=== PATIENT | male | born 1965 | race Two or more races ===

== ENCOUNTER 2020-09-09 08:08 | Emergency (ER) | payer OTHER, SELFPAY ==
[2020-09-09 08:19] VITALS: BP 132/79; PULSE 107; RESP 24; TEMP 36.8; O2SAT 97; BMI 31.4
--- NOTE | 2020-09-09 08:34 | XR_ITS ---
EXAMINATION: XR RIBS, LEFT CLINICAL INFORMATION: Rib pain. Fall. COMPARISON: Previous chest x-ray most recent June 2019 TECHNIQUE: 3 views of the left ribs and one view of the chest were obtained. FINDINGS: The cardiac and mediastinal contours are stable. The lungs are clear. There is no pleural effusion or pneumothorax. No acute rib fracture is seen. There are old right proximal rib fractures. There is an old right distal clavicle fracture. There are degenerative changes of the spine and left shoulder joint. XR/XR ribs LT min 3V w CXR1V IMPRESSION: No evidence for acute disease in the chest. No acute fracture seen.
--- NOTE | 2020-09-09 08:35 | ED_ITS ---
HPI - Fall General Chief Complaint: Fall Stated Complaint: abd pain Time Seen by Provider: 09/09/20 08:20 Source: patient Mode of arrival: ambulatory Limitations: no limitations History of Present Illness HPI Narrative: patient comes to the emergency room complaining of left-sided rib pain. Patient states that last night he fell in the tub while taking a shower. Patient complaining of rib pain, no abdominal pain, no back pain. Patient denies hitting his head, no loss of consciousness. Patient denies being on blood thinners. complaint: fall Related Data Allergies Allergy/AdvReac Type Severity Reaction Status Date / Time No Known Allergies Allergy Unverified 07/30/20 15:42 [No Known Allergies*] Motrin Allergy Unknown Uncoded 12/23/19 00:00 Review of Systems Review of Systems: Constitutional : No Weight loss, No Fever, No Chills, No Night Sweats, No Fatigue, No Malaise ENT/Mouth : No Hearing loss, No Ear Pain, No Nasal Congestion, No Sinus Pain, No Hoarseness, No sore throat, No Rhinorrhea, No Swallowing Difficulty Eyes: No Eye Pain, No Swelling, No Redness, No Foreign Body, No Discharge, No Vision Changes Cardiovascular : No Chest Pain, No SOB, No Dyspnea on Exertion, No Orthopnea, No Edema, No Palpitations Respiratory : No Cough, No Sputum, No Wheezing, No Smoke Exposure, No Dyspnea, left-sided rib pain worsens with deep inspirations, movement Gastrointestinal : No Nausea, No Vomiting, No Diarrhea, No Constipation, No abdominal Pain, No Hematochezia, No Melena Genitourinary : no irregular bleeding, No Dysuria, No Urinary Frequency, No Hematuria, No Urinary Incontinence, No Urgency, No Flank Pain, No Urinary Flow Changes, No Hesitancy Musculoskeletal : No joint pain, No Myalgias, No Joint Swelling Skin : No Skin Lesions, No rash Neuro : No Weakness, No Numbness, No Paresthesias, No Loss of Consciousness, No Dizziness, No Headache Psych : No Anxiety/Panic, No Depression, No SI/HI/AH/VH, No Social Issues, Heme/Lymph: No Bruising, No Bleeding,No Lymphadenopathy Endocrine : No Polyuria, No Polydipsia, No Temperature Intolerance Yes all other systems are reviewed and are negative PMFSH Past Medical History Medical History Diabetes HTN (hypertension) Stroke Social History Social History Alcohol intake: current Alcohol intake frequency: 0-2 drinks per day Alcohol type: beer and wine Smoking Status: Current every day smoker Use of substances other than those prescribed or required for medical reasons: No Advance Directives: No Advance Directives Information Provided: No Physical Exam Vital Signs: Vital Signs: Vital Signs Temp Pulse Resp BP Pulse Ox 09/09/20 08:39 24 H 09/09/20 08:19 98.3 F 107 H 24 H 132/79 97 Body Mass Index 31.4 Appearance: Alert. Oriented X3. No acute distress. Eyes: Pupils equal, round and reactive to light. ENT: Pharynx normal. Neck: Normal inspection. Neck supple. No lymph nodes noted. No crepitus CVS: Normal heart rate and rhythm. Pulses normal. Normal S1 and S2. significant pain to palpation over the lower ribs Respiratory: No respiratory distress. Breath sounds normal. No Wheezing. No rales Abdomen: Soft and nontender. No rigidity. No distention. good BS x4, bedside ultrasound within normal limits, no free fluid visualized Skin: Skin warm and dry. Normal skin color. Normal skin turgor. no ecchymosis in the abdomen or flanks Extremities: No lower extremity edema. No lower extremity edema. No Lacerati ons. No Rash Neuro: Oriented X 3. No motor deficit. No sensory deficit. Moving all extermities. No slurred speech. Course Reevaluation(s) Reevaluation #1: I discussed with the patient that his x-ray was within normal limits, no fractured ribs. The lady who does the registration, went to the patient's room, asked him the routine questions, patient was very belligerent to her and told her that she was not too many questions, patient got dressed and left MDM - Fall Imaging Data ribs x-ray: Radiologist's impression: The cardiac and mediastinal contours are stable. The lungs are clear. There is no pleural effusion or pneumothorax. No acute rib fracture is seen. There are old right proximal rib fractures. There is an old right distal clavicle fracture. There are degenerative changes of the spine and left shoulder joint. Discharge Plan Discharge Clinical Impression: Costochondritis, acute Patient Disposition: Elopement
[2020-09-09 08:39] VITALS: RESP 24
[2020-09-09] MEDS: Morphine Sulfate 2 MG/ML CARTRIDGE IM (08:39)
--- NOTE | 2020-09-09 09:19 | PC.NURSE ---
PATIENT BECAME ANGRY WHEN REGISTRATION WAS ASKING QUESTIONS, BEGAN YELLING AT STAFF. PT DECLINED TO WAIT, DR. SORTO AWARE. PT ELOPED FROM ED WITH STEADY GAIT, NO DISTRESS NOTED.
== END 2020-09-09 09:25 | disposition left against medical advice (07) ==
PROVIDERS: Emergency Provider Emergency Medicine
DX: S30.811A Abrasion of abdominal wall, initial encounter (principal); M94.0 Chondrocostal junction syndrome [Tietze]; R07.81 Pleurodynia; I10 Essential (primary) hypertension; W18.2XXA Fall in (into) shower or empty bathtub, initial encounter; Y93.E1 Activity, personal bathing and showering; Y92.002 Bathroom of unspecified non-institutional (private) residence as the place of occurrence of the external cause; F17.200 Nicotine dependence, unspecified, uncomplicated; Z71.6 Tobacco abuse counseling
CPT/HCPCS: 71101; 96372; 99284; J2270

== ENCOUNTER 2020-09-09 17:53 | Emergency (ER) | payer OTHER, SELFPAY ==
[2020-09-09 18:36] VITALS: BP 148/78; PULSE 97; RESP 16; TEMP 36.3; O2SAT 98; BMI 24.3
--- NOTE | 2020-09-09 19:13 | ED_ITS ---
HPI - Extremity Problem General Chief complaint: Extremity Injury, Upper Stated complaint: fall rib pain Time Seen by Provider: 09/09/20 19:08 Source: patient Mode of arrival: ambulatory Limitations: no limitations History of Present Illness HPI Narrative: 55yoM c PMHx of Stroke, HTN and DM presenting to the ED c c/o left lateral lower rib cage pain after he sustain a fall while in the shower on hair conditioner he believes. Denies head injury or loss of consciousness. Denies any other injuries complaints or concerns. Denies being on any blood thinners. Related Data Previous Rx's Medication Instructions Recorded cyclobenzaprine 10 mg PO TID PRN #10 tab 09/09/20 naproxen 500 mg PO BID PRN #10 tab 09/09/20 oxycodone-acetaminophen [Percocet] 1 tab PO Q6H PRN #10 tab 09/09/20 Allergies Allergy/AdvReac Type Severity Reaction Status Date / Time No Known Allergies Allergy Unverified 07/30/20 15:42 [No Known Allergies*] Motrin Allergy Unknown Uncoded 12/23/19 00:00 Review of Systems Review of Systems: ENT/Mouth : No Hearing loss, No Ear Pain, No Nasal Congestion, Eyes: No Eye Pain, No Swelling, No Vision Changes Cardiovascular : + Chest wall pain. No Chest Pain, No SOB, No Dyspnea on Exertion, No Orthopnea, No Edema, No Palpitations Respiratory : No Cough, No Sputum, No Wheezing, No Dyspnea Musculoskeletal : No joint pain, No Myalgias, No Joint Swelling Skin : No Skin Lesions, No rash Neuro : No Weakness, No Numbness, No Paresthesias, No Loss of Consciousness, No Dizziness, No Headache Yes all other systems are reviewed and are negative [facility] Past Medical History Medical History (Updated 09/09/20 @ 19:21 by THOMAS Quiroz) Diabetes HTN (hypertension) Stroke Social History Social History Alcohol intake: never Smoking Status: Current every day smoker Smoked in Last 30 Days: No Use of substances other than those prescribed or required for medical reasons: No Advance Directives: No Advance Directives Information Provided: No Physical Exam Vital Signs: Vital Signs: Vital Signs Temp Pulse Resp BP Pulse Ox 09/09/20 18:36 97.4 F 97 16 148/78 H 98 Body Mass Index 24.3 vital signs have been reviewed as normal and appeared to be correct. Blood pressure normal. Heart rate normal. Respiration rate normal. Temperature normal. Oxygen saturation normal. Appearance: Alert. Oriented X3. No acute distress. Head: Normal external exam. Normocephalic. Atraumatic. No Stahl signs noted. No raccoon eyes noted Eyes: PERRLA. EOMI. Conjunctiva and sclera normal. Eyelids normal. ENT: EAC normal. TM's Normal. Pharynx normal. Uvula midline. Moist mucous membranes. No trismus noted. No drooling noted. No muffled voice noted. Neck: Normal inspection. Neck supple. FROM. No adenopathy. Thyroid Normal. No meningeal signs. No neck mass noted. CVS: Normal heart rate and rhythm. Heart sound normal. No murmurs noted. Pulses normal throughout. Respiratory: No respiratory distress. Painless inspiration. Breath sounds normal. No wheezes/rales/rhonchi noted. Chest tender to palpation of left lateral lower rib cage. No obvious deformities. No crepitus noted. No rashes/lesion/induration/contusions/lacerations or signs of infection noted. No accessory muscle usage noted or decreased air movement noted. Abdomen: Soft and nontender. Bowel sounds normal in all 4 quadrants. No distention noted. No organomegaly noted. No visible injury noted. Back: No CVA tenderness. Full range of motion noted. Skin: Skin warm and dry. Normal skin color. Normal skin turgor. No rashes/lesions/lacerations noted. Extremities: No lower extremity edema. Extremities exhibit normal range of motion. Extremities nontender. Neuro: Oriented X 3. No motor deficit. No sensory deficit. Reflexes normal. Course Course Course Narrative: 55-year-old male presenting to the ED after mechanical fall in the shower to standing injury to his left lateral ribcage lower aspect. Denies head injury or loss of consciousness. Denies being on any blood thinners. Reports he was here earlier today although they never gave him his results. Denies any new injuries. X-ray results negative for any acute processes therefore will DC home with symptomatic treatment along with instructions to return if any new or worsening symptoms to follow-up with primary care provider. Patient understands agrees the plan. MDM - Extremity (Nontraumatic) Imaging Data rib chest left sided: Attestation: I personally reviewed and interpreted this imaging study as follows: Radiologist's impression: FINDINGS: The cardiac and mediastinal contours are stable. The lungs are clear. There is no pleural effusion or pneumothorax. No acute rib fracture is seen. There are old right proximal rib fractures. There is an old right distal clavicle fracture. There are degenerative changes of the spine and left shoulder joint. XR/XR ribs LT min 3V w CXR1V IMPRESSION: No evidence for acute disease in the chest. No acute fracture seen. Discharge Plan Discharge Clinical Impression: Rib tenderness Rib sprain Qualifiers: Encounter type: initial encounter Qualified Code(s): S23.41XA - Sprain of ribs, initial encounter Fall Qualifiers: Encounter type: initial encounter Qualified Code(s): W19.XXXA - Unspecified f all, initial encounter Patient Disposition: Home, Self-Care Instructions: Chest Wall Pain (ED), Rib Contusion (ED) Additional Instructions: Follow-up with your primary care provider. Return if any new or worsening symptoms Prescriptions: New oxycodone-acetaminophen [Percocet] 5-325 mg tablet 1 tab PO Q6H PRN (Reason: pain) Qty: 10 RF: 0 cyclobenzaprine 10 mg tablet 10 mg PO TID PRN (Reason: muscle spasm) Qty: 10 RF: 0 naproxen 500 mg tablet 500 mg PO BID PRN (Reason: pain) Qty: 10 RF: 0 Stand Alone Forms: Work/School Release Print Language: Divehi
[2020-09-09] MEDS: oxyCODONE HCl Immed Release 5 MG TABLET PO (20:05)
[2020-09-09] MEDS: Cyclobenzaprine HCl 10 MG TABLET PO (20:05)
[2020-09-09] MEDS: Lidocaine 4 % Patch ADH..PATCH 1 PATCH TRANSDERMA (20:06)
== END 2020-09-09 20:10 | disposition home or self-care (01) ==
PROVIDERS: Emergency Provider Internal Medicine
DX: S23.41XA Sprain of ribs, initial encounter (principal); S30.811A Abrasion of abdominal wall, initial encounter; R07.81 Pleurodynia; W18.2XXA Fall in (into) shower or empty bathtub, initial encounter; Y93.E1 Activity, personal bathing and showering; Y92.002 Bathroom of unspecified non-institutional (private) residence as the place of occurrence of the external cause; Y99.9 Unspecified external cause status; Z79.899 Other long term (current) drug therapy; F17.200 Nicotine dependence, unspecified, uncomplicated; Z71.6 Tobacco abuse counseling
CPT/HCPCS: 99283; 99284

== ENCOUNTER 2020-10-31 11:00 | Emergency (ER) | payer OTHER, SELFPAY ==
--- NOTE | 2020-10-31 11:11 | ED_ITS ---
HPI - Extremity Problem General Chief complaint: General Medical Stated complaint: fall Time Seen by Provider: 10/31/20 11:03 Source: patient Mode of arrival: ambulatory Limitations: no limitations Related Data Previous Rx's Medication Instructions Recorded cyclobenzaprine 10 mg PO TID PRN #10 tab 09/09/20 naproxen 500 mg PO BID PRN #10 tab 09/09/20 oxycodone-acetaminophen [Percocet] 1 tab PO Q6H PRN #10 tab 09/09/20 clopidogrel 75 mg tablet 75 mg PO DAILY 90 Days #90 tab 10/02/20 Allergies Allergy/AdvReac Type Severity Reaction Status Date / Time No Known Allergies Allergy Unverified 07/30/20 15:42 [No Known Allergies*] Motrin Allergy Unknown Uncoded 12/23/19 00:00 [facility] Past Medical History Medical History Diabetes HTN (hypertension) Stroke Social History Social History Alcohol intake: never Smoking Status: Current every day smoker Advance Directives: No Advance Directives Information Provided: Yes Discharge Plan Discharge Prescriptions: No Action clopidogrel [Plavix] 75 mg tablet 75 mg PO DAILY 90 Days Qty: 90 RF: 1 oxycodone-acetaminophen [Percocet] 5-325 mg tablet 1 tab PO Q6H PRN (Reason: pain) Qty: 10 RF: 0 cyclobenzaprine 10 mg tablet 10 mg PO TID PRN (Reason: muscle spasm) Qty: 10 RF: 0 naproxen 500 mg tablet 500 mg PO BID PRN (Reason: pain) Qty: 10 RF: 0
[2020-10-31 11:13] VITALS: BP 122/76; PULSE 76; RESP 16; TEMP 36.6; O2SAT 98; BMI 36.0
--- NOTE | 2020-10-31 11:21 | ECG_ITS ---
Test Reason : FLANK PAIN Blood Pressure : / mmHG Vent. Rate : 084 BPM Atrial Rate : 084 BPM P-R Int : 180 ms QRS Dur : 086 ms QT Int : 376 ms P-R-T Axes : 043 -13 040 degrees QTc Int : 444 ms Normal sinus rhythm Inferior infarct (cited on or before 08-MAY-2019) Cannot rule out Anterior infarct , age undetermined Abnormal ECG When compared with ECG of 19-JUN-2019 22:29, No significant change was found Referred By: Kandy Baca Electronically Signed By:Geraldo Harmon
--- NOTE | 2020-10-31 11:26 | ED_ITS ---
HPI - General Adult General Chief complaint: General Medical Stated complaint: fall Time Seen by Provider: 10/31/20 11:03 Source: patient and resolution specialist Mode of arrival: ambulatory Limitations: language barrier History of Present Illness HPI narrative: 55-year-old male with a past medical history of diabetes, hyper tension, HIV on Biktarvy, mi with stents on plavix here with bilateral chest wall pain. The patient told me 1 month ago had a mechanical fall striking his left ribs. He was seen here in the emergency department and had an x-ray which was reportedly unremarkable. The patient tells me he has been taking Tylenol home with continued pain. The pain now is on left and right side. It is worsened with deep breathing, movement and palpation. The patient denies any cough for shortness of breath or fevers or chills or body aches. No abdominal pain, vomiting or diarrhea. Onset (ago): week(s) Location: chest Radiation: non-radiation Severity: mild Quality: aching Pain Consistency: intermittent Relieving factors: immobilization and rest Exacerbating factors: movement Associated symptoms: denies other symptoms Treatments prior to arrival: none Related Data Previous Rx's Medication Instructions Recorded cyclobenzaprine 10 mg PO TID PRN #10 tab 09/09/20 naproxen 500 mg PO BID PRN #10 tab 09/09/20 oxycodone-acetaminophen [Percocet] 1 tab PO Q6H PRN #10 tab 09/09/20 clopidogrel 75 mg tablet 75 mg PO DAILY 90 Days #90 tab 10/02/20 cyclobenzaprine 10 mg PO Q8H PRN #20 tab 10/31/20 hydrocodone-acetaminophen 1 tab PO Q8H PRN #10 tab 10/31/20 lidocaine [Lidoderm] 1 patch TOPICAL DAILY #15 ea 10/31/20 Allergies Allergy/AdvReac Type Severity Reaction Status Date / Time No Known Allergies Allergy Unverified 07/30/20 15:42 [No Known Allergies*] Motrin Allergy Unknown Uncoded 12/23/19 00:00 Review of Systems Review of Systems: Yes all other systems are reviewed and are negative Constitutional: Constitutional: Reports no additional constitutional complai nts, Denies body ache(s), Denies chills, Denies fever(s), Denies headache(s) and Denies weakness Eyes: Eyes: Reports no additional eye complaints and Denies change in vision ENT: Reports system reviewed and no additional complaints, except as documented, Denies dizziness, Denies headache(s), Denies nasal congestion, Denies nasal discharge and Denies neck pain Cardiovascular: Cardiovascular: Reports no additional cardiovascular complaints, Reports chest pain, Denies leg edema and Denies dyspnea Respiratory: Respiratory: Reports no additional respiratory complaints, Denies cough and Denies dyspnea Gastrointestinal: Gastrointestinal: Reports no additional gastrointestinal complaints, Denies abdominal pain, Denies diarrhea, Denies nausea and Denies vomiting Genitourinary: Genitourinary: Denies urinary incontinence Musculoskeletal: Musculoskeletal: Reports no additional musculoskeletal comp laints, Denies back pain, Denies arthralgias, Denies joint swelling, Denies neck pain, Denies numbness and Denies tingling Integumentary/Breasts: Skin/Breast: Reports system reviewed and no additional complaints, except as docu and Denies rash Neurologic: Reports system reviewed and no additional complaints, except as documented, Denies Abnormal speech present, Denies dizziness, Denies headache(s), Denies numbness, Denies tingling and Denies weakness PMFSH Past Medical History Attestation statement: The following information was validated with the patient. Source: old records reviewed and nursing notes reviewed Medical History (Updated 10/31/20 @ 15:38 by Kandy Baca NP) Diabetes HTN (hypertension) Stroke Surgical History (Updated 10/31/20 @ 11:37 by Kandy Baca NP) H/O heart artery stent Social History Social History Alcohol intake: never Smoking Status: Current every day smoker Advance Directives: No Advance Directives Information Provided: Yes Physical Exam Vital Signs: Vital Signs: Last Vital Signs Temp 98.3 F 10/31/20 13:43 Pulse 77 10/31/20 13:43 Resp 16 10/31/20 13:43 BP 131/62 10/31/20 13:43 Pulse Ox 97 10/31/20 13:43 Body Mass Index 36.0 Const: General: cooperative, healthy appearing, comfortable and no acute distress Orientation/consciousness: patient oriented x3 Limitations: no limitations HENMT: Head: Yes normal to inspection Ears: hearing grossly normal bilaterally General nose exam: Normal external nose present Face and sinus: Yes normal facial exam Mouth: Normal oral and palatal mucosa present Throat: Yes posterior oropharynx normal Eyes: General: appearance normal, both eyes and all related structures Pupils: Equal, round and reactive pupils present Neck: Neck: Yes normal visual inspection Chest: Other: Bilateral chest wall tenderness laterally. No ecchymosis or crepitus. Chest palpation & inspection: normal inspection of the chest Resp: Effort & Inspection: normal respiratory effort Auscultation: clear to auscultation bilaterally Cardio: Rate: regular rate Rhythm: regular rhythm Peripheral pulses: Peripheral pulses 2+ throughout GI: Inspection: Yes normal to inspection Palpation (GI): Soft to palpation and nontender Auscultation: normal bowel sounds Back/Spine/Pelvis: Thoracic/Lumbar Spine: thoracic and lumbar spine normal to inspection Skin: General skin exam: no rashes or lesions noted Neuro: General: patient oriented x3, no focal motor deficits and normal sensation to monofilament Cranial nerves: Yes Equal, round and reactive pupils present Cognition (Neuro): normal cognition Speech: No Abnormal speech present Gait exam (Neuro): Normal gait present Motor exam (neuro): 5/5 motor strength present throughout Extrem: General: Yes normal to inspection Course Course Course Narrative: 55-year-old male here with bilateral chest wall pain which he tells me he sustained from a fall 1 month ago. He tells me the pain is wors ening now radiating to the right side. He has no other associated symptoms. Pain is worsened with deep breathing, movement and palpation. No abdominal pain. Will check labs, EKG, UA. 1230-elevated troponin 73.2. EKG shows no new changes. Plan for repeat 3 hour troponin. Added on D-dimer to r/o PE. Patient may need additional imaging. [id number] negative. Repeat troponin unchanged. Less likely ACS with unchanging troponin, atypical chest pain greater than 4 weeks and unchanged EKG. Discussed with Dr. Burrows who agrees less likely ACS/NSTEMI. CT of chest shows healing fractures of the left posterior 12th and left anterior lateral 8th rib. Small blebs and both lung apices and large bullae in the left mid lung adjacent to the left pulmonary artery. These findings were discussed with the patient at length. He was given a copy of the CT report. Will refer to pulmonology for follow-up. [facility] and when to return to the emergency department. Comfortable discharge home. Medical Decision Making Medical Records Medical records reviewed: Yes I reviewed the patient's medical records. Lab Data Lab results reviewed: Yes I reviewed the patient's lab results. Result diagrams: 10/31/20 11:36 10/31/20 11:36 Labs: Lab Results 10/31/20 10/31/20 10/31/20 Range/Units 11:36 11:36 11:36 WBC 8.0 (4.8-10.8) X10*3/uL RBC 4.56 L (4.60-5.80) X10*6/uL Hgb 15.5 (14.0-18.0) g/dl Hct 45.0 (42-52) % MCV 98.7 H (80-98) fL MCH 34.0 H (27.0-33.0) pg MCHC 34.4 (31.0-36.0) g/dl RDW 13.2 (11.0-16.0) % Plt Count 322 (160-400) X10*3/uL MPV 9.4 (9.4-12.4) fL Immature Gran % (Auto) 0.2 (0.0-0.4) % Neut % (Auto) 55.7 (45-73) % Lymph % (Auto) 31.0 (20-40) % [place] % (Auto) 11.5 H (2-11) % Eos % (Auto) 1.1 (0-4) % Baso % (Auto) 0.5 (0-2) % Lymph # (Auto) 2.5 (1.2-4.9) X10*3/uL [place] # (Auto) 0.9 (0.1-1.2) X10*3/uL Eos # (Auto) 0.1 (0.0-0.4) X10*3/uL Baso # (Auto) 0.0 (0.0-0.2) X10*3/uL Abs Immat Gran (auto) 0.02 (0.00-0.03) X10*3/uL Absolute Neuts (auto) 4.5 (2.0-8.3) X10*3/uL Absolute Nucleated RBC 0.000 (0.0-0.012) X10*3/uL Nucleated RBC % (auto) 0.0 (0.0-0.2) /100WBC D-Dimer 210 NG/ML Hold Blue Top SEE NOTE Sodium 138 (135-145) mmol/L Potassium 4.8 (3.3-5.1) mmol/l Chloride 104 (96-108) mmol/L Carbon Dioxide 29 (22-29) mmol/L Anion Gap 10 L (12-20) BUN 19 H (9-16) mg/dL Creatinine 0.98 (0.5-1.4) mg/dL Estim Creat Clear Calc 87.6 Estimated GFR > 60 Random Glucose 127 H (60-115) mg/dL Calcium 9.1 (8.4-10.2) mg/dL Total Bilirubin 0.6 (0.0-1.0) mg/dL Direct Bilirubin 0.3 (0.0-0.5) mg/dL AST 26 (5-37) U/L ALT 29 (0-40) U/L Alkaline Phosphatase 96 (39-117) U/L Troponin I High Sens (<3.5-35.0) ng/L Total Protein 6.7 (6.5-8.0) g/dL Albumin 4.2 (3.5-5.0) g/dL Urine Color Urine Appearance Urine pH (5.0-8.0) Ur Specific [place] (1.005-1.025) Urine Protein (NEG-TRACE) MG/DL Urine Glucose (UA) (NEG) MG/DL Urine Ketones (NEG) MG/DL Urine Blood (NEG) Urine Nitrite (NEG) Ur Leukocyte Esterase (NEG) 10/31/20 10/31/20 10/31/20 Range/Units 11:36 11:36 14:39 WBC (4.8-10.8) X10*3/uL RBC (4.60-5.80) X10*6/uL Hgb (14.0-18.0) g/dl Hct (42-52) % MCV (80-98) fL MCH (27.0-33.0) pg MCHC (31.0-36.0) g/dl RDW (11.0-16.0) % Plt Count (160-400) X10*3/uL MPV (9.4-12.4) fL Immature Gran % (Auto) (0.0-0.4) % Neut % (Auto) (45-73) % Lymph % (Auto) (20-40) % [place] % (Auto) (2-11) % Eos % (Auto) (0-4) % Baso % (Auto) (0-2) % Lymph # (Auto) (1.2-4.9) X10*3/uL [place] # (Auto) (0.1-1.2) X10*3/uL Eos # (Auto) (0.0-0.4) X10*3/uL Baso # (Auto) (0.0-0.2) X10*3/uL Abs Immat Gran (auto) (0.00-0.03) X10*3/uL Absolute Neuts (auto) (2.0-8.3) X10*3/uL Absolute Nucleated RBC (0.0-0.012) X10*3/uL Nucleated RBC % (auto) (0.0-0.2) /100WBC D-Dimer NG/ML Hold Blue Top Sodium (135-145) mmol/L Potassium (3.3-5.1) mmol/l Chloride (96-108) mmol/L Carbon Dioxide (22-29) mmol/L Anion Gap (12-20) BUN (9-16) mg/dL Creatinine (0.5-1.4) mg/dL Estim Creat Clear Calc Estimated GFR Random Glucose (60-115) mg/dL Calcium (8.4-10.2) mg/dL Total Bilirubin (0.0-1.0) mg/dL Direct Bilirubin (0.0-0.5) mg/dL AST (5-37) U/L ALT (0-40) U/L Alkaline Phosphatase (39-117) U/L Troponin I High Sens 73.2 H 76.6 H (<3.5-35.0) ng/L Total Protein (6.5-8.0) g/dL Albumin (3.5-5.0) g/dL Urine Color YELLOW Urine Appearance CLEAR Urine pH 7.0 (5.0-8.0) Ur Specific [place] 1.020 (1.005-1.025) Urine Protein NEG (NEG-TRACE) MG/DL Urine Glucose (UA) NEG (NEG) MG/DL Urine Ketones NEG (NEG) MG/DL Urine Blood NEG (NEG) Urine Nitrite NEG (NEG) Ur Leukocyte Esterase NEG (NEG) Imaging Data CT scan - chest: Attestation: I personally reviewed and interpreted this imaging study as follows: Radiologist's impression: EXAMINATION: CT CHEST WITHOUT CONTRAST CLINICAL INFORMATION: Trauma, Pain over the ribs. COMPARISON: Chest x-ray 09/01/2020 TECHNIQUE: Multidetector volumetric CT imaging of the chest was done. Axial MIP volume rendering provided. Sagittal and coronal reformatted images were obtained. This CT examination was performed using dose optimization techniques as appropriate, variously including the following: *Automated exposure control *Adjustment of mA and/or kV according to patient size (this includes techniques or standardized protocols for targeted exams where dose is matched to indication/reason for exam; i.e. 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 LUNGS: The lungs are well-expanded and clear of acute pneumonic process. There are small blebs in the lung apices. There is a large bleb indenting and adjacent to left pulmonary artery, measuring approximate 4.2 cm in length. There is a 4 mm calcified nodule right lower lobe likely granuloma. No additional nodules seen. MEDIASTINUM: Thyroid lobes are symmetrical and normal. The heart size and great vessels are normal caliber. There is no pericardial effusion. Central trachea and the bronchi widely patent. There are coronary artery calcium bases present. No abnormal mediastinal lymph nodes or mass seen. PLEURA: There is no pleural effusion. No pleural mass or thickening. AXILLA: No lymphadenopathy. UPPER ABDOMEN: Visualized liver, spleen, pancreas and bilateral adrenal glands are unremarkable. OSSEOUS STRUCTURES: There is a healing left anterolateral eighth and posterior 12th ribs. CT/CT chest wo con IMPRESSION: Small blebs in the both lung apices and a large bullae in the left midlung adjacent to left pulmonary artery. No lung contusion, pleural effusion or pneumothorax. Healing fractures left posterior 12th and left anterolateral eighth ribs. No visible acute fracture seen. ECG Data Attestation: I personally reviewed and interpreted this ECG as follows: Interpretation: Normal sinus rhythm, rate of 84, normal LA, normal QRS, normal QT Discharge Plan Discharge Clinical Impression: Lung blebs Closed rib fracture Qualifiers: Encounter type: initial encounter Rib fracture type: multiple ribs Laterality: left Qualified Code(s): S22.42XA - Multiple fractures of ribs, left side, initial encounter for closed fracture Patient Disposition: Home, Self-Care Instructions: Rib Fracture (ED) Additional Instructions: Your CT shows lung blebs. You need to call pulmonology and follow-up with them for this Your rib fracture can take weeks to heal. No heavy lifting or bending Ice to the area Prescriptions: New cyclobenzaprine 10 mg tablet 10 mg PO Q8H PRN (Reason: muscle) Qty: 20 RF: 0 lidocaine [Lidoderm] 5 % adhesive patch,medicated 1 patch topical DAILY Qty: 15 RF: 0 hydrocodone-acetaminophen 5-300 mg tablet 1 tab PO Q8H PRN (Reason: pain) Qty: 10 RF: 0 No Action clopidogrel [Plavix] 75 mg tablet 75 mg PO DAILY 90 Days Qty: 90 RF: 1 oxycodone-acetaminophen [Percocet] 5-325 mg tablet 1 tab PO Q6H PRN (Reason: pain) Qty: 10 RF: 0 cyclobenzaprine 10 mg tablet 10 mg PO TID PRN (Reason: muscle spasm) Qty: 10 RF: 0 naproxen 500 mg tablet 500 mg PO BID PRN (Reason: pain) Qty: 10 RF: 0 Referrals: Slava German MD [Physician] - 2 days Interventions: ED Discharge Assessment Last Done: 10/31/20 16:07 Discharge Date/Time: 10/31/20 16:08 Print Language: Arabic
[2020-10-31] MEDS: Ketorolac Tromethamine 60 MG/2 ML VIAL IM (11:33)
[2020-10-31 11:41] LABS: Basophils Percent Auto 0.5 % (0-2); Eosinophils Absolute Auto 0.1 X10*3/uL (0.0-0.4); Eosinophils Percent Auto 1.1 % (0-4); Hemoglobin 15.5 g/dl (14.0-18.0); Imm Gran Abs Auto 0.02 X10*3/uL (0.00-0.03); Imm Gran Pct Auto 0.2 % (0.0-0.4); Lymphocytes Absolute Auto 2.5 X10*3/uL (1.2-4.9); MANUAL DIFF FLAG NO; Mean Corpuscular HGB Conc 34.4 g/dl (31.0-36.0); Mean Corpuscular Volume 98.7 fL (80-98); Mean Platelet Volume 9.4 fL (9.4-12.4); Monocytes Absolute Auto 0.9 X10*3/uL (0.1-1.2); Monocytes Percent Auto 11.5 % (2-11); Neutrophils Absolute Auto 4.5 X10*3/uL (2.0-8.3); Neutrophils Percent Auto 55.7 % (45-73); Platelet Count 322 X10*3/uL (160-400); Red Blood Count 4.56 X10*6/uL (4.60-5.80); Red Cell Distribution Width 13.2 % (11.0-16.0)
[2020-10-31 11:49] LABS: Glucose Urine UA NEG (NEG); Leukocyte Esterase Urine NEG (NEG); Nitrite Urine NEG (NEG); Urine Blood NEG (NEG); Urine Ketones NEG (NEG); Urine Protein NEG (NEG-TRACE)
[2020-10-31 11:51] LABS: Appearance Urine CLEAR; Color Urine YELLOW
[2020-10-31 12:06] LABS: Alanine Aminotransferase 29 U/L (0-40); Albumin Level 4.2 g/dL (3.5-5.0); Alkaline Phosphatase 96 U/L (39-117); Anion Gap 10 (12-20); Aspartate Amino Transferase 26 U/L (5-37); Bilirubin Direct 0.3 mg/dL (0.0-0.5); Bilirubin Total 0.6 mg/dL (0.0-1.0); Blood Urea Nitrogen 19 mg/dL (9-16); Calcium 9.1 mg/dL (8.4-10.2); Carbon Dioxide 29 mmol/L (22-29); Chloride 104 mmol/L (96-108); Creatinine Clr Calc Pharmacy 87.6; Estimated Glomerular Filt Rate > 60; Glucose Random 127 mg/dL (60-115); Potassium 4.8 mmol/l (3.3-5.1); Sodium 138 mmol/L (135-145); Total Protein 6.7 g/dL (6.5-8.0)
[2020-10-31 12:27] LABS: Troponin-I High Sensitivity 73.2 ng/L (<3.5-35.0)
[2020-10-31 12:51] LABS: D Dimer 210 NG/ML
--- NOTE | 2020-10-31 13:11 | CT_ITS ---
EXAMINATION: CT CHEST WITHOUT CONTRAST CLINICAL INFORMATION: Trauma, Pain over the ribs. COMPARISON: Chest x-ray 09/01/2020 TECHNIQUE: Multidetector volumetric CT imaging of the chest was done. Axial MIP volume rendering provided. Sagittal and coronal reformatted images were obtained. This CT examination was performed using dose optimization techniques as appropriate, variously including the following: *Automated exposure control *Adjustment of mA and/or kV according to patient size (this includes techniques or standardized protocols for targeted exams where dose is matched to indication/reason for exam; i.e. 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 LUNGS: The lungs are well-expanded and clear of acute pneumonic process. There are small blebs in the lung apices. There is a large bleb indenting and adjacent to left pulmonary artery, measuring approximate 4.2 cm in length. There is a 4 mm calcified nodule right lower lobe likely granuloma. No additional nodules seen. MEDIASTINUM: Thyroid lobes are symmetrical and normal. The heart size and great vessels are normal caliber. There is no pericardial effusion. Central trachea and the bronchi widely patent. There are coronary artery calcium bases present. No abnormal mediastinal lymph nodes or mass seen. PLEURA: There is no pleural effusion. No pleural mass or thickening. AXILLA: No lymphadenopathy. UPPER ABDOMEN: Visualized liver, spleen, pancreas and bilateral adrenal glands are unremarkable. OSSEOUS STRUCTURES: There is a healing left anterolateral eighth and posterior 12th ribs. CT/CT chest wo con IMPRESSION: Small blebs in the both lung apices and a large bullae in the left midlung adjacent to left pulmonary artery. No lung contusion, pleural effusion or pneumothorax. Healing fractures left posterior 12th and left anterolateral eighth ribs. No visible acute fracture seen.
[2020-10-31 13:43] VITALS: BP 131/62; PULSE 77; RESP 16; TEMP 36.8; O2SAT 97
[2020-10-31] MEDS: Cyclobenzaprine HCl 10 MG TABLET PO (13:59)
[2020-10-31] MEDS: oxyCODONE HCl Immed Release 5 MG TABLET PO (14:00)
[2020-10-31] MEDS: Acetaminophen 325 MG TABLET 650 MG PO (14:00)
[2020-10-31 15:26] LABS: Troponin-I High Sensitivity 76.6 ng/L (<3.5-35.0)
== END 2020-10-31 16:08 | disposition home or self-care (01) ==
PROVIDERS: Nurse Practitioner Family; Emergency Provider Emergency Medicine
DX: S22.42XA Multiple fractures of ribs, left side, initial encounter for closed fracture (principal); R07.81 Pleurodynia; I10 Essential (primary) hypertension; W01.0XXA Fall on same level from slipping, tripping and stumbling without subsequent striking against object, initial encounter; Y93.9 Activity, unspecified; Y92.9 Unspecified place or not applicable; Y99.9 Unspecified external cause status; F17.200 Nicotine dependence, unspecified, uncomplicated; Z71.6 Tobacco abuse counseling; Z79.899 Other long term (current) drug therapy
CPT/HCPCS: 36415; 71250; 80048; 80076; 81003; 84484; 85025; 85379; 93005; 96372; 99284; J1885

== ENCOUNTER 2020-11-05 10:58 | Emergency (ER) | payer OTHER, SELFPAY ==
[2020-11-05 11:05] VITALS: BP 110/69; BP 120/75; PULSE 110; PULSE 114; RESP 18; TEMP 36.6; O2SAT 95; BMI 28.5
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
--- NOTE | 2020-11-05 11:25 | PC.NURSE ---
PT STANDING UPRIGHT IN ROOM, JUMPING UP AND DOWN, STRETCHING, PUNCHING AIR, APPEARS STEADY ON FEET.
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
--- NOTE | 2020-11-05 12:07 | PC.NURSE ---
PT REQUESTING TO LEAVE, PROVIDER SPOKE W/ PT ADVISING OF POTENTIAL RISKS, PT THEN AMBULATED OUT OF ED WITH EVEN STEADY GAIT.
== END 2020-11-05 12:08 | disposition left against medical advice (07) ==
PROVIDERS: Emergency Provider Emergency Medicine Emergency Medical Services
DX: Z04.1 Encounter for examination and observation following transport accident (principal); S01.81XA Laceration without foreign body of other part of head, initial encounter; S00.81XA Abrasion of other part of head, initial encounter; W22.8XXA Striking against or struck by other objects, initial encounter; E11.9 Type 2 diabetes mellitus without complications; I10 Essential (primary) hypertension; F17.200 Nicotine dependence, unspecified, uncomplicated; Y93.9 Activity, unspecified; Y92.019 Unspecified place in single-family (private) house as the place of occurrence of the external cause; Y99.9 Unspecified external cause status
CPT/HCPCS: 99284

== ENCOUNTER 2020-11-05 13:49 | Emergency (ER) | payer OTHER, SELFPAY ==
--- NOTE | 2020-11-05 14:01 | CT_ITS ---
EXAMINATION: CT CERVICAL SPINE WITHOUT CONTRAST CLINICAL INFORMATION: EtOH/fall. COMPARISON: Cervical spine CT January 04, 2018 TECHNIQUE: CT of the cervical spine was performed without contrast. Multiplanar reformats were rendered and reviewed. This CT examination was performed using dose optimization techniques as appropriate, variously including the following: *Automated exposure control *Adjustment of mA and/or kV according to patient size (this includes techniques or standardized protocols for targeted exams where dose is matched to indication/reason for exam; i.e. extremities or head) *Use of iterative reconstruction technique DLP: 1513 mGy-cm FINDINGS: The cervical vertebral bodies maintain normal height and alignment. The craniovertebral junction appears intact. No fracture is seen. There is no traumatic listhesis. The facet joints are normally aligned. There is mild disc height loss at C5-6. Mild endplate spurring is noted. There is no significant osseous encroachment on the spinal canal. No high-grade neural foraminal stenosis is seen. The upper lungs demonstrate paraseptal emphysema. The imaged intracranial contents are unremarkable. Air-filled laryngoceles are noted. The cervical soft tissues are otherwise appear normal. CT/CT cervical spine wo con IMPRESSION: No cervical spine fracture or traumatic malalignment.
--- NOTE | 2020-11-05 14:01 | CT_ITS ---
EXAMINATION: CT HEAD WITHOUT CONTRAST CLINICAL INFORMATION: ETOH, fall, trauma COMPARISON: CT had noncontrast 01/04/2018 TECHNIQUE: Contiguous axial imaging was performed from the skull base to vertex without intravenous administration of contrast. Additional 2-D coronal and sagittal reformatted images are generated on the CT workstation and uploaded to PACS. This CT examination was performed using dose optimization techniques as appropriate, variously including the following: *Automated exposure control *Adjustment of mA and/or kV according to patient size (this includes techniques or standardized protocols for targeted exams where dose is matched to indication/reason for exam; i.e. extremities or head) *Use of iterative reconstruction technique DLP: 808 mGy-cm FINDINGS: There is a small acute frontal scalp hematoma just right of midline measuring 1.0 x 1.1 x 2.1 cm. There is no intracranial hemorrhage, hematoma, or extra-axial fluid collection. The ventricles are normal in size. There is no hydrocephalus, edema, or mass effect. The ames-white matter differentiation appears symmetric. There is no visible acute territorial infarct or mass lesion. The calvarium appears intact. There is no pneumocephalus or orbital emphysema. The visualized sinuses and middle ears and mastoid air cells show no significant mucosal thickening. There are no air-fluid levels. CT/CT head/brain wo con IMPRESSION: 1. Frontal scalp hematoma just right of midline 1.0 x 1.1 x 2.1 cm. 2. No intracranial hemorrhage or hematoma. 3. No acute intracranial abnormality.
[2020-11-05 14:04] VITALS: BP 128/81; PULSE 128; RESP 18; TEMP 36.6; O2SAT 97; BMI 28.3
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
[2020-11-05 14:44] LABS: MANUAL DIFF FLAG NO
[2020-11-05 14:46] LABS: Basophils Absolute Auto 0.1 X10*3/uL (0.0-0.2); Basophils Percent Auto 0.4 % (0-2); Eosinophils Percent Auto 0.3 % (0-4); Hematocrit 46.3 % (42-52); Hemoglobin 15.9 g/dl (14.0-18.0); Imm Gran Abs Auto 0.03 X10*3/uL (0.00-0.03); Imm Gran Pct Auto 0.3 % (0.0-0.4); Lymphocytes Percent Auto 25.3 % (20-40); Mean Corpuscular HGB Conc 34.3 g/dl (31.0-36.0); Mean Corpuscular Hemoglobin 33.7 pg (27.0-33.0); Mean Corpuscular Volume 98.1 fL (80-98); Mean Platelet Volume 9.2 fL (9.4-12.4); Monocytes Absolute Auto 1.2 X10*3/uL (0.1-1.2); Monocytes Percent Auto 9.8 % (2-11); Neutrophils Absolute Auto 7.6 X10*3/uL (2.0-8.3); Neutrophils Percent Auto 63.9 % (45-73); Platelet Count 325 X10*3/uL (160-400); Red Blood Count 4.72 X10*6/uL (4.60-5.80); Red Cell Distribution Width 13.2 % (11.0-16.0)
[2020-11-05 15:04] LABS: Glucose Urine UA NEG (NEG); Leukocyte Esterase Urine NEG (NEG); Nitrite Urine NEG (NEG); PH 5.5 (5.0-8.0); Specific Gravity - Urine 1.015 (1.005-1.025); Urine Blood NEG (NEG); Urine Ketones NEG (NEG); Urine Protein NEG (NEG-TRACE)
[2020-11-05 15:07] LABS: Appearance Urine CLEAR; Color Urine YELLOW
[2020-11-05 15:12] LABS: Ethanol 295 mg/dL
[2020-11-05 15:14] LABS: Mucus Urine TRACE /LPF; RBC Urine 0 /HPF (0); WBC Urine 0-2 /HPF (0-4)
[2020-11-05 15:14] LABS: Alanine Aminotransferase 37 U/L (0-40); Albumin Level 4.4 g/dL (3.5-5.0); Alkaline Phosphatase 103 U/L (39-117); Anion Gap 16 (12-20); Aspartate Amino Transferase 81 U/L (5-37); Bilirubin Total 0.5 mg/dL (0.0-1.0); Blood Urea Nitrogen 15 mg/dL (9-16); Carbon Dioxide 23 mmol/L (22-29); Chloride 104 mmol/L (96-108); Estimated Glomerular Filt Rate 59; Glucose Random 133 mg/dL (60-115); Potassium 4.2 mmol/l (3.3-5.1); Sodium 139 mmol/L (135-145)
[2020-11-05 15:26] LABS: Amphetamine Screen Urine Not Detected (Not Detect); Barbiturates, Urine Not Detected (Not Detect); Benzodiazepines Screen Urine Not Detected (Not Detect); Cannabinoid Screen Urine Not Detected (Not Detect); Cocaine Screen Urine Not Detected (Not Detect); Opiate Screen Urine Not Detected (Not Detect); Phencyclidine Screen Urine Not Detected (Not Detect)
--- NOTE | 2020-11-05 15:54 | PC.NURSE ---
pt continues to fight the air, doing the splits, doing push ups, sweating heavily. pt then stated im going home and began ambulating down hallway, security called, pt redirected to room att.
[2020-11-05 16:00] VITALS: BP 112/59; PULSE 118; RESP 16; TEMP 36.6; O2SAT 95
--- NOTE | 2020-11-05 17:31 | PC.NURSE ---
Patient got transferred from main ED, ambulated without gait deficit, provider sutured for-head, received 4 suture/patient compliant, [facility] faxed/called/spoke with Bob/confirmed receipt of referral/N made aware of patient's BAL number and patient is ok to be seen around midnight. Patient is currently in bed appears sleeping, no distress reported/observed at this time, will continue to monitor.
[2020-11-05 22:19] VITALS: BP 128/73; PULSE 93; RESP 18; TEMP 37.3; O2SAT 96
[2020-11-05] MEDS: Amoxicillin/Potassium Clav 875 MG TABLET PO (23:15)
[2020-11-05] MEDS: Ibuprofen 600 MG TABLET PO (23:15)
--- NOTE | 2020-11-05 23:50 | PC.NURSE ---
Patient complain of mouth ache from pulling out his teeth earlier in the day. Provider ordered Ibuprfen 600 mg and Augmentin/administered as ordered/patient compliant. [facility] called/notified that clinician is on the way to see the patient. will continue to monitor.
== END 2020-11-06 02:37 | disposition home or self-care (01) ==
PROVIDERS: Nurse Practitioner Primary Care; Emergency Provider Internal Medicine
DX: F10.920 Alcohol use, unspecified with intoxication, uncomplicated (principal); Y90.8 Blood alcohol level of 240 mg/100 ml or more; S01.81XA Laceration without foreign body of other part of head, initial encounter; S00.01XA Abrasion of scalp, initial encounter; W19.XXXA Unspecified fall, initial encounter; B20 Human immunodeficiency virus [HIV] disease; E11.9 Type 2 diabetes mellitus without complications; I10 Essential (primary) hypertension; F17.200 Nicotine dependence, unspecified, uncomplicated; Y93.9 Activity, unspecified; Y92.9 Unspecified place or not applicable; Y99.9 Unspecified external cause status; Z79.899 Other long term (current) drug therapy; Z79.01 Long term (current) use of anticoagulants
CPT/HCPCS: 12011; 36415; 70450; 72125; 80053; 80307; 80320; 81001; 85025; 99284

== ENCOUNTER 2020-11-12 23:54 | Emergency (ER) | payer OTHER, SELFPAY ==
[2020-11-13 00:12] VITALS: BP 157/84; PULSE 107; RESP 18; TEMP 36.1; O2SAT 95; BMI 25.8
--- NOTE | 2020-11-13 00:20 | PC.NURSE ---
Patient was with us few days ago with same presentation was seen by N and discharged home. His daughter came to bean picker for ride. Patient currently in his bed sitting, care team called for help. Patient denied distress at this time and wanted to go home. will continue to monitor.
--- NOTE | 2020-11-13 00:29 | ED.ALCOHOL ---
HPI - Alcohol General Chief Complaint: ETOH/Substance Use Stated Complaint: ETOH INTOXICATION Time Seen by Provider: 11/13/20 00:28 Source: patient Mode of arrival: EMS Limitations: no limitations History of Present Illness HPI narrative: Patient's history of alcohol abuse get angry and upset when he drinks alcohol was here few days ago for same today he had few drinks and made week SI statements to family member who called ambulance to bring him to the ER at this time patient is relaxed denies any suicidal ideation in the past also he never had any suicidal attempt MD complaint: alcohol intoxication Chronic alcohol use: Yes Previous visits for alcohol intoxication: Yes Recent trauma: No Associated symptoms: denies other symptoms Treatments prior to arrival: none Related Data Previous Rx's Medication Instructions Recorded cyclobenzaprine 10 mg PO TID PRN #10 tab 09/09/20 naproxen 500 mg PO BID PRN #10 tab 09/09/20 oxycodone-acetaminophen [Percocet] 1 tab PO Q6H PRN #10 tab 09/09/20 clopidogrel 75 mg tablet 75 mg PO DAILY 90 Days #90 tab 10/02/20 cyclobenzaprine 10 mg PO Q8H PRN #20 tab 10/31/20 hydrocodone-acetaminophen 1 tab PO Q8H PRN #10 tab 10/31/20 lidocaine [Lidoderm] 1 patch TOPICAL DAILY #15 ea 10/31/20 amoxicillin-pot clavulanate 1 tab PO Q12H 10 Days #20 tab 11/05/20 [Augmentin] Allergies Allergy/AdvReac Type Severity Reaction Status Date / Time No Known Allergies Allergy Unverified 07/30/20 15:42 [No Known Allergies*] Motrin Allergy Unknown Uncoded 12/23/19 00:00 Review of Systems Review of Systems: Constitutional : No Weight loss, No Fever, No Chills ENT/Mouth : No sore throat, No Rhinorrhea Eyes: No Eye Pain, No Swelling Cardiovascular : No Chest Pain, no palpitations Respiratory : No Cough, No Sputum, no shortness of breath Gastrointestinal : no Nausea, No Vomiting, No Diarrhea, No abdominal Pain, no black stools Genitourinary : No Dysuria, No Urinary Frequency Musculoskeletal : No joint pain, No Myalgias, No Joint Swelling Skin : No Skin Lesions, No rash Neuro : No Weakness, No Numbness, No Dizziness, No Headache Psych : No Anxiety/Panic, No Depression Heme/Lymph: No Bruising, No Lymphadenopathy Endocrine : No Polyuria, No Polydipsia All other systems reviewed and are negative [facility] Past Medical History Medical History Diabetes HTN (hypertension) Stroke Surgical History H/O heart artery stent Social History Social History Alcohol intake: never Smoking Status: Current every day smoker Advance Directives: No Physical Exam Vital Signs: Vital Signs: Last Vital Signs Temp 97 F 11/13/20 00:12 Pulse 107 H 11/13/20 00:12 Resp 18 11/13/20 00:12 BP 157/84 H 11/13/20 00:12 Pulse Ox 95 11/13/20 00:12 Body Mass Index 25.8 Appearance: Alert. Oriented X3. No acute distress. ETOH+ Eyes: Pupils equal, round and reactive to light. ENT: Pharynx normal. Neck: Normal inspection. Neck supple. CVS: Normal heart rate and rhythm. Pulses normal. Respiratory: No respiratory distress. Breath sounds normal. Abdomen: Soft and nontender. Bowel sounds are present, no mass palpable, no CVA tenderness Skin: Skin warm and dry. Normal skin color. Normal skin turgor. Extremities: No lower extremity edema. Neuro: Oriented X 3. No motor deficit. No sensory deficit. No suicidal ideation Course Course Course Narrative: Patient feeling much better now calm and cooperative ambulatory in the ER will discharge patient home with family to go to detox as outpatient Discharge Plan Discharge Prescriptions: No Action clopidogrel [Plavix] 75 mg tablet 75 mg PO DAILY 90 Days Qty: 90 RF: 1 oxycodone-acetaminophen [Percocet] 5-325 mg tablet 1 tab PO Q6H PRN (Reason: pain) Qty: 10 RF: 0 cyclobenzaprine 10 mg tablet 10 mg PO TID PRN (Reason: muscle spasm) Qty: 10 RF: 0 naproxen 500 mg tablet 500 mg PO BID PRN (Reason: pain) Qty: 10 RF: 0 cyclobenzaprine 10 mg tablet 10 mg PO Q8H PRN (Reason: muscle) Qty: 20 RF: 0 lidocaine [Lidoderm] 5 % adhesive patch,medicated 1 patch topical DAILY Qty: 15 RF: 0 hydrocodone-acetaminophen 5-300 mg tablet 1 tab PO Q8H PRN (Reason: pain) Qty: 10 RF: 0 amoxicillin-pot clavulanate [Augmentin] 875-125 mg tablet 1 tab PO Q12H 10 Days Qty: 20 RF: 0
--- NOTE | 2020-11-13 00:48 | PC.NURSE ---
Patient's daughter Brittany called at [phone]/explained the patient status/Brittany wanted us to fax medical record to [facility] in [place]/notified that it can be done through process for which patient doesn't have to be in the hospital. Brittany agreed to come and give ride to patient. Provider notified.
--- NOTE | 2020-11-13 02:03 | MHC.CARE ---
CARE Team receives consult for evaluation. CARE Team speaks adrian Alarcon RN, and Dr. Hall. Pt is currently under the influence and will need to be clinically sober for crisis/leve of care evaluation.
== END 2020-11-13 01:12 | disposition home or self-care (01) ==
PROVIDERS: Emergency Provider Internal Medicine
DX: F10.120 Alcohol abuse with intoxication, uncomplicated (principal); Y90.9 Presence of alcohol in blood, level not specified; E11.9 Type 2 diabetes mellitus without complications; I10 Essential (primary) hypertension; F17.200 Nicotine dependence, unspecified, uncomplicated; Z79.899 Other long term (current) drug therapy
CPT/HCPCS: 99283; 99284

== ENCOUNTER 2020-11-14 19:54 | Emergency (ER) | payer OTHER, SELFPAY ==
[2020-11-14 20:31] VITALS: BP 157/83; PULSE 116; RESP 18; TEMP 36.7; O2SAT 98; BMI 21.2
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
[2020-11-14 21:21] VITALS: BP 138/92; PULSE 111; RESP 18; TEMP 36.8; O2SAT 98
[2020-11-14 21:51] LABS: Basophils Percent Auto 0.4 % (0-2); Eosinophils Percent Auto 0.3 % (0-4); Hematocrit 46.5 % (42-52); Hemoglobin 16.1 g/dl (14.0-18.0); Imm Gran Abs Auto 0.03 X10*3/uL (0.00-0.03); Imm Gran Pct Auto 0.3 % (0.0-0.4); Lymphocytes Absolute Auto 3.6 X10*3/uL (1.2-4.9); Lymphocytes Percent Auto 33.5 % (20-40); MANUAL DIFF FLAG NO; Mean Corpuscular HGB Conc 34.6 g/dl (31.0-36.0); Mean Corpuscular Hemoglobin 34.1 pg (27.0-33.0); Mean Corpuscular Volume 98.5 fL (80-98); Mean Platelet Volume 9.3 fL (9.4-12.4); Monocytes Percent Auto 9.4 % (2-11); Neutrophils Percent Auto 56.1 % (45-73); Platelet Count 342 X10*3/uL (160-400); Red Blood Count 4.72 X10*6/uL (4.60-5.80); Red Cell Distribution Width 13.2 % (11.0-16.0); White Blood Count 10.6 X10*3/uL (4.8-10.8)
[2020-11-14] MEDS: 0.9 % Sodium Chloride 1,000 ML 999 ML IVCONT ×2 (21:51→22:27)
[2020-11-14] MEDS: oxyCODONE HCl Immed Release 5 MG TABLET 10 MG PO (21:51)
[2020-11-14 22:03] LABS: Prothrombin Time 12.1 SEC (10.8-13.0)
--- NOTE | 2020-11-14 22:04 | PC.NURSE ---
iv inserted, labs drawn, urine obtained, covid swab obtained, vss,pt stated he has 11/10 flank/back pain, provider notified and patient was medicated per order, will continue to monitor.
[2020-11-14 22:06] LABS: Amphetamine Screen Urine Not Detected (Not Detect); Barbiturates, Urine Not Detected (Not Detect); Benzodiazepines Screen Urine Not Detected (Not Detect); Cannabinoid Screen Urine Not Detected (Not Detect); Cocaine Screen Urine Not Detected (Not Detect); Opiate Screen Urine Not Detected (Not Detect); Phencyclidine Screen Urine Not Detected (Not Detect)
[2020-11-14 22:06] LABS: COVID-19 Test Negative (Negative)
[2020-11-14 22:12] LABS: Ethanol 288 mg/dL
[2020-11-14 22:16] LABS: Alanine Aminotransferase 41 U/L (0-40); Albumin Level 4.5 g/dL (3.5-5.0); Alkaline Phosphatase 121 U/L (39-117); Aspartate Amino Transferase 53 U/L (5-37); Bilirubin Direct 0.2 mg/dL (0.0-0.5); Bilirubin Total 0.3 mg/dL (0.0-1.0); Lipase 144 U/L (8-78); Magnesium 2.3 mg/dL (1.6-2.6); Total Protein 7.1 g/dL (6.5-8.0)
[2020-11-14 22:18] LABS: Anion Gap 14 (12-20); Blood Urea Nitrogen 9 mg/dL (9-16); Calcium 9.1 mg/dL (8.4-10.2); Carbon Dioxide 32 mmol/L (22-29); Chloride 102 mmol/L (96-108); Creatinine Clr Calc Pharmacy 89.2; Estimated Glomerular Filt Rate > 60; Glucose Random 215 mg/dL (60-115); Potassium 4.3 mmol/l (3.3-5.1); Sodium 144 mmol/L (135-145)
[2020-11-14] MEDS: LORazepam 2 MG/ML VIAL 1 MG IVPUSH (22:25)
[2020-11-14] MEDS: iohexoL 350 MG/ML 100 ML INFUS..BTL 85 ML IV (23:17)
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
[2020-11-15 02:00] VITALS: RESP 20
== END 2020-11-15 02:22 | disposition home or self-care (01) ==
PROVIDERS: Emergency Provider Emergency Medicine
DX: F10.10 Alcohol abuse, uncomplicated (principal); Y90.8 Blood alcohol level of 240 mg/100 ml or more; S30.0XXA Contusion of lower back and pelvis, initial encounter; S20.211A Contusion of right front wall of thorax, initial encounter; S70.212A Abrasion, left hip, initial encounter; S30.811A Abrasion of abdominal wall, initial encounter; V49.9XXA Car occupant (driver) (passenger) injured in unspecified traffic accident, initial encounter; E11.9 Type 2 diabetes mellitus without complications; Z20.828 Contact with and (suspected) exposure to other viral communicable diseases; Y93.9 Activity, unspecified; Y92.414 Local residential or business street as the place of occurrence of the external cause; Y99.9 Unspecified external cause status; Z86.73 Personal history of transient ischemic attack (TIA), and cerebral infarction without residual deficits; Z79.899 Other long term (current) drug therapy
CPT/HCPCS: 36415; 70450; 71260; 72125; 74177; 80048; 80076; 80307; 80320; 82550; 83690; 83735; 85025; 85610; 85730; 87635; 96361; 96374; 99284; J2060; Q9967

== ENCOUNTER 2021-01-03 17:50 | Emergency (ER) | payer OTHER, SELFPAY ==
--- NOTE | ~2021-01-03 | XR_ITS ---
EXAMINATION: XR HAND, RIGHT CLINICAL INFORMATION: Hand pain. Deformity. COMPARISON: No priors. TECHNIQUE: PA, lateral, and oblique views of the right hand. FINDINGS: No fracture. Mild negative ulnar variance. Carpal bones and wrist are approximated. Joint spaces are approximated with normal alignment. Bone density is preserved. No lytic or blastic osseous lesions. Soft tissue irregularity involving the dorsal soft tissues overlying the metacarpals on the lateral view. No radiopaque foreign body. XR/XR hand RT min 3V IMPRESSION: Right hand: Soft tissue irregularity along the dorsum of the hand. No acute fracture or malalignment. No radiopaque foreign body.
[2021-01-03 20:11] VITALS: BP 115/72; PULSE 94; RESP 20; TEMP 36.5; O2SAT 97; BMI 28.2
--- NOTE | 2021-01-03 21:31 | ED.EXTPRO ---
HPI - Extremity Problem General Chief complaint: Extremity Injury, Upper Stated complaint: hand pain Time Seen by Provider: 01/03/21 20:56 Source: patient Mode of arrival: ambulatory Limitations: no limitations History of Present Illness HPI Narrative: Patient comes to emergency room complaining of a right hand injury that occurred approximately 1 week ago. Patient states he slammed his right finger under the [place] of a car. Patient reports that he can flex and extend his 5th digit. Patient states that his 5th finger abduct spite self, and is unable to adducted it. Patient reports pain in the finger, states that he has tried Tylenol and ibuprofen and nothing helping his pain, states the pain is worse at night MD Complaint: extremity pain Related Data Previous Rx's Medication Instructions Recorded cyclobenzaprine 10 mg PO TID PRN #10 tab 09/09/20 naproxen 500 mg PO BID PRN #10 tab 09/09/20 oxycodone-acetaminophen [Percocet] 1 tab PO Q6H PRN #10 tab 09/09/20 clopidogrel 75 mg tablet 75 mg PO DAILY 90 Days #90 tab 10/02/20 cyclobenzaprine 10 mg PO Q8H PRN #20 tab 10/31/20 hydrocodone-acetaminophen 1 tab PO Q8H PRN #10 tab 10/31/20 lidocaine [Lidoderm] 1 patch TOPICAL DAILY #15 ea 10/31/20 amoxicillin-pot clavulanate 1 tab PO Q12H 10 Days #20 tab 11/05/20 [Augmentin] tramadol 50 mg PO BID PRN #10 tab 01/03/21 Allergies Allergy/AdvReac Type Severity Reaction Status Date / Time No Known Allergies Allergy Verified 01/03/21 20:19 [No Known Allergies*] Review of Systems Review of Systems: Constitutional : No Weight loss, No Fever, No Chills, No Night Sweats, No Fatigue, No Malaise ENT/Mouth : No Hearing loss, No Ear Pain, No Nasal Congestion, No Sinus Pain, No Hoarseness, No sore throat, No Rhinorrhea, No Swallowing Difficulty Eyes: No Eye Pain, No Swelling, No Redness, No Foreign Body, No Discharge, No Vision Changes Cardiovascular : No Chest Pain, No SOB, No Dyspnea on Exertion, No Orthopnea, No Edema, No Palpitations Respiratory : No Cough, No Sputum, No Wheezing, No Smoke Exposure, No Dyspnea Gastrointestinal : No Nausea, No Vomiting, No Diarrhea, No Constipation, No abdominal Pain, No Hematochezia, No Melena Genitourinary : no irregular bleeding, No Dysuria, No Urinary Frequency, No Hematuria, No Urinary Incontinence, No Urgency, No Flank Pain, No Urinary Flow Changes, No Hesitancy Musculoskeletal : Complaining of mobility issues in the 5th finger in the right hand and pain for a week Skin : No Skin Lesions, No rash Neuro : No Weakness, No Numbness, No Paresthesias, No Loss of Consciousness, No Dizziness, No Headache Psych : No Anxiety/Panic, No Depression, No SI/HI/AH/VH, No Social Issues, Heme/Lymph: No Bruising, No Bleeding,No Lymphadenopathy Endocrine : No Polyuria, No Polydipsia, No Temperature Intolerance PMF Past Medical History Medical History Depression Diabetes HIV (human immunodeficiency virus infection) HTN (hypertension) Stroke Surgical History H/O heart artery stent Social History Social History Alcohol intake: current Alcohol intake frequency: a few times a week Alcohol type: beer and wine Smoking Status: Current every day smoker Smoked in Last 30 Days: Yes Use of substances other than those prescribed or required for medical reasons: No Advance Directives: No Physical Exam Vital Signs: Vital Signs: Last Vital Signs Temp 97.7 F 01/03/21 20:11 Pulse 94 01/03/21 20:11 Resp 20 01/03/21 20:11 BP 115/72 01/03/21 20:11 Pulse Ox 97 01/03/21 20:11 Body Mass Index 28.2 Appearance: Alert. Oriented X3. No acute distress. Eyes: Pupils equal, round and reactive to light. ENT: Pharynx normal. Neck: Normal inspection. Neck supple. No lymph nodes noted. No crepitus CVS: Normal heart rate and rhythm. Pulses normal. Normal S1 and S2 Respiratory: No respiratory distress. Breath sounds normal. No Wheezing. No rales Abdomen: Soft and nontender. No rigidity. No distention. good BS x4 Skin: Skin warm and dry. Normal skin color. Normal skin turgor. Extremities: No lower extremity edema. Patient is able to flex and extend all fingers including the 5th finger of the right hand. Patient's 5th finger abduct by itself, but patient is unable to adduct the finger. Patient is able to feel his fingers, but states it is less than in his other fingers. First through 4th fingers are intact Neuro: Oriented X 3. No motor deficit. No sensory deficit. Moving all extermities. No slurred speech. Course Course Course Narrative: X-rays are negative for fracture. I discussed with the patient that he likely sustained an injury to the ulnar nerve. It has been over a week since he had this injury. I discussed with the patient that he will likely need physical therapy to strengthen his hand again MDM - Extremity (Nontraumatic) Imaging Data Hand x-ray: Radiologist's impression: No fracture. Mild negative ulnar variance. Carpal bones and wrist are approximated. Joint spaces are approximated with normal alignment. Bone density is preserved. No lytic or blastic osseous lesions. Soft tissue irregularity involving the dorsal soft tissues overlying the metacarpals on the lateral view. No radiopaque foreign body. XR/XR hand RT min 3V IMPRESSION: Right hand: Soft tissue irregularity along the dorsum of the hand. No acute fracture or malalignment. No radiopaque foreign body. Discharge Plan Discharge Clinical Impression: Injury of ulnar nerve Qualifiers: Encounter type: initial encounter Location of peripheral nerve injury: hand Laterality: right Qualified Code(s): S64.01XA - Injury of ulnar nerve at wrist and hand level of right arm, initial encounter Patient Disposition: Home, Self-Care Additional Instructions: Please follow-up with her primary care physician, you will likely need physical therapy/occupational therapy to strengthen your hand again. Prescriptions: New tramadol 50 mg tablet 50 mg PO BID PRN (Reason: pain) Qty: 10 RF: 0 No Action clopidogrel [Plavix] 75 mg tablet 75 mg PO DAILY 90 Days Qty: 90 RF: 1 oxycodone-acetaminophen [Percocet] 5-325 mg tablet 1 tab PO Q6H PRN (Reason: pain) Qty: 10 RF: 0 cyclobenzaprine 10 mg tablet 10 mg PO TID PRN (Reason: muscle spasm) Qty: 10 RF: 0 naproxen 500 mg tablet 500 mg PO BID PRN (Reason: pain) Qty: 10 RF: 0 cyclobenzaprine 10 mg tablet 10 mg PO Q8H PRN (Reason: muscle) Qty: 20 RF: 0 lidocaine [Lidoderm] 5 % adhesive patch,medicated 1 patch topical DAILY Qty: 15 RF: 0 hydrocodone-acetaminophen 5-300 mg tablet 1 tab PO Q8H PRN (Reason: pain) Qty: 10 RF: 0 amoxicillin-pot clavulanate [Augmentin] 875-125 mg tablet 1 tab PO Q12H 10 Days Qty: 20 RF: 0
[2021-01-03 21:54] VITALS: BP 147/77; PULSE 98; RESP 16; TEMP 36.4; O2SAT 97
== END 2021-01-03 22:08 | disposition home or self-care (01) ==
PROVIDERS: Emergency Provider Emergency Medicine
DX: S64.01XA Injury of ulnar nerve at wrist and hand level of right arm, initial encounter (principal); M79.641 Pain in right hand; I10 Essential (primary) hypertension; E11.9 Type 2 diabetes mellitus without complications; Y29.XXXA Contact with blunt object, undetermined intent, initial encounter; Y93.9 Activity, unspecified; Y92.810 Car as the place of occurrence of the external cause; Y99.9 Unspecified external cause status; Z79.899 Other long term (current) drug therapy; F17.200 Nicotine dependence, unspecified, uncomplicated; Z71.6 Tobacco abuse counseling
CPT/HCPCS: 73130; 99283; 99284

== ENCOUNTER 2021-01-12 17:12 | Emergency (ER) | payer OTHER, SELFPAY ==
[2021-01-12 17:37] VITALS: BP 107/80; PULSE 108; RESP 18; TEMP 36.9; O2SAT 98; BMI 25.0
--- NOTE | 2021-01-12 21:29 | PC.NURSE ---
pt lwt from bed without being seen by a provider.
== END 2021-01-12 21:29 | disposition left against medical advice (07) ==
PROVIDERS: Emergency Provider Emergency Medicine
DX: M79.651 Pain in right thigh (principal); E11.9 Type 2 diabetes mellitus without complications; I10 Essential (primary) hypertension; B20 Human immunodeficiency virus [HIV] disease; Z86.73 Personal history of transient ischemic attack (TIA), and cerebral infarction without residual deficits; F17.200 Nicotine dependence, unspecified, uncomplicated
CPT/HCPCS: 99281; 99282

== ENCOUNTER 2021-01-18 10:29 | Inpatient (IN) | payer OTHER, SELFPAY ==
[2021-01-18] VITALS (8 sets, daily range): BP systolic 119–141; BP diastolic 62–80; PULSE 90–107; RESP 16–20; TEMP 36.4–37.6; O2SAT 95–100; BMI 27.4
[2021-01-18 12:10] LABS: Glucose, Whole Blood 110 mg/dL (60-115)
[2021-01-18] MEDS: 0.9 % Sodium Chloride 1,000 ML 999 ML IVCONT (12:42)
[2021-01-18 12:49] LABS: MANUAL DIFF FLAG NO
[2021-01-18] MEDS: cefTRIAXone sodium 1 GM in 0.9 % Sodium Chloride 50 ML IV (12:52)
[2021-01-18] MEDS: Lidocaine HCl 1 % MPF 5 ML VIAL SUBCUT (12:52)
[2021-01-18 12:57] LABS: Basophils Percent Auto 0.2 % (0-2); Eosinophils Percent Auto 0.3 % (0-4); Hematocrit 45.1 % (42-52); Hemoglobin 15.4 g/dl (14.0-18.0); Imm Gran Abs Auto 0.05 X10*3/uL (0.00-0.03); Imm Gran Pct Auto 0.3 % (0.0-0.4); Lymphocytes Absolute Auto 2.6 X10*3/uL (1.2-4.9); Lymphocytes Percent Auto 18.3 % (20-40); Mean Corpuscular HGB Conc 34.1 g/dl (31.0-36.0); Mean Corpuscular Hemoglobin 33.8 pg (27.0-33.0); Mean Corpuscular Volume 98.9 fL (80-98); Mean Platelet Volume 9.7 fL (9.4-12.4); Monocytes Absolute Auto 1.2 X10*3/uL (0.1-1.2); Monocytes Percent Auto 8.4 % (2-11); Neutrophils Absolute Auto 10.4 X10*3/uL (2.0-8.3); Neutrophils Percent Auto 72.5 % (45-73); Platelet Count 324 X10*3/uL (160-400); Red Blood Count 4.56 X10*6/uL (4.60-5.80); Red Cell Distribution Width 12.6 % (11.0-16.0); White Blood Count 14.4 X10*3/uL (4.8-10.8)
[2021-01-18 13:05] LABS: Prothrombin Time 12.4 SEC (10.8-13.0)
[2021-01-18 13:19] LABS: Lactic Acid 1.9 mmol/L (0.5-2.0)
[2021-01-18 13:23] LABS: Alanine Aminotransferase 31 U/L (0-40); Alkaline Phosphatase 147 U/L (39-117); Anion Gap 15 (12-20); Aspartate Amino Transferase 40 U/L (5-37); Bilirubin Direct 0.2 mg/dL (0.0-0.5); Bilirubin Total 0.2 mg/dL (0.0-1.0); Blood Urea Nitrogen 10 mg/dL (9-16); Carbon Dioxide 28 mmol/L (22-29); Chloride 104 mmol/L (96-108); Creatinine Clr Calc Pharmacy 108.9; Estimated Glomerular Filt Rate > 60; Glucose Random 94 mg/dL (60-115); Magnesium 2.2 mg/dL (1.6-2.6); Potassium 4.1 mmol/L (3.3-5.1); Sodium 143 mmol/L (135-145); Total Protein 6.7 g/dL (6.5-8.0)
[2021-01-18] MEDS: ondansetron HCL 4 MG/2 ML VIAL IVPUSH (13:56)
[2021-01-18] MEDS: Morphine Sulfate 4 MG/ML CARTRIDGE IVPUSH (13:58)
--- NOTE | 2021-01-18 14:30 | PC.NURSE ---
Addendum entered by Mitzi Garduno 01/18/21 15:48: APPROX 100ML OF BLOODY DRAINAGE IN SUCTION CONTAINER, DCD APPLIED BY JAVI/abelino INTACT NO STRIKETHROUGH Original Note: Right lateral leg abscess being drained at this time by Ariana GUZMAN, pt reports pain continues to be 10
[2021-01-18] MEDS: HYDROmorphone HCl 1 MG/ML SYRINGE IVPUSH (15:41)
--- NOTE | 2021-01-18 15:49 | PC.NURSE ---
Pt medicated as charted for persistent right lateral wound pain, vss
--- NOTE | 2021-01-18 15:53 | ED_ITS ---
HPI - Skin/Abscess/Foreign Bdy General Chief complaint: General Medical Stated complaint: rt knee lump Time Seen by Provider: 01/18/21 11:07 Source: patient Mode of arrival: ambulatory Limitations: language barrier ([place]-speaking) History of Present Illness HPI narrative: With a past medical history of HIV, diabetes currently on insulin and metformin, hypertension, arrhythmia, myocardial infarction and CVA pres enting to the ED with complaints of an abscess/cellulitis to right upper thigh for the past 2 weeks worse today. Reports that he tried to I&D it himself with a razor blade and he reports moderate purulent and bloody drainage. Denies any other symptoms complaints or concerns at this time. Reports that he is not up-to-date on his tetanus. MD complaint: abscess/boil Onset (ago): week(s) (Two weeks worse today) Tetanus up to date: no Location: RLE (Right thigh) Severity: severe Severity scale (1-10): >10 Quality: aching and constant Pain Consistency: constant Relieving factors: none Exacerbating factors: palpation Context: none Associated symptoms: denies other symptoms Treatments prior to arrival: other (Patient attempted to I and D with razor blade at home) Related Data Home Medications Medication Instructions Recorded Confirmed aspirin 1 tab PO QAM 01/18/21 01/18/21 dolutegravir [Tivicay] 1 tab PO DAILY 01/18/21 01/18/21 emtricitabine-tenofovir alafen 1 tab PO DAILY 01/18/21 01/18/21 [Descovy] glipizide 1 tab PO BID 01/18/21 01/18/21 insulin glargine [Lantus Solostar 20 unit SUBCUT BEDTIME 01/18/21 01/18/21 U-100 Insulin] lisinopril 1 tab PO QAM 01/18/21 01/18/21 metformin 1 tab PO BID 01/18/21 01/18/21 metoprolol succinate 1 tab PO BEDTIME 01/18/21 01/18/21 rosuvastatin 1 tab PO BEDTIME 01/18/21 01/18/21 Previous Rx's Medication Instructions Recorded clopidogrel 75 mg tablet 75 mg PO DAILY 90 Days #90 tab 10/02/20 tramadol 50 mg PO BID PRN #10 tab 01/03/21 Allergies Allergy/AdvReac Type Severity Reaction Status Date / Time No Known Allergies Allergy Verified 01/03/21 20:19 [No Known Allergies*] Review of Systems Review of Systems: Constitutional : No Fever, No Chills , no body aches, no recent illness Head/Face: No facial swelling, No facial redness ENT/Mouth : No oral/throat swelling, No Hoarseness, No Swallowing Difficulty Eyes: No Eye Pain, No Swelling, No Redness Cardiovascular : No Chest Pain, No SOB, No palpitations Respiratory : No Cough, No Sputum, No Wheezing, No Smoke Exposure, No Dyspnea Gastrointestinal : No Nausea, No Vomiting, No Diarrhea, No abdominal Pain Genitourinary : No Dysuria, No Urinary Frequency, No Hematuria Musculoskeletal : No joint pain, No Myalgias, No Joint Swelling Skin : + Skin Lesions/abscess, No Rashes Neuro : No Weakness, No Numbness, No Headache, No dizziness, No tingling Psych : No Anxiety/Panic, No Depression Heme/Lymph: No Bruising, No Lymphadenopathy Endocrine : No Polyuria, No Polydipsia Denies changes in lotions or detergents. Denies new medications or any changes in medications. Denies drainage from rash. Denies any recent sick contacts or recent travel. Yes all other systems are reviewed and are negative PMFSH Past Medical History Attestation statement: The following information was validated with the patient. Medical History Depression Diabetes HIV (human immunodeficiency virus infection) HTN (hypertension) Stroke Surgical History H/O heart artery stent Family History Family History (Updated 01/18/21 @ 17:00 by Layo De Los Santos MD) Other Hypertension Social History Social History Alcohol intake: current Alcohol intake frequency: holidays/special occasions only Alcohol type: beer and wine Smoking Status: Current every day smoker Smoked in Last 30 Days: Yes Use of substances other than those prescribed or required for medical reasons: No Advance Directives: No Advance Directives Information Provided: No Physical Exam Vital Signs: Vital Signs: Last Vital Signs Temp 98.7 F 01/18/21 14:00 Pulse 100 03/08/21 14:00 Resp 18 01/18/21 14:00 BP 133/68 01/18/21 14:00 Pulse Ox 96 01/18/21 14:00 Body Mass Index 27.4 vital signs have been reviewed as normal and appeared to be correct. Blood pressure hypertensive at 141/80. Heart rate tachycardic at 90. Respiration rate normal. Temperature normal. Oxygen saturation normal. Appearance: Alert. Oriented X3. No acute distress. Head: Normal external exam. Normocephalic. Atraumatic. Eyes: PERRLA. EOMI. Conjunctiva and sclera normal. Eyelids normal. ENT:Pharynx normal. Uvula midline. Moist mucous membranes. Neck: Normal inspection. Neck supple. FROM. No adenopathy. Thyroid Normal. No meningeal signs. No neck mass noted. CVS: Normal heart rate and rhythm. Heart sound normal. No murmurs noted. Pulses normal throughout. Respiratory: No respiratory distress. Painless inspiration. Breath sounds normal. No wheezes/rales/rhonchi noted. Chest nontender. No accessory muscle usage noted or decreased air movement noted. Back: Full range of motion noted. Skin: Skin warm and dry. Normal skin color. Normal skin turgor. No rashes/lacerations noted. Extremities: To right mid thigh lateral anterior/lateral aspect patient has moderate erythema with moderate fluctuance noted consistent with cellulitis with abscess. No streaking/induration noted at this time or foreign bodies. To left 3rd toe at the distal aspect at the base of the nail bed there is noted to me mild soft tissue swelling and erythema consistent with cellulitic infection. See below for pictures. No streaking/induration noted at this time. No calf tenderness noted. No lower extremity edema. Otherwise all other Extremities exhibit normal range of motion and nontender. Neuro: Oriented X 3. No motor deficit. No sensory deficit. Reflexes normal. Course Course Course Narrative: 11:30am - With a past medical history of HIV, diabetes currently on insulin and metformin, hypertension, arrhythmia, myocardial infarction and CVA presenting to the ED with moderate cellulitic infection to right mid thigh with fluctuance consistent with abscess. Patient is also noted to have left 3rd toe cellulitis. On exam patient is nontoxic appearing. Not in any acute distress. - Plan: Labs, blood cultures, lactic acid. Start IV fluids give symptomatic treatment and start 1 g of Rocephin and plan to admit for cellulitis with abscess. Reevaluation(s) Reevaluation #1: - WBC 14,000 - AST 40 which is similar compared to prior - alkaline phosphate 147 mildly increased when compared to prior - all other labs are within normal limits. - patient now status post I&D of right thigh abscess. Patient tolerated procedure well. No complications. Approximately 2 in of packing was placed. Tetanus updated at this time. - I discussed with Dr. De Los Santos who accepted admission at this time. Patient understands agrees the plan. Time: 14:30 Procedures Abscess I/D Site: lower extremity Side (if applicable): right Local Anesthetic: lidocaine 1% Amount of anesthesia used (mL): 5 Technique: incised with blade Amount of fluid expressed (mL): 20 Sent for culture/gram staining?: No Irrigation: Yes Packing used?: iodoform (Approximately 2 in) Complications: other (No complications patient tolerated procedure well) MDM - Skin/Abscess/Foreign Bdy Differential Diagnosis Differential diagnosis: Likely abscess of skin or subcutaneous tissue and cellulitis Medical Records Attestation: I reviewed the patient's medical records. Lab Data Attestation: I reviewed the patient's lab results. Result diagrams: 01/18/21 12:27 01/18/21 12:26 Labs: Lab Results 01/18/21 01/18/21 01/18/21 Range/Units 12:05 12:26 12:26 WBC (4.8-10.8) X10*3/uL RBC (4.60-5.80) X10*6/uL Hgb (14.0-18.0) g/dl Hct (42-52) % MCV (80-98) fL MCH (27.0-33.0) pg MCHC (31.0-36.0) g/dl RDW (11.0-16.0) % Plt Count (160-400) X10*3/uL MPV (9.4-12.4) fL Immature Gran % (Auto) (0.0-0.4) % Neut % (Auto) (45-73) % Lymph % (Auto) (20-40) % [place] % (Auto) (2-11) % Eos % (Auto) (0-4) % Baso % (Auto) (0-2) % Lymph # (Auto) (1.2-4.9) X10*3/uL [place] # (Auto) (0.1-1.2) X10*3/uL Eos # (Auto) (0.0-0.4) X10*3/uL Baso # (Auto) (0.0-0.2) X10*3/uL Abs Immat Gran (auto) (0.00-0.03) X10*3/uL Absolute Neuts (auto) (2.0-8.3) X10*3/uL Absolute Nucleated RBC (0.0-0.012) X10*3/uL Nucleated RBC % (auto) (0.0-0.2) /100WBC PT (10.8-13.0) SEC INR (0.9-1.1) Hold Blue Top Sodium 143 (135-145) mmol/L Potassium 4.1 (3.3-5.1) mmol/L Chloride 104 (96-108) mmol/L Carbon Dioxide 28 (22-29) mmol/L Anion Gap 15 (12-20) BUN 10 (9-16) mg/dL Creatinine 0.74 (0.5-1.4) mg/dL Estim Creat Clear Calc 108.9 Estimated GFR > 60 POC Glucose 110 (60-115) mg/dL Random Glucose 94 D (60-115) mg/dL Lactic Acid 1.9 (0.5-2.0) mmol/L Calcium 9.0 (8.4-10.2) mg/dL Magnesium 2.2 (1.6-2.6) mg/dL Total Bilirubin 0.2 (0.0-1.0) mg/dL Direct Bilirubin 0.2 (0.0-0.5) mg/dL AST 40 H (5-37) U/L ALT 31 (0-40) U/L Alkaline Phosphatase 147 H D (39-117) U/L Total Protein 6.7 (6.5-8.0) g/dL Albumin 4.0 (3.5-5.0) g/dL COVID-19 ([facility]) (Negative) COVID-19 Clin Com 01/18/21 01/18/21 01/18/21 Range/Units 12:27 12:27 15:47 WBC 14.4 H (4.8-10.8) X10*3/uL RBC 4.56 L (4.60-5.80) X10*6/uL Hgb 15.4 (14.0-18.0) g/dl Hct 45.1 (42-52) % MCV 98.9 H (80-98) fL MCH 33.8 H (27.0-33.0) pg MCHC 34.1 (31.0-36.0) g/dl RDW 12.6 (11.0-16.0) % Plt Count 324 (160-400) X10*3/uL MPV 9.7 (9.4-12.4) fL Immature Gran % (Auto) 0.3 (0.0-0.4) % Neut % (Auto) 72.5 (45-73) % Lymph % (Auto) 18.3 L (20-40) % [place] % (Auto) 8.4 (2-11) % Eos % (Auto) 0.3 (0-4) % Baso % (Auto) 0.2 (0-2) % Lymph # (Auto) 2.6 (1.2-4.9) X10*3/uL [place] # (Auto) 1.2 (0.1-1.2) X10*3/uL Eos # (Auto) 0.0 (0.0-0.4) X10*3/uL Baso # (Auto) 0.0 (0.0-0.2) X10*3/uL Abs Immat Gran (auto) 0.05 H (0.00-0.03) X10*3/uL Absolute Neuts (auto) 10.4 H (2.0-8.3) X10*3/uL Absolute Nucleated RBC 0.000 (0.0-0.012) X10*3/uL Nucleated RBC % (auto) 0.0 (0.0-0.2) /100WBC PT 12.4 (10.8-13.0) SEC INR 1.0 (0.9-1.1) Hold Blue Top SEE NOTE Sodium (135-145) mmol/L Potassium (3.3-5.1) mmol/L Chloride (96-108) mmol/L Carbon Dioxide (22-29) mmol/L Anion Gap (12-20) BUN (9-16) mg/dL Creatinine (0.5-1.4) mg/dL Estim Creat Clear Calc Estimated GFR POC Glucose (60-115) mg/dL Random Glucose (60-115) mg/dL Lactic Acid (0.5-2.0) mmol/L Calcium (8.4-10.2) mg/dL Magnesium (1.6-2.6) mg/dL Total Bilirubin (0.0-1.0) mg/dL Direct Bilirubin (0.0-0.5) mg/dL AST (5-37) U/L ALT (0-40) U/L Alkaline Phosphatase (39-117) U/L Total Protein (6.5-8.0) g/dL Albumin (3.5-5.0) g/dL COVID-19 ([facility]) Negative (Negative) COVID-19 Clin Com See Note Critical Care Time Critical Care Time Critical Care Time: Yes Total Critical Care Time: 60 Attestation: I personally attest to this time spent taking care of the patient Discharge Plan Discharge Clinical Impression: Cellulitis of right thigh, Abscess of right thigh, Sepsis Patient Disposition: Admitted As Inpatient
--- NOTE | 2021-01-18 16:09 | PM.IMHP ---
History of Present Illness Date of Service: 01/18/21 Chief Complaint: right thigh swelling and redness abscess 55-year-old male presented with right thigh redness and swelling and abscess, patient reported he was not noticing erythema and swelling since 1 month, patient was seen in the emergency room but because of awaiting patient left against medical advice, patient to tried to incise the abscess with blade at home but swelling and erythema was getting worse with associated pain the patient decided to come to emergency room, denies any fever chills or sick contact, I&D diet was done, patient meets sepsis criteria inpatient admission was requested for IV antibiotic and possible further debridement Review of Systems Constitutional: Constitutional: Denies weakness Cardiovascular: Cardiovascular: Denies dyspnea Respiratory: Respiratory: Denies dyspnea Gastrointestinal: Gastrointestinal: Denies vomiting Musculoskeletal: Musculoskeletal: Reports no additional musculoskeletal complaints Neurologic: Reports focal weakness and Denies weakness PMFSH Medical History Depression Diabetes HIV (human immunodeficiency virus infection) HTN (hypertension) Stroke Family History (Updated 01/18/21 @ 17:00 by Layo De Los Santos MD) Other Hypertension Surgical History H/O heart artery stent Social History Household Members: None Do you presently have visiting nurse or other home services: Yes Alcohol intake: current Alcohol intake frequency: holidays/special occasions only Alcohol type: beer and wine Smoking Status: Current every day smoker Tobacco Type: Cigarette Smoked in Last 30 Days: Yes Patient Interested in Nicotine Replacement: No Patient Given Instructions on How to Stop Smoking: Yes Date Education Initiated: 01/18/21 Second Hand Smoke Exposure: No Use of substances other than those prescribed or required for medical reasons: No Any prior treatment program specific to substance use: No Have you been hit, kicked, punched, or otherwise hurt by someone within the past year? If so, by whom?: No Do you feel safe in your current relationship?: No Is there a partner from a previous relationship who is making you feel unsafe now?: No Are you made to feel afraid or neglected: No Advance Directives: No Advance Directives Information Provided: No Do you have thoughts of harming others: None Recently lost weight without trying: No Meds Allergies Allergy/AdvReac Type Severity Reaction Status Date / Time No Known Allergies Allergy Verified 01/03/21 20:19 [No Known Allergies*] Active Medications: Current Medications Generic Name Dose Route Start Last Admin Trade Name Freq PRN Reason Stop Dose Admin Pharmacy Consult 1 each 01/18/21 14:30 Consult Rx Perform Med Rec MISCELLANE ONCE PRN Consult order Pharmacy Consult 1 each 01/18/21 14:39 Consult Rx Perform Med Rec MISCELLANE ONCE PRN Consult order Home Medications Medication Instructions Recorded Confirmed Last Taken Type aspirin 1 tab PO QAM 01/18/21 01/18/21 Unknown History dolutegravir [Tivicay] 1 tab PO DAILY 01/18/21 01/18/21 Unknown History emtricitabine-tenofovir alafen 1 tab PO DAILY 01/18/21 01/18/21 Unknown History [Descovy] glipizide 1 tab PO BID 01/18/21 01/18/21 Unknown History insulin glargine [Lantus Solostar 20 unit SUBCUT BEDTIME 01/18/21 01/18/21 Unknown History U-100 Insulin] lisinopril 1 tab PO QAM 01/18/21 01/18/21 Unknown History metformin 1 tab PO BID 01/18/21 01/18/21 Unknown History metoprolol succinate 1 tab PO BEDTIME 01/18/21 01/18/21 Unknown History rosuvastatin 1 tab PO BEDTIME 01/18/21 01/18/21 Unknown History Physical Exam Vital Signs and Narrative: Vital Signs: Last Vital Signs Temp 98.7 F 01/18/21 14:00 Pulse 100 01/18/21 14:00 Resp 18 01/18/21 14:00 BP 133/68 01/18/21 14:00 Pulse Ox 96 01/18/21 14:00 Body Mass Index 27.4 Results Labs CBC and Chem 7: 01/19/21 06:09 01/19/21 06:09 Labs: Laboratory Results - last 24 hr 01/18/21 01/18/21 01/18/21 12:05 12:26 12:26 MCV MCH MCHC RDW Plt Count MPV Immature Gran % (Auto) Neut % (Auto) Lymph % (Auto) [place] % (Auto) Eos % (Auto) Baso % (Auto) Lymph # (Auto) [place] # (Auto) Eos # (Auto) Baso # (Auto) Abs Immat Gran (auto) Absolute Neuts (auto) Absolute Nucleated RBC Nucleated RBC % (auto) PT INR Hold Blue Top Anion Gap 15 Estim Creat Clear Calc 108.9 Estimated GFR > 60 POC Glucose 110 Random Glucose 94 D Lactic Acid 1.9 Calcium 9.0 Magnesium 2.2 Total Bilirubin 0.2 Direct Bilirubin 0.2 AST 40 H ALT 31 Alkaline Phosphatase 147 H D Total Protein 6.7 Albumin 4.0 01/18/21 01/18/21 12:27 12:27 MCV 98.9 H MCH 33.8 H MCHC 34.1 RDW 12.6 Plt Count 324 MPV 9.7 Immature Gran % (Auto) 0.3 Neut % (Auto) 72.5 Lymph % (Auto) 18.3 L [place] % (Auto) 8.4 Eos % (Auto) 0.3 Baso % (Auto) 0.2 Lymph # (Auto) 2.6 [place] # (Auto) 1.2 Eos # (Auto) 0.0 Baso # (Auto) 0.0 Abs Immat Gran (auto) 0.05 H Absolute Neuts (auto) 10.4 H Absolute Nucleated RBC 0.000 Nucleated RBC % (auto) 0.0 PT 12.4 INR 1.0 Hold Blue Top SEE NOTE Anion Gap Estim Creat Clear Calc Estimated GFR POC Glucose Random Glucose Lactic Acid Calcium Magnesium Total Bilirubin Direct Bilirubin AST ALT Alkaline Phosphatase Total Protein Albumin Assessment and Plan (1) Sepsis: Status: Acute (2) Cellulitis of right thigh: Status: Acute (3) Abscess of right thigh: Status: Acute (4) Diabetes: Status: Acute (5) HTN (hypertension): Status: Acute Sepsis secondary to right thigh cellulitis and abscess meets sepsis criteria status post I&D by ER physician continue IV Zosyn follow-up cultures will get surgery consult for possible further debridement Diabetes mellitus continue Lantus and SSI hold metformin monitor blood glucose hypertension continue Lopressor history of HIV continue his home anti HIV medication history of alcohol abuse currently not in any withdrawal hold phenobarbital monitor for CIWA CAD status post stent continue aspirin Lopressor and statins DVT prophylaxis heparin subQ wishes to be full code
--- NOTE | 2021-01-18 16:17 | PC.NURSE ---
Addendum entered by Mitzi Garduno 01/18/21 16:23: pain is now 7/10 Original Note: Tetanus given to left deltoid. Pt ambulatory to bathroom to void. sl improvement to pain s/p last med intervention
[2021-01-18 16:25] LABS: COVID-19 Test Negative (Negative); IDNOW Serial# 9DD0AD1C
[2021-01-18] MEDS: Aspirin Enteric Coated 81 MG TABLET.DR PO (18:48)
[2021-01-18] MEDS: Heparin Sodium,Porcine 5,000 UNIT/ML VIAL 5000 UNIT SUBCUT (18:49)
[2021-01-18] MEDS: Nicotine 14 MG PATCH.TD24 TRANSDERMA (19:50)
[2021-01-18] MEDS: Piperacillin Sodium/Tazobactam 3.375 GM in 0.9 % Sodium Chloride 50 ML IV (19:52)
[2021-01-18 20:40] LABS: Glucose, Whole Blood 112 mg/dL (60-115)
[2021-01-18] MEDS: Metoprolol Succinate ER 50 MG TAB.ER.24H PO (21:36)
[2021-01-18] MEDS: Atorvastatin Calcium 80 MG TABLET PO (21:36)
[2021-01-18] MEDS: Insulin Glargine,Hum.rec.anlog 100 UNIT/ML 10 ML VIAL 20 UNIT SUBCUT (21:37)
[2021-01-18] MEDS: 0.9 % Sodium Chloride Flush 3 ML SYRINGE IVFLUSH (21:39)
[2021-01-18] MEDS: PHENobarbitaL sodium 130 MG/ML VIAL 255 MG IM (22:53)
[2021-01-18] MEDS: oxyCODONE HCl Immed Release 5 MG TABLET PO (22:54)
[2021-01-19] MEDS: Piperacillin Sodium/Tazobactam 3.375 GM in 0.9 % Sodium Chloride 50 ML IV ×5 (01:28→23:36)
[2021-01-19] MEDS: PHENobarbitaL sodium 130 MG/ML VIAL 191 MG IM ×2 (01:29→05:43)
[2021-01-19] MEDS: Heparin Sodium,Porcine 5,000 UNIT/ML VIAL 5000 UNIT SUBCUT ×2 (05:47→18:06)
[2021-01-19 06:16] LABS: MANUAL DIFF FLAG NO
[2021-01-19] MEDS: oxyCODONE HCl Immed Release 5 MG TABLET PO ×3 (06:37→19:59)
[2021-01-19 06:41] LABS: Basophils Percent Auto 0.3 % (0-2); Eosinophils Absolute Auto 0.1 X10*3/uL (0.0-0.4); Hematocrit 40.5 % (42-52); Hemoglobin 13.5 g/dl (14.0-18.0); Imm Gran Abs Auto 0.04 X10*3/uL (0.00-0.03); Imm Gran Pct Auto 0.3 % (0.0-0.4); Lymphocytes Absolute Auto 3.8 X10*3/uL (1.2-4.9); Lymphocytes Percent Auto 27.7 % (20-40); Mean Corpuscular HGB Conc 33.3 g/dl (31.0-36.0); Mean Corpuscular Hemoglobin 33.5 pg (27.0-33.0); Mean Corpuscular Volume 100.5 fL (80-98); Mean Platelet Volume 9.9 fL (9.4-12.4); Monocytes Absolute Auto 1.4 X10*3/uL (0.1-1.2); Monocytes Percent Auto 10.4 % (2-11); Neutrophils Absolute Auto 8.2 X10*3/uL (2.0-8.3); Neutrophils Percent Auto 60.3 % (45-73); Platelet Count 284 X10*3/uL (160-400); Red Blood Count 4.03 X10*6/uL (4.60-5.80); Red Cell Distribution Width 12.5 % (11.0-16.0); White Blood Count 13.6 X10*3/uL (4.8-10.8)
[2021-01-19 07:03] LABS: Anion Gap 11 (12-20); Blood Urea Nitrogen 19 mg/dL (9-16); Calcium 8.2 mg/dL (8.4-10.2); Carbon Dioxide 28 mmol/L (22-29); Chloride 101 mmol/L (96-108); Creatinine Clr Calc Pharmacy 97.1; Estimated Glomerular Filt Rate > 60; Potassium 4.1 mmol/L (3.3-5.1); Sodium 136 mmol/L (135-145)
[2021-01-19 07:26] VITALS: BP 96/50; PULSE 83; RESP 17; TEMP 36.4; O2SAT 95
[2021-01-19 07:35] LABS: Glucose Random 55 mg/dL (60-115)
[2021-01-19] MEDS: Emtricitabine/Tenofov Alafenam TABLET 1 TAB PO (08:09)
[2021-01-19] MEDS: Dolutegravir Sodium 50 MG TABLET PO (08:09)
[2021-01-19] MEDS: PHENobarbitaL 15 MG TABLET 45 MG PO ×2 (08:09→21:18)
[2021-01-19] MEDS: 0.9 % Sodium Chloride Flush 3 ML SYRINGE IVFLUSH ×3 (08:10→23:36)
[2021-01-19] MEDS: Aspirin Enteric Coated 81 MG TABLET.DR PO (08:10)
[2021-01-19] MEDS: Nicotine 14 MG PATCH.TD24 TRANSDERMA (08:10)
[2021-01-19 08:16] LABS: Glucose, Whole Blood 105 mg/dL (60-115)
--- NOTE | 2021-01-19 11:20 | PM.CNGS ---
History of Present Illness Consult details Consult date: 01/19/21 <Candace Canales PA-C Last Filed: 01/19/21 12:46> Reason for consult: other <CAILIN Hui Last Filed: 01/19/21 12:46> Requesting physician: Layo De Los Santos <Candace Canales PA-C Last Filed: 01/19/21 12:46> Narrative: 55-year-old male with multiple medical problems who presented to the ED with complaints of right thigh redness and swelling. He first noticed the redness around 2 weeks ago. He denies trauma, bites to the area. He was seen in the ED but did not want to wait any longer and then left against medical advice. He tried to incise the abscess with a blade at home. The swelling and erythema worsened after this and the pain increased which prompted him to come to emergency room again. I&D of the site was performed in the ED and he was admitted to the medical service for IV antibiotics. Surgery consult is requested for further management. <Candace Canales PA-C Last Filed: 01/19/21 12:46> Review of Systems Constitutional: Constitutional: Denies chills and Denies fever(s) <CAILIN Hui Last Filed: 01/19/21 12:46> ENT: Denies dizziness <Candace Canales PA-C Last Filed: 01/19/21 12:46> Cardiovascular: Cardiovascular: Denies chest pain, Denies rapid heart rate and Denies dyspnea <CAILIN Hui Last Filed: 01/19/21 12:46> Respiratory: Respiratory: Denies cough and Denies dyspnea <CAILIN Hui Last Filed: 01/19/21 12:46> Gastrointestinal: Gastrointestinal: Denies abdominal pain, Denies nausea and Denies vomiting <CAILIN Hui Last Filed: 01/19/21 12:46> Neurologic: Denies dizziness <CAILIN Hui Last Filed: 01/19/21 12:46> PMF Past Medical History Medical History: Medical History Depression Diabetes HIV (human immunodeficiency virus infection) HTN (hypertension) Stroke <Candace Canales PA-C - Last Filed: 01/19/21 12:46> Family History Family History: Family History (Updated 01/18/21 @ 17:00 by Layo De Los Santos MD) Other Hypertension <Candace Canales PA-C - Last Filed: 01/19/21 12:46> Surgical History Surgical History: Surgical History H/O heart artery stent <Candace Canales PA-C - Last Filed: 01/19/21 12:46> Social History Social History: Social History Household Members: None Do you presently have visiting nurse or other home services: Yes Alcohol intake: current Alcohol intake frequency: holidays/special occasions only Alcohol type: beer and wine Smoking Status: Current every day smoker Tobacco Type: Cigarette Smoked in Last 30 Days: Yes Patient Interested in Nicotine Replacement: No Patient Given Instructions on How to Stop Smoking: Yes Date Education Initiated: 01/18/21 Second Hand Smoke Exposure: No Use of substances other than those prescribed or required for medical reasons: No Any prior treatment program specific to substance use: No Have you been hit, kicked, punched, or otherwise hurt by someone within the past year? If so, by whom?: No Do you feel safe in your current relationship?: No Is there a partner from a previous relationship who is making you feel unsafe now?: No Are you made to feel afraid or neglected: No Advance Directives: No Advance Directives Information Provided: No Do you have thoughts of harming others: None Recently lost weight without trying: No <CAILIN Hui Last Filed: 01/19/21 12:46> Meds Allergies/Adverse reactions: Allergies Allergy/AdvReac Type Severity Reaction Status Date / Time No Known Allergies Allergy Verified 01/03/21 20:19 [No Known Allergies*] <CAILIN Hui Last Filed: 01/19/21 12:46> Active Medications: Current Medications Generic Name Dose Route Start Last Admin Trade Name [place] PRN Reason Stop Dose Admin Aspirin 81 mg 01/18/21 16:37 01/19/21 08:10 Aspirin Enteric Coated 81 Mg Tablet.Dr PO 81 mg DAILY [place] Administration Atorvastatin Calcium 80 mg 01/18/21 21:00 01/18/21 21:36 Atorvastatin Calcium 80 Mg Tablet PO 80 mg BEDTIME [place] Administration Dolutegravir Sodium 50 mg 01/19/21 09:00 01/19/21 08:09 Dolutegravir Sodium 50 Mg Tablet PO 50 mg DAILY [place] Administration Emtricitabine/Tenofovir Alafenamide 1 tab 01/19/21 09:00 01/19/21 08:09 Emtricitabine/Tenofov Alafenam Tablet PO 1 tab DAILY [place] Administration Heparin Sodium (Porcine) 5,000 unit 01/18/21 17:00 01/19/21 05:47 Heparin Sodium,Porcine 5,000 Unit/Ml Vial SUBCUT 5,000 unit Q12H [place] Administration Piperacillin Sod/Tazobactam 50 mls @ 100 mls/hr 01/18/21 17:00 01/19/21 10:55 Sod 3.375 gm/ Sodium Chloride IV Infused Q6H [place] Infusion Insulin Glargine 20 unit 01/18/21 21:00 01/18/21 21:37 Insulin Glargine,Hum.Rec.Anlog 100 Unit/Ml 10 Ml Vial SUBCUT 20 unit BEDTIME [place] Administration Insulin Human Lispro 0 unit 01/18/21 21:00 01/19/21 07:23 Insulin Lispro 100 Unit/Ml 3 Ml Vial SUBCUT Not Given QIDACHS [facility] Protocol Lisinopril 5 mg 01/18/21 17:00 01/19/21 08:09 Lisinopril 5 Mg Tablet PO 5 mg DAILY [facility] Administration Protocol Medication 1 each 01/18/21 22:30 No Benzodiazepines MISCELLANE DAILY [facility] Metoprolol Succinate 50 mg 01/18/21 21:00 01/18/21 21:36 Metoprolol Succinate Er 50 Mg Tab.Er.24h PO 50 mg BEDTIME [facility] Administration Protocol Nicotine 14 mg 01/18/21 16:37 01/19/21 08:10 Nicotine 14 Mg Patch.Td24 TRANSDERMA 14 mg DAILY [facility] Administration Oxycodone HCl 5 mg 01/19/21 02:42 01/19/21 06:37 Oxycodone Hcl Immed Release 5 Mg Tablet PO 5 mg Q6H PRN Administration Pain, Severe (Pain Scale 7-10) Pharmacy Consult 1 each 01/18/21 14:30 Consult Rx Perform Med Rec MISCELLANE ONCE PRN Consult order Pharmacy Consult 1 each 01/18/21 14:39 Consult Rx Perform Med Rec MISCELLANE ONCE PRN Consult order Phenobarbital 45 mg 01/19/21 09:00 01/19/21 08:09 Phenobarbital 15 Mg Tablet PO 01/20/21 21:01 45 mg BID [place] Administration Protocol Phenobarbital 30 mg 01/21/21 09:00 Phenobarbital 30 Mg Tablet PO 01/22/21 21:01 BID [place] Protocol Phenobarbital 30 mg 01/23/21 09:00 Phenobarbital 30 Mg Tablet PO 01/24/21 09:01 DAILY [place] Protocol Sodium Chloride 3 ml 01/19/21 00:00 01/19/21 08:10 0.9 % Sodium Chloride Flush 3 Ml Syringe IVFLUSH 3 ml QSHIFT [place] Administration <Candace Canales PA-C - Last Filed: 01/19/21 12:46> Home medications: Home Medications Medication Instructions Recorded Confirmed Last Taken Type aspirin 1 tab PO QAM 01/18/21 01/18/21 Unknown History dolutegravir [Tivicay] 1 tab PO DAILY 01/18/21 01/18/21 Unknown History emtricitabine-tenofovir alafen 1 tab PO DAILY 01/18/21 01/18/21 Unknown History [Descovy] glipizide 1 tab PO BID 01/18/21 01/18/21 Unknown History insulin glargine [Lantus Solostar 20 unit SUBCUT BEDTIME 01/18/21 01/18/21 Unknown History U-100 Insulin] lisinopril 1 tab PO QAM 01/18/21 01/18/21 Unknown History metformin 1 tab PO BID 01/18/21 01/18/21 Unknown History metoprolol succinate 1 tab PO BEDTIME 01/18/21 01/18/21 Unknown History rosuvastatin 1 tab PO BEDTIME 01/18/21 01/18/21 Unknown History <Candace Canales PA-C - Last Filed: 01/19/21 12:46> Physical Exam Vital Signs: Vital Signs: Last Vital Signs Temp 97.6 F 01/19/21 07:26 Pulse 83 01/19/21 07:26 Resp 17 01/19/21 07:26 BP 96/50 L 01/19/21 07:26 Pulse Ox 95 01/19/21 07:26 Body Mass Index 27.4 <Candace Canales PA-C Rita Last Filed: 01/19/21 12:46> Const: General: comfortable, no acute distress and alert <Candace Canales PA-C [employer] Last Filed: 01/19/21 12:46> Orientation/consciousness: patient oriented x3 <Candace Canales PA-C [employer] Last Filed: 01/19/21 12:46> Eyes: Sclerae: sclerae normal <Candace Canales PA-C [employer] Last Filed: 01/19/21 12:46> Resp: Effort & Inspection: normal respiratory effort <Candace Canales PA-C [employer] Last Filed: 01/19/21 12:46> Cardio: Rate: regular rate <ANTELMO HuiFritz [employer] Last Filed: 01/19/21 12:46> GI: Inspection: No distended <ANTELMO HuiFritz [employer] Last Filed: 01/19/21 12:46> Palpation (GI): nontender <ANTELMO HuiFritz [employer] Last Filed: 01/19/21 12:46> Skin: Other: normal color, warm and dry <Candace Canales PA-C [employer] Last Filed: 01/19/21 12:46> Neuro: General: patient oriented x3 <Candace Canales PA-C [employer] Last Filed: 01/19/21 12:46> Extrem: Other: I&D site of right anterior thigh with surrounding erythema and induration, some purulent drainage expressed, packing advanced, second incision site medially (where patient performed) with some drainage, no areas of necrosis or crepitus <Candace Canales PA-C [employer] Last Filed: 01/19/21 12:46> General: Yes normal exam except as noted <Candace Canales PA-C [employer] Last Filed: 01/19/21 12:46> Results Labs Result diagrams: : 01/19/21 06:09 01/19/21 06:09 <Candace Canales PA-C - Last Filed: 01/19/21 12:46> Labs: Abnormal lab results 01/18/21 01/18/21 01/19/21 Range/Units 12:26 12:27 06:09 WBC 14.4 H 13.6 H (4.8-10.8) X10*3/uL RBC 4.56 L 4.03 L (4.60-5.80) X10*6/uL Hgb 13.5 L (14.0-18.0) g/dl Hct 40.5 L (42-52) % MCV 98.9 H 100.5 H (80-98) fL MCH 33.8 H 33.5 H (27.0-33.0) pg Lymph % (Auto) 18.3 L (20-40) % [place] # (Auto) 1.4 H (0.1-1.2) X10*3/uL Abs Immat Gran (auto) 0.05 H 0.04 H (0.00-0.03) X10*3/uL Absolute Neuts (auto) 10.4 H (2.0-8.3) X10*3/uL Anion Gap (12-20) BUN (9-16) mg/dL Random Glucose (60-115) mg/dL Calcium (8.4-10.2) mg/dL AST 40 H (5-37) U/L Alkaline Phosphatase 147 H D (39-117) U/L 01/19/21 Range/Units 06:09 WBC (4.8-10.8) X10*3/uL RBC (4.60-5.80) X10*6/uL Hgb (14.0-18.0) g/dl Hct (42-52) % MCV (80-98) fL MCH (27.0-33.0) pg Lymph % (Auto) (20-40) % [place] # (Auto) (0.1-1.2) X10*3/uL Abs Immat Gran (auto) (0.00-0.03) X10*3/uL Absolute Neuts (auto) (2.0-8.3) X10*3/uL Anion Gap 11 L (12-20) BUN 19 H D (9-16) mg/dL Random Glucose 55 L* (60-115) mg/dL Calcium 8.2 L D (8.4-10.2) mg/dL AST (5-37) U/L Alkaline Phosphatase (39-117) U/L Short CBC 01/18/21 01/19/21 Range/Units 12:27 06:09 WBC 14.4 H 13.6 H (4.8-10.8) X10*3/uL Hgb 15.4 13.5 L (14.0-18.0) g/dl Hct 45.1 40.5 L (42-52) % Plt Count 324 284 (160-400) X10*3/uL BMP 01/18/21 01/19/21 12:26 06:09 Sodium 143 136 Potassium 4.1 4.1 Chloride 104 101 Carbon Dioxide 28 28 BUN 10 19 H D Creatinine 0.74 0.83 Calcium 9.0 8.2 L D Liver Function 01/18/21 Range/Units 12:26 Total Bilirubin 0.2 (0.0-1.0) mg/dL Direct Bilirubin 0.2 (0.0-0.5) mg/dL AST 40 H (5-37) U/L ALT 31 (0-40) U/L Alkaline Phosphatase 147 H D (39-117) U/L Albumin 4.0 (3.5-5.0) g/dL All other labs normal. <CAILIN Hui Last Filed: 01/19/21 12:46> Assessment and Plan (1) Sepsis: Status: Acute <CAILIN Hui Last Filed: 01/19/21 12:46> (2) Abscess of right thigh: Status: Acute <CAILIN Hui Last Filed: 01/19/21 12:46> S/p I&D in the ED. The wound area appears to be improving as the erythema has receded from the surrounded marked area. Packing was advanced and wound redressed. His WBC is improving. Continue IV abx. No further need for drainage or debridement at this time as abscess site is open and draining. Will continue to follow. Continue daily dressing changes. <CAILIN Hui Filed: 01/19/21 12:46> Wounds examined and agree with the above assessment and plan. Packing was advanced in dressings changed once again by me. Continue antibiotics and local wound care. No further incision and drainage is required at this time. <Avery Rodriguez MD - Last Filed: 01/19/21 12:52>
[2021-01-19 11:27] LABS: Glucose, Whole Blood 85 mg/dL (60-115)
--- NOTE | 2021-01-19 13:24 | HO.PM.IMPN ---
Subjective Subjective Date of Service: 01/19/21 Interval History: Patient seen and examined at bedside Patient reported some improvement in erythema and swelling Constitutional Constitutional: Denies chills, Denies fever(s) and Denies weakness ENT Ears, Nose, Mouth, and Throat: Denies dizziness Cardiovascular Cardiovascular: Denies chest pain, Denies rapid heart rate and Denies dyspnea Respiratory Respiratory: Denies cough and Denies dyspnea Gastrointestinal Gastrointestinal: Denies abdominal pain, Denies nausea and Denies vomiting Musculoskeletal Musculoskeletal: Reports no additional musculoskeletal complaints Neurologic Neurologic: Denies dizziness, Reports focal weakness and Denies weakness Physical Exam Vital Signs: Vital Signs: Last Vital Signs Temp 97.6 F 01/19/21 07:26 Pulse 83 01/19/21 07:26 Resp 17 01/19/21 07:26 BP 96/50 L 01/19/21 07:26 Pulse Ox 95 01/19/21 07:26 Body Mass Index 27.4 Const: General: comfortable, no acute distress and alert Orientation/consciousness: patient oriented x3 Eyes: Sclerae: sclerae normal Resp: Effort & Inspection: normal respiratory effort Cardio: Rate: regular rate GI: Inspection: No distended Palpation (GI): nontender Skin: Other: normal color, warm and dry Neuro: General: patient oriented x3 Extrem: Other: I&D site of right anterior thigh with surrounding erythema and induration, some purulent drainage expressed, packing advanced, second incision site medially (where patient performed) with some drainage, no areas of necrosis or crepitus General: Yes normal exam except as noted Objective Data Current Medications Generic Name Dose Route Start Last Admin Trade Name Freq PRN Reason Stop Dose Admin Aspirin 81 mg 01/18/21 16:37 01/19/21 08:10 Aspirin Enteric Coated 81 Mg Tablet. PO 81 mg DAILY [place] Administration Atorvastatin Calcium 80 mg 01/18/21 21:00 01/18/21 21:36 Atorvastatin Calcium 80 Mg Tablet PO 80 mg BEDTIME [place] Administration Dolutegravir Sodium 50 mg 01/19/21 09:00 01/19/21 08:09 Dolutegravir Sodium 50 Mg Tablet PO 50 mg DAILY [place] Administration Emtricitabine/Tenofovir Alafenamide 1 tab 01/19/21 09:00 01/19/21 08:09 Emtricitabine/Tenofov Alafenam Tablet PO 1 tab DAILY [place] Administration Heparin Sodium (Porcine) 5,000 unit 01/18/21 17:00 01/19/21 05:47 Heparin Sodium,Porcine 5,000 Unit/Ml Vial SUBCUT 5,000 unit Q12H [place] Administration Piperacillin Sod/Tazobactam 50 mls @ 100 mls/hr 01/18/21 17:00 01/19/21 10:55 Sod 3.375 gm/ Sodium Chloride IV Infused Q6H [place] Infusion Insulin Glargine 20 unit 01/18/21 21:00 01/18/21 21:37 Insulin Glargine,Hum.Rec.Anlog 100 Unit/Ml 10 Ml Vial SUBCUT 20 unit BEDTIME [place] Administration Insulin Human Lispro 0 unit 01/18/21 21:00 01/19/21 11:36 Insulin Lispro 100 Unit/Ml 3 Ml Vial SUBCUT Not Given QIDACHS [facility] Protocol Lisinopril 5 mg 01/18/21 17:00 01/19/21 08:09 Lisinopril 5 Mg Tablet PO 5 mg DAILY [facility] Administration Protocol Medication 1 each 01/18/21 22:30 No Benzodiazepines MISCELLANE DAILY [facility] Metoprolol Succinate 50 mg 01/18/21 21:00 01/18/21 21:36 Metoprolol Succinate Er 50 Mg Tab.Er.24h PO 50 mg BEDTIME [facility] Administration Protocol Nicotine 14 mg 01/18/21 16:37 01/19/21 08:10 Nicotine 14 Mg Patch.Td24 TRANSDERMA 14 mg DAILY [facility] Administration Oxycodone HCl 5 mg 01/19/21 02:42 01/19/21 06:37 Oxycodone Hcl Immed Release 5 Mg Tablet PO 5 mg Q6H PRN Administration Pain, Severe (Pain Scale 7-10) Pharmacy Consult 1 each 01/18/21 14:30 Consult Rx Perform Med Rec MISCELLANE ONCE PRN Consult order Pharmacy Consult 1 each 01/18/21 14:39 Consult Rx Perform Med Rec MISCELLANE ONCE PRN Consult order Phenobarbital 45 mg 01/19/21 09:00 01/19/21 08:09 Phenobarbital 15 Mg Tablet PO 01/20/21 21:01 45 mg BID [place] Administration Protocol Phenobarbital 30 mg 01/21/21 09:00 Phenobarbital 30 Mg Tablet PO 01/22/21 21:01 BID [place] Protocol Phenobarbital 30 mg 01/23/21 09:00 Phenobarbital 30 Mg Tablet PO 01/24/21 09:01 DAILY [facility] Protocol Sodium Chloride 3 ml 01/19/21 00:00 01/19/21 08:10 0.9 % Sodium Chloride Flush 3 Ml Syringe IVFLUSH 3 ml QSHIFT [facility] Administration Labs CBC & Chem 7: 01/19/21 06:09 01/19/21 06:09 Assessment and Plan (1) Abscess of right thigh: Status: Acute Assessment and Plan: Sepsis secondary to right thigh cellulitis and abscess some improvement status post I&D by ER physician continue IV Zosyn follow-up cultures surgery consulted recommended continue current management Diabetes mellitus continue Lantus and SSI hold metformin monitor blood glucose hypertension continue Lopressor history of HIV continue his home anti HIV medication history of alcohol abuse currently not in any withdrawal hold phenobarbital monitor for CIWA CAD status post stent continue aspirin Lopressor and statins DVT prophylaxis heparin subQ
--- NOTE | 2021-01-19 14:09 | MHC.CM.PN ---
CM CONTACTED PT'S DAUGHTER ABRAHAN AT 2:04PM ([phone]) TO FIND OUT NAME OF REHAB IN [place], DAUGHTER REPORTS PT WAS AT [facility] IN [place], CM WILL GIVE INFO TO CARE TEAM.
--- NOTE | 2021-01-19 14:59 | MHC.CM.PN ---
IMM 01/19/21, EMR REVIEWED, PT ADMITTED WITH SEPSIS D/T CELLULITIS, CM MET WITH PT VIA [employer] AND PT REPORTS HE LIVES ALONE, PT REPORTS HE HAS BEEN APPROVED FOR [employer] HOWEVER IT HAS NOT BEEN SET UP, PT DENIES USE OF DME, PT AMBULATES INDEPENDENTLY, REPORTS HE LOST A LOT OF WEIGHT SO NO LONGER NEEDS TO CHECK HIS BLOOD SUGARS DAILY, PT CURRENTLY HAS NO HOME SERVICES, NO VNA. PT UNABLE TO VERIFY HIS PCP HOWEVER NOTES IT IS THROUGH [facility], PT DOES REPORT HE HAS BEEN DRINKING DAILY AND WOULD LIKE TO GO TO REHAB FOR ETOH ABUSE, PT REPORTS HE FEELS IF HE RETURNS HOME HE WILL CONTINUE DRINKING, PT WOULD LIKE TO RETURN THE REHAB IN [place], [facility], CM CONTACTED HOSPITALIST VIA [facility] AND THEY ARE AWARE.
[2021-01-19 15:25] VITALS: BP 118/69; PULSE 71; RESP 16; TEMP 36.7; O2SAT 97
[2021-01-19 16:33] LABS: Glucose, Whole Blood 83 mg/dL (60-115)
[2021-01-19 20:00] VITALS: BP 132/67; PULSE 79; RESP 18; TEMP 37.1; O2SAT 96
[2021-01-19 21:10] LABS: Glucose, Whole Blood 225 mg/dL (60-115)
[2021-01-19 21:18] VITALS: BP 132/67; PULSE 79
[2021-01-19] MEDS: Metoprolol Succinate ER 50 MG TAB.ER.24H PO (21:18)
[2021-01-19] MEDS: Insulin Lispro 100 UNIT/ML 3 ML VIAL SUBCUT (21:19)
[2021-01-19] MEDS: Atorvastatin Calcium 80 MG TABLET PO (21:19)
[2021-01-19] MEDS: Insulin Glargine,Hum.rec.anlog 100 UNIT/ML 10 ML VIAL 20 UNIT SUBCUT (21:21)
[2021-01-19 23:38] VITALS: BP 118/64; PULSE 76; RESP 20; TEMP 36.7; O2SAT 98
[2021-01-20] VITALS (7 sets, daily range): BP systolic 113–139; BP diastolic 65–79; PULSE 69–84; RESP 15–20; TEMP 36–37.1; O2SAT 97–99
[2021-01-20] MEDS: Piperacillin Sodium/Tazobactam 3.375 GM in 0.9 % Sodium Chloride 50 ML IV ×3 (05:05→16:21)
[2021-01-20] MEDS: Heparin Sodium,Porcine 5,000 UNIT/ML VIAL 5000 UNIT SUBCUT ×2 (05:05→16:22)
[2021-01-20 07:58] LABS: Glucose, Whole Blood 87 mg/dL (60-115)
[2021-01-20 08:21] LABS: MANUAL DIFF FLAG NO
[2021-01-20 08:26] LABS: Basophils Percent Auto 0.3 % (0-2); Eosinophils Absolute Auto 0.1 X10*3/uL (0.0-0.4); Eosinophils Percent Auto 1.4 % (0-4); Hemoglobin 14.6 g/dl (14.0-18.0); Imm Gran Abs Auto 0.03 X10*3/uL (0.00-0.03); Imm Gran Pct Auto 0.3 % (0.0-0.4); Lymphocytes Absolute Auto 2.6 X10*3/uL (1.2-4.9); Lymphocytes Percent Auto 25.1 % (20-40); Mean Corpuscular Hemoglobin 33.8 pg (27.0-33.0); Mean Corpuscular Volume 99.5 fL (80-98); Mean Platelet Volume 9.8 fL (9.4-12.4); Monocytes Percent Auto 10.1 % (2-11); Neutrophils Absolute Auto 6.5 X10*3/uL (2.0-8.3); Neutrophils Percent Auto 62.8 % (45-73); Platelet Count 303 X10*3/uL (160-400); Red Blood Count 4.32 X10*6/uL (4.60-5.80); White Blood Count 10.3 X10*3/uL (4.8-10.8)
--- NOTE | 2021-01-20 08:32 | PM.PNGS ---
Subjective Subjective Date of Service: 01/20/21 <Candace Canales PA-C - Last Filed: 01/20/21 08:35> 01/20/21 <Meir Gaytan MD - Last Filed: 01/20/21 09:14> Interval history: Feels better, less pain at abscess site. <Candace Canales PA-C - Last Filed: 01/20/21 08:35> Physical Exam Vital Signs: Vital Signs: Last Vital Signs Temp 98.3 F 01/20/21 07:25 Pulse 77 01/20/21 07:25 Resp 16 01/20/21 07:25 BP 114/72 01/20/21 07:25 Pulse Ox 98 01/20/21 07:25 Body Mass Index 27.4 <Candace Canales PA-C - Last Filed: 01/20/21 08:35> Const: General: comfortable and no acute distress <Candace Canales PA-C - Last Filed: 01/20/21 08:35> Orientation/consciousness: patient oriented x3 <Candace Canales PA-C - Last Filed: 01/20/21 08:35> Eyes: Sclerae: sclerae normal <Candace Canales PA-C - Last Filed: 01/20/21 08:35> Resp: Effort & Inspection: normal respiratory effort <Candace Canales PA-C - Last Filed: 01/20/21 08:35> Skin: General skin exam: no rashes or lesions noted <Candace Canales PA-C - Last Filed: 01/20/21 08:35> Neuro: General: patient oriented x3 <Candace Canales PA-C - Last Filed: 01/20/21 08:35> Extrem: Other: Right anterior thigh I&D site- erythema and induration improving, packing advanced, remains open and draining <CAILIN Hui Last Filed: 01/20/21 08:35> General: Yes no clubbing, cyanosis or edema <Candace Canales PA-C - Last Filed: 01/20/21 08:35> Progress Note: A&P Assessment and plan (1) Sepsis: Status: Acute <Candace Canales PA-C - Last Filed: 01/20/21 08:35> (2) Abscess of right thigh: Status: Acute <Candace Canales PA-C - Last Filed: 01/20/21 08:35> Assessment and Plan: I&D site remains open and draining, erythema/induration improved. WBC now normalized. Would continue IV abx for one more day, will remove packing tomorrow. Continue daily dressings changes. <Candace Canales PA-C - Last Filed: 01/20/21 08:35> Status post I and D Induration and redness have improved significantly as per patient I pulled out the packing partially Okay to DC the packing tomorrow Dressings changed Antibiotics as per the hospitalist service Seen and examined - <Meir Gaytan MD - Last Filed: 01/20/21 09:14> Fall Risk Details Current Medications: Current Medications Generic Name Dose Route Start Last Admin Trade Name Freq PRN Reason Stop Dose Admin Aspirin 81 mg 01/18/21 16:37 01/19/21 08:10 Aspirin Enteric Coated 81 Mg Tablet. PO 81 mg DAILY [facility] Administration Atorvastatin Calcium 80 mg 01/18/21 21:00 01/19/21 21:19 Atorvastatin Calcium 80 Mg Tablet PO 80 mg BEDTIME [facility] Administration Dolutegravir Sodium 50 mg 01/19/21 09:00 01/19/21 08:09 Dolutegravir Sodium 50 Mg Tablet PO 50 mg DAILY [facility] Administration Emtricitabine/Tenofovir Alafenamide 1 tab 01/19/21 09:00 01/19/21 08:09 Emtricitabine/Tenofov Alafenam Tablet PO 1 tab DAILY [facility] Administration Heparin Sodium (Porcine) 5,000 unit 01/18/21 17:00 01/20/21 05:05 Heparin Sodium,Porcine 5,000 Unit/Ml Vial SUBCUT 5,000 unit Q12H [facility] Administration Piperacillin Sod/Tazobactam 50 mls @ 100 mls/hr 01/18/21 17:00 01/20/21 05:41 Sod 3.375 gm/ Sodium Chloride IV Infused Q6H [facility] Infusion Insulin Glargine 15 unit 01/20/21 21:00 Insulin Glargine,Hum.Rec.Anlog 100 Unit/Ml 10 Ml Vial SUBCUT BEDTIME [facility] Insulin Human Lispro 0 unit 01/18/21 21:00 01/20/21 07:28 Insulin Lispro 100 Unit/Ml 3 Ml Vial SUBCUT Not Given QIDACHS [facility] Protocol Lisinopril 5 mg 01/18/21 17:00 01/19/21 08:09 Lisinopril 5 Mg Tablet PO 5 mg DAILY [facility] Administration Protocol Medication 1 each 01/18/21 22:30 No Benzodiazepines MISCELLANE DAILY [facility] Metoprolol Succinate 50 mg 01/18/21 21:00 01/19/21 21:18 Metoprolol Succinate Er 50 Mg Tab.Er.24h PO 50 mg BEDTIME [facility] Administration Protocol Nicotine 14 mg 01/18/21 16:37 01/19/21 08:10 Nicotine 14 Mg Patch.Td24 TRANSDERMA 14 mg DAILY [facility] Administration Oxycodone HCl 5 mg 01/19/21 02:42 01/19/21 19:59 Oxycodone Hcl Immed Release 5 Mg Tablet PO 5 mg Q6H PRN Administration Pain, Severe (Pain Scale 7-10) Pharmacy Consult 1 each 01/18/21 14:30 Consult Rx Perform Med Rec MISCELLANE ONCE PRN Consult order Pharmacy Consult 1 each 01/18/21 14:39 Consult Rx Perform Med Rec MISCELLANE ONCE PRN Consult order Phenobarbital 45 mg 01/19/21 09:00 01/19/21 21:18 Phenobarbital 15 Mg Tablet PO 01/20/21 21:01 45 mg BID [facility] Administration Protocol Phenobarbital 30 mg 01/21/21 09:00 Phenobarbital 30 Mg Tablet PO 01/22/21 21:01 BID [facility] Protocol Phenobarbital 30 mg 01/23/21 09:00 Phenobarbital 30 Mg Tablet PO 01/24/21 09:01 DAILY [facility] Protocol Sodium Chloride 3 ml 01/19/21 00:00 01/19/21 23:36 0.9 % Sodium Chloride Flush 3 Ml Syringe IVFLUSH 3 ml QSHIFT [facility] Administration <Candace Canales PA-C - Last Filed: 01/20/21 08:35> Time Spent With Patient Time: Total time spent is greater than 50% in coordination of care (as documented) at patient's floor/unit and/or counseling patient: <Candace Canales PA-C - Last Filed: 01/20/21 08:35> Time with patient: 15 - 24 minutes <Candace Canales PA-C - Last Filed: 01/20/21 08:35>
[2021-01-20 08:56] LABS: Anion Gap 11 (12-20); Blood Urea Nitrogen 18 mg/dL (9-16); Carbon Dioxide 30 mmol/L (22-29); Chloride 100 mmol/L (96-108); Creatinine Clr Calc Pharmacy 76.8; Estimated Glomerular Filt Rate > 60; Glucose Random 117 mg/dL (60-115); Potassium 4.5 mmol/L (3.3-5.1); Sodium 136 mmol/L (135-145)
[2021-01-20 09:03] LABS: Calcium 8.7 mg/dL (8.4-10.2)
[2021-01-20] MEDS: Nicotine 14 MG PATCH.TD24 TRANSDERMA (09:19)
[2021-01-20] MEDS: Aspirin Enteric Coated 81 MG TABLET.DR PO (09:20)
[2021-01-20] MEDS: PHENobarbitaL 15 MG TABLET 45 MG PO ×2 (09:20→20:53)
[2021-01-20] MEDS: Dolutegravir Sodium 50 MG TABLET PO (09:20)
[2021-01-20] MEDS: oxyCODONE HCl Immed Release 5 MG TABLET PO ×2 (09:20→20:52)
[2021-01-20] MEDS: Emtricitabine/Tenofov Alafenam TABLET 1 TAB PO (09:21)
[2021-01-20] MEDS: 0.9 % Sodium Chloride Flush 3 ML SYRINGE IVFLUSH ×3 (09:23→21:11)
--- NOTE | 2021-01-20 10:29 | HO.PM.IMPN ---
Subjective Subjective Date of Service: 01/20/21 Interval History: Patient seen and examined at bedside Patient reported pain in his thigh Review of Systems Constitutional : No Fever, No Chills , no body aches, no recent illness Head/Face: No facial swelling, No facial redness ENT/Mouth : No oral/throat swelling, No Hoarseness, No Swallowing Difficulty Eyes: No Eye Pain, No Swelling, No Redness Cardiovascular : No Chest Pain, No SOB, No palpitations Respiratory : No Cough, No Sputum, No Wheezing, No Smoke Exposure, No Dyspnea Gastrointestinal : No Nausea, No Vomiting, No Diarrhea, No abdominal Pain Genitourinary : No Dysuria, No Urinary Frequency, No Hematuria Musculoskeletal : No joint pain, No Myalgias, No Joint Swelling Skin : + Skin Lesions/abscess, No Rashes Neuro : No Weakness, No Numbness, No Headache, No dizziness, No tingling Psych : No Anxiety/Panic, No Depression Heme/Lymph: No Bruising, No Lymphadenopathy Endocrine : No Polyuria, No Polydipsia Denies changes in lotions or detergents. Denies new medications or any changes in medications. Denies drainage from rash. Denies any recent sick contacts or recent travel. Constitutional Constitutional: Denies chills, Denies fever(s) and Denies weakness ENT Ears, Nose, Mouth, and Throat: Denies dizziness Cardiovascular Cardiovascular: Denies chest pain, Denies rapid heart rate and Denies dyspnea Respiratory Respiratory: Denies cough and Denies dyspnea Gastrointestinal Gastrointestinal: Denies abdominal pain, Denies nausea and Denies vomiting Musculoskeletal Musculoskeletal: Reports no additional musculoskeletal complaints Neurologic Neurologic: Denies dizziness, Reports focal weakness and Denies weakness Physical Exam Vital Signs: Vital Signs: Last Vital Signs Temp 98.3 F 01/20/21 07:25 Pulse 77 01/20/21 07:25 Resp 16 01/20/21 07:25 BP 114/72 01/20/21 07:25 Pulse Ox 98 01/20/21 07:25 Body Mass Index 27.4 Const: General: comfortable, no acute distress and alert Orientation/consciousness: patient oriented x3 Eyes: Sclerae: sclerae normal Resp: Effort & Inspection: normal respiratory effort Cardio: Rate: regular rate GI: Inspection: No distended Palpation (GI): nontender Skin: Other: normal color, warm and dry Neuro: General: patient oriented x3 Extrem: Other: I&D site of right anterior thigh with surrounding erythema and induration, some purulent drainage expressed, packing advanced, second incision site medially (where patient performed) with some drainage, no areas of necrosis or crepitus General: Yes normal exam except as noted Objective Data Current Medications Generic Name Dose Route Start Last Admin Trade Name Henrietta PRN Reason Stop Dose Admin Aspirin 81 mg 01/18/21 16:37 01/20/21 09:20 Aspirin Enteric Coated 81 Mg Tablet.Dr PO 81 mg DAILY [facility] Administration Atorvastatin Calcium 80 mg 01/18/21 21:00 01/19/21 21:19 Atorvastatin Calcium 80 Mg Tablet PO 80 mg BEDTIME [facility] Administration Dolutegravir Sodium 50 mg 01/19/21 09:00 01/20/21 09:20 Dolutegravir Sodium 50 Mg Tablet PO 50 mg DAILY [place] Administration Emtricitabine/Tenofovir Alafenamide 1 tab 01/19/21 09:00 01/20/21 09:21 Emtricitabine/Tenofov Alafenam Tablet PO 1 tab DAILY [facility] Administration Heparin Sodium (Porcine) 5,000 unit 01/18/21 17:00 01/20/21 05:05 Heparin Sodium,Porcine 5,000 Unit/Ml Vial SUBCUT 5,000 unit Q12H [facility] Administration Piperacillin Sod/Tazobactam 50 mls @ 100 mls/hr 01/18/21 17:00 01/20/21 05:41 Sod 3.375 gm/ Sodium Chloride IV Infused Q6H [facility] Infusion Insulin Glargine 15 unit 01/20/21 21:00 Insulin Glargine,Hum.Rec.Anlog 100 Unit/Ml 10 Ml Vial SUBCUT BEDTIME [facility] Insulin Human Lispro 0 unit 01/18/21 21:00 01/20/21 07:28 Insulin Lispro 100 Unit/Ml 3 Ml Vial SUBCUT Not Given QIDACHS [facility] Protocol Lisinopril 5 mg 01/18/21 17:00 01/20/21 09:21 Lisinopril 5 Mg Tablet PO 5 mg DAILY [facility] Administration Protocol Medication 1 each 01/18/21 22:30 No Benzodiazepines MISCELLANE DAILY [facility] Metoprolol Succinate 50 mg 01/18/21 21:00 01/19/21 21:18 Metoprolol Succinate Er 50 Mg Tab.Er.24h PO 50 mg BEDTIME [facility] Administration Protocol Nicotine 14 mg 01/18/21 16:37 01/20/21 09:19 Nicotine 14 Mg Patch.Td24 TRANSDERMA 14 mg DAILY [facility] Administration Oxycodone HCl 5 mg 01/19/21 02:42 01/20/21 09:20 Oxycodone Hcl Immed Release 5 Mg Tablet PO 5 mg Q6H PRN Administration Pain, Severe (Pain Scale 7-10) Pharmacy Consult 1 each 01/18/21 14:30 Consult Rx Perform Med Rec MISCELLANE ONCE PRN Consult order Pharmacy Consult 1 each 01/18/21 14:39 Consult Rx Perform Med Rec MISCELLANE ONCE PRN Consult order Phenobarbital 45 mg 01/19/21 09:00 01/20/21 09:20 Phenobarbital 15 Mg Tablet PO 01/20/21 21:01 45 mg BID [facility] Administration Protocol Phenobarbital 30 mg 01/21/21 09:00 Phenobarbital 30 Mg Tablet PO 01/22/21 21:01 BID [facility] Protocol Phenobarbital 30 mg 01/23/21 09:00 Phenobarbital 30 Mg Tablet PO 01/24/21 09:01 DAILY [facility] Protocol Sodium Chloride 3 ml 01/19/21 00:00 01/20/21 09:23 0.9 % Sodium Chloride Flush 3 Ml Syringe IVFLUSH 3 ml QSHIFT [facility] Administration Labs CBC & Chem 7: 01/20/21 08:05 01/20/21 08:05 Microbiology Microbiology Results: Microbiology 01/18/21 12:35 Blood - Venous Blood Culture - Preliminary No growth after 24 hours. 01/18/21 12:26 Blood - Venous Blood Culture - Preliminary No growth after 24 hours. Assessment and Plan (1) Abscess of right thigh: Status: Acute Assessment and Plan: Sepsis secondary to right thigh cellulitis and abscess improving status post I&D by ER physician continue IV Zosyn follow-up cultures surgery consulted recommended continue current management id consult for antibiotic Diabetes mellitus continue Lantus and SSI hold metformin monitor blood glucose hypertension continue Lopressor history of HIV continue his home anti HIV medication History of alcohol abuse went into withdrawal improving now continue phenobarbital hold phenobarbital monitor for CIWA patient interested in going to alcohol rehab case management working with that CAD status post stent continue aspirin Lopressor and statins DVT prophylaxis heparin subQ
--- NOTE | 2021-01-20 11:39 | MHC.CM.PN ---
PER MULTIDISCIPLINARY ROUNDS PT WILL BE READY FOR D/C TOMORROW 01/21, CARE TEAM MTG WITH PT REGARDING ETOH ABUSE AND PTS WISH TO GO TO [facility] IN [place]. CM TO FOLLOW FOR D/C NEEDS.
[2021-01-20 11:43] LABS: Glucose, Whole Blood 126 mg/dL (60-115)
--- NOTE | 2021-01-20 13:41 | MHC.RECOVRN ---
55 year old male presented to [facility] ED on 01/18/21 due to +scabbed lump area above rt knee with surrounding erythema x 2 weeks,?+small lump left ear,?+redness left middle toe with redness below nailbed, denies fevers at home per glue mounter operator.?Pt subsequently admitted to [place] [address] due to cellulitis of right thigh, abscess of right thigh, sepsis. Pt had also reported daily alcohol use and recent ATS admission at [facility]. Pt put on phenobarbital protocol.? T/w met with pt, along with position description manager, in 372 to discuss further substance use treatment. 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 Pt reports daily alcohol use for the past year, 40 oz beer as well as nips, pt states as many as I can. Pt reports [facility] admission was beneficial, however, resumed alcohol use shortly after returning home.? Pt is interested in continuing with treatment on the [facility] level. T/w discussed options with pt and pt is willing to go anywhere. ?T/w discussed with pts RN and CM. Referrals were faxed to [facility].?
--- NOTE | 2021-01-20 14:56 | MHC.CM.PN ---
CM EMT W/RECOVERY NURSE WHO REPORTED PT HAS POSSIBLE BED AT [facility] AT 1PM TOMORROW PENDING MEDICAL REVIEW IN AM AND IF PT IS MEDICALLY CLEARED [place] [facility]. PER RECOVERY NURSE A PRESCRIPTION FOR A 14 DAY SUPPLY OF NEW SCRIPTS NEED TO BE FAXED TO [facility] PRIOR TO D/C. CM CONTACTED P'S DAUGHTER/HCP ABRAHAN AT 2:55PM ([phone]) TO LET HER KNOW OF PLAN SO TRANSPORT CAN BE ARRANGED, CM ALSO LET DAUGHTER KNOW PT WILL NEED HIS HOME MEDICATIONS AND A GLUCOMETER FOR [facility] TO ADMIT PT. CM TO CONT TO FOLLOW FOR D/C NEEDS.
--- NOTE | 2021-01-20 14:59 | MHC.RECOVRN ---
[facility] is holding 1PM admission time on 01/21 for pt, per Gunjan in [facility]. Dr. Valadez at [facility] will review pts case in the morning prior to pts acceptance to [facility]. INDIO and RN aware.
[2021-01-20 16:16] LABS: Glucose, Whole Blood 172 mg/dL (60-115)
[2021-01-20] MEDS: Insulin Lispro 100 UNIT/ML 3 ML VIAL SUBCUT ×2 (16:21→20:54)
--- NOTE | 2021-01-20 16:47 | P.CNID_ITS ---
History of Present Illness Data of Consult Service Date: 01/20/21 Requesting physician: Layo De Los Santos Primary Care Provider: [facility] Reason for consult: purulent cellulitis He reports two weeks purulent drainage from leg wound right thigh He tried to santos it himself He doesnt mention MRSA history He has no nausea or vomiting Review of Systems Review of Systems: Yes all other systems are reviewed and are negative PMFSH Past Medical History Medical History Depression Diabetes HIV (human immunodeficiency virus infection) HTN (hypertension) Stroke Family History Family History Other Hypertension Family history: reviewed and not pertinent Surgical History Surgical History H/O heart artery stent Social History Social History Household Members: None Do you presently have visiting nurse or other home services: Yes Alcohol intake: current Alcohol intake frequency: holidays/special occasions only Alcohol type: beer and wine Smoking Status: Current every day smoker Tobacco Type: Cigarette Smoked in Last 30 Days: Yes Patient Interested in Nicotine Replacement: No Patient Given Instructions on How to Stop Smoking: Yes Date Education Initiated: 01/18/21 Second Hand Smoke Exposure: No Use of substances other than those prescribed or required for medical reasons: No Currently Displaying Signs/Symptoms of Drug Intoxication Withdrawal: No Any prior treatment program specific to substance use: No Have you been hit, kicked, punched, or otherwise hurt by someone within the past year? If so, by whom?: No Do you feel safe in your current relationship?: No Is there a partner from a previous relationship who is making you feel unsafe now?: No Are you made to feel afraid or neglected: No Advance Directives: No Advance Directives Information Provided: No Do you have thoughts of harming others: None Do you have a plan to hurt others: No Plan Recently lost weight without trying: No service: No Current occupational status: unemployed Meds Allergies Allergy/AdvReac Type Severity Reaction Status Date / Time No Known Allergies Allergy Verified 01/03/21 20:19 [No Known Allergies*] Active Medications: Current Medications Generic Name Dose Route Start Last Admin Trade Name Henrietta PRN Reason Stop Dose Admin Aspirin 81 mg 01/18/21 16:37 01/20/21 09:20 Aspirin Enteric Coated 81 Mg Tablet.Dr PO 81 mg DAILY [facility] Administration Atorvastatin Calcium 80 mg 01/18/21 21:00 01/19/21 21:19 Atorvastatin Calcium 80 Mg Tablet PO 80 mg BEDTIME [facility] Administration Dolutegravir Sodium 50 mg 01/19/21 09:00 01/20/21 09:20 Dolutegravir Sodium 50 Mg Tablet PO 50 mg DAILY [facility] Administration Emtricitabine/Tenofovir Alafenamide 1 tab 01/19/21 09:00 01/20/21 09:21 Emtricitabine/Tenofov Alafenam Tablet PO 1 tab DAILY [facility] Administration Heparin Sodium (Porcine) 5,000 unit 01/18/21 17:00 01/20/21 16:22 Heparin Sodium,Porcine 5,000 Unit/Ml Vial SUBCUT 5,000 unit Q12H [facility] Administration Piperacillin Sod/Tazobactam 50 mls @ 100 mls/hr 01/18/21 17:00 01/20/21 16:21 Sod 3.375 gm/ Sodium Chloride IV 100 mls/hr Q6H [facility] Administration Insulin Glargine 15 unit 01/20/21 21:00 Insulin Glargine,Hum.Rec.Anlog 100 Unit/Ml 10 Ml Vial SUBCUT BEDTIME [facility] Insulin Human Lispro 0 unit 01/18/21 21:00 01/20/21 16:21 Insulin Lispro 100 Unit/Ml 3 Ml Vial SUBCUT 2 unit QIDACHS [facility] Administration Protocol Lisinopril 5 mg 01/18/21 17:00 01/20/21 09:21 Lisinopril 5 Mg Tablet PO 5 mg DAILY [facility] Administration Protocol Medication 1 each 01/18/21 22:30 No Benzodiazepines MISCELLANE DAILY [facility] Metoprolol Succinate 50 mg 01/18/21 21:00 01/19/21 21:18 Metoprolol Succinate Er 50 Mg Tab.Er.24h PO 50 mg BEDTIME [facility] Administration Protocol Nicotine 14 mg 01/18/21 16:37 01/20/21 09:19 Nicotine 14 Mg Patch.Td24 TRANSDERMA 14 mg DAILY [facility] Administration Oxycodone HCl 5 mg 01/19/21 02:42 01/20/21 09:20 Oxycodone Hcl Immed Release 5 Mg Tablet PO 5 mg Q6H PRN Administration Pain, Severe (Pain Scale 7-10) Pharmacy Consult 1 each 01/18/21 14:30 Consult Rx Perform Med Rec MISCELLANE ONCE PRN Consult order Pharmacy Consult 1 each 01/18/21 14:39 Consult Rx Perform Med Rec MISCELLANE ONCE PRN Consult order Phenobarbital 45 mg 01/19/21 09:00 01/20/21 09:20 Phenobarbital 15 Mg Tablet PO 01/20/21 21:01 45 mg BID [facility] Administration Protocol Phenobarbital 30 mg 01/21/21 09:00 Phenobarbital 30 Mg Tablet PO 01/22/21 21:01 BID [facility] Protocol Phenobarbital 30 mg 01/23/21 09:00 Phenobarbital 30 Mg Tablet PO 01/24/21 09:01 DAILY [facility] Protocol Sodium Chloride 3 ml 01/19/21 00:00 01/20/21 16:24 0.9 % Sodium Chloride Flush 3 Ml Syringe IVFLUSH 3 ml QSHIFT [facility] Administration Home Medications Medication Instructions Recorded Confirmed Last Taken Type aspirin 1 tab PO QAM 01/18/21 01/18/21 Unknown History dolutegravir [Tivicay] 1 tab PO DAILY 01/18/21 01/18/21 Unknown History emtricitabine-tenofovir alafen 1 tab PO DAILY 01/18/21 01/18/21 Unknown History [Descovy] glipizide 1 tab PO BID 01/18/21 01/18/21 Unknown History insulin glargine [Lantus Solostar 20 unit SUBCUT BEDTIME 01/18/21 01/18/21 Unknown History U-100 Insulin] lisinopril 1 tab PO QAM 01/18/21 01/18/21 Unknown History metformin 1 tab PO BID 01/18/21 01/18/21 Unknown History metoprolol succinate 1 tab PO BEDTIME 01/18/21 01/18/21 Unknown History rosuvastatin 1 tab PO BEDTIME 01/18/21 01/18/21 Unknown History Physical Exam Vital Signs: Vital Signs: Last Vital Signs Temp 96.8 F 01/20/21 15:10 Pulse 75 01/20/21 15:10 Resp 16 01/20/21 15:10 BP 129/67 01/20/21 15:10 Pulse Ox 97 01/20/21 15:10 Body Mass Index 27.4 Const: General: cooperative HENMT: Head: Yes normal to inspection Mouth: Normal oral and palatal mucosa present Eyes: General: appearance normal, both eyes and all related structures Resp: Effort & Inspection: normal respiratory effort Cardio: Rate: regular rate Rhythm: regular rhythm GI: Inspection: Yes normal to inspection Skin: General skin exam: no rashes or lesions noted Extrem: Other: right leg area reddened Results Labs CBC & Chem 7: 01/20/21 08:05 01/20/21 08:05 Labs: Short CBC 01/20/21 Range/Units 08:05 WBC 10.3 (4.8-10.8) X10*3/uL Hgb 14.6 (14.0-18.0) g/dl Hct 43.0 (42-52) % Plt Count 303 (160-400) X10*3/uL BMP 01/20/21 08:05 Sodium 136 Potassium 4.5 Chloride 100 Carbon Dioxide 30 H BUN 18 H Creatinine 1.05 Calcium 8.7 D Microbiology Microbiology Results: Microbiology 01/18/21 12:35 Blood - Venous Blood Culture - Preliminary No growth after 48 hours. 01/18/21 12:26 Blood - Venous Blood Culture - Preliminary No growth after 48 hours. Assessment and Plan (1) Sepsis: Problem details: May be related to sepsis possible MRSA He has HIV infection as well Status: Acute Vancomycin cover purulent cellulitis Possible po Doxycycline as outpatient (2) HIV (human immunodeficiency virus infection): Status: Acute (3) Cellulitis of right thigh: Status: Acute
[2021-01-20] MEDS: vancomycin HCL 1,000 MG in 0.9 % Sodium Chloride 250 ML 270 MG IV (17:56)
[2021-01-20 20:26] LABS: Glucose, Whole Blood 155 mg/dL (60-115)
[2021-01-20] MEDS: Metoprolol Succinate ER 50 MG TAB.ER.24H PO (20:53)
[2021-01-20] MEDS: Atorvastatin Calcium 80 MG TABLET PO (20:53)
[2021-01-20] MEDS: Insulin Glargine,Hum.rec.anlog 100 UNIT/ML 10 ML VIAL 15 UNIT SUBCUT (20:54)
[2021-01-21] VITALS (8 sets, daily range): BP systolic 103–136; BP diastolic 52–84; PULSE 70–84; RESP 16–20; TEMP 36.1–36.4; O2SAT 97–98
[2021-01-21] MEDS: vancomycin HCL 1,000 MG in 0.9 % Sodium Chloride 250 ML 270 MG IV ×2 (05:10→17:35)
[2021-01-21] MEDS: Heparin Sodium,Porcine 5,000 UNIT/ML VIAL 5000 UNIT SUBCUT ×2 (05:10→16:52)
[2021-01-21 08:04] LABS: Glucose, Whole Blood 116 mg/dL (60-115)
[2021-01-21] MEDS: Aspirin Enteric Coated 81 MG TABLET.DR PO (08:11)
[2021-01-21] MEDS: Nicotine 14 MG PATCH.TD24 TRANSDERMA (08:11)
[2021-01-21] MEDS: Emtricitabine/Tenofov Alafenam TABLET 1 TAB PO (08:11)
[2021-01-21] MEDS: Dolutegravir Sodium 50 MG TABLET PO (08:11)
[2021-01-21] MEDS: PHENobarbitaL 30 MG TABLET PO ×2 (08:11→20:49)
[2021-01-21] MEDS: 0.9 % Sodium Chloride Flush 3 ML SYRINGE IVFLUSH ×3 (08:12→23:55)
[2021-01-21] MEDS: oxyCODONE HCl Immed Release 5 MG TABLET PO ×4 (09:04→23:53)
--- NOTE | 2021-01-21 09:35 | MHC.RECOVRN ---
T/w spoke with Brianna at [facility] to make them aware pt will not be discharged today and will be unable to make appointment for [facility] admission. [facility] will hold patient's paperwork and will consider for admission when pt is d/c from [facility].
--- NOTE | 2021-01-21 10:10 | MHC.CM.PN ---
PER CONVERSATION WITH HOSPITALIST, PATIENT IS NOT MEDICALLY CLEARED FOR DISCHARGE. RECOVERY SUPPORT RN MADE AWARE. CASE MANAGEMENT TO FOLLOW IN HOPES OF SECURING RECOVERY SERVICES AT [facility].
[2021-01-21 11:27] LABS: Glucose, Whole Blood 155 mg/dL (60-115)
[2021-01-21] MEDS: Insulin Lispro 100 UNIT/ML 3 ML VIAL SUBCUT ×3 (11:45→20:50)
--- NOTE | 2021-01-21 13:20 | HO.PM.IMPN ---
Subjective Subjective Date of Service: 01/21/21 Interval History: Patient complaining of right thigh pain denies fever chills, no other acute issues overnight. 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 CVS no chest pain, no palpitation Physical Exam Vital Signs: Vital Signs: Last Vital Signs Temp 97.3 F 01/21/21 11:37 Pulse 76 01/21/21 11:37 Resp 18 01/21/21 11:37 BP 131/70 01/21/21 11:37 Pulse Ox 98 01/21/21 11:37 Body Mass Index 27.4 General patient awake alert, in pain Neck is supple, no JVD lungs clear,no resp failure. Heart regular Abdomen soft nontender,bowel sounds audible Extremities no edema/right thigh dressing intact no drainage noted Neuro nonfocal Objective Data Current Medications Generic Name Dose Route Start Last Admin Trade Name Freq PRN Reason Stop Dose Admin Aspirin 81 mg 01/18/21 16:37 01/21/21 08:11 Aspirin Enteric Coated 81 Mg Tablet.Dr PO 81 mg DAILY [facility] Administration Atorvastatin Calcium 80 mg 01/18/21 21:00 01/20/21 20:53 Atorvastatin Calcium 80 Mg Tablet PO 80 mg BEDTIME [facility] Administration Dolutegravir Sodium 50 mg 01/19/21 09:00 01/21/21 08:11 Dolutegravir Sodium 50 Mg Tablet PO 50 mg DAILY [facility] Administration Emtricitabine/Tenofovir Alafenamide 1 tab 01/19/21 09:00 01/21/21 08:11 Emtricitabine/Tenofov Alafenam Tablet PO 1 tab DAILY [facility] Administration Heparin Sodium (Porcine) 5,000 unit 01/18/21 17:00 01/21/21 05:10 Heparin Sodium,Porcine 5,000 Unit/Ml Vial SUBCUT 5,000 unit Q12H [facility] Administration Vancomycin HCl 1,000 mg/ 270 mls @ 270 mls/hr 01/20/21 17:00 01/21/21 06:25 Sodium Chloride IV Infused Q12H [facility] Infusion Insulin Glargine 15 unit 01/20/21 21:00 01/20/21 20:54 Insulin Glargine,Hum.Rec.Anlog 100 Unit/Ml 10 Ml Vial SUBCUT 15 unit BEDTIME [facility] Administration Insulin Human Lispro 0 unit 01/18/21 21:00 01/21/21 11:45 Insulin Lispro 100 Unit/Ml 3 Ml Vial SUBCUT 2 unit QIDACHS [facility] Administration Protocol Lisinopril 5 mg 01/18/21 17:00 01/21/21 08:11 Lisinopril 5 Mg Tablet PO 5 mg DAILY [facility] Administration Protocol Medication 1 each 01/18/21 22:30 No Benzodiazepines MISCELLANE DAILY [facility] Metoprolol Succinate 50 mg 01/18/21 21:00 01/20/21 20:53 Metoprolol Succinate Er 50 Mg Tab.Er.24h PO 50 mg BEDTIME [facility] Administration Protocol Nicotine 14 mg 01/18/21 16:37 01/21/21 08:11 Nicotine 14 Mg Patch.Td24 TRANSDERMA 14 mg DAILY [facility] Administration Oxycodone HCl 5 mg 01/21/21 12:04 Oxycodone Hcl Immed Release 5 Mg Tablet PO Q4H PRN Pain, Severe (Pain Scale 7-10) Pharmacy Consult 1 each 01/18/21 14:30 Consult Rx Perform Med Rec MISCELLANE ONCE PRN Consult order Pharmacy Consult 1 each 01/18/21 14:39 Consult Rx Perform Med Rec MISCELLANE ONCE PRN Consult order Pharmacy Consult 1 each 01/20/21 16:52 Consult Rx Vancomycin Dosing MISCELLANE DAILY PRN Consult order Phenobarbital 30 mg 01/21/21 09:00 01/21/21 08:11 Phenobarbital 30 Mg Tablet PO 01/22/21 21:01 30 mg BID [facility] Administration Protocol Phenobarbital 30 mg 01/23/21 09:00 Phenobarbital 30 Mg Tablet PO 01/24/21 09:01 DAILY [facility] Protocol Sodium Chloride 3 ml 01/19/21 00:00 01/21/21 08:12 0.9 % Sodium Chloride Flush 3 Ml Syringe IVFLUSH 3 ml QSHIFT [facility] Administration Labs CBC & Chem 7: 01/20/21 08:05 01/20/21 08:05 Microbiology Microbiology Results: Microbiology 01/18/21 12:35 Blood - Venous Blood Culture - Preliminary No growth after 48 hours. 01/18/21 12:26 Blood - Venous Blood Culture - Preliminary No growth after 48 hours. Assessment and Plan (1) Sepsis: Problem details: May be related to sepsis possible MRSA He has HIV infection as well Status: Acute (2) Diabetes: Status: Acute (3) HTN (hypertension): Status: Acute (4) Cellulitis of right thigh: Status: Acute (5) Abscess of right thigh: Status: Acute Assessment and Plan: Sepsis secondary to right thigh cellulitis and abscess improving status post I&D by ER physician, being followed by General surgery Dr. Rodriguez he change the dressing this morning still requiring packing, patient seen by ID and she changed antibiotic to IV vanc Blood cultures showed no growth, WBC normalized, continue current antibiotic and switched to by mouth doxy upon discharge, patient is complaining of significant pain right thyroid a 4 will increase dose of oxycodone Diabetes mellitus Blood sugars stable, continue Lantus and SSI, metformin on hold hypertension continue Lopressor, blood pressure is stable history of HIV continue anti HIV medication History of alcohol abuse went into withdrawal , now improving on phenobarbital protocol, patient has an alcohol rehab bed CAD status post stent No chest pain, no palpitation, continue aspirin Lopressor and statins DVT prophylaxis heparin subQ
[2021-01-21 16:26] LABS: Glucose, Whole Blood 231 mg/dL (60-115)
[2021-01-21 16:33] LABS: Vancomycin Random 7.1 mcg/mL (15-20)
[2021-01-21 20:02] LABS: Glucose, Whole Blood 186 mg/dL (60-115)
[2021-01-21] MEDS: Atorvastatin Calcium 80 MG TABLET PO (20:48)
[2021-01-21] MEDS: Metoprolol Succinate ER 50 MG TAB.ER.24H PO (20:50)
[2021-01-21] MEDS: Insulin Glargine,Hum.rec.anlog 100 UNIT/ML 10 ML VIAL 15 UNIT SUBCUT (20:51)
[2021-01-22] VITALS (8 sets, daily range): BP systolic 108–147; BP diastolic 59–87; PULSE 75–83; RESP 14–18; TEMP 35.5–36.8; O2SAT 96–99
[2021-01-22] MEDS: Heparin Sodium,Porcine 5,000 UNIT/ML VIAL 5000 UNIT SUBCUT ×2 (04:42→17:41)
[2021-01-22] MEDS: vancomycin HCL 1,000 MG in 0.9 % Sodium Chloride 250 ML 270 MG IV (04:42)
[2021-01-22 08:23] LABS: Glucose, Whole Blood 169 mg/dL (60-115)
[2021-01-22] MEDS: Insulin Lispro 100 UNIT/ML 3 ML VIAL SUBCUT ×3 (08:38→21:13)
[2021-01-22] MEDS: PHENobarbitaL 30 MG TABLET PO ×2 (08:38→21:12)
[2021-01-22] MEDS: Emtricitabine/Tenofov Alafenam TABLET 1 TAB PO (08:39)
[2021-01-22] MEDS: 0.9 % Sodium Chloride Flush 3 ML SYRINGE IVFLUSH ×3 (08:39→21:17)
[2021-01-22] MEDS: Dolutegravir Sodium 50 MG TABLET PO (08:39)
[2021-01-22] MEDS: Aspirin Enteric Coated 81 MG TABLET.DR PO (08:39)
[2021-01-22] MEDS: Nicotine 14 MG PATCH.TD24 TRANSDERMA (08:39)
[2021-01-22] MEDS: oxyCODONE HCl Immed Release 5 MG TABLET PO ×3 (11:07→19:43)
[2021-01-22 11:27] LABS: Glucose, Whole Blood 146 mg/dL (60-115)
--- NOTE | 2021-01-22 11:30 | MHC.CM.PN ---
PER HOSPITALIST ROUNDS, PATIENT STILL REQUIRING PAIN MEDICATION. STILL NOT COMFORTABLE HANDLING HIS DRESSING CHANGES. WOUND IS STILL PACKED. RECOVERY SUPPORT RN MADE AWARE AND IS FOLLOWING.
--- NOTE | 2021-01-22 12:59 | MHC.CM.PN ---
PER CONVERSATION WITH RECOVERY SUPPORT RN, PATIENT HAS A BED OFFER AT [facility] FOR Monday01/25/21 @ 10:30. HOSPITALIST MADE AWARE.
[2021-01-22 13:43] LABS: Creatinine Clr Calc Pharmacy 82.2; Estimated Glomerular Filt Rate > 60
--- NOTE | 2021-01-22 14:08 | HO.PM.IMPN ---
Subjective Subjective Date of Service: 01/22/21 Interval History: Patient complaining of right thigh pain, denies fever chills no other acute issues overnight, patient is not confirm portable doing his own dressing since is still requiring wound packing due to persistent drainage. 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 CVS no chest pain, no palpitation GI no nausea no vomiting no diarrhea Physical Exam Vital Signs: Vital Signs: Last Vital Signs Temp 97.9 F 01/22/21 12:00 Pulse 82 01/22/21 12:00 Resp 18 01/22/21 12:00 BP 108/65 01/22/21 12:00 Pulse Ox 97 01/22/21 12:00 Body Mass Index 27.4 General patient awake alert, in pain Neck is supple, no JVD lungs clear,no resp failure. Heart regular Abdomen soft nontender,bowel sounds audible Extremities no edema/right thigh open wound with packing with mild purulent drainage and surrounding erythema , no induration Neuro nonfocal Objective Data Current Medications Generic Name Dose Route Start Last Admin Trade Name Freq PRN Reason Stop Dose Admin Aspirin 81 mg 01/18/21 16:37 01/22/21 08:39 Aspirin Enteric Coated 81 Mg Tablet. PO 81 mg DAILY [place] Administration Atorvastatin Calcium 80 mg 01/18/21 21:00 01/21/21 20:48 Atorvastatin Calcium 80 Mg Tablet PO 80 mg BEDTIME [facility] Administration Dolutegravir Sodium 50 mg 01/19/21 09:00 01/22/21 08:39 Dolutegravir Sodium 50 Mg Tablet PO 50 mg DAILY [place] Administration Emtricitabine/Tenofovir Alafenamide 1 tab 01/19/21 09:00 01/22/21 08:39 Emtricitabine/Tenofov Alafenam Tablet PO 1 tab DAILY [facility] Administration Heparin Sodium (Porcine) 5,000 unit 01/18/21 17:00 01/22/21 04:42 Heparin Sodium,Porcine 5,000 Unit/Ml Vial SUBCUT 5,000 unit Q12H [facility] Administration Vancomycin HCl 1,000 mg/ 270 mls @ 270 mls/hr 01/20/21 17:00 01/22/21 05:45 Sodium Chloride IV Infused Q12H [facility] Infusion Insulin Glargine 15 unit 01/20/21 21:00 01/21/21 20:51 Insulin Glargine,Hum.Rec.Anlog 100 Unit/Ml 10 Ml Vial SUBCUT 15 unit BEDTIME [facility] Administration Insulin Human Lispro 0 unit 01/18/21 21:00 01/22/21 11:29 Insulin Lispro 100 Unit/Ml 3 Ml Vial SUBCUT Not Given QIDACHS [facility] Protocol Lisinopril 5 mg 01/18/21 17:00 01/22/21 08:39 Lisinopril 5 Mg Tablet PO 5 mg DAILY [facility] Administration Protocol Medication 1 each 01/18/21 22:30 No Benzodiazepines MISCELLANE DAILY [facility] Metoprolol Succinate 50 mg 01/18/21 21:00 01/21/21 20:50 Metoprolol Succinate Er 50 Mg Tab.Er.24h PO 50 mg BEDTIME [facility] Administration Protocol Nicotine 14 mg 01/18/21 16:37 01/22/21 08:39 Nicotine 14 Mg Patch.Td24 TRANSDERMA 14 mg DAILY [facility] Administration Oxycodone HCl 5 mg 01/21/21 12:04 01/22/21 11:07 Oxycodone Hcl Immed Release 5 Mg Tablet PO 5 mg Q4H PRN Administration Pain, Severe (Pain Scale 7-10) Pharmacy Consult 1 each 01/18/21 14:30 Consult Rx Perform Med Rec MISCELLANE ONCE PRN Consult order Pharmacy Consult 1 each 01/18/21 14:39 Consult Rx Perform Med Rec MISCELLANE ONCE PRN Consult order Pharmacy Consult 1 each 01/20/21 16:52 Consult Rx Vancomycin Dosing MISCELLANE DAILY [facility] Consult order Phenobarbital 30 mg 01/21/21 09:00 01/22/21 08:38 Phenobarbital 30 Mg Tablet PO 01/22/21 21:01 30 mg BID [facility] Administration Protocol Phenobarbital 30 mg 01/23/21 09:00 Phenobarbital 30 Mg Tablet PO 01/24/21 09:01 DAILY [facility] Protocol Sodium Chloride 3 ml 01/19/21 00:00 01/22/21 08:39 0.9 % Sodium Chloride Flush 3 Ml Syringe IVFLUSH 3 ml QSHIFT [facility] Administration Labs CBC & Chem 7: 01/20/21 08:05 01/22/21 13:15 Microbiology Microbiology Results: Microbiology 01/18/21 12:35 Blood - Venous Blood Culture - Preliminary No growth after 48 hours. 01/18/21 12:26 Blood - Venous Blood Culture - Preliminary No growth after 48 hours. Assessment and Plan (1) Sepsis: Problem details: May be related to sepsis possible MRSA He has HIV infection as well Status: Acute (2) HIV (human immunodeficiency virus infection): Status: Acute (3) Cellulitis of right thigh: Status: Acute (4) Abscess of right thigh: Status: Acute (5) Diabetes: Status: Acute (6) HTN (hypertension): Status: Acute Assessment and Plan: Sepsis secondary to right thigh cellulitis and abscess improving status post I&D by ER physician, being followed by General surgery Dr. Rodriguez , daily dressing change with packing by Dr. Rodriguez case discussed with ID she recommend to continue IV vancomycin And depending on response will need by mouth antibiotic for next 7-14 days , low Vanco trough will adjust dose. Blood cultures showed no growth, WBC normalized, continue current antibiotic and switched to by mouth doxy upon discharge, patient is complaining of persistent pain right thigh will continue current dose of oxycodone. Follow renal function while on vancomycin. Diabetes mellitus Blood sugars stable, continue Lantus and SSI, metformin on hold hypertension continue Lopressor, blood pressure is stable history of HIV continue anti HIV medication History of alcohol abuse no withdrawal symptoms at present, continue phenobarbital protocol, patient has an alcohol rehab bed. CAD status post stent No chest pain, no palpitation, continue aspirin Lopressor and statins DVT prophylaxis heparin subQ
--- NOTE | 2021-01-22 14:52 | PM.IDPN ---
Subjective Subjective Date of Service: 01/28/21 Interval History: He has some improvement right leg purulence Objective Data Labs CBC & Chem 7: 01/20/21 08:05 01/24/21 07:57 Labs: Laboratory Results - last 24 hr 01/21/21 01/21/21 01/21/21 15:48 16:17 19:58 Creatinine Estim Creat Clear Calc Estimated GFR POC Glucose 231 H 186 H Random Vancomycin 7.1 L 01/22/21 01/22/21 01/22/21 07:38 11:12 13:15 Creatinine 0.98 Estim Creat Clear Calc 82.2 Estimated GFR > 60 POC Glucose 169 H 146 H Random Vancomycin Microbiology Microbiology Results: Microbiology 01/18/21 12:35 Blood - Venous Blood Culture - Preliminary No growth after 48 hours. 01/18/21 12:26 Blood - Venous Blood Culture - Preliminary No growth after 48 hours. Physical Exam Vital Signs: Vital Signs: Last Vital Signs Temp 97.9 F 01/22/21 12:00 Pulse 82 01/22/21 12:00 Resp 18 01/22/21 12:00 BP 108/65 01/22/21 12:00 Pulse Ox 97 01/22/21 12:00 Body Mass Index 27.4 Const: General: cooperative HENMT: Head: Yes normal to inspection Mouth: Normal oral and palatal mucosa present Eyes: General: appearance normal, both eyes and all related structures Resp: Effort & Inspection: normal respiratory effort Cardio: Rate: regular rate Rhythm: regular rhythm GI: Palpation (GI): Soft to palpation and nontender : General: Yes no CVA tenderness Back/Spine/Pelvis: Back: no CVA tenderness Skin: General skin exam: no rashes or lesions noted Assessment and Plan Assessment and plan (1) Sepsis: Problem details: May be related to sepsis possible MRSA He has HIV infection as well Status: Acute Assessment and Plan: He is improving (2) Cellulitis of right thigh: Problem details: Probable staph Status: Acute Assessment and Plan: Would continue Vancomycin since suspicious for MRSA Doxycycline 100 mg bid for 14 days on discharge and followup PCP Continue HIV medication (3) HIV (human immunodeficiency virus infection): Status: Acute Time Spent With Patient Time: Total time spent is greater than 50% in coordination of care (as documented) at patient's floor/unit and/or counseling patient: Time with patient: 15 - 24 minutes
[2021-01-22 16:18] LABS: Glucose, Whole Blood 256 mg/dL (60-115)
[2021-01-22 17:20] LABS: Vancomycin Trough 7.4 mcg/mL (10.0-20.0)
[2021-01-22 20:26] LABS: Glucose, Whole Blood 243 mg/dL (60-115)
[2021-01-22] MEDS: Atorvastatin Calcium 80 MG TABLET PO (21:13)
[2021-01-22] MEDS: Metoprolol Succinate ER 50 MG TAB.ER.24H PO (21:13)
[2021-01-22] MEDS: Insulin Glargine,Hum.rec.anlog 100 UNIT/ML 10 ML VIAL 15 UNIT SUBCUT (21:14)
[2021-01-23] VITALS (8 sets, daily range): BP systolic 113–156; BP diastolic 58–82; PULSE 77–86; RESP 15–17; TEMP 35.6–36.7; O2SAT 96–100
[2021-01-23] MEDS: oxyCODONE HCl Immed Release 5 MG TABLET PO ×6 (00:16→23:48)
[2021-01-23] MEDS: Heparin Sodium,Porcine 5,000 UNIT/ML VIAL 5000 UNIT SUBCUT ×2 (06:36→17:52)
[2021-01-23 07:49] LABS: Anion Gap 9 (12-20); Blood Urea Nitrogen 19 mg/dL (9-16); Calcium 8.5 mg/dL (8.4-10.2); Carbon Dioxide 29 mmol/L (22-29); Chloride 102 mmol/L (96-108); Creatinine Clr Calc Pharmacy 85.7; Estimated Glomerular Filt Rate > 60; Glucose Random 166 mg/dL (60-115); Potassium 4.7 mmol/L (3.3-5.1); Sodium 135 mmol/L (135-145)
[2021-01-23] MEDS: Insulin Lispro 100 UNIT/ML 3 ML VIAL SUBCUT ×3 (07:54→21:23)
[2021-01-23 08:05] LABS: Glucose, Whole Blood 151 mg/dL (60-115)
[2021-01-23] MEDS: Nicotine 14 MG PATCH.TD24 TRANSDERMA (09:14)
[2021-01-23] MEDS: Emtricitabine/Tenofov Alafenam TABLET 1 TAB PO (09:14)
[2021-01-23] MEDS: Dolutegravir Sodium 50 MG TABLET PO (09:14)
[2021-01-23] MEDS: Aspirin Enteric Coated 81 MG TABLET.DR PO (09:14)
[2021-01-23] MEDS: PHENobarbitaL 30 MG TABLET PO (09:14)
--- NOTE | 2021-01-23 10:02 | P.PNGS_ITS ---
Subjective Subjective Date of Service: 01/23/21 Interval history: says he feels better less pain on abscess site Physical Exam Vital Signs: Vital Signs: Last Vital Signs Temp 98.0 F 01/23/21 07:17 Pulse 82 01/23/21 09:15 Resp 15 01/23/21 07:17 BP 113/72 01/23/21 09:15 Pulse Ox 98 01/23/21 07:17 Body Mass Index 27.4 Const: General: comfortable and no acute distress GI: Palpation (GI): Soft to palpation and nontender Extrem: Other: I and D site clean, induration much improved; I replaced his iodophorm packing Progress Note: A&P Assessment and plan (1) Abscess of right thigh: Status: Acute Assessment and Plan: dressings and packing changed improving well on abx continue current care wound care Fall Risk Details Current Medications: Current Medications Generic Name Dose Route Start Last Admin Trade Name Freq PRN Reason Stop Dose Admin Aspirin 81 mg 01/18/21 16:37 01/23/21 09:14 Aspirin Enteric Coated 81 Mg Tablet. PO 81 mg DAILY [place] Administration Atorvastatin Calcium 80 mg 01/18/21 21:00 01/22/21 21:13 Atorvastatin Calcium 80 Mg Tablet PO 80 mg BEDTIME [facility] Administration Dolutegravir Sodium 50 mg 01/19/21 09:00 01/23/21 09:14 Dolutegravir Sodium 50 Mg Tablet PO 50 mg DAILY [facility] Administration Emtricitabine/Tenofovir Alafenamide 1 tab 01/19/21 09:00 01/23/21 09:14 Emtricitabine/Tenofov Alafenam Tablet PO 1 tab DAILY [facility] Administration Heparin Sodium (Porcine) 5,000 unit 01/18/21 17:00 01/23/21 06:36 Heparin Sodium,Porcine 5,000 Unit/Ml Vial SUBCUT 5,000 unit Q12H [facility] Administration Vancomycin HCl 750 mg/ 275 mls @ 183.333 mls/hr 01/22/21 18:00 01/23/21 09:10 Vancomycin HCl 500 mg/ Sodium IV Infused Chloride Q12H [facility] Infusion Insulin Glargine 15 unit 01/20/21 21:00 01/22/21 21:14 Insulin Glargine,Hum.Rec.Anlog 100 Unit/Ml 10 Ml Vial SUBCUT 15 unit BEDTIME [facility] Administration Insulin Human Lispro 0 unit 01/18/21 21:00 01/23/21 07:54 Insulin Lispro 100 Unit/Ml 3 Ml Vial SUBCUT 2 unit QIDACHS [facility] Administration Protocol Lisinopril 5 mg 01/18/21 17:00 01/23/21 09:15 Lisinopril 5 Mg Tablet PO 5 mg DAILY [facility] Administration Protocol Medication 1 each 01/18/21 22:30 No Benzodiazepines MISCELLANE DAILY [facility] Metoprolol Succinate 50 mg 01/18/21 21:00 01/22/21 21:13 Metoprolol Succinate Er 50 Mg Tab.Er.24h PO 50 mg BEDTIME [facility] Administration Protocol Nicotine 14 mg 01/18/21 16:37 01/23/21 09:14 Nicotine 14 Mg Patch.Td24 TRANSDERMA 14 mg DAILY [facility] Administration Oxycodone HCl 5 mg 01/21/21 12:04 01/23/21 06:39 Oxycodone Hcl Immed Release 5 Mg Tablet PO 5 mg Q4H PRN Administration Pain, Severe (Pain Scale 7-10) Pharmacy Consult 1 each 01/18/21 14:39 Consult Rx Perform Med Rec MISCELLANE ONCE PRN Consult order Pharmacy Consult 1 each 01/20/21 16:52 Consult Rx Vancomycin Dosing MISCELLANE DAILY [facility]N Consult order Phenobarbital 30 mg 01/23/21 09:00 01/23/21 09:14 Phenobarbital 30 Mg Tablet PO 01/24/21 09:01 30 mg DAILY [facility] Administration Protocol Sodium Chloride 3 ml 01/19/21 00:00 01/23/21 07:55 0.9 % Sodium Chloride Flush 3 Ml Syringe IVFLUSH Not Given QSHIFT [facility] Time Spent With Patient Time: Total time spent is greater than 50% in coordination of care (as documented) at patient's floor/unit and/or counseling patient: Time with patient: 15 - 24 minutes
--- NOTE | 2021-01-23 10:14 | P.PNIM_ITS ---
Subjective Subjective Date of Service: 01/23/21 Interval History: Patient sitting comfortably in bed, requesting to change his thigh dressing since feel it soaked denies overnight fever and chills. 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 CVS no chest pain, no palpitation GI no nausea no vomiting no diarrhea Physical Exam Vital Signs: Vital Signs: Last Vital Signs Temp 98.0 F 01/23/21 07:17 Pulse 82 01/23/21 09:15 Resp 15 01/23/21 07:17 BP 113/72 01/23/21 09:15 Pulse Ox 98 01/23/21 07:17 Body Mass Index 27.4 General patient awake alert, no distress Neck is supple, no JVD lungs clear,no resp failure. Heart regular Abdomen soft nontender,bowel sounds audible Extremities no edema/right thigh open wound with packing with purulent drainage and no induration Neuro nonfocal Objective Data Current Medications Generic Name Dose Route Start Last Admin Trade Name Freq PRN Reason Stop Dose Admin Aspirin 81 mg 01/18/21 16:37 01/23/21 09:14 Aspirin Enteric Coated 81 Mg Tablet.Dr PO 81 mg DAILY [facility] Administration Atorvastatin Calcium 80 mg 01/18/21 21:00 01/22/21 21:13 Atorvastatin Calcium 80 Mg Tablet PO 80 mg BEDTIME [facility] Administration Dolutegravir Sodium 50 mg 01/19/21 09:00 01/23/21 09:14 Dolutegravir Sodium 50 Mg Tablet PO 50 mg DAILY [facility] Administration Emtricitabine/Tenofovir Alafenamide 1 tab 01/19/21 09:00 01/23/21 09:14 Emtricitabine/Tenofov Alafenam Tablet PO 1 tab DAILY [facility] Administration Heparin Sodium (Porcine) 5,000 unit 01/18/21 17:00 01/23/21 06:36 Heparin Sodium,Porcine 5,000 Unit/Ml Vial SUBCUT 5,000 unit Q12H [facility] Administration Vancomycin HCl 750 mg/ 275 mls @ 183.333 mls/hr 01/22/21 18:00 01/23/21 09:10 Vancomycin HCl 500 mg/ Sodium IV Infused Chloride Q12H [facility] Infusion Insulin Glargine 15 unit 01/20/21 21:00 01/22/21 21:14 Insulin Glargine,Hum.Rec.Anlog 100 Unit/Ml 10 Ml Vial SUBCUT 15 unit BEDTIME [facility] Administration Insulin Human Lispro 0 unit 01/18/21 21:00 01/23/21 07:54 Insulin Lispro 100 Unit/Ml 3 Ml Vial SUBCUT 2 unit QIDACHS [facility] Administration Protocol Lisinopril 5 mg 01/18/21 17:00 01/23/21 09:15 Lisinopril 5 Mg Tablet PO 5 mg DAILY [facility] Administration Protocol Medication 1 each 01/18/21 22:30 No Benzodiazepines MISCELLANE DAILY [facility] Metoprolol Succinate 50 mg 01/18/21 21:00 01/22/21 21:13 Metoprolol Succinate Er 50 Mg Tab.Er.24h PO 50 mg BEDTIME [facility] Administration Protocol Nicotine 14 mg 01/18/21 16:37 01/23/21 09:14 Nicotine 14 Mg Patch.Td24 TRANSDERMA 14 mg DAILY [facility] Administration Oxycodone HCl 5 mg 01/21/21 12:04 01/23/21 06:39 Oxycodone Hcl Immed Release 5 Mg Tablet PO 5 mg Q4H PRN Administration Pain, Severe (Pain Scale 7-10) Pharmacy Consult 1 each 01/18/21 14:39 Consult Rx Perform Med Rec MISCELLANE ONCE PRN Consult order Pharmacy Consult 1 each 01/20/21 16:52 Consult Rx Vancomycin Dosing MISCELLANE DAILY PRN Consult order Phenobarbital 30 mg 01/23/21 09:00 01/23/21 09:14 Phenobarbital 30 Mg Tablet PO 01/24/21 09:01 30 mg DAILY [facility] Administration Protocol Sodium Chloride 3 ml 01/19/21 00:00 01/23/21 07:55 0.9 % Sodium Chloride Flush 3 Ml Syringe IVFLUSH Not Given QSHIFT [facility] Labs CBC & Chem 7: 01/20/21 08:05 01/23/21 06:53 Microbiology Microbiology Results: Microbiology 01/18/21 12:35 Blood - Venous Blood Culture - Preliminary No growth after 48 hours. 01/18/21 12:26 Blood - Venous Blood Culture - Preliminary No growth after 48 hours. Assessment and Plan (1) Sepsis: Problem details: May be related to sepsis possible MRSA He has HIV infection as well Status: Acute (2) Cellulitis of right thigh: Problem details: Probable staph Status: Acute (3) HIV (human immunodeficiency virus infection): Status: Acute (4) Abscess of right thigh: Status: Acute (5) Diabetes: Status: Acute (6) HTN (hypertension): Status: Acute (7) Alcohol withdrawal: Status: Acute Assessment and Plan: Sepsis secondary to right thigh cellulitis and abscess Sepsis resolved, status post I&D by ER physician, being followed by General surgery had dressing changed with packing by Dr. Gaytan this morning ID recommend to continue IV vancomycin due to lower trough dosage has been adjusted, upon discharge will place patient on doxycycline Blood cultures showed no growth, continue current pain medication, will teach patient how to change dressing once packing is removed, stable renal function. Diabetes mellitus Blood sugars stable, continue Lantus and SSI, metformin on hold hypertension continue Lopressor, blood pressure is stable history of HIV continue anti HIV medication History of alcohol abuse withdrawal symptoms resolved, continue phenobarbital protocol, patient has an alcohol rehab bed, possible discharge on Monday. CAD status post stent No chest pain, no palpitation, continue aspirin, Lopressor and statins DVT prophylaxis heparin subQ
[2021-01-23 11:23] LABS: Glucose, Whole Blood 239 mg/dL (60-115)
[2021-01-23] MEDS: 0.9 % Sodium Chloride Flush 3 ML SYRINGE IVFLUSH ×2 (15:16→21:24)
[2021-01-23 16:27] LABS: Glucose, Whole Blood 95 mg/dL (60-115)
[2021-01-23 20:34] LABS: Glucose, Whole Blood 251 mg/dL (60-115)
[2021-01-23] MEDS: Metoprolol Succinate ER 50 MG TAB.ER.24H PO (21:21)
[2021-01-23] MEDS: Atorvastatin Calcium 80 MG TABLET PO (21:21)
[2021-01-23] MEDS: Insulin Glargine,Hum.rec.anlog 100 UNIT/ML 10 ML VIAL 15 UNIT SUBCUT (21:23)
[2021-01-24] VITALS (8 sets, daily range): BP systolic 110–141; BP diastolic 66–69; PULSE 72–85; RESP 14–19; TEMP 36–36.7; O2SAT 96–99
[2021-01-24 05:54] LABS: Vancomycin Trough 9.3 mcg/mL (10.0-20.0)
[2021-01-24] MEDS: Heparin Sodium,Porcine 5,000 UNIT/ML VIAL 5000 UNIT SUBCUT ×2 (06:09→16:02)
[2021-01-24] MEDS: oxyCODONE HCl Immed Release 5 MG TABLET PO ×4 (06:13→21:29)
[2021-01-24 08:01] LABS: Glucose, Whole Blood 214 mg/dL (60-115)
[2021-01-24] MEDS: Nicotine 14 MG PATCH.TD24 TRANSDERMA (08:19)
[2021-01-24] MEDS: Insulin Lispro 100 UNIT/ML 3 ML VIAL SUBCUT ×2 (08:19→21:21)
[2021-01-24] MEDS: Aspirin Enteric Coated 81 MG TABLET.DR PO (08:20)
[2021-01-24] MEDS: 0.9 % Sodium Chloride Flush 3 ML SYRINGE IVFLUSH ×3 (08:20→21:29)
[2021-01-24] MEDS: Emtricitabine/Tenofov Alafenam TABLET 1 TAB PO (08:20)
[2021-01-24] MEDS: Dolutegravir Sodium 50 MG TABLET PO (08:20)
[2021-01-24] MEDS: PHENobarbitaL 30 MG TABLET PO (08:20)
[2021-01-24 08:25] LABS: Creatinine Clr Calc Pharmacy 82.2; Estimated Glomerular Filt Rate > 60
--- NOTE | 2021-01-24 10:36 | PM.PNGS ---
Subjective Subjective Date of Service: 01/24/21 Interval history: some pain on I and D site no other complaints Physical Exam Vital Signs: Vital Signs: Last Vital Signs Temp 97.5 F 01/24/21 07:23 Pulse 72 01/24/21 08:20 Resp 18 01/24/21 07:23 BP 123/66 01/24/21 08:20 Pulse Ox 99 01/24/21 07:23 Body Mass Index 27.4 Laboratory Results - last 24 hr 01/23/21 01/23/21 01/23/21 11:18 16:15 20:27 Creatinine Estim Creat Clear Calc Estimated GFR POC Glucose 239 H 95 251 H Vancomycin Trough 01/24/21 01/24/21 01/24/21 05:16 07:26 07:57 Creatinine 0.98 Estim Creat Clear Calc 82.2 Estimated GFR > 60 POC Glucose 214 H Vancomycin Trough 9.3 L Const: General: comfortable and no acute distress Resp: Effort & Inspection: normal respiratory effort Extrem: Other: right thigh I and D site looks much better, wound open, much less residual induration, scanty drainage, no cellulitis Progress Note: A&P Assessment and plan (1) Abscess of right thigh: Status: Acute Assessment and Plan: thick adherent fibrinous exudates excised sharply from wound base with using scissors light packing applies using gauze dressings placed continue wound care - dry dressings daily ok to dc home with wound care instructions Fall Risk Details Current Medications: Current Medications Generic Name Dose Route Start Last Admin Trade Name Freq PRN Reason Stop Dose Admin Aspirin 81 mg 01/18/21 16:37 01/24/21 08:20 Aspirin Enteric Coated 81 Mg Tablet. PO 81 mg DAILY [place] Administration Atorvastatin Calcium 80 mg 01/18/21 21:00 01/23/21 21:21 Atorvastatin Calcium 80 Mg Tablet PO 80 mg BEDTIME [facility] Administration Dolutegravir Sodium 50 mg 01/19/21 09:00 01/24/21 08:20 Dolutegravir Sodium 50 Mg Tablet PO 50 mg DAILY [place] Administration Emtricitabine/Tenofovir Alafenamide 1 tab 01/19/21 09:00 01/24/21 08:20 Emtricitabine/Tenofov Alafenam Tablet PO 1 tab DAILY [place] Administration Heparin Sodium (Porcine) 5,000 unit 01/18/21 17:00 01/24/21 06:09 Heparin Sodium,Porcine 5,000 Unit/Ml Vial SUBCUT 5,000 unit Q12H [place] Administration Vancomycin HCl 1,500 mg/ 280 mls @ 186.667 mls/hr 01/24/21 18:00 Sodium Chloride IV Q12H [place] Insulin Glargine 15 unit 01/20/21 21:00 01/23/21 21:23 Insulin Glargine,Hum.Rec.Anlog 100 Unit/Ml 10 Ml Vial SUBCUT 15 unit BEDTIME [place] Administration Insulin Human Lispro 0 unit 01/18/21 21:00 01/24/21 08:19 Insulin Lispro 100 Unit/Ml 3 Ml Vial SUBCUT 4 unit QIDACHS [facility] Administration Protocol Lisinopril 5 mg 01/18/21 17:00 01/24/21 08:20 Lisinopril 5 Mg Tablet PO 5 mg DAILY [facility] Administration Protocol Medication 1 each 01/18/21 22:30 No Benzodiazepines MISCELLANE DAILY [facility] Metoprolol Succinate 50 mg 01/18/21 21:00 01/23/21 21:21 Metoprolol Succinate Er 50 Mg Tab.Er.24h PO 50 mg BEDTIME [facility] Administration Protocol Nicotine 14 mg 01/18/21 16:37 01/24/21 08:19 Nicotine 14 Mg Patch.Td24 TRANSDERMA 14 mg DAILY [facility] Administration Oxycodone HCl 5 mg 01/21/21 12:04 01/24/21 10:16 Oxycodone Hcl Immed Release 5 Mg Tablet PO 5 mg Q4H PRN Administration Pain, Severe (Pain Scale 7-10) Pharmacy Consult 1 each 01/18/21 14:39 Consult Rx Perform Med Rec MISCELLANE ONCE PRN Consult order Pharmacy Consult 1 each 01/20/21 16:52 Consult Rx Vancomycin Dosing MISCELLANE DAILY PRN Consult order Sodium Chloride 3 ml 01/19/21 00:00 01/24/21 08:20 0.9 % Sodium Chloride Flush 3 Ml Syringe IVFLUSH 3 ml QSHIFT [facility] Administration Time Spent With Patient Time: Total time spent is greater than 50% in coordination of care (as documented) at patient's floor/unit and/or counseling patient: Time with patient: 15 - 24 minutes
--- NOTE | 2021-01-24 10:39 | HO.PM.IMPN ---
Subjective Subjective Date of Service: 01/24/21 Interval History: Patient complaining of pain right thigh but slightly better continue to have drainage from wound, dressing is saturated with purulent drainage, patient feels he has been detoxed while in the hospital and does not wish to go to alcohol rehab. ROS GEN No fevers, no chills, no tremors [employer] no headache, no dizziness. CVS no chest pain, no palpitation GI no nausea no vomiting no diarrhea Physical Exam Vital Signs: Vital Signs: Last Vital Signs Temp 97.5 F 01/24/21 07:23 Pulse 72 01/24/21 08:20 Resp 18 01/24/21 07:23 BP 123/66 01/24/21 08:20 Pulse Ox 99 01/24/21 07:23 Body Mass Index 27.4 General patient awake alert, no distress Neck is supple, no JVD lungs clear,no resp failure. Heart regular Abdomen soft nontender,bowel sounds audible Extremities no edema/right thigh open wound with packing with purulent drainage and no surrounding redness or induration Neuro nonfocal Objective Data Current Medications Generic Name Dose Route Start Last Admin Trade Name Freq PRN Reason Stop Dose Admin Aspirin 81 mg 01/18/21 16:37 01/24/21 08:20 Aspirin Enteric Coated 81 Mg Tablet.Dr PO 81 mg DAILY [place] Administration Atorvastatin Calcium 80 mg 01/18/21 21:00 01/23/21 21:21 Atorvastatin Calcium 80 Mg Tablet PO 80 mg BEDTIME [facility] Administration Dolutegravir Sodium 50 mg 01/19/21 09:00 01/24/21 08:20 Dolutegravir Sodium 50 Mg Tablet PO 50 mg DAILY [place] Administration Emtricitabine/Tenofovir Alafenamide 1 tab 01/19/21 09:00 01/24/21 08:20 Emtricitabine/Tenofov Alafenam Tablet PO 1 tab DAILY [facility] Administration Heparin Sodium (Porcine) 5,000 unit 01/18/21 17:00 01/24/21 06:09 Heparin Sodium,Porcine 5,000 Unit/Ml Vial SUBCUT 5,000 unit Q12H [place] Administration Vancomycin HCl 1,500 mg/ 280 mls @ 186.667 mls/hr 01/24/21 18:00 Sodium Chloride IV Q12H [place] Insulin Glargine 15 unit 01/20/21 21:00 01/23/21 21:23 Insulin Glargine,Hum.Rec.Anlog 100 Unit/Ml 10 Ml Vial SUBCUT 15 unit BEDTIME [facility] Administration Insulin Human Lispro 0 unit 01/18/21 21:00 01/24/21 08:19 Insulin Lispro 100 Unit/Ml 3 Ml Vial SUBCUT 4 unit QIDACHS [facility] Administration Protocol Lisinopril 5 mg 01/18/21 17:00 01/24/21 08:20 Lisinopril 5 Mg Tablet PO 5 mg DAILY [facility] Administration Protocol Medication 1 each 01/18/21 22:30 No Benzodiazepines MISCELLANE DAILY [facility] Metoprolol Succinate 50 mg 01/18/21 21:00 01/23/21 21:21 Metoprolol Succinate Er 50 Mg Tab.Er.24h PO 50 mg BEDTIME [facility] Administration Protocol Nicotine 14 mg 01/18/21 16:37 01/24/21 08:19 Nicotine 14 Mg Patch.Td24 TRANSDERMA 14 mg DAILY [facility] Administration Oxycodone HCl 5 mg 01/21/21 12:04 01/24/21 10:16 Oxycodone Hcl Immed Release 5 Mg Tablet PO 5 mg Q4H PRN Administration Pain, Severe (Pain Scale 7-10) Pharmacy Consult 1 each 01/18/21 14:39 Consult Rx Perform Med Rec MISCELLANE ONCE PRN Consult order Pharmacy Consult 1 each 01/20/21 16:52 Consult Rx Vancomycin Dosing MISCELLANE DAILY PRN Consult order Sodium Chloride 3 ml 01/19/21 00:00 01/24/21 08:20 0.9 % Sodium Chloride Flush 3 Ml Syringe IVFLUSH 3 ml QSHIFT [facility] Administration Labs CBC & Chem 7: 01/20/21 08:05 01/24/21 07:57 Microbiology Microbiology Results: Microbiology 01/18/21 12:35 Blood - Venous Blood Culture - Final No growth after 5 days. 01/18/21 12:26 Blood - Venous Blood Culture - Final No growth after 5 days. Assessment and Plan (1) Alcohol withdrawal: Status: Acute (2) Sepsis: Problem details: May be related to sepsis possible MRSA He has HIV infection as well Status: Acute (3) Cellulitis of right thigh: Problem details: Probable staph Status: Acute (4) HIV (human immunodeficiency virus infection): Status: Acute (5) Diabetes: Status: Acute (6) HTN (hypertension): Status: Acute (7) Abscess of right thigh: Status: Acute Assessment and Plan: Sepsis secondary to right thigh cellulitis and abscess Sepsis resolved, WBC normalized, status post I&D by ER physician, being followed by General surgery for daily dressing changes, packing remain in place ID recommend to continue IV vancomycin due to lower trough dosage has been adjusted, upon discharge will place patient on by mouth doxycycline Blood cultures showed no growth, continue current pain medication, will teach patient how to change dressing once packing is removed, stable renal function. Diabetes mellitus Blood sugars stable, continue Lantus and SSI, metformin on hold hypertension continue Lopressor, blood pressure is stable history of HIV continue anti HIV medication History of alcohol abuse withdrawal symptoms resolved, continue phenobarbital protocol, patient will be discharged home does not require rehab bed consult care team CAD status post stent No chest pain, no palpitation, continue aspirin, Lopressor and statins DVT prophylaxis heparin subQ
[2021-01-24 11:40] LABS: Glucose, Whole Blood 137 mg/dL (60-115)
--- NOTE | 2021-01-24 12:22 | MHC.CM.PN ---
PER CONVERSATION WITH CARE TEAM, PATIENT IS NOW REFUSING [facility] PATIENT ALSO REFUSED THIS PLAN WITH HOSPITALIST THIS MOPRNING. SURGEON FEELS PATIENT IS NOT ABLE TO MANAGE HIS WOUND CARE AT THIS TIME. WILL RE-EVALUATE TOMORROW
--- NOTE | 2021-01-24 12:43 | MHC.CARE ---
CARE team consulted for pt due to c/o ETOH. T/w obtained an Cold Food Packer as pt prefers Amharic. Per Med floor staff pt was seen by [facility] staff and referred to [facility] for detox with anticipated admission for Monday. Pt has however declined this referral as of now. Pt reported that he no longer wishes to go and feels he is already has detoxed while here on medical floor. Pt described his hx of addiction and referred to himself several times as a former addict and suggested that he has a good sense of when he needs help and he does not feel he needs added hel pat this time. Pt spoke of how his adult daughters help him and make suggestions when he needs help. 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 Pt described his relapse prior to arrival was a new relationship with a woman who struggled with ETOH dependence which triggered his own relapse. Pt is no longer in contact with her and wishes to move forward without added services. Pt spoke of his desire to get back to [facility] as well for added support. T/w inquired if pt had interest in [facility] and pt had a strong reaction to no drugs referring to how he does not want to take medications nor does he feel the need to seek medication support for cravings/urges to use. Pt presented as jovial and pleasant but continued to decline need for services. T/w did ask if resources can be left in case he changed his mind and he was agreeable. Pt spoke of how he is looking to dc soon when he is medically able to do so. T/w passed along info to CM.
[2021-01-24 16:28] LABS: Glucose, Whole Blood 136 mg/dL (60-115)
[2021-01-24 20:31] LABS: Glucose, Whole Blood 261 mg/dL (60-115)
[2021-01-24] MEDS: Insulin Glargine,Hum.rec.anlog 100 UNIT/ML 10 ML VIAL 15 UNIT SUBCUT (21:21)
[2021-01-24] MEDS: Atorvastatin Calcium 80 MG TABLET PO (21:22)
[2021-01-24] MEDS: Metoprolol Succinate ER 50 MG TAB.ER.24H PO (21:25)
[2021-01-25] MEDS: oxyCODONE HCl Immed Release 5 MG TABLET PO ×2 (03:34→08:45)
[2021-01-25 04:03] VITALS: BP 119/64; PULSE 82; RESP 20; TEMP 36.7; O2SAT 98
[2021-01-25] MEDS: Heparin Sodium,Porcine 5,000 UNIT/ML VIAL 5000 UNIT SUBCUT (05:14)
[2021-01-25 08:01] VITALS: BP 128/63; PULSE 73; RESP 18; TEMP 36.4; O2SAT 97
[2021-01-25 08:01] LABS: Glucose, Whole Blood 305 mg/dL (60-115)
[2021-01-25] MEDS: Emtricitabine/Tenofov Alafenam TABLET 1 TAB PO (08:45)
[2021-01-25] MEDS: Dolutegravir Sodium 50 MG TABLET PO (08:45)
[2021-01-25] MEDS: Aspirin Enteric Coated 81 MG TABLET.DR PO (08:45)
[2021-01-25] MEDS: Nicotine 14 MG PATCH.TD24 TRANSDERMA (08:45)
[2021-01-25] MEDS: Insulin Lispro 100 UNIT/ML 3 ML VIAL SUBCUT (08:45)
--- NOTE | 2021-01-25 09:09 | P.PNGS_ITS ---
Subjective Subjective Date of Service: 01/25/21 Interval history: Feels ok. Pain getting better. Physical Exam Vital Signs: Vital Signs: Last Vital Signs Temp 97.5 F 01/25/21 08:01 Pulse 73 01/25/21 08:01 Resp 18 01/25/21 08:01 BP 128/63 01/25/21 08:01 Pulse Ox 97 01/25/21 08:01 Body Mass Index 27.4 Const: General: healthy appearing, comfortable, no acute distress and alert Orientation/consciousness: patient oriented x3 Eyes: Sclerae: sclerae normal Resp: Effort & Inspection: normal respiratory effort Skin: General skin exam: no rashes or lesions noted Neuro: General: patient oriented x3 Extrem: Other: right thigh- I&D site and debridement site open, some fibrinous exudate, some surrounding induration, erythema much improved Progress Note: A&P Assessment and plan (1) Abscess of right thigh: Status: Acute Assessment and Plan: Debrided yesterday Corner of gauze used to gently pack site, followed by fluffs and kerlix Continue wound care - dry dressings daily Ok to dc home with wound care instructions F/u with Lukas in office in 1 week Fall Risk Details Current Medications: Current Medications Generic Name Dose Route Start Last Admin Trade Name Freq PRN Reason Stop Dose Admin Aspirin 81 mg 01/18/21 16:37 01/25/21 08:45 Aspirin Enteric Coated 81 Mg Tablet.Dr PO 81 mg DAILY [place] Administration Atorvastatin Calcium 80 mg 01/18/21 21:00 01/24/21 21:22 Atorvastatin Calcium 80 Mg Tablet PO 80 mg BEDTIME [facility] Administration Dolutegravir Sodium 50 mg 01/19/21 09:00 01/25/21 08:45 Dolutegravir Sodium 50 Mg Tablet PO 50 mg DAILY [facility] Administration Doxycycline Hyclate 100 mg 01/25/21 10:00 Doxycycline Hyclate 100 Mg Tablet PO Q12H [facility] Emtricitabine/Tenofovir Alafenamide 1 tab 01/19/21 09:00 01/25/21 08:45 Emtricitabine/Tenofov Alafenam Tablet PO 1 tab DAILY [facility] Administration Heparin Sodium (Porcine) 5,000 unit 01/18/21 17:00 01/25/21 05:14 Heparin Sodium,Porcine 5,000 Unit/Ml Vial SUBCUT 5,000 unit Q12H [place] Administration Insulin Glargine 15 unit 01/20/21 21:00 01/24/21 21:21 Insulin Glargine,Hum.Rec.Anlog 100 Unit/Ml 10 Ml Vial SUBCUT 15 unit BEDTIME [facility] Administration Insulin Human Lispro 0 unit 01/18/21 21:00 01/25/21 08:45 Insulin Lispro 100 Unit/Ml 3 Ml Vial SUBCUT 8 unit QIDACHS [facility] Administration Protocol Lisinopril 5 mg 01/18/21 17:00 01/25/21 08:45 Lisinopril 5 Mg Tablet PO 5 mg DAILY [facility] Administration Protocol Medication 1 each 01/18/21 22:30 No Benzodiazepines MISCELLANE DAILY [facility] Metoprolol Succinate 50 mg 01/18/21 21:00 01/24/21 21:25 Metoprolol Succinate Er 50 Mg Tab.Er.24h PO 50 mg BEDTIME [facility] Administration Protocol Nicotine 14 mg 01/18/21 16:37 01/25/21 08:45 Nicotine 14 Mg Patch.Td24 TRANSDERMA 14 mg DAILY [facility] Administration Oxycodone HCl 5 mg 01/21/21 12:04 01/25/21 08:45 Oxycodone Hcl Immed Release 5 Mg Tablet PO 5 mg Q4H PRN Administration Pain, Severe (Pain Scale 7-10) Pharmacy Consult 1 each 01/18/21 14:39 Consult Rx Perform Med Rec MISCELLANE ONCE PRN Consult order Pharmacy Consult 1 each 01/20/21 16:52 Consult Rx Vancomycin Dosing MISCELLANE DAILY PRN Consult order Sodium Chloride 3 ml 01/19/21 00:00 01/24/21 21:29 0.9 % Sodium Chloride Flush 3 Ml Syringe IVFLUSH 3 ml QSHIFT [facility] Administration Time Spent With Patient Time: Total time spent is greater than 50% in coordination of care (as documented) at patient's floor/unit and/or counseling patient: Time with patient: 15 - 24 minutes
[2021-01-25 11:17] LABS: Glucose, Whole Blood 96 mg/dL (60-115)
[2021-01-25 11:39] VITALS: BP 144/69; PULSE 84; RESP 19; TEMP 36.9; O2SAT 99
--- NOTE | 2021-01-25 12:11 | PM.DS ---
DS: Providers Provider Date of Service: 01/25/21 Date of admission: 01/18/21 16:09 Primary care physician: [facility] Consults: 01/19/21 07:33 Consult to General Surgery Routine Consulting Provider: Avery Rodriguez Reason for consultation: thigh abscess 01/20/21 07:37 Consult to Infectious Diseases Routine Consulting Provider: Carmina Houser Reason for consultation: sepsis cellulitis abscess 01/24/21 10:45 Consult to Care Team Routine Comment: Reason for consultation: Alcohol use DS: Diagnosis Discharge Diagnosis (1) Abscess of right thigh: Status: Acute DS: Medications Discharge Medications Home Medications: Home Medications Medication Instructions Recorded Confirmed Descovy 1 tab PO DAILY 01/18/21 01/18/21 Lantus Solostar U-100 Insulin 20 unit SUBCUT BEDTIME 01/18/21 01/18/21 Tivicay 1 tab PO DAILY 01/18/21 01/18/21 aspirin 1 tab PO QAM 01/18/21 01/18/21 glipizide 1 tab PO BID 01/18/21 01/18/21 lisinopril 1 tab PO QAM 01/18/21 01/18/21 metformin 1 tab PO BID 01/18/21 01/18/21 metoprolol succinate 1 tab PO BEDTIME 01/18/21 01/18/21 rosuvastatin 1 tab PO BEDTIME 01/18/21 01/18/21 Previous Rx's Medication Instructions Recorded clopidogrel 75 mg tablet 75 mg PO DAILY 90 Days #90 tab 10/02/20 tramadol 50 mg PO BID PRN #10 tab 01/03/21 doxycycline hyclate 100 mg PO Q12H #28 tab 01/25/21 nicotine 14 mg TRANSDERMAL DAILY #14 ea 01/25/21 oxycodone 5 mg PO Q6H PRN #14 tab 01/25/21 DS: Summary Hospital Course Hospital Course: History of presenting illness Chief Complaint: right thigh swelling and redness abscess 55-year-old male presented with right thigh redness and swelling and abscess, patient reported he was not noticing erythema and swelling since 1 month, patient was seen in the emergency room but because of awaiting patient left against medical advice, patient to tried to incise the abscess with blade at home but swelling and erythema was getting worse with associated pain the patient decided to come to emergency room, denies any fever chills or sick contact, I&D diet was done, patient meets sepsis criteria inpatient admission was requested for IV antibiotic and possible further debridement Hospital course Sepsis secondary to right thigh cellulitis and abscess patient admitted with a diagnosis of sepsis, all symptoms of sepsis resolved WBC normalized patient underwent I&D by ER physician, subsequently was followed by General surgery for daily dressing changes, and was treated with IV vancomycin since wound is healing well patient is being discharged home On by mouth doxycycline 100 mg b.i.d. for 14 days and daily dry dressing by VNA service Blood cultures showed no growth Diabetes mellitus Resume home medication history of HIV continue anti HIV medication History of alcohol abuse withdrawal symptoms resolved, patient treated with phenobarb protocol CAD status post stent, No chest pain, no palpitation, continue aspirin, Lopressor and statins Time Spent with Patient Time attestation: Total time spent providing and/or coordinating discharge services: Discharge coordination time: Greater than 30 minutes Physical Exam Vital Signs: Vital Signs: Last Vital Signs Temp 98.4 F 01/25/21 11:39 Pulse 84 01/25/21 11:39 Resp 19 01/25/21 11:39 BP 144/69 H 01/25/21 11:39 Pulse Ox 99 01/25/21 11:39 Body Mass Index 27.4 General patient awake alert, no distress Neck is supple, no JVD lungs clear,no resp failure. Heart regular Abdomen soft nontender,bowel sounds audible Extremities no edema/right thigh open wound, no drainage and no surrounding redness or induration Neuro nonfocal DS: Data Data Completed and Pending Labs on day of discharge: Laboratory Results - last 24 hr 01/24/21 01/24/21 01/25/21 16:15 20:18 07:57 POC Glucose 136 H 261 H 305 H 01/25/21 11:09 POC Glucose 96 Discharge Plan Discharge Patient Disposition: Home Health Service Referrals: [facility] [Primary Care Provider] - Meir Gaytan MD [Physician] - 1 Week Discharge Medications: New doxycycline hyclate 100 mg Tablet 100 mg PO Q12H Qty: 28 RF: 0 nicotine 14 mg/24 hr Patch 24 Hour 14 mg transdermal DAILY Qty: 14 RF: 0 oxycodone 5 mg Tablet 5 mg PO Q6H PRN (Reason: Pain, Severe (Pain Scale 7-10)) Qty: 14 RF: 0 Continued clopidogrel [Plavix] 75 mg tablet 75 mg PO DAILY 90 Days Qty: 90 RF: 1 tramadol 50 mg tablet 50 mg PO BID PRN (Reason: pain) Qty: 10 RF: 0 metoprolol succinate 50 mg tablet extended release 24 hr 1 tab PO BEDTIME RF: 0 glipizide 10 mg tablet 1 tab PO BID RF: 0 aspirin 81 mg tablet,delayed release (DR/EC) 1 tab PO QAM RF: 0 metformin 1,000 mg tablet 1 tab PO BID RF: 0 lisinopril 5 mg tablet 1 tab PO QAM RF: 0 rosuvastatin 40 mg tablet 1 tab PO BEDTIME RF: 0 Lantus Solostar U-100 Insulin 100 unit/mL (3 mL) insulin pen 20 unit subcut BEDTIME RF: 0 Tivicay 50 mg tablet 1 tab PO DAILY RF: 0 Descovy 200-25 mg tablet 1 tab PO DAILY RF: 0 Discharge Orders: Discharge Order (Routine); Ordered 01/25/21 Ordered By: Kali Chan Diet: diabetic diet Activity on Discharge: As tolerated Stand Alone Forms: Patient Portal Discharge page Activity Restrictions/Additional Instructions: WOUND CARE: Dry fluffs followed by argelia villegas Care Plan Goals: Continue dressing change to right thigh by VNA services and follow-up with primary care physician Health Concerns: Right thigh cellulitis/diabetes mellitus follow diabetic diet and blood sugars Plan of Treatment: Follow-up with primary care physician and general surgeon Dr. Rodriguez for wound care
--- NOTE | 2021-01-25 13:06 | MHC.CM.PN ---
PT DISCHARGING HOME W/[facility] FOR DAILY DRESSING CHANGES, PT WAS ANXIOUS TO D/C, DECLINED TO WAIT FOR DAUGHTER TO GET OUT OF WORK, DECLINED HOSPITAL SHUTTLE AND LEFT UNIT, PT REPORTS HE LIVES NEAR [facility] AND INSISTS HE WILL WALK HOME, PER NURSING PT SIGNED AMA/ LEAVING UNACCOMPANIED FORM PRIOR TO LEAVING, NURSE ABORIGINAL LIAISON OFFICER AWARE. PT ALSO LEFT PRIOR TO CM GIVING PT LIST OF LOCAL DETOX/PROGRAMS.
--- NOTE | 2021-01-25 14:19 | MHC.CM.PN ---
CM RECEIVED CONFIRMATION VIA [employer] THAT [facility] CAN ACCOMMODATE PT'S DISCHARGE NEEDS. CM CONTACTED PT'S DAUGHTER MIROSLAVA AT 2:25PM ([phone]) WITH CONTACT INFO AND PHONE NUMBER. DISCHARGE PLAN: HOME W/[facility], SELF FOR TRANSPORT
--- NOTE | 2021-02-07 18:42 | W.MHC.F2F ---
Service Date Service Date: 01/25/21 Encounter Date of encounter: 01/25/21 Encounter: Right thigh cellulitis/sepsis will need daily dressing changes Reasons for Services Signs and symptoms assessed: Right thigh abscess/cellulitis Reason for retirement: wound care and medication management Homebound: Leaving the home is medically contraindicated at this time without the asist of a device and/or another person due th the listed conditions above and below. Reason homebound: pain with transfers Certification: Based on the above findings, I certify that this patient is confined to the home and needs intermittent retirement care, physical therapy and/or speech therapy, or continues to need occupational therapy. The patient is under my care, and I have initiated the establishment of the plan of care. The patient will be followed by a physician who will periodically review the plan of care.
== END 2021-01-25 13:09 | disposition home health service (06) | DRG 872 ==
LOC: HO.ED 15:01 → HO.EDOVER 16:16 → HO.S3 17:35
PROVIDERS: Internal Medicine; Physician Assistant Medical; Admitting Provider Internal Medicine; Emergency Provider Emergency Medicine; PCP Internal Medicine; Visit Provider Hospitalist
DX: A41.9 Sepsis, unspecified organism (principal); L02.415 Cutaneous abscess of right lower limb; L03.115 Cellulitis of right lower limb; F10.139 Alcohol abuse with withdrawal, unspecified; E11.9 Type 2 diabetes mellitus without complications; I10 Essential (primary) hypertension; I25.10 Atherosclerotic heart disease of native coronary artery without angina pectoris; Z98.61 Coronary angioplasty status; L03.032 Cellulitis of left toe; Z21 Asymptomatic human immunodeficiency virus [HIV] infection status; Z20.822 Contact with and (suspected) exposure to COVID-19; Z79.4 Long term (current) use of insulin; Z79.02 Long term (current) use of antithrombotics/antiplatelets; Z79.891 Long term (current) use of opiate analgesic; Z79.899 Other long term (current) drug therapy
CPT/HCPCS: 36415; 80048; 80076; 80202; 82565; 82947; 83605; 83735; 85025; 85610; 87040; 87635; 90715; 96361; 96365; 96372; 99285; 99291; J0696; J1170; J2270; J2405; J2543; J2560; J3370

== ENCOUNTER 2021-09-29 09:30 | Outpatient (REF) | payer OTHER, SELFPAY ==
--- NOTE | 2021-09-29 | EMG_ITS ---
This is a 56-year-old man with a history of right hand numbness, persistent in the 4th and 5th fingers and weakness in the intrinsic hand muscles. PHYSICAL EXAMINATION: On examination, he has decreased sensation in the ulnar nerve distribution in the 4th and 5th finger. Weakness of opposition and finger spread consistent with an ulnar neuropathy. Nerve conduction EMG study: Moderate carpal tunnel syndrome on the right. Severe ulnar neuropathy probably from compression at the elbow with marked axonal loss. EMG of the right C5-T1 innervated muscles shows active denervation in the ulnar innervated intrinsic hand muscles. MD JAZ Shea/OLAYINKA / [id number]
== END 2021-09-29 09:31 | disposition home or self-care (01) ==
LOC: HO.NEURO 09:30
PROVIDERS: PCP Internal Medicine; Visit Provider Internal Medicine
DX: M21.511 Acquired clawhand, right hand (principal)
CPT/HCPCS: 95886; 95910

== ENCOUNTER 2021-10-06 17:07 | Emergency (ER) | payer OTHER, SELFPAY ==
--- NOTE | ~2021-10-06 | XR_ITS ---
EXAMINATION: XR HIP, LEFT , AP pelvis CLINICAL INFORMATION: Fall COMPARISON: None available at the time of this dictation. TECHNIQUE: Frontal and lateral views of the hip acquired. , AP pelvis FINDINGS: There is no evidence of acute fracture or dislocation. There are mild degenerative arthritic changes of the hip evident by sclerotic changes of the acetabular roof and narrowing of the joint space. Mild degenerative changes of the symphysis pubis. Mild degenerative changes of the SI joints. Adjacent pubic rami are intact. Surrounding soft tissues are unremarkable. XR/XR hip LT w PEL1V IMPRESSION: Mild degenerative osteoarthritis. No radiographic evidence of acute fracture. Note: Normal radiograph does not entirely exclude the possibility of hip fracture or bone contusions. If there is high clinical suspicion or if patient symptoms persist for longer period, then MRI might be utilized for further investigation.
--- NOTE | ~2021-10-06 | XR_ITS ---
EXAMINATION: XR knee LT 2V CLINICAL INFORMATION: Reason for Exam injury to knee COMPARISON: None available at the time of this dictation. TECHNIQUE: Frontal and lateral FINDINGS: BONES: No fracture or dislocation is present. JOINTS: Narrowing of joint spaces and developed osteophytes from the edges of articular surfaces suggest degenerative osteoarthritis. There is a small knee joint effusion. SOFT TISSUE: Normal XR/XR knee LT 2V IMPRESSION: Mild to moderate degenerative osteoarthritis involving medial more than lateral compartment. Small knee joint effusion.
--- NOTE | ~2021-10-06 | US_ITS ---
EXAMINATION: US VENOUS ULTRASOUND WITH DOPPLER LOWER EXTREMITY, LEFT CLINICAL INFORMATION: Swelling COMPARISON: December 2015 TECHNIQUE: Ultrasound of the deep veins is performed from the hip to the calf with compression sonography and color and pulse Doppler assessment. Spectral analysis with color-flow imaging is performed. FINDINGS: There is normal venous compression and respiratory variation and augmented flow. The visualized common femoral vein, superficial femoral vein, profunda femoral vein, popliteal vein, and the trifurcation region shows no evidence of deep venous thrombosis. There is no significant popliteal fossa cyst. Included few normal size lymph nodes. If the patient's symptoms persist, followup ultrasound in 5 days 7 days might be of value to exclude proximal propagation from a non-visualized calf vein. US/US venous duplex LE LT IMPRESSION: No DVT demonstrated in the left lower extremity.
[2021-10-06 17:17] VITALS: BP 114/66; PULSE 88; RESP 18; TEMP 36.1; O2SAT 99; BMI 24.3
--- NOTE | 2021-10-06 17:30 | ED.LOWEXIN ---
HPI - Extremity Injury (Lower) General Chief Complaint: Extremity Injury, Lower Stated Complaint: leg infection/pain Time Seen by Provider: 10/06/21 17:28 Source: patient Mode of arrival: ambulatory Limitations: no limitations History of Present Illness HPI Narrative: 56 year old male with history of depression, stroke, history of [place], diabetes on insulin, HIV, alcohol abuse with history of withdrawal who presents to the ER 3 days after mechanical fall in the shower with left leg pain and bruising. He states he slipped and fell in the shower and fell back onto his buttocks and left side. He did not hit his head or lose consciousness. He is not on any anticoagulation. He had some pain right when he fell that has been worsening since. This morning he noticed bruising all along the posterior aspect of his thigh and behind the knee. This worried him so he came into the ER for evaluation. He walked here from his home. He has not had any fever or chills. No numbness or tingling in the leg. MD complaint: knee injury Onset (ago): day(s) (3) Injury: Left: thigh and knee Type of Injury: blunt Place: home Severity: moderate Severity scale (1-10): 6 Relieving factors: immobilization Exacerbating factors: weight bearing and palpation Context: fall Associated symptoms: swelling, ambulatory and other (bruising) Other symptoms: none Related Data Home Medications Medication Instructions Recorded Confirmed aspirin 81 mg tablet,delayed 1 tab PO QAM 01/18/21 01/18/21 release dolutegravir 50 mg tablet (Tivicay) 1 tab PO DAILY 01/18/21 01/18/21 emtricitabine 200 mg-tenofovir 1 tab PO DAILY 01/18/21 01/18/21 alafenamide fumarate 25 mg tablet (Descovy) glipizide 10 mg tablet 1 tab PO BID 01/18/21 01/18/21 insulin glargine 100 unit/mL (3 20 unit SUBCUT BEDTIME 01/18/21 01/18/21 mL) subcutaneous pen (Lantus Solostar U-100 Insulin) lisinopril 5 mg tablet 1 tab PO QAM 01/18/21 01/18/21 metformin 1,000 mg tablet 1 tab PO BID 01/18/21 01/18/21 metoprolol succinate 50 mg 1 tab PO BEDTIME 01/18/21 01/18/21 tablet,extended release 24 hr rosuvastatin 40 mg tablet 1 tab PO BEDTIME 01/18/21 01/18/21 Previous Rx's Medication Instructions Recorded tramadol 50 mg tablet 50 mg PO BID PRN #10 tab 01/03/21 doxycycline hyclate 100 mg tablet 100 mg PO Q12H #28 tab 01/25/21 nicotine 14 mg/24 hr daily 14 mg TRANSDERMAL DAILY #14 ea 01/25/21 transdermal patch oxycodone 5 mg tablet 5 mg PO Q6H PRN #14 tab 01/25/21 clopidogrel 75 mg tablet (Plavix) 75 mg PO DAILY 90 Days #90 tab 07/26/21 Allergies Allergy/AdvReac Type Severity Reaction Status Date / Time No Known Allergies Allergy Verified 01/03/21 20:19 [No Known Allergies*] Review of Systems Review of Systems: Constitutional: No Fever, No Chills ENT/Mouth: No sore throat, No Rhinorrhea Cardiovascular: No Chest Pain, No SOB Gastrointestinal: No Nausea, No Vomiting, No Diarrhea, No abdominal Pain Genitourinary: No Hematuria Musculoskeletal: No joint pain, + Myalgias Skin: No Skin Lesions, No rash Neuro: No Weakness, No Numbness, No Dizziness, No Headache Psych: No Anxiety/Panic, No Depression Heme/Lymph: + Bruising, No Lymphadenopathy PMFSH Past Medical History Medical History Depression Diabetes HIV (human immunodeficiency virus infection) HTN (hypertension) Stroke Surgical History H/O heart artery stent Family History Family History Other Hypertension Social History Social History Household Members: None Do you presently have visiting nurse or other home services: Yes Alcohol intake: current Alcohol intake frequency: holidays/special occasions only Alcohol type: beer and wine Second Hand Smoke Exposure: No Advance Directives: No Advance Directives Information Provided: No service: No Current occupational status: unemployed Physical Exam Vital Signs: Vital Signs: Last Vital Signs Temp 97 F 10/06/21 17:17 Pulse 88 10/06/21 17:17 Resp 18 10/06/21 17:17 BP 114/66 10/06/21 17:17 Pulse Ox 99 10/06/21 17:17 Body Mass Index 24.3 Appearance: Alert. Oriented X3. No acute distress. HEENT: normal inspection CVS: Normal heart rate and rhythm. Pulses normal. Respiratory: No respiratory distress. Skin: Skin warm and dry. Normal skin color. Normal skin turgor. No rashes. Extremities: normal anterior inspection of LLE, posteriorly there is ecchymosis dark purple and yellowing from distal thigh to proximal calf. compartments are soft compressible. Mild tenderness throughout the ecchymotic area. Normal range of motion of the knee. No joint laxity on examination. Neurovascularly intact distally. Neuro: Oriented X 3. No motor deficit. No sensory deficit. Ambulates with a steady gait Course Course Course Narrative: 56-year-old male presenting with posterior leg pain and bruising after mechanical fall in the shower 3 days ago. He is not on anticoagulation. He has noted bruising to the posterior leg with normal range of motion and normal gait. X-rays of the hip and knee are unremarkable. Ultrasound of the left lower extremity was performed to rule out DVT and is negative. A Rhett wrap was placed for compression and support. He was counseled on management of hematoma. He is stable for discharge home with supportive care and follow up with his PCP early next week. Discharge Plan Discharge Clinical Impression: Hematoma Contusion Qualifiers: Encounter type: initial encounter Contusion area: lower leg Laterality: left Qualified Code(s): S80.12XA - Contusion of left lower leg, initial encounter Patient Disposition: Home, Self-Care Instructions: Hematoma (ED) Additional Instructions: Your x-rays did not show any broken bones. Your ultrasound did not show any blood clot. Recommend wearing they applied Rhett wrap for compression and support. Elevate your leg whenever possible. Apply ice to the area as needed for swelling and pain. Your pain will get better as the blood is reabsorbed. Recommend taking Tylenol and or Motrin as needed for pain. Follow-up with your doctor next week. If you develop new or worsening symptoms call 911 or come back to the ER for further evaluation. Prescriptions: No Action clopidogrel [Plavix] 75 mg tablet 75 mg PO DAILY 90 Days Qty: 90 RF: 0 tramadol 50 mg tablet 50 mg PO BID PRN (Reason: pain) Qty: 10 RF: 0 metoprolol succinate 50 mg tablet extended release 24 hr 1 tab PO BEDTIME RF: 0 glipizide 10 mg tablet 1 tab PO BID RF: 0 aspirin 81 mg tablet,delayed release (DR/EC) 1 tab PO QAM RF: 0 metformin 1,000 mg tablet 1 tab PO BID RF: 0 lisinopril 5 mg tablet 1 tab PO QAM RF: 0 rosuvastatin 40 mg tablet 1 tab PO BEDTIME RF: 0 Lantus Solostar U-100 Insulin 100 unit/mL (3 mL) insulin pen 20 unit subcut BEDTIME RF: 0 Tivicay 50 mg tablet 1 tab PO DAILY RF: 0 Descovy 200-25 mg tablet 1 tab PO DAILY RF: 0 doxycycline hyclate 100 mg Tablet 100 mg PO Q12H Qty: 28 RF: 0 nicotine 14 mg/24 hr Patch 24 Hour 14 mg transdermal DAILY Qty: 14 RF: 0 oxycodone 5 mg Tablet 5 mg PO Q6H PRN (Reason: Pain, Severe (Pain Scale 7-10)) Qty: 14 RF: 0 Referrals: Migue Isbell MD [Primary Care Provider] - 5 days Interventions: ED Discharge Assessment Last Done: 10/06/21 18:50 Discharge Date/Time: 10/06/21 18:51 Print Language: Setswana
[2021-10-06] MEDS: Acetaminophen 325 MG TABLET 975 MG PO (18:39)
== END 2021-10-06 18:51 | disposition home or self-care (01) ==
PROVIDERS: Emergency Provider Emergency Medicine; PCP Internal Medicine
DX: S80.12XA Contusion of left lower leg, initial encounter (principal); M79.605 Pain in left leg; R60.0 Localized edema; M25.552 Pain in left hip; W18.2XXA Fall in (into) shower or empty bathtub, initial encounter; Y93.E1 Activity, personal bathing and showering; Y92.002 Bathroom of unspecified non-institutional (private) residence as the place of occurrence of the external cause; Z79.899 Other long term (current) drug therapy
CPT/HCPCS: 73502; 73560; 93971; 99283; 99284

== ENCOUNTER → 2022-03-28 09:50 | Outpatient (BNVA) | payer OTHER, SELFPAY | PROVIDERS: PCP Internal Medicine; Referring Provider Internal Medicine; Visit Provider Internal Medicine Cardiovascular Disease | DX: R07.9 Chest pain, unspecified (principal) | CPT/HCPCS: 93005; 99212 ==

== ENCOUNTER → 2022-04-07 09:52 | Outpatient (REF) | payer OTHER, SELFPAY ==
--- NOTE | 2022-04-07 09:56 | CA_ITS ---
Acquisition Time: 2022-04-07 10:13:34 Total Exercise Time: 00:09:42 Test Indications: cp Medications: see chart Protocol: YANCI Max HR: 148 BPM 90% of Pred: 163 BPM Max BP: 150/078 mmHG Max Work Load: 11.2 METS Exercise stress test with exercise 9 min 42 sec of Yanci protocol, achieving 90% MPHR, without anginal symptoms, without arrythmia, with normotensive response to exercise, without EKG changes meeting criteria for ischemia. test reviewed with Dr Harmon. Referred By: Geraldo Harmon Overread By: ESTHER HERNDON
== END ==
LOC: HO.CARD 09:52
PROVIDERS: Visit Provider Internal Medicine Cardiovascular Disease
DX: R07.9 Chest pain, unspecified (principal)
CPT/HCPCS: 93017

== ENCOUNTER 2022-05-11 08:34 | Outpatient (REF) | payer OTHER, SELFPAY ==
--- NOTE | ~2022-05-11 | XR_ITS ---
EXAMINATION: XR HAND, RIGHT CLINICAL INFORMATION: Pain. COMPARISON: None. TECHNIQUE: PA, lateral, and oblique views of the right hand. FINDINGS: There is no visible acute fracture, dislocation or subluxation. The joint spaces are maintained normal. The soft tissues are normal. XR/XR hand RT min 3V IMPRESSION: Unremarkable right hand exam. Especially no abnormality of the 5th digit.
== END 2022-05-11 08:35 | disposition home or self-care (01) ==
LOC: HO.HOSX 08:34
PROVIDERS: Visit Provider Orthopaedic Surgery
DX: G56.01 Carpal tunnel syndrome, right upper limb (principal); G56.21 Lesion of ulnar nerve, right upper limb
CPT/HCPCS: 73130; 99202

== ENCOUNTER → 2022-07-04 12:54 | Outpatient (BNVA) | payer OTHER, SELFPAY | PROVIDERS: PCP Internal Medicine; Visit Provider Internal Medicine Cardiovascular Disease | DX: I73.9 Peripheral vascular disease, unspecified (principal); I10 Essential (primary) hypertension; B20 Human immunodeficiency virus [HIV] disease; F17.200 Nicotine dependence, unspecified, uncomplicated; Z98.890 Other specified postprocedural states; Z95.5 Presence of coronary angioplasty implant and graft | CPT/HCPCS: 93005; 99212 ==

== ENCOUNTER 2022-07-14 12:21 | Outpatient (REF) | payer OTHER, SELFPAY ==
--- NOTE | ~2022-07-14 | XR_ITS ---
EXAMINATIONS: XR KNEE, LEFT XR KNEES AP STANDING CLINICAL INFORMATION: Knee pain. COMPARISON: None TECHNIQUES: AP bilateral standing view of the knees was obtained. Additional sunrise and lateral views of the left knee. FINDINGS: Examination demonstrates mild, symmetric, bilateral joint space narrowing predominantly involving the medial compartments. No significant fracture or joint effusion identified. Alignment is anatomic. The soft tissues appear unremarkable. XR/XR knee LT 2V IMPRESSION: Mild, symmetric, bilateral joint space narrowing predominantly involving the medial compartments.
--- NOTE | ~2022-07-14 | XR_ITS ---
EXAMINATIONS: XR KNEE, LEFT XR KNEES AP STANDING CLINICAL INFORMATION: Knee pain. COMPARISON: None TECHNIQUES: AP bilateral standing view of the knees was obtained. Additional sunrise and lateral views of the left knee. FINDINGS: Examination demonstrates mild, symmetric, bilateral joint space narrowing predominantly involving the medial compartments. No significant fracture or joint effusion identified. Alignment is anatomic. The soft tissues appear unremarkable. XR/XR knee standing BI IMPRESSION: Mild, symmetric, bilateral joint space narrowing predominantly involving the medial compartments.
== END 2022-07-14 12:22 | disposition home or self-care (01) ==
LOC: HO.HOSX 12:21
PROVIDERS: Visit Provider Orthopaedic Surgery
DX: M25.562 Pain in left knee (principal); M25.561 Pain in right knee; M23.92 Unspecified internal derangement of left knee
CPT/HCPCS: 73560; 73565; 99202

== ENCOUNTER → 2022-07-26 14:28 | Outpatient (BNVA) | payer OTHER, SELFPAY | PROVIDERS: PCP Internal Medicine; Visit Provider Orthopaedic Surgery | DX: G56.01 Carpal tunnel syndrome, right upper limb (principal); G56.21 Lesion of ulnar nerve, right upper limb | CPT/HCPCS: 99212 ==

== ENCOUNTER 2022-08-11 19:31 | Outpatient (REF) | payer OTHER, SELFPAY ==
--- NOTE | ~2022-08-11 | MR_ITS ---
EXAMINATION: MR KNEE WITHOUT CONTRAST, LEFT CLINICAL INFORMATION: Left knee pain with flexion. Posterior pain. Internal derangement. Prior surgery. COMPARISON: Most recent left knee radiographs dated 07/14/2022 and left knee MRI dated 08/16/2011. TECHNIQUE: MRI of the knee without contrast was performed using routine sequences on a high-field scanner. FINDINGS: MENISCI: Medial Meniscus: Interval attenuation of the meniscal body and posterior horn consistent with meniscectomy. Oblique inner margin fluid signal at the meniscal body which could represent a nondisplaced, recurrent tear. Correlate with surgical history. Lateral Meniscus: Complete absence of the meniscal body with significant attenuation and irregularity of the posterior horn, increased when compared to the prior examination. Findings could represent a combination of meniscectomy and progressive degenerative tearing. Diffuse abnormal signal throughout the anterior horn consistent with complex tearing, similar when compared to the prior examination. New anterior parameniscal cyst measuring 0.9 cm in ML dimension with mild adjacent soft tissue edema. LIGAMENTS: Cruciate: Significant attenuation of the anterior cruciate ligament, increased when compared to the prior examination. Findings are consistent with a chronic near-complete tear. Degenerative signal associated with the posterior cruciate ligament, increased when compared to the prior examination. No evidence of acute ligament injury. Collateral: Intact. EXTENSOR MECHANISM: Intact. ARTICULAR CARTILAGE/BONE: Patellofemoral Compartment: Mild patellar and trochlear articular cartilage signal heterogeneity with small marginal osteophytes, increased when compared to the prior examination. Medial Compartment: Articular cartilage thinning and signal heterogeneity with mild subchondral cystic change and small marginal osteophytes, progressed when compared to the prior examination. Lateral Compartment: Full-thickness posterior weightbearing articular cartilage loss with mild bony remodeling. Marginal osteophytes. Findings are increased when compared to the prior examination. JOINT FLUID AND BURSAE: Small joint effusion. MR/MR knee LT wo con IMPRESSION: 1. Attenuation of the medial meniscal body and posterior horn consistent with interval meniscectomy. Nondisplaced oblique inner margin tearing of the meniscal body which could represent a recurrent tear. Correlate with surgical history. 2. Absence of the lateral meniscal body with significant attenuation and irregularity of the posterior horn which is new/increased when compared to the prior examination. Findings could represent a combination of interval meniscectomy and progressive degenerative tearing. Complex tearing redemonstrated at the anterior horn with a new anterior parameniscal cyst and mild adjacent soft tissue edema. 3. Severe lateral as well as mild patellofemoral and medial compartment osteoarthritis, progressed when compared to the prior examination. Small joint effusion. 4. Significantly attenuated anterior cruciate ligament, increased when compared to the prior examination which likely represents a chronic, near-complete tear. No evidence of acute ligament injury.
== END 2022-08-11 19:32 | disposition home or self-care (01) ==
LOC: HO.MRI 19:31
PROVIDERS: Visit Provider Orthopaedic Surgery
DX: M23.92 Unspecified internal derangement of left knee (principal)
CPT/HCPCS: 73721

== ENCOUNTER 2022-08-15 06:07 | Day surgery (SDC) | payer OTHER, SELFPAY ==
[2022-08-09 15:28] VITALS: BMI 28.3
--- NOTE | 2022-08-12 08:14 | P.CONAN_ITS ---
HPI - Anesthesia Eval Consult details Narrative: 56yo Right Cubital Tunnel Release vs transposition, Right Carpal Tunnel Release Cardiac cleared he can proceed with an intermediate risk for perioperative complications.? He can hold the Plavix for 5-7 days before surgery if required.? Aspirin ideally should not be held and I recommend that the surgery should be done on aspirin.? [facility] Active Problems Active Problems: All Active Problems (Updated 07/14/22 @ 15:21 by Hieu Fabian MD) Locking of left knee (Acute) Internal derangement of left knee (Acute) Osteoarthritis of left knee (Acute) Stable angina (Acute) Claudication (Acute) Cubital tunnel syndrome on right (Acute) Carpal tunnel syndrome of right wrist (Acute) Chest pain (Acute) Cellulitis of right thigh (Acute) Arrhythmia (Acute) Myocardial infarction (Acute) Depression (Acute) Abscess of right thigh (Acute) Stroke (Acute) Past Medical History Medical History Depression Diabetes HIV (human immunodeficiency virus infection) HTN (hypertension) Stroke Family History Family History Other Hypertension Surgical History Surgical History H/O heart artery stent Social History Social History Household Members: None Do you presently have visiting nurse or other home services: Yes Alcohol intake: former Year quit: 2020 Patient Tobacco Use Status: Current everyday Tobacco user Cigarette Packs Per Day: 1 Cigarettes Per Day: 20 Years Smoked: 40 +/- Second Hand Smoke Exposure: No service: No Current occupational status: unemployed and disabled 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 Meds Allergies Allergy/AdvReac Type Severity Reaction Status Date / Time No Known Allergies Allergy Verified 08/15/22 06:13 [No Known Allergies*] Home Medications Medication Instructions Recorded Confirmed Last Taken Type aspirin 81 mg tablet,delayed 1 tab PO QAM 01/18/21 08/15/22 Unknown History release dolutegravir 50 mg tablet (Tivicay) 1 tab PO DAILY 01/18/21 08/15/22 Unknown History emtricitabine 200 mg-tenofovir 1 tab PO DAILY 01/18/21 08/15/22 Unknown History alafenamide fumarate 25 mg tablet (Descovy) glipizide 10 mg tablet 1 tab PO BID 01/18/21 08/15/22 Unknown History insulin glargine 100 unit/mL (3 20 unit subcut BEDTIME 01/18/21 08/15/22 Unknown History mL) subcutaneous pen (Lantus Solostar U-100 Insulin) lisinopril 5 mg tablet 1 tab PO QAM 01/18/21 08/15/22 Unknown History metoprolol succinate 50 mg 1 tab PO QAM 01/18/21 08/15/22 Unknown History tablet,extended release 24 hr rosuvastatin 40 mg tablet 1 tab PO BEDTIME 01/18/21 08/15/22 Unknown History empagliflozin 10 mg tablet 10 mg PO DAILY 03/28/22 08/15/22 Unknown History (Jardiance) acyclovir 400 mg tablet 400 mg PO TID 05/11/22 08/15/22 Unknown History insulin detemir U-100 100 unit/mL 16 unit subcut BEDTIME 05/11/22 08/15/22 Unknown History subcutaneous solution (Levemir U-100 Insulin) polyvinyl alcohol 1.4 % eye drops 0 drp ophthalmic (eye) 05/11/22 07/04/22 Un known History (Artificial Tears (polyvinyl alcohol)) thiamine HCl (vitamin B1) 100 mg 100 mg PO DAILY 05/11/22 08/15/22 Unknown History tablet folic acid 1 mg tablet 1 mg PO DAILY 07/04/22 08/15/22 Unknown History metformin 500 mg tablet 500 mg PO BID 07/04/22 08/15/22 Unknown History mirtazapine 15 mg tablet 15 mg PO BEDTIME 07/04/22 08/15/22 Unknown History vmmiuimz-rfn-fxulw acid 0.4 0 tab PO 07/04/22 07/04/22 Unknown History mg-lycopene 300 mcg-lutein 250 mcg tablet (CertaVite Senior) trazodone 100 mg tablet 100 mg PO BEDTIME PRN insomnia 07/04/22 08/15/22 Unknown History varenicline 1 mg tablet 0 mg PO 07/04/22 07/04/22 Unknown History Exam Exam Date and Time: August 12, 202214 Height,Weight and Vital Signs: Height 5 ft 8 in Weight 84.368 kg Narrative Narrative: EKG 06/2022 Sinus rhythm 86 beats per minute, normal axis, nonspecific T-wave changes.? QT interval 421 milliseconds. Stress 03/2022 Protocol: YANCI ? Max HR: 148 BPM? 90% of? Pred: 163 BPM Max BP: 150/078 mmHG Max Work Load: 11.2 METS ? Exercise stress test with exercise 9 min 42 sec of Yanci protocol, achieving 90% ?MPHR, without anginal symptoms, without arrythmia, with normotensive response ?to exercise, without EKG changes meeting criteria for ischemia.? test reviewed ?with Dr Harmon. Assessment and Plan Assessment Anesthesia Assessment: Chart Reviewed
[2022-08-15] VITALS (8 sets, daily range): BP systolic 126–148; BP diastolic 66–84; PULSE 74–99; RESP 15–20; TEMP 36.7–36.8; O2SAT 94–100
[2022-08-15] MEDS: Lactated Ringers 1,000 ML 100 ML IVCONT (06:26)
[2022-08-15 06:35] LABS: Hematocrit 45.9 % (42.0-52.0); Hemoglobin 16.2 g/dl (14.0-18.0); Mean Corpuscular HGB Conc 35.3 g/dl (31.0-36.0); Mean Corpuscular Hemoglobin 33.1 pg (27.0-33.0); Mean Corpuscular Volume 93.9 fL (80.0-98.0); Platelet Count 245 X10*3/uL (160-400); Red Blood Count 4.89 X10*6/uL (4.60-5.80); Red Cell Distribution Width 12.9 % (11.0-16.0); White Blood Count 8.7 X10*3/uL (4.8-10.8)
[2022-08-15 06:47] LABS: Glucose, Whole Blood 254 mg/dL (60-115)
[2022-08-15 06:50] LABS: Anion Gap 14 (12-20); Blood Urea Nitrogen 22 mg/dL (9-16); Calcium 9.2 mg/dL (8.4-10.2); Carbon Dioxide 22 mmol/L (22-29); Chloride 104 mmol/L (96-108); Creatinine Clr Calc Pharmacy 91.7; Estimated Glomerular Filt Rate > 60; Glucose Fasting 303 mg/dL (60-99); Potassium 4.3 mmol/L (3.3-5.1); Sodium 136 mmol/L (135-145)
[2022-08-15] MEDS: Insulin Lispro 100 UNIT/ML 3 ML VIAL SUBCUT (07:23)
--- NOTE | 2022-08-15 07:33 | PC.NURSE ---
Zach from [facility] [employer] [facility] present during admission. pt stated had misunderstood which medications to stop - he did stop his plavix and all of his diabetic meds one week ago, but not his HTN meds. aware of poc of 254, 5 units of lispro ordered and given. eloise, pt states has been sober from alcohol for one year and drugs x 20 years.
[2022-08-15] MEDS: ondansetron HCL 4 MG/2 ML VIAL IVPUSH (09:54)
[2022-08-15 10:08] LABS: Glucose, Whole Blood 183 mg/dL (60-115)
--- NOTE | 2022-08-15 10:31 | MHC.SHP ---
Pre-Procedural Eval Section A Date of Service: 08/15/22 The patient is an INPATIENT: No Changes since office visit: No Cold of Flu in the past 2 weeks, No New Medical Problems, No Changes in Medication and No Patient answered all questions The History & Physical has been completed within 30 days and I have reviewed it.: Yes Section B Chief Complaint: Lesion of ulnar nerve, right upper limb,lesion Allergies: Allergies Allergy/AdvReac Type Severity Reaction Status Date / Time No Known Allergies Allergy Verified 08/15/22 06:13 [No Known Allergies*] Plan I have reviewed the history and physical and performed a pertinent physical examination on my patient. No changes have occurred unless specified.
--- NOTE | 2022-08-15 10:32 | W.PM.OPN ---
Operative Note Operative Note Date of Service: 08/15/22 Narrative: Operative Note Narrative: Preop diagnosis: 1. 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 Right carpal tunnel syndrome Postop diagnosis: Same Procedure: 1. right Cubital Tunnel Release 2. Right carpal tunnel release Surgeon: Marilia Benito MD Anesthesia: General Anesthesia Findings: Thickening and fibrosis about the ulnar nerve at the cubital tunnel, with some swelling of the ulnar nerve within the cubital tunnel Implants: none Tourniquet time: 39 minutes EBL: 5.0 ml Specimen: none Drains: None Complications: None Disposition: Brought to the recovery room in stable condition Plan: Follow-up in 10-14 days for wound check, and suture removal Indications: The patient is 56 years old with severe right cubital tunnel syndrome with dense numbness and intrinsic wasting, and right carpal tunnel syndrome with intermittent but daily symptoms . The risks and benefits of operative treatment, including but not limited to risk of damage to blood vessels, nerves, tendons, infection, recurrence, persistent pain or numbness, incomplete resolution of preoperative symptoms, or need for further surgery were discussed with the patient and they wished to proceed with surgery. Procedure: Once consent was obtained patient was brought back to the operating suite and placed in the operating table in a supine position. Perioperative antibiotics and anesthesia was administered by the anesthesia team. The limb was prepped and draped in a standard surgical fashion, and a sterile tourniquet applied to the proximal aspect of the right upper extremity. The limb was elevated exsanguinated with Esmarch bandage and the tourniquet inflated to 250 mm of mercury for a total tourniquet time of 39 minutes. Once assured that we had a good block, a 2.0 cm longitudinal incision was made centered over the right carpal tunnel. The incision was made through the skin to the subcutaneous tissues using a #15 blade. Dissection was made down to the level of the transverse carpal ligament with care being taken to protect the palmar cutaneous nerve. Once the transverse carpal ligament was clearly visualized, a longitudinal incision was made in the transverse carpal ligament 1st using a #15 blade, then using tenotomy scissors under direct visualization. Care was taken to look for and protect the motor branch of the median nerve when seen in this area. Once satisfied with our carpal tunnel release the wound was irrigated with normal saline. A 6 cm gently curved but longitudinally oriented incision was made centered over the cubital tunnel of the right upper extremity. Incision was made through the skin to the subcutaneous tissues using a # 15 Blade. I then dissected down to the level of the medial epicondyle and the cubital tunnel using tenotomy scissors. Care was taken to protect the lateral antebrachial cutaneous nerve. The ulnar nerve was identified just posterior to the medial intermuscular septum. The ulnar nerve was released in a proximal to distal direction using tenotomy in iris scissors while directly visualizing and protecting the ulnar nerve. Thickening and fibrosis was appreciated about the ulnar nerve as it passed through the cubital tunnel. The ulnar nerve was assessed as I passed the elbow through full flexion and extension and was found to remain stable within its groove. At this point the tourniquet was deflated and hemostasis obtained with a brief period of local pressure and bipolar electrocautery. The wound was copiously irrigated with normal saline. The subcutaneous layer was closed with 4-0 Vicryl suture, and the skin edges were reapproximated with 5-0 nylon suture. The wound was infiltrated with some 0.25% plain Marcaine for postop pain control and sterile dressings and a posterior splint was applied. The patient appears to have tolerated the procedure well and with no complications. All digits were well vascularized conclusion of the case.
== END 2022-08-15 11:24 | disposition home or self-care (01) ==
PROVIDERS: Nurse Practitioner; PCP Internal Medicine; Visit Provider Orthopaedic Surgery
PROC: (CPT 64718; principal; 2022-08-15 07:30)
PROC: (CPT 64721; 2022-08-15 07:30)
DX: G56.01 Carpal tunnel syndrome, right upper limb (principal); G56.21 Lesion of ulnar nerve, right upper limb; I10 Essential (primary) hypertension; E11.9 Type 2 diabetes mellitus without complications; B20 Human immunodeficiency virus [HIV] disease; I25.2 Old myocardial infarction; F32.A Depression, unspecified; Z79.4 Long term (current) use of insulin; Z79.899 Other long term (current) drug therapy; F10.11 Alcohol abuse, in remission; F19.11 Other psychoactive substance abuse, in remission; Z86.73 Personal history of transient ischemic attack (TIA), and cerebral infarction without residual deficits; F17.210 Nicotine dependence, cigarettes, uncomplicated
CPT/HCPCS: 64721; 64718; 36415; 80048; 82947; 85027; J0690; J1885; J2250; J2405; J2795; J3010

== ENCOUNTER 2022-09-21 08:03 | Outpatient (REF) | payer OTHER, SELFPAY ==
--- NOTE | ~2022-09-21 | XR_ITS ---
EXAMINATION: BILATERAL SHOULDERS CLINICAL INFORMATION: Bilateral shoulder pain COMPARISON: Right shoulder 08/23/2019, left shoulder 11/14/2013 TECHNIQUE: 3 views each shoulder FINDINGS: Right: Mild degenerative changes are present in the right glenohumeral joint as well as the right AC joint. An inferior osteophyte is seen arising from the glenoid similar to prior. No fractures or dislocations are seen. Left: Moderate degenerative changes are present in the left shoulder are with glenoid and humeral osteophytes. No fractures or dislocations. Minimal degenerative changes seen at the left AC joint. Since the prior study of 2013, findings have progressed. XR/XR shoulder RT min 2V IMPRESSION: Bilateral degenerative changes in the shoulders, left greater than right. These have progressed since 2014.
--- NOTE | ~2022-09-21 | XR_ITS ---
EXAMINATION: BILATERAL SHOULDERS CLINICAL INFORMATION: Bilateral shoulder pain COMPARISON: Right shoulder 08/23/2019, left shoulder 11/14/2013 TECHNIQUE: 3 views each shoulder FINDINGS: Right: Mild degenerative changes are present in the right glenohumeral joint as well as the right AC joint. An inferior osteophyte is seen arising from the glenoid similar to prior. No fractures or dislocations are seen. Left: Moderate degenerative changes are present in the left shoulder are with glenoid and humeral osteophytes. No fractures or dislocations. Minimal degenerative changes seen at the left AC joint. Since the prior study of 2013, findings have progressed. XR/XR shoulder LT min 2V IMPRESSION: Bilateral degenerative changes in the shoulders, left greater than right. These have progressed since 2014.
== END 2022-09-21 08:04 | disposition home or self-care (01) ==
LOC: HO.HOSX 08:03
PROVIDERS: Visit Provider Physician Assistant
DX: M25.512 Pain in left shoulder (principal); M25.511 Pain in right shoulder; M75.81 Other shoulder lesions, right shoulder; M75.82 Other shoulder lesions, left shoulder; M79.18 Myalgia, other site
CPT/HCPCS: 20610; 73030; 99202; 99212; J1020

== ENCOUNTER → 2022-10-03 13:01 | Outpatient (BNVA) | payer OTHER, SELFPAY | PROVIDERS: PCP Internal Medicine; Visit Provider Orthopaedic Surgery | DX: M17.12 Unilateral primary osteoarthritis, left knee (principal); E11.9 Type 2 diabetes mellitus without complications | CPT/HCPCS: 20610; 99212; J1100 ==

== ENCOUNTER 2022-11-17 09:22 | Outpatient (REF) | payer OTHER, SELFPAY ==
--- NOTE | ~2022-11-17 | XR_ITS ---
EXAMINATION: XR LUMBOSACRAL SPINE WITH OBLIQUES CLINICAL INFORMATION: Spondylosis COMPARISON: 07/02/2016 TECHNIQUE: 7 views of the lumbar spine. FINDINGS: 5 nonrib-bearing lumbar vertebral bodies. Normal lumbar lordosis. The sagittal alignment is maintained. Vertebral body heights are maintained. No evidence of acute fracture. Disc spaces are relatively maintained. There is mild endplate spurring at a few levels .. Facet degeneration in the lower lumbar spine. No abnormal subluxation seen on the extension view. Paravertebral soft tissues appear unremarkable. Bilateral SI joints are symmetric. No abnormal soft tissue calcification. Vascular calcification. XR/XR lumbar spine 6V w bending IMPRESSION: Minimal lumbar spondylosis. No acute findings.
--- NOTE | ~2022-11-17 | XR_ITS ---
EXAMINATION: XR BILATERAL HIPS WITH AP PELVIS CLINICAL INFORMATION: Sacroiliitis COMPARISON: X-ray 10/06/2021 TECHNIQUE: AP view of the pelvis and 2 views of each hip were obtained. FINDINGS: Mild bilateral hip joint arthritis, with acetabular sclerosis, mild joint space loss. No acute fracture or dislocation. SI joints appear symmetric and unremarkable. No acute pelvic fractures seen. Minimal bilateral SI joint arthritis.. Chronic appearing calcifications/ossifications adjacent to the left ischial tuberosity, and inferior to the right pubis. XR/XR hip BI w PEL1V IMPRESSION: Mild bilateral hip arthritis. Question minimal bilateral SI joint arthritis.
== END 2022-11-17 09:23 | disposition home or self-care (01) ==
LOC: HO.XRAY 09:22
PROVIDERS: PCP Internal Medicine; Visit Provider Nurse Practitioner Family
DX: M47.816 Spondylosis without myelopathy or radiculopathy, lumbar region (principal); M46.1 Sacroiliitis, not elsewhere classified; M54.16 Radiculopathy, lumbar region; M16.0 Bilateral primary osteoarthritis of hip; M25.561 Pain in right knee; M25.562 Pain in left knee; M25.511 Pain in right shoulder; M25.512 Pain in left shoulder
CPT/HCPCS: 72114; 73521; 99202

== ENCOUNTER → 2022-11-24 12:58 | Outpatient (BNVA) | payer OTHER, SELFPAY | PROVIDERS: PCP Internal Medicine; Visit Provider Nurse Practitioner Family | DX: M47.26 Other spondylosis with radiculopathy, lumbar region (principal); M46.1 Sacroiliitis, not elsewhere classified; M16.0 Bilateral primary osteoarthritis of hip; M53.3 Sacrococcygeal disorders, not elsewhere classified | CPT/HCPCS: 99212 ==

== ENCOUNTER → 2022-12-07 13:01 | Outpatient (BNVA) | payer OTHER, SELFPAY | PROVIDERS: Visit Provider Nurse Practitioner Family | DX: Z01.810 Encounter for preprocedural cardiovascular examination (principal); I25.10 Atherosclerotic heart disease of native coronary artery without angina pectoris; I10 Essential (primary) hypertension; E78.5 Hyperlipidemia, unspecified; Z95.5 Presence of coronary angioplasty implant and graft | CPT/HCPCS: 93005; 99212 ==

== ENCOUNTER 2022-12-20 06:07 | Outpatient (REF) | payer OTHER, SELFPAY ==
--- NOTE | ~2022-12-20 | FL_ITS ---
EXAMINATION: XR FLUOROSCOPY WITH IMAGES CLINICAL INFORMATION: Sacrococcygeal disorders COMPARISON: None. TECHNIQUE: Fluoroscopy Supervised By: Tamera. Fluoroscopy Time: 0.2 minutes. Cumulative Dose: 7.03 mGy. DAP: 1.91 Gycm2. Images: 2 FINDINGS: There are 2 digital images revealing needle positioned overlying the SI joints with contrast opacifying the soft tissues. Visualized joint space and visualized pelvic bones are unremarkable. FL/FL guidance in treatment room IMPRESSION: Fluoroscopy guidance was provided to referrer for pain management.
== END 2022-12-20 06:08 | disposition home or self-care (01) ==
LOC: CF 06:07
PROVIDERS: Visit Provider Anesthesiology
DX: M47.816 Spondylosis without myelopathy or radiculopathy, lumbar region (principal); M46.1 Sacroiliitis, not elsewhere classified; M54.16 Radiculopathy, lumbar region; M16.0 Bilateral primary osteoarthritis of hip; M53.3 Sacrococcygeal disorders, not elsewhere classified
CPT/HCPCS: 27096

== ENCOUNTER → 2022-12-27 09:50 | Outpatient (BNVA) | payer OTHER, SELFPAY | PROVIDERS: PCP Internal Medicine; Visit Provider Nurse Practitioner Family | DX: M47.816 Spondylosis without myelopathy or radiculopathy, lumbar region (principal); M46.1 Sacroiliitis, not elsewhere classified; M54.16 Radiculopathy, lumbar region; M16.0 Bilateral primary osteoarthritis of hip; M53.3 Sacrococcygeal disorders, not elsewhere classified | CPT/HCPCS: Q3014 ==

== ENCOUNTER 2023-01-04 13:29 | Outpatient (REF) | payer OTHER, SELFPAY ==
--- NOTE | ~2023-01-04 | XR_ITS ---
EXAMINATION: XR RIBS, BILATERAL CLINICAL INFORMATION: Pleurodynia COMPARISON: 09/09/2020 TECHNIQUE: 3 views of the bilateral ribs were obtained. FINDINGS: Lungs are clear. No consolidation, pneumothorax, or pleural effusion. The cardiomediastinal silhouette and pulmonary vasculature are normal. Osseous structures are unremarkable. No acute rib fracture. Old bilateral rib fractures are noted. XR/XR ribs BI min 4V w CXR1V IMPRESSION: Unremarkable examination.
== END 2023-01-04 13:30 | disposition home or self-care (01) ==
LOC: HO.XRAY 13:29
PROVIDERS: Visit Provider Nurse Practitioner Family
DX: R07.81 Pleurodynia (principal)
CPT/HCPCS: 71111

== ENCOUNTER 2023-02-28 08:00 | Day surgery (SDC) | payer OTHER, SELFPAY ==
--- NOTE | 2023-02-24 14:08 | HO.ANESPROP2 ---
HPI - Anesthesia Eval Consult details Narrative: 57yo M for Colonoscopy Cardiac cleared (s/p stents x 2 2018) [facility], [facility] Active Problems Active Problems: All Active Problems (Updated 12/07/22 @ 14:23 by KEELY Tinoco) Hyperlipidemia (Acute) HTN (hypertension) (Acute) Stented coronary artery (Acute) CAD (coronary artery disease) (Acute) Preop cardiovascular exam (Acute) Sacroiliac joint pain (Acute) Rib pain (Acute) Osteoarthritis, hip, bilateral (Acute) Bilateral shoulder pain (Acute) Bilateral knee pain (Acute) Lumbar back pain with radiculopathy affecting left lower extremity (Acute) Sacroiliitis (Acute) Lumbar spondylosis (Acute) Diabetes mellitus (Acute) Cervical myofascial pain syndrome (Acute) Tendonitis of both rotator cuffs (Acute) Locking of left knee (Acute) Internal derangement of left knee (Acute) Osteoarthritis of left knee (Acute) Stable angina (Acute) Claudication (Acute) Cubital tunnel syndrome on right (Acute) Carpal tunnel syndrome of right wrist (Acute) Chest pain (Acute) Cellulitis of right thigh (Acute) Arrhythmia (Acute) Myocardial infarction (Acute) Depression (Acute) Abscess of right thigh (Acute) Stroke (Acute) Past Medical History Medical History Depression Diabetes HIV (human immunodeficiency virus infection) HTN (hypertension) Osteoarthritis, hip, bilateral Stroke Family History Family History Other Hypertension Surgical History Surgical History H/O heart artery stent Social History Social History Household Members: None Do you presently have visiting nurse or other home services: Yes Alcohol intake: former Year quit: 2020 Patient Tobacco Use Status: Current everyday Tobacco user Cigarette Packs Per Day: 1 Cigarettes Per Day: 20 Years Smoked: 40 +/- Second Hand Smoke Exposure: No Are you DNR?: No Advance Directives: No Advance Directives Information Provided: Yes Recently lost weight without trying: No service: No Current occupational status: unemployed and disabled 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 Meds Allergies Allergy/AdvReac Type Severity Reaction Status Date / Time No Known Allergies Allergy Verified 12/20/22 10:43 [No Known Allergies*] Home Medications Medication Instructions Recorded Confirmed Last Taken Type aspirin 81 mg tablet,delayed 1 tab PO QAM 01/18/21 12/07/22 02/20/23 History release dolutegravir 50 mg tablet (Tivicay) 1 tab PO DAILY 01/18/21 12/07/22 02/28/23 History emtricitabine 200 mg-tenofovir 1 tab PO DAILY 01/18/21 12/07/22 Unknown History alafenamide fumarate 25 mg tablet (Descovy) glipizide 10 mg tablet 1 tab PO BID 01/18/21 12/07/22 Unknown History lisinopril 5 mg tablet 1 tab PO QAM 01/18/21 12/07/22 Unknown History metoprolol succinate 50 mg 1 tab PO QAM 01/18/21 12/07/22 02/28/23 History tablet,extended release 24 hr empagliflozin 10 mg tablet 10 mg PO DAILY 03/28/22 12/07/22 Unknown History (Jardiance) acyclovir 400 mg tablet 400 mg PO TID 05/11/22 12/07/22 02/28/23 History polyvinyl alcohol 1.4 % eye drops 0 drp ophthalmic (eye) 05/11/22 12/07/22 Unknown History (Artificial Tears (polyvinyl alcohol)) thiamine HCl (vitamin B1) 100 mg 100 mg PO DAILY 05/11/22 12/07/22 02/28/23 History tablet folic acid 1 mg tablet 1 mg PO DAILY 07/04/22 12/07/22 02/28/23 History metformin 500 mg tablet 500 mg PO BID 07/04/22 12/07/22 Unknown History mirtazapine 15 mg tablet 15 mg PO BEDTIME 07/04/22 12/07/22 Unknown History wxkplrde-ybh-iegxd acid 0.4 0 tab PO 07/04/22 12/07/22 02/28/23 History mg-lycopene 300 mcg-lutein 250 mcg tablet (CertaVite Senior) trazodone 100 mg tablet 100 mg PO BEDTIME PRN insomnia 07/04/22 12/07/22 Unknown History varenicline 1 mg tablet 0 mg PO 07/04/22 12/07/22 Unknown History empagliflozin 25 mg tablet 25 mg PO DAILY 11/17/22 12/07/22 Unknown History (Jardiance) rosuvastatin 40 mg tablet 40 mg PO BEDTIME 12/07/22 12/07/22 Unknown History Exam Exam Date and Time: February 24, 2023 1408 Narrative Narrative: EKG 11/2022 normal sinus rhythm, can not rule out inferior infarct, slight Q-waves noted, no significant change from prior EKG, rate 81, QTC 439 millisecond ETT 03/2022 Protocol: KWABENA ? Max HR: 148 BPM? 90% of? Pred: 163 BPM Max BP: 150/078 mmHG Max Work Load: 11.2 METS ? Exercise stress test with exercise 9 min 42 sec of Kwabena protocol, achieving 90% ?MPHR, without anginal symptoms, without arrythmia, with normotensive response ?to exercise, without EKG changes meeting criteria for ischemia.? test reviewed ?with Dr Harmon. Assessment and Plan Assessment Anesthesia Assessment: Chart Reviewed
[2023-02-28 08:35] VITALS: BP 117/69; PULSE 92; RESP 18; TEMP 36.1; O2SAT 97; BMI 22.8
[2023-02-28 08:37] LABS: Glucose, Whole Blood 106 mg/dL (60-115)
[2023-02-28] MEDS: Lactated Ringers 1,000 ML 100 ML IVCONT (08:49)
--- NOTE | 2023-02-28 10:02 | MHC.SHP ---
Pre-Procedural Eval Section A Date of Service: 02/28/23 Section B Chief Complaint: screening Details of Present Illness: see H&P no changes Relevant Family History (Specify if Yes): No Relevant Social History: None Present Medications: see Short Stay Collaborative assessment Medical History: No relevant PMH History of Previous Operations: No relevant previous surgery Allergies: Allergies Allergy/AdvReac Type Severity Reaction Status Date / Time No Known Allergies Allergy Verified 12/20/22 10:43 [No Known Allergies*] Review of Systems Sugical H&P ROS: Negative: Constitution, Cardiovascular, Respiratory, Neurological, Psychiatric, Hem-Onc, Allergic/Immunologic, Gastrointestinal, Genitourinary, Musculoskeletal, Integumentary, Endocrine and Eyes/Ears/Nose/Throat Exam Surgical H&P Exam: Normal: HEENT, Normal: Heart, Normal: Lungs, Normal: Extremities, Normal: Abdomen, Normal: Skin and Normal: Neurological Plan Diagnosis/Plan: Unchanged I have reviewed the history and physical and performed a pertinent physical examination on my patient. No changes have occurred unless specified. Time Spent With Patient Time: Total time managing care of this patient today ____ minutes.
--- NOTE | 2023-02-28 10:16 | P.CONAN_ITS ---
FORMERLY [facility], LATER [facility] Active Problems Active Problems: All Active Problems (Updated 12/07/22 @ 14:23 by Kusum Stern NP-C) Hyperlipidemia (Acute) HTN (hypertension) (Acute) Stented coronary artery (Acute) CAD (coronary artery disease) (Acute) Preop cardiovascular exam (Acute) Sacroiliac joint pain (Acute) Rib pain (Acute) Osteoarthritis, hip, bilateral (Acute) Bilateral shoulder pain (Acute) Bilateral knee pain (Acute) Lumbar back pain with radiculopathy affecting left lower extremity (Acute) Sacroiliitis (Acute) Lumbar spondylosis (Acute) Diabetes mellitus (Acute) Cervical myofascial pain syndrome (Acute) Tendonitis of both rotator cuffs (Acute) Locking of left knee (Acute) Internal derangement of left knee (Acute) Osteoarthritis of left knee (Acute) Stable angina (Acute) Claudication (Acute) Cubital tunnel syndrome on right (Acute) Carpal tunnel syndrome of right wrist (Acute) Chest pain (Acute) Cellulitis of right thigh (Acute) Arrhythmia (Acute) Myocardial infarction (Acute) Depression (Acute) Abscess of right thigh (Acute) Stroke (Acute) Past Medical History Medical History Depression Diabetes HIV (human immunodeficiency virus infection) HTN (hypertension) Osteoarthritis, hip, bilateral Stroke Family History Family History Other Hypertension Family history of problems with anesthesia: No Surgical History Surgical History H/O heart artery stent History of Problems with Anesthesia: No Social History Social History Household Members: None Do you presently have visiting nurse or other home services: Yes Alcohol intake: former Year quit: 2020 Patient Tobacco Use Status: Current everyday Tobacco user Cigarette Packs Per Day: 1 Cigarettes Per Day: 20 Years Smoked: 40 +/- Second Hand Smoke Exposure: No Are you DNR?: No Advance Directives: No Advance Directives Information Provided: Yes Recently lost weight without trying: No service: No Current occupational status: unemployed and disabled 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 Meds Allergies Allergy/AdvReac Type Severity Reaction Status Date / Time No Known Allergies Allergy Verified 12/20/22 10:43 [No Known Allergies*] Active Medications: Current Medications Lactated Ringer's (Lr) 1,000 mls @ 100 mls/hr IVCONT .Q10H RICO Last Admin: 02/28/23 08:49 Dose: 100 mls/hr Home Medications Medication Instructions Recorded Confirmed Last Taken Type aspirin 81 mg tablet,delayed 1 tab PO QAM 01/18/21 12/07/22 02/20/23 History release dolutegravir 50 mg tablet (Tivicay) 1 tab PO DAILY 01/18/21 12/07/22 02/28/23 History emtricitabine 200 mg-tenofovir 1 tab PO DAILY 01/18/21 12/07/22 Unknown History alafenamide fumarate 25 mg tablet (Descovy) glipizide 10 mg tablet 1 tab PO BID 01/18/21 12/07/22 Unknown History lisinopril 5 mg tablet 1 tab PO QAM 01/18/21 12/07/22 Unknown History metoprolol succinate 50 mg 1 tab PO QAM 01/18/21 12/07/22 02/28/23 History tablet,extended release 24 hr empagliflozin 10 mg tablet 10 mg PO DAILY 03/28/22 12/07/22 Unknown History (Jardiance) acyclovir 400 mg tablet 400 mg PO TID 05/11/22 12/07/22 02/28/23 History polyvinyl alcohol 1.4 % eye drops 0 drp ophthalmic (eye) 05/11/22 12/07/22 Unknown History (Artificial Tears (polyvinyl alcohol)) thiamine HCl (vitamin B1) 100 mg 100 mg PO DAILY 05/11/22 12/07/22 02/28/23 History tablet folic acid 1 mg tablet 1 mg PO DAILY 07/04/22 12/07/22 02/28/23 History metformin 500 mg tablet 500 mg PO BID 07/04/22 12/07/22 Unknown History mirtazapine 15 mg tablet 15 mg PO BEDTIME 07/04/22 12/07/22 Unknown History yharctyw-jer-rseaj acid 0.4 0 tab PO 07/04/22 12/07/22 02/28/23 History mg-lycopene 300 mcg-lutein 250 mcg tablet (CertaVite Senior) trazodone 100 mg tablet 100 mg PO BEDTIME PRN insomnia 07/04/22 12/07/22 Unknown History varenicline 1 mg tablet 0 mg PO 07/04/22 12/07/22 Unknown History empagliflozin 25 mg tablet 25 mg PO DAILY 11/17/22 12/07/22 Unknown History (Jardiance) rosuvastatin 40 mg tablet 40 mg PO BEDTIME 12/07/22 12/07/22 Unknown History Exam Exam Date and Time: February 28, 2023 1016 Height,Weight and Vital Signs: Height 6 ft 4 in Weight 85.275 kg Last Vital Signs Temp 97 F 02/28/23 08:35 Pulse 92 02/28/23 08:35 Resp 18 02/28/23 08:35 BP 117/69 02/28/23 08:35 Pulse Ox 97 02/28/23 08:35 O2 Del Method Room Air 02/28/23 08:35 Pertinent Lab Results Pertinent Lab Results: Laboratory Tests 02/28/23 08:27 POC Glucose 106 Airway Mallampati Class: III TM Dist: >3cm Neck ROM: Full Assessment and Plan Assessment Anesthesia Assessment: Anesthesia Plan Discussed and Chart Reviewed Final Anesthetic Review Family History of Problems with Anesthesia: No History of Problems with Anesthesia: No NPO: Yes ASA Class: III Final Preanesthetic Review: No Changes in Pt Med Stat, Meds/Allgs Chart Reviewed, Consent Obtained/Reviewed and Anes Risks/Benef Reviewed Patient Risk: Intermediate Procedure Risk: Low Anesthetic Plan Anesthetic Plan: MAC: Disposition: Standard PACU
--- NOTE | 2023-02-28 10:40 | PM.OP ---
Brief Operative Note Date of Service: 02/28/23 Pre-op diagnosis: screening Post-op diagnosis: same Procedure: colonoscopy Surgeon: Rodo Ahuja Anesthesia: MAC Was an Feather Curling Machine Operator used for this Procedure?: No Estimated blood loss (mL): 5 Pathology: other Condition: stable Disposition: PACU
[2023-02-28 10:42] VITALS: BP 99/64; PULSE 102; RESP 17; TEMP 36.3; O2SAT 96
[2023-02-28 10:57] VITALS: BP 115/68; PULSE 95; RESP 18; TEMP 36.2; O2SAT 98
--- NOTE | 2023-02-28 13:47 | OP_ITS ---
DATE OF SERVICE: 02/28/2023 SURGEON: Rodo Ahuja MD INDICATIONS: Colon cancer screening. PREOPERATIVE DIAGNOSIS: POSTOPERATIVE DIAGNOSIS: PROCEDURE PERFORMED: Colonoscopy to the terminal ileum with snare polypectomy. ESTIMATED BLOOD LOSS: COMPLICATIONS: ANESTHESIA: Monitored anesthesia care. ASSISTANTS: SPECIMENS: DESCRIPTION OF PROCEDURE: A history and physical was performed. The risks and benefits of the procedure were explained to the patient. Informed consent was obtained. The patient was placed in the left lateral decubitus position. A digital rectal exam was performed and was found to be normal. The Olympus pediatric video colonoscope was introduced into the rectum and advanced to the cecum without difficulty. The cecum was identified by transillumination, palpation, and identification of ileocecal valve. Examination was performed. The scope was removed. He tolerated the procedure well and was returned to the recovery area in stable condition. FINDINGS: The terminal ileum was normal. The visualized colonic mucosa was normal. The quality of the prep was good. A single polyp measuring less than 10 mm was identified in the rectum and removed with a snare. The polyp was recovered via suction. No other polyps were identified. There was mild sigmoid diverticulosis. Retroflexed examination was otherwise normal. IMPRESSION: Colon polyp. RECOMMENDATION: Follow up the biopsy results. MD SONIYA Rai/MODL / [id number]
== END 2023-02-28 11:10 | disposition home or self-care (01) ==
PROVIDERS: PCP Internal Medicine; Visit Provider Internal Medicine Gastroenterology
PROC: 0DJD8ZZ Inspection of Lower Intestinal Tract, Via Natural or Artificial Opening Endoscopic (ICD-10-PCS; CPT 45378; principal; 2023-02-28 09:20)
DX: Z12.11 Encounter for screening for malignant neoplasm of colon (principal); D12.8 Benign neoplasm of rectum; K57.30 Diverticulosis of large intestine without perforation or abscess without bleeding; I25.10 Atherosclerotic heart disease of native coronary artery without angina pectoris; I10 Essential (primary) hypertension; I25.2 Old myocardial infarction; Z95.5 Presence of coronary angioplasty implant and graft; I42.8 Other cardiomyopathies; E78.00 Pure hypercholesterolemia, unspecified; B20 Human immunodeficiency virus [HIV] disease; F32.A Depression, unspecified; E11.9 Type 2 diabetes mellitus without complications; F17.210 Nicotine dependence, cigarettes, uncomplicated; Z79.84 Long term (current) use of oral hypoglycemic drugs; Z79.82 Long term (current) use of aspirin; Z79.899 Other long term (current) drug therapy
CPT/HCPCS: 45385; 82947; 88305

== ENCOUNTER → 2023-05-18 11:04 | Outpatient (REF) | payer OTHER, SELFPAY | LOC: HO.CARD 11:04 | PROVIDERS: PCP Internal Medicine; Visit Provider Nurse Practitioner Family | DX: I25.10 Atherosclerotic heart disease of native coronary artery without angina pectoris (principal); Z95.5 Presence of coronary angioplasty implant and graft | CPT/HCPCS: 93306; 93356 ==

== ENCOUNTER 2023-06-05 13:22 | Outpatient (AMB) | payer OTHER, SELFPAY ==
--- NOTE | 2023-06-05 13:23 | MHC.OFFVIS ---
Intake Vital Signs 06/05/23 13:24 Height 6 ft 4 in Weight 178 lb 9.191 oz BMI 21.7 BP 134/64 Blood Pressure Location Lt brachial Position Sitting Pulse 91 Pulse Source Pulse Oximeter Pulse Oximetry (%) 97 Oxygen Delivery Method Room Air Intake Visit Reasons: 6 mth f/up echo Intake Note: Patient is here for a 6 month follow up after echo Cut Order Hand Required: Yes Cut Order Hand Name: Ines Marshall CLM Allergies No Known Allergies [No Known Allergies*] Allergy (Verified 06/05/23 13:28) Medication List - Last Reconciled 06/05/23 by Geraldo Harmon MD acyclovir 400 mg PO TID aspirin 1 tab PO QAM clopidogrel (Plavix) 75 mg PO DAILY 90 days dolutegravir (Tivicay) 1 tab PO DAILY empagliflozin (Jardiance) 10 mg PO DAILY empagliflozin (Jardiance) 25 mg PO DAILY emtricitabine-tenofovir alafen 200-25 mg (Descovy) 1 tab PO DAILY folic acid 1 mg PO DAILY glipizide 1 tab PO BID lisinopril 1 tab PO QAM metformin 500 mg PO BID metoprolol succinate ER 1 tab PO QAM mirtazapine 15 mg PO BEDTIME vypgoxxr-nfz-RP-lycopen-lutein 0.4 mg-300 mcg- 250 mcg (CertaVite Senior) 0 tabs PO polyvinyl alcohol 1.4% (Artificial Tears (polyvinyl alcohol)) 0 drps ophthalmic (eye) rosuvastatin 40 mg PO BEDTIME thiamine HCl (vitamin B1) 100 mg PO DAILY trazodone 100 mg PO BEDTIME PRN varenicline 0 mg PO HPI HPI Comments History of Present Illness Details 57-year-old gentleman here for follow-up. In 2019 he presented with chest discomfort and non ST elevation [place]. He was taken for cardiac catheterization which showed severe right coronary artery which was treated with 2 drug-eluting stents. He also had 50-60% proximal LAD stenosis which was assessed with IFR which was normal. He had some issues with Brilinta and was short of breath and was changed to Plavix. Since then he did well and did not have any dyspnea. He continues to smoke. He is complaining of bilateral calf pain. As mentioned he is a smoker and there is some concern for prior vascular disease. He is also undergoing hand surgery and is here to discuss whether he can stop his anti platelet therapy. Denying chest pain or shortness of breath. 06/05/2023: Today he returns for follow-up. He had echocardiography performed on 05/18/2023 showing EF of 40 45% with basal inferior and basal inferolateral segment hypokinesis. He previously had RCA PCI and had IFR negative LAD. He is denying any significant symptoms currently. He is taking his medications regularly and is currently on aspirin and Plavix. No bleeding concerns. Blood pressure control is good. He is smoking 2 packs per day and is asking whether he can use Chantix. He previously had seizures and I think Wellbutrin would be a problem to start as it can lower the seizure threshold. 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 Review of Systems Const Denies fatigue, Denies fever(s), Denies frequent falls, Denies weight gain and Denies weight loss ENT Denies dizziness Card Denies chest pain, Denies leg edema, Denies lightheadedness, Denies dyspnea, Denies dyspnea on exertion, Denies orthopnea and Reports other (loss of consciousness) Resp Denies cough, Denies dyspnea and Denies dyspnea on exertion GI Denies hematochezia and Denies change in bowel habits Musc Denies abnormal gait, Denies muscle weakness, Denies numbness, Denies radiating pain into limb and Denies tingling Neuro Denies abnormal gait, Denies dizziness, Denies frequent falls, Denies numbness and Denies tingling Endo Denies fatigue Physical Exam Vital Signs: Last Vital Signs Pulse 91 06/05/23 13:24 BP 134/64 06/05/23 13:24 Pulse Ox 97 06/05/23 13:24 Oxygen Delivery Method Room Air 06/05/23 13:24 BMI result Body Mass Index 21.7 GENERAL APPEARANCE: in no acute distress, pleasant. NECK: no carotid bruit, no jugular venous distention. SKIN: no suspicious lesions, warm and dry. HEART: no murmurs, regular rate and rhythm. LUNGS: clear to auscultation bilaterally. ABDOMEN: soft, nontender. EXTREMITIES: no edema. PERIPHERAL PULSES: equal. NEUROLOGIC: No gross deficits, AAO X 3 Assessment & Plan Assessment & Plan (1) HTN (hypertension): Code(s): I10 - Essential (primary) hypertension (2) Hyperlipidemia: Code(s): E78.5 - Hyperlipidemia, unspecified (3) Cardiomyopathy: Code(s): I42.9 - Cardiomyopathy, unspecified (4) Tobacco abuse: Code(s): Z72.0 - Tobacco use Plan Pleasant 57-year-old gentleman who is here for follow-up. He has background history of coronary disease with previous RCA PCI. He had LAD IFR performed at that time for 50 60% lad stenosis and I for was normal. Recent echocardiography has shown ejection fraction of 40 45% with basal inferior and inferolateral wall hypokinesis. He is a heavy smoker and at risk of InStent restenoses. Discussing with him he does not have any significant symptoms currently. Given cardiomyopathy and known coronary disease we had a discussion about repeating diagnostic angiogram to understand if he has progression of disease in the right coronary artery or occlusion of the right coronary artery. He is agreeable and I am going to arrange angiogram for him. He should continue same medication for now. Given cardiomyopathy and known history of coronary disease I am not sure Chantix can be used safely. I will look into this in more detail. My plan was to start him on bupropion but he has shared his history of seizures in the past. Bupropion can lower the seizure threshold so I am reluctant to start that currently. Thank you for allowing me to participate in the care of your patient. Please feel free to contact me if you have any questions. Coding Level of Care Code Est Pt Level 4 (63876) Diagnoses HTN (hypertension) I10 Hyperlipidemia E78.5 Cardiomyopathy I42.9 Tobacco abuse Z72.0
[2023-06-05 13:24] VITALS: BP 134/64; PULSE 91; O2SAT 97; BMI 21.7
== END 2023-06-05 13:53 | disposition home or self-care (01) ==
PROVIDERS: Visit Provider Internal Medicine Cardiovascular Disease
DX: I10 Essential (primary) hypertension (principal); E78.5 Hyperlipidemia, unspecified; I42.9 Cardiomyopathy, unspecified; Z72.0 Tobacco use
CPT/HCPCS: 99214

== ENCOUNTER → 2023-06-05 13:22 | Outpatient (BNVA) | payer OTHER, SELFPAY | PROVIDERS: Visit Provider Internal Medicine Cardiovascular Disease | DX: I42.9 Cardiomyopathy, unspecified (principal); I10 Essential (primary) hypertension; E78.5 Hyperlipidemia, unspecified; Z72.0 Tobacco use | CPT/HCPCS: 99212 ==

== ENCOUNTER 2023-06-29 12:41 | Outpatient (REF) | payer OTHER, SELFPAY ==
[2023-06-29 13:48] LABS: Hematocrit 46.7 % (42.0-52.0); Hemoglobin 16.2 g/dl (14.0-18.0); Mean Corpuscular HGB Conc 34.7 g/dl (31.0-36.0); Mean Corpuscular Hemoglobin 33.2 pg (27.0-33.0); Mean Corpuscular Volume 95.7 fL (80.0-98.0); Mean Platelet Volume 10.7 fL (9.4-12.4); Platelet Count 246 X10*3/uL (160-400); Red Blood Count 4.88 X10*6/uL (4.60-5.80); Red Cell Distribution Width 12.8 % (11.0-16.0); White Blood Count 7.8 X10*3/uL (4.8-10.8)
[2023-06-29 13:50] LABS: Prothrombin Time 11.7 SEC (11.1-13.3)
[2023-06-29 14:20] LABS: Alanine Aminotransferase 21 U/L (0-40); Albumin Level 4.2 g/dL (3.5-5.0); Alkaline Phosphatase 65 U/L (39-117); Anion Gap 11 (12-20); Aspartate Amino Transferase 19 U/L (5-37); Bilirubin Total 0.5 mg/dL (0.0-1.0); Blood Urea Nitrogen 20 mg/dL (9-16); Calcium 9.8 mg/dL (8.4-10.2); Carbon Dioxide 24 mmol/L (22-29); Chloride 106 mmol/L (96-108); Estimated Glomerular Filt Rate > 60; Glucose Random 209 mg/dL (60-115); Potassium 4.2 mmol/L (3.3-5.1); Sodium 137 mmol/L (135-145); Total Protein 6.8 g/dL (6.5-8.0)
[2023-06-29 17:58] LABS: Appearance Urine Clear; Color Urine Yellow; Glucose Urine UA >=1000 mg/dL (Negative); Leukocyte Esterase Urine Negative (Negative); Nitrite Urine Negative (Negative); PH 5.5 (5.0-9.0); Specific Gravity - Urine 1.025 (1.005-1.025); UMIC TRIGGER UA YES; Urine Blood Negative (Negative); Urine Ketones Negative (Negative); Urine Protein Negative (Neg-Trace)
[2023-06-29 18:03] LABS: Bacteria Urine None Seen (None Seen); Hyaline Casts Urine 0-2 /LPF (0-2); RBC Urine 0-2 /HPF (0-2); Squamous Epithelial Cell Urine 0-2 /HPF (0-2); WBC Urine 0-5 /HPF (0-5)
[2023-07-03 10:39] LABS: Absolute CD3 Count 1601 cells/uL (840-3060); Absolute CD4 Count 1043 cells/uL (490-1740); Absolute CD8 Count 608 cells/uL (180-1170); Absolute Lymphocytes 2122 cells/uL (850-3900); CD4 CD8 Ratio 1.72 (0.86-5.00); Percent CD3 Cells 75 % (57-85); Percent CD4 Cells 49 % (30-61); Percent CD8 Cells 29 % (12-42)
[2023-07-04 15:28] LABS: HIV RNA PCR Qn Copies <20 DETECTED copies/mL (NOT DETECTED); HIV RNA PCR Qn Log Copies <1.30 DETECTED (NOT DETECTED)
== END 2023-06-29 12:42 | disposition home or self-care (01) ==
LOC: HO.HHCL 12:41
PROVIDERS: PCP Internal Medicine; Visit Provider Internal Medicine Cardiovascular Disease
DX: I42.9 Cardiomyopathy, unspecified (principal); Z21 Asymptomatic human immunodeficiency virus [HIV] infection status
CPT/HCPCS: 36415; 80053; 81001; 85027; 85610; 86359; 86360; 87536

== ENCOUNTER 2023-07-05 09:37 | Outpatient (REF) | payer OTHER, SELFPAY ==
[2023-07-05 10:37] LABS: Anion Gap 11 (12-20); Blood Urea Nitrogen 16 mg/dL (9-16); Calcium 9.4 mg/dL (8.4-10.2); Carbon Dioxide 24 mmol/L (22-29); Chloride 106 mmol/L (96-108); Estimated Glomerular Filt Rate > 60; Glucose Random 192 mg/dL (60-115); Potassium 3.8 mmol/L (3.3-5.1); Sodium 137 mmol/L (135-145)
== END 2023-07-05 09:38 | disposition home or self-care (01) ==
LOC: HO.LAB 09:37
PROVIDERS: Visit Provider Internal Medicine Cardiovascular Disease
DX: I42.9 Cardiomyopathy, unspecified (principal)
CPT/HCPCS: 36415; 80048

== ENCOUNTER 2023-07-12 12:30 | Outpatient (REF) | payer OTHER, SELFPAY ==
[2023-07-12 13:35] LABS: MANUAL DIFF FLAG NO
[2023-07-12 13:44] LABS: Basophils Percent Auto 0.5 % (0-2); Eosinophils Absolute Auto 0.2 X10*3/uL (0.0-0.4); Eosinophils Percent Auto 2.2 % (0-4); Hematocrit 50.1 % (42.0-52.0); Hemoglobin 17.3 g/dl (14.0-18.0); Imm Gran Abs Auto 0.02 X10*3/uL (0.00-0.03); Imm Gran Pct Auto 0.2 % (0.0-0.4); Lymphocytes Absolute Auto 2.8 X10*3/uL (1.2-4.9); Mean Corpuscular HGB Conc 34.5 g/dl (31.0-36.0); Mean Corpuscular Volume 95.4 fL (80.0-98.0); Mean Platelet Volume 10.2 fL (9.4-12.4); Monocytes Absolute Auto 0.7 X10*3/uL (0.1-1.2); Neutrophils Absolute Auto 4.4 x10*3/uL (2.0-8.3); Neutrophils Percent Auto 54.1 % (45-73); Platelet Count 291 X10*3/uL (160-400); Red Blood Count 5.25 X10*6/uL (4.60-5.80); Red Cell Distribution Width 12.9 % (11.0-16.0); White Blood Count 8.1 X10*3/uL (4.8-10.8)
[2023-07-12 13:52] LABS: Estimated Average Glucose 189 mg/dL; Hemoglobin A1c % 8.2 % (<6.0)
[2023-07-12 14:39] LABS: Alanine Aminotransferase 21 U/L (0-40); Albumin Level 4.4 g/dL (3.5-5.0); Alkaline Phosphatase 71 U/L (39-117); Anion Gap 14 (12-20); Aspartate Amino Transferase 20 U/L (5-37); Bilirubin Total 0.7 mg/dL (0.0-1.0); Blood Urea Nitrogen 19 mg/dL (9-16); Calcium 9.4 mg/dL (8.4-10.2); Carbon Dioxide 24 mmol/L (22-29); Chloride 105 mmol/L (96-108); Cholesterol 170 mg/dL (<200); Estimated Glomerular Filt Rate > 60; Glucose Random 168 mg/dL (60-115); HDL Cholesterol 43 mg/dL (>40); LDL Cholesterol Calculated 106 mg/dL (<100); Potassium 4.3 mmol/L (3.3-5.1); Sodium 139 mmol/L (135-145); Total Protein 7.1 g/dL (6.5-8.0); Triglycerides 109 mg/dL (<150)
[2023-07-12 14:58] LABS: Vitamin D 25-OH Total 52.4 ng/mL (>30)
[2023-07-12 15:00] LABS: Folate > 20.0 ng/mL (> or = 4.0); Vitamin B12 744 pg/mL (200-900)
[2023-07-12 17:53] LABS: Creatinine Urine 111.83 mg/dL; Microalbum/Creatinine Ratio Ur 5.3 ug/mg cr (<30)
[2023-07-12 18:44] LABS: CT PCR NOT DETECTED (Not Detect.); NG PCR NOT DETECTED (Not Detect.)
[2023-07-13 08:18] LABS: HBS Num1 0.64 mIU/mL (0-7.99); HBc Num1 0.07 S/CO (0.00-0.79); HBsAGNum1 0.31 S/CO (0.00-0.99); Hepatitis B Core Antibody Nonreactive (Nonreactive); Hepatitis B Surface Antigen Negative (Negative); ~Hepatitis B Surface Antibody NONREACTIVE (Nonreactive)
[2023-07-13 08:19] LABS: ~HepC Num1 0.06 S/CO (0.00-0.79); ~Hepatitis C Antibody Nonreactive (Nonreactive)
[2023-07-13 10:38] LABS: Free Prostate Spec Ag 0.3 ng/mL; Percent Free Prostate Spec Ag 19 % (calc) (>25); Prostate Specific Ag Total 1.6 ng/mL (< OR = 4.0)
[2023-07-14 08:26] LABS: Syphilis Screen Nonreactive (Nonreactive)
== END 2023-07-12 12:31 | disposition home or self-care (01) ==
LOC: HO.HHCL 12:30
PROVIDERS: Visit Provider Student in an Organized Health Care Education/Training Program
DX: Z00.00 Encounter for general adult medical examination without abnormal findings (principal); Z12.5 Encounter for screening for malignant neoplasm of prostate; Z20.2 Contact with and (suspected) exposure to infections with a predominantly sexual mode of transmission; E78.00 Pure hypercholesterolemia, unspecified; E11.9 Type 2 diabetes mellitus without complications; Z13.21 Encounter for screening for nutritional disorder; Z13.29 Encounter for screening for other suspected endocrine disorder
CPT/HCPCS: 0353U; 80053; 80061; 82043; 82306; 82607; 82746; 83036; 84154; 84443; 85025; 86704; 86706; 86780; 86803; 87340

== ENCOUNTER → 2023-07-20 23:59 | Outpatient (BNV) | payer OTHER, SELFPAY | PROVIDERS: Visit Provider Internal Medicine Cardiovascular Disease | DX: I20.8 Other forms of angina pectoris (principal); R93.1 Abnormal findings on diagnostic imaging of heart and coronary circulation | CPT/HCPCS: 93458; 99152 ==

== ENCOUNTER 2023-08-03 12:56 | Outpatient (AMB) | payer OTHER, SELFPAY ==
[2023-08-03 12:59] VITALS: BP 120/72; PULSE 84; BMI 21.3
--- NOTE | 2023-08-03 12:59 | A.OFFVIS_ITS ---
Intake Vital Signs 08/03/23 12:59 Height 6 ft 4 in Weight 174 lb 9.698 oz BMI 21.3 BP 120/72 Blood Pressure Location Lt brachial Position Sitting Pulse 84 Pulse Source Pulse Oximeter Intake Visit Reasons: 2 week follow up, post cardiac cath Intake Note: 2 week f/u post cardiac cath Incinerator Attendant Required: No Manager Commission: Manager Commission Present Accompanied by: Spouse Allergies No Known Allergies [No Known Allergies*] Allergy (Verified 08/03/23 13:05) Medication List - Last Reconciled 08/03/23 by KEELY Tinoco aspirin 1 tab PO QAM clopidogrel (Plavix) 75 mg PO DAILY 90 days dolutegravir (Tivicay) 1 tab PO DAILY empagliflozin (Jardiance) 10 mg PO DAILY empagliflozin (Jardiance) 25 mg PO DAILY emtricitabine-tenofovir alafen 200-25 mg (Descovy) 1 tab PO DAILY folic acid 1 mg PO DAILY glipizide 1 tab PO BID lisinopril 1 tab PO QAM metformin 500 mg PO BID metoprolol succinate ER 1 tab PO QAM mirtazapine 15 mg PO BEDTIME mwrduvts-vgs-TB-lycopen-lutein 0.4 mg-300 mcg- 250 mcg (CertaVite Senior) 0 tabs PO nicotine (Nicotrol) inhalation nicotine 1 patch topical DAILY polyvinyl alcohol 1.4% (Artificial Tears (polyvinyl alcohol)) 0 drps ophthalmic (eye) rosuvastatin 40 mg PO BEDTIME thiamine HCl (vitamin B1) 100 mg PO DAILY trazodone 100 mg PO BEDTIME PRN varenicline 0 mg PO HPI 2 week follow up, post cardiac cath HPI Details Jerman is a 57-year-old male with past medical history of hypertension, hyperlipidemia, diabetes, coronary artery disease with NSTEMI 2019 with severe RCA stenosis treated with 2 drug-eluting stents who had recent echocardiogram showing reduction in EF to 40-45%. He underwent cardiac catheterization and now presents for follow-up. Today he reports he has been feeling well with no concerning symptoms. He denies having any chest discomfort at rest or with activity. No shortness of breath, PND, orthopnea or edema. No presyncope, syncope, falls. He does has some calf discomfort if he walks a lot. He continues to smoke 2 packs per day. Significant other present. Right radial catheterization site feeling good. [facility] Medical History Depression Diabetes HIV (human immunodeficiency virus infection) HTN (hypertension) Osteoarthritis, hip, bilateral Stroke Surgical History H/O heart artery stent Family History Other Hypertension Social History Household Members: None Do you presently have visiting nurse or other home services: Yes Alcohol intake: former Year quit: 2020 Patient Tobacco Use Status: Current everyday Tobacco user Cigarette Packs Per Day: 1 Cigarettes Per Day: 20 Years Smoked: 40 +/- Second Hand Smoke Exposure: No service: No Current occupational status: unemployed and disabled 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 Review of Systems Const All systems reviewed & are unremarkable except as noted in HPI and below ENT Denies dizziness Card Details: Calf discomfort with walking Denies chest pain, Denies chest pain at rest, Denies chest pain with activity, Denies rapid heart rate, Denies pedal edema, Denies edema, Denies leg edema, Denies lightheadedness, Denies palpitations, Denies dyspnea, Denies dyspnea on exertion and Denies orthopnea Resp Denies cough, Denies dyspnea and Denies dyspnea on exertion GI Denies hematochezia and Denies change in stool character Musc Denies abnormal gait, Denies muscle cramps, Denies muscle weakness, Denies numbness, Denies radiating pain into limb, Denies stiffness and Denies tingling Neuro Denies abnormal gait, Denies dizziness, Denies numbness and Denies tingling Endo Denies palpitations Physical Exam Vital Signs: Last Vital Signs Pulse 84 08/03/23 12:59 BP 120/72 08/03/23 12:59 BMI result Body Mass Index 21.3 Const General: cooperative, healthy appearing, comfortable and no acute distress Orientation/consciousness: patient oriented x3 Neck Neck: Yes normal visual inspection Resp Effort & Inspection: normal respiratory effort Auscultation: clear to auscultation bilaterally, no crackles, no rales, no rhonchi and no wheezes Cardio Jugular venous distension: no JVD Rate: regular rate Rhythm: regular rhythm Heart sounds: S1 normal heart sound present, S2 normal heart sound present, no gallops, no murmurs and no rubs Peripheral pulses: Peripheral pulses 2+ throughout GI Inspection: Yes normal to inspection Neuro General: patient oriented x3 Extrem Other: Right radial catheterization site well healed, easily palpable radial pulse and hand assessment normal General: Yes normal to inspection Psych Appearance: grossly normal Mental Status: mental status grossly normal Speech and movement: Normal speech and movement present Assessment & Plan Assessment & Plan (1) Cardiomyopathy: Code(s): I42.9 - Cardiomyopathy, unspecified Qualifiers: Cardiomyopathy type: unspecified Qualified Code(s): I42.9 - Cardiomyopathy, unspecified Plan: Previously known to have normal EF. Echocardiogram done 05/18/2023 showed EF 40- 45%, basal inferior and basal inferior lateral segments hypokinesis. He has known prior PCI to the RCA and IFR negative LAD. He underwent cardiac catheterization again on 07/20/2023 showing mid RCA 60% stenosis, 2 patent stents in the RCA, mild irregularities elsewhere. No coronary findings to account for his reduced EF. His put on guideline directed medical therapy using metoprolol XL, lisinopril and Jardiance. Today he reports feeling well with no shortness of breath or chest discomfort. His right radial catheterization site is well healed. On examination he has no clinical signs indicating heart failure. Reviewed test results with him in detail. Continue activity as tolerated. Sign s and symptoms of heart failure reviewed. No med changes made (2) S/P cardiac catheterization: Comment: 07/20/2023, lad, left circumflex mild irregularities less than 30% stenosis, mid RCA 60% stenosis, 2 patent RCA stents Code(s): Z98.890 - Other specified postprocedural states (3) Stented coronary artery: Code(s): Z95.5 - Presence of coronary angioplasty implant and graft Plan: RCA 2 stents (4) CAD (coronary artery disease): Code(s): I25.10 - Atherosclerotic heart disease of [place] coronary artery without angina pectoris Qualifiers: Coronary Disease-Associated Artery/Lesion type: [place] artery [place] vs. transplanted heart: [place] heart Associated angina: without angina Qualified Code(s): I25.10 - Atherosclerotic heart disease of [place] coronary artery without angina pectoris Plan: As above. Continue medical management for stable CAD including aspirin indefinitely. Continue Plavix at this time however could stop if any bleeding issues. Continue metoprolol and rosuvastatin. (5) HTN (hypertension): Code(s): I10 - Essential (primary) hypertension Qualifiers: Hypertension type: primary hypertension Qualified Code(s): I10 - Essential (primary) hypertension Plan: Currently well controlled with use metoprolol and lisinopril. Labs done 07/12/2023 showed potassium 4.3, creatinine 1.05. No med changes made (6) Hyperlipidemia: Code(s): E78.5 - Hyperlipidemia, unspecified Qualifiers: Hyperlipidemia type: unspecified Qualified Code(s): E78.5 - Hyperlipidemia, unspecified Plan: [place] LDL goal less than 70 in patient with CAD. Labs done 07/12/2023 shows LDL 106. Continue rosuvastatin 40 mg daily. Will add Zetia 10 mg daily. Repeat fasting lipid profile in 2-3 months. Orders: Orders Lipid Panel 2 Months I25.10 - Atherosclerotic heart disease of [place] coronary artery without angina pectoris Medications: New ezetimibe (Zetia) One tablet daily. New cholesterol pill, take in addition to rosuvastatin 10 mg PO DAILY 30 tabs 5RF 30 days Coding Level of Care Code Est Pt Level 4 (49027) Diagnoses Cardiomyopathy, unspecified type I42.9 Cardiomyopathy type: unspecified S/P cardiac catheterization Z98.890 Stented coronary artery Z95.5 Coronary artery disease involving [place] coronary artery of [place] heart without angina pectoris I25.10 Coronary Disease-Associated Artery/Lesion type: [place] artery [place] vs. transplanted heart: [place] heart Associated angina: without angina Primary hypertension I10 Hypertension type: primary hypertension Hyperlipidemia, unspecified hyperlipidemia type E78.5 Hyperlipidemia type: unspecified Time Spent (min) 28
== END 2023-08-03 13:23 | disposition home or self-care (01) ==
PROVIDERS: PCP Internal Medicine; Visit Provider Nurse Practitioner Family
DX: I42.9 Cardiomyopathy, unspecified (principal); Z98.890 Other specified postprocedural states; Z95.5 Presence of coronary angioplasty implant and graft; I25.10 Atherosclerotic heart disease of native coronary artery without angina pectoris; I10 Essential (primary) hypertension; E78.5 Hyperlipidemia, unspecified
CPT/HCPCS: 99214

== ENCOUNTER → 2023-08-03 12:56 | Outpatient (BNVA) | payer OTHER, SELFPAY | PROVIDERS: PCP Internal Medicine; Visit Provider Nurse Practitioner Family | DX: I42.9 Cardiomyopathy, unspecified (principal); I25.10 Atherosclerotic heart disease of native coronary artery without angina pectoris; I10 Essential (primary) hypertension; E78.5 Hyperlipidemia, unspecified; Z79.899 Other long term (current) drug therapy; Z95.5 Presence of coronary angioplasty implant and graft; Z98.890 Other specified postprocedural states | CPT/HCPCS: 99212 ==

== ENCOUNTER 2023-10-12 10:49 | Emergency (ER) | payer OTHER, SELFPAY ==
[2023-10-12 10:57] VITALS: BP 120/73; BP 130/70; PULSE 87; PULSE 94; RESP 16; TEMP 35.8; O2SAT 96; O2SAT 98; BMI 25.1
--- NOTE | 2023-10-12 11:16 | ECG_ITS ---
Test Reason : CHEST PAIN Blood Pressure : / mmHG Vent. Rate : 084 BPM Atrial Rate : 084 BPM P-R Int : 174 ms QRS Dur : 084 ms QT Int : 340 ms P-R-T Axes : 040 -08 056 degrees QTc Int : 401 ms Normal sinus rhythm Possible Inferior infarct (cited on or before 08-MAY-2019) Abnormal ECG When compared with ECG of 31-OCT-2020 11:31, Questionable change in initial forces of Inferior leads Referred By: Generic ED Physician Electronically Signed By:HANNA PAIGE MD
--- NOTE | 2023-10-12 12:01 | ED.ALCOHOL ---
HPI - Alcohol General Chief Complaint: ETOH/Substance Use Stated Complaint: ETOH,WANTS DETOX PER EMS Time Seen by Provider: 10/12/23 11:57 Source: patient Mode of arrival: ambulatory Limitations: no limitations History of Present Illness HPI narrative: 58-year-old male who presents emergency department for evaluation alcohol use disorder and requesting detox. The patient states that he was last in a detox program 3 years prior and that he had 4 years of sobriety after being detox. He states that over the last month he has been drinking heavily. He states that he has been drinking heavily over the last month. He states that he drinks 10 beers that are 24 oz each per day. He drinks 10 nips of whiskey per day as well. He states that he does get the shakes when he stops drinking but he has never had delirium tremens. He has never had alcohol withdrawal seizures. Patient is also complaining of right-sided chest pain. He states that he has been having this chest pain intermittently for 4 months. He describes the pain is a heaviness located in his right chest and right back. He states the pain normally comes on at rest and not with exertion. Cannot recall when he had his last episode but he states he has not had an episode in 24 hours. He denied associated lightheadedness, dizziness, shortness of breath, diaphoresis, nausea, vomiting radiation of the pain associated with this chest pain. Related Data Home Medications Medication Instructions Recorded Confirmed aspirin 81 mg tablet,delayed 1 tab PO QAM 01/18/21 08/03/23 release dolutegravir 50 mg tablet (Tivicay) 1 tab PO DAILY 01/18/21 08/03/23 emtricitabine 200 mg-tenofovir 1 tab PO DAILY 01/18/21 08/03/23 alafenamide fumarate 25 mg tablet (Descovy) glipizide 10 mg tablet 1 tab PO BID 01/18/21 08/03/23 lisinopril 5 mg tablet 1 tab PO QAM 01/18/21 08/03/23 metoprolol succinate 50 mg 1 tab PO QAM 01/18/21 08/03/23 tablet,extended release 24 hr empagliflozin 10 mg tablet 10 mg PO DAILY 03/28/22 08/03/23 (Jardiance) polyvinyl alcohol 1.4 % eye drops 0 drp ophthalmic (eye) 05/11/22 08/03/23 (Artificial Tears (polyvinyl alcohol)) thiamine HCl (vitamin B1) 100 mg 100 mg PO DAILY 05/11/22 08/03/23 tablet folic acid 1 mg tablet 1 mg PO DAILY 07/04/22 08/03/23 metformin 500 mg tablet 500 mg PO BID 07/04/22 08/03/23 mirtazapine 15 mg tablet 15 mg PO BEDTIME 07/04/22 06/05/23 gmirfeet-ssy-vcrjo acid 0.4 0 tab PO 07/04/22 08/03/23 mg-lycopene 300 mcg-lutein 250 mcg tablet (CertaVite Senior) trazodone 100 mg tablet 100 mg PO BEDTIME PRN insomnia 07/04/22 08/03/23 varenicline 1 mg tablet 0 mg PO 07/04/22 08/03/23 empagliflozin 25 mg tablet 25 mg PO DAILY 11/17/22 08/03/23 (Jardiance) rosuvastatin 40 mg tablet 40 mg PO BEDTIME 12/07/22 08/03/23 nicotine 10 mg inhalation inhalation 08/03/23 08/03/23 cartridge (Nicotrol) nicotine 21 mg/24 hr daily 1 patch topical DAILY 08/03/23 08/03/23 transdermal patch Previous Rx's Medication Instructions Recorded clopidogrel 75 mg tablet (Plavix) 75 mg PO DAILY 90 days #90 tabs 07/26/21 ezetimibe 10 mg tablet (Zetia) 10 mg PO DAILY 30 days #30 tabs 08/03/23 Allergies Allergy/AdvReac Type Severity Reaction Status Date / Time No Known Allergies Allergy Verified 08/03/23 13:05 [No Known Allergies*] [facility] Past Medical History Medical History (Updated 10/12/23 @ 16:06 by Mikal Carrizales MD) HIV (human immunodeficiency virus infection) History of CVA (cerebrovascular accident) Cardiomyopathy CAD (coronary artery disease) Stented coronary artery HTN (hypertension) Diabetes Osteoarthritis, hip, bilateral Depression Tubular adenoma of colon Nicotine dependence, cigarettes, uncomplicated Surgical History (Updated 09/22/23 @ 15:01 by Kaylen Rouse PA-C) History of cardiac cath History of heart artery stent History of circumcision History of arthroscopy of right knee History of appendectomy History of colonoscopy History of surgery on right wrist Family History Family History Other Hypertension Social History Social History Household Members: None Do you presently have visiting nurse or other home services: Yes Alcohol intake: former Year quit: 2020 Comment: pt sleeping Patient Tobacco Use Status: Current everyday Tobacco user Cigarette Packs Per Day: 1 Cigarettes Per Day: 20 Years Smoked: 40 +/- Second Hand Smoke Exposure: No Advance Directives: Yes Advance Directives on File: Yes Advance Directives Date on File: 01/26/21 service: No Current occupational status: unemployed and disabled 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 Patient states he has been drinking 24 oz beers at least 10 per day and 10 nips of whiskey per day the past month. He denied drug/cocaine use. He did complain of right-sided chest pain x4 months. He cannot recall his last episode occurred but he has not had 1 at least 24 hours. Vital signs were unremarkable. Physical exam was unremarkable. Following evaluation was ordered: CBC, CMP, troponin, urine drug screen, ethanol level, troponin, COVID-19, influenza, RSV, EKG 14:55 Patient's laboratory evaluation did reveal an elevated troponin of 118 with repeat due at 15:30 hours. On 11/10/2020 the patient had elevated time zero and time three hour troponins of 73 and 76. Patient is not having chest pain at this time. Twelve EKG did not reveal any evidence for ischemia or infarction. Patient was placed on a cardiac and O2 saturation monitor 15:51 The patient's 3 hour troponin was 107 which was not a greater than 50% delta compared to the 1st troponin which is reassuring suggesting that he is not have myocardial injury is the cause of his elevated troponin any most likely has chronic troponin levels. COVID-19, RSV and influenza were negative. Urine drug screen was negative. Urine ethanol level was elevated at 193 consistent with acute alcohol intoxication. Patient is medically cleared for detox. 16:04 Patient has been seen by our recovery dealer support technician was working on locating a detox bed for the patient. At the end of my shift, the patient is resting comfortably, patient's care was turned over to my colleague, Dr. Lakesha Linares. Differential Diagnosis Differential Diagnoses: The differential diagnosis associated with the presentation includes Differential diagnosis includes was not limited to alcohol intoxication, alcohol withdrawal, substance use disorder, myocardial infarction, myocardial ischemia, chest wall pain Admission/Observation Consideration of admission/observation: Escalation of care including admission/observation considered Lab Data MDM Lab Attestation statement: I reviewed the patient's lab results. My interpretation patient's laboratory evaluation is as follows, CBC was normal except for an elevated MCV of 98 which is related to his alcohol use disorder. Glucose elevated 132. ALT elevated 55. Times 0 troponin at 12 30 hours was elevated 118, repeat at 15:30 hours. Repeat 3 hour troponin was 107 which is not a greater than 50% delta which is reassuring. Patient's urine drug screen was negative. Blood ethanol level was elevated 193 consistent with acute intoxication. COVID-19, RSV and influenza were negative. 10/12/23 12:26 10/12/23 12:26 Labs: Lab Results 10/12/23 10/12/23 Range/Units 12:26 15:07 WBC 9.1 (4.8-10.8) X10*3/uL RBC 4.99 (4.60-5.80) X10*6/uL Hgb 16.8 (14.0-18.0) g/dl Hct 49.0 (42.0-52.0) % MCV 98.2 H (80.0-98.0) fL MCH 33.7 H (27.0-33.0) pg MCHC 34.3 (31.0-36.0) g/dl RDW 14.1 (11.0-16.0) % Plt Count 303 (160-400) X10*3/uL MPV 9.8 (9.4-12.4) fL Immature Gran % (Auto) 0.3 (0.0-0.4) % Neut % (Auto) 50.7 (45-73) % Lymph % (Auto) 41.4 H (20-40) % [place] % (Auto) 6.5 (2-11) % Eos % (Auto) 0.3 (0-4) % Baso % (Auto) 0.8 (0-2) % Lymph # (Auto) 3.8 (1.2-4.9) X10*3/uL [place] # (Auto) 0.6 (0.1-1.2) X10*3/uL Eos # (Auto) 0.0 (0.0-0.4) X10*3/uL Baso # (Auto) 0.1 (0.0-0.2) X10*3/uL Abs Immat Gran (auto) 0.03 (0.00-0.03) X10*3/uL Absolute Neuts (auto) 4.6 (2.0-8.3) x10*3/uL Absolute Nucleated RBC 0.000 (0.0-0.012) X10*3/uL Nucleated RBC % (auto) 0.0 (0.0-0.2) /100WBC Sodium 142 (135-145) mmol/L Potassium 3.6 (3.3-5.1) mmol/L Chloride 105 (96-108) mmol/L Carbon Dioxide 25 (22-29) mmol/L Anion Gap 16 (12-20) BUN 13 (9-16) mg/dL Creatinine 0.89 (0.5-1.4) mg/dL Estim Creat Clear Calc 92.2 Estimated GFR > 60 Random Glucose 132 H (60-115) mg/dL Calcium 9.3 (8.4-10.2) mg/dL Total Bilirubin 0.5 (0.0-1.0) mg/dL AST 55 H (5-37) U/L ALT 40 (0-40) U/L Alkaline Phosphatase 111 (39-117) U/L Troponin I High Sens 118.0 H* (<3.5-35.0) ng/L Total Protein 7.8 (6.5-8.0) g/dL Albumin 4.5 (3.5-5.0) g/dL Urine Color Yellow Urine Appearance Clear Urine pH 6.5 (5.0-9.0) Ur Specific [employer] >= 1.030 H (1.005-1.025) Urine Protein Negative (Neg-Trace) mg/dL Urine Glucose (UA) >=1000 H (Negative) mg/dL Urine Ketones Negative (Negative) mg/dL Urine Blood Negative (Negative) Urine Nitrite Negative (Negative) Ur Leukocyte Esterase Negative (Negative) Urine RBC 0-2 (0-2) /HPF Urine WBC 0-5 (0-5) /HPF Ur Squamous Epith Cells 0-2 (0-2) /HPF Urine Bacteria None Seen (None Seen) Hyaline Casts 0-2 (0-2) /LPF Urine Opiates Screen Not Detected (Not Detect) Urine Fentanyl Screen Not Detected (Not Detect) Ur Barbiturates Screen Not Detected (Not Detect) Ur Phencyclidine Scrn Not Detected (Not Detect) Ur Amphetamines Screen Not Detected (Not Detect) U Benzodiazepines Scrn Not Detected (Not Detect) Urine Cocaine Screen Not Detected (Not Detect) U Marijuana (THC) Screen Not Detected (Not Detect) Ethyl Alcohol 193 mg/dL Influenza Type A (PCR) NEGATIVE (Negative) Influenza Type B (PCR) NEGATIVE (Negative) RSV RNA Qual (PCR) NEGATIVE (Negative) SARS-CoV-2 RNA (RT-PCR) NEGATIVE (Negative) Independent Interpretation I performed an independent interpretation of an: EKG Interpretation: My independent interpretation of the patient's 12 EKG done at 13:21 hours is as follows: Normal sinus rhythm rate of 87, normal NC interval, QRS duration QTC interval, no ST segment elevation, no ST segment depression, Q-wave in lead 3, no PACs, no PVCs, no significant T-wave abnormalities. Compared to EKG dated 10/31/2022 Q-wave is old Discharge Plan Discharge Clinical Impression: Alcohol use disorder, Chest wall pain Alcohol intoxication Qualifiers: Complication of substance-induced condition: uncomplicated Qualified Code(s): F10.920 - Alcohol use, unspecified with intoxication, uncomplicated Patient Disposition: Still a Patient Additional Instructions: You did have an elevated high sensitivity troponin I (marker of heart damage) but this was unchanged after 3 hours which means you did not have a heart attack. You have a chronic detected level of troponin in your blood, which is normal for you. Your COVID-19, influenza and RSV are negative. The rest of your blood work was unremarkable. Your alcohol level was elevated 193 which is consistent with alcohol intoxication. Continue taking medications as prescribed by your providers. Follow the recovery support coordinators recommendations for detox Prescriptions: No Action clopidogrel [Plavix] 75 mg tablet 75 mg PO DAILY 90 Days Qty: 90 0RF Rx Instructions: Must call and schedule a cardiology follow-up for refills metoprolol succinate 50 mg tablet extended release 24 hr 1 tab PO QAM glipizide 10 mg tablet 1 tab PO BID aspirin 81 mg tablet,delayed release (DR/EC) 1 tab PO QAM lisinopril 5 mg tablet 1 tab PO QAM Tivicay 50 mg tablet 1 tab PO DAILY Descovy 200-25 mg tablet 1 tab PO DAILY rosuvastatin 40 mg tablet 40 mg PO BEDTIME thiamine HCl (vitamin B1) 100 mg tablet 100 mg PO DAILY polyvinyl alcohol [Artificial Tears (polyvin alc)] 1.4 % drops 0 drp ophthalmic (eye) CertaVite Senior 0.4 mg-300 mcg- 250 mcg tablet 0 tab PO mirtazapine 15 mg tablet 15 mg PO BEDTIME folic acid 1 mg tablet 1 mg PO DAILY metformin 500 mg tablet 500 mg PO BID trazodone 100 mg tablet 100 mg PO BEDTIME PRN (Reason: insomnia) varenicline 1 mg tablet 0 mg PO Jardiance 10 mg tablet 10 mg PO DAILY Jardiance 25 mg tablet 25 mg PO DAILY Nicotrol 10 mg cartridge inhalation nicotine 21 mg/24 hr patch 24 hour 1 patch topical DAILY ezetimibe [Zetia] 10 mg tablet 10 mg PO DAILY 30 Days Qty: 30 5RF Rx Instructions: One tablet daily. New cholesterol pill, take in addition to rosuvastatin
[2023-10-12 12:39] LABS: MANUAL DIFF FLAG NO
--- NOTE | 2023-10-12 12:52 | MHC.RECOVSUP ---
Addendum entered by Eliazar Briceno 10/12/23 16:20: ATS bed search has been exhausted at this time. No beds at [facility], [facility], [facility], [facility], [facility], [facility]. Pt information has been sent to [facility] and [facility] and can follow up in the morning. Original Note: Met with pt in ED6h who is here for ZANDRA. Pt reports drinking about 10 24oz beers and several nips a day for the past month. Pt informs he had been sober for almost 3 years since his last time at [facility] for ATS. Pt stats that 20 years ago he had stopped using heroin and has been off of it since. At this time pt is interested in ATS and is willing to go anywhere. ATS bed search in process.
[2023-10-12 12:55] LABS: Ethanol 193 mg/dL
[2023-10-12 12:57] LABS: Hemoglobin 16.8 g/dl (14.0-18.0); Mean Corpuscular HGB Conc 34.3 g/dl (31.0-36.0); Mean Corpuscular Hemoglobin 33.7 pg (27.0-33.0); Mean Corpuscular Volume 98.2 fL (80.0-98.0); Red Blood Count 4.99 X10*6/uL (4.60-5.80); Red Cell Distribution Width 14.1 % (11.0-16.0); White Blood Count 9.1 X10*3/uL (4.8-10.8)
[2023-10-12 12:58] LABS: Alanine Aminotransferase 40 U/L (0-40); Albumin Level 4.5 g/dL (3.5-5.0); Alkaline Phosphatase 111 U/L (39-117); Anion Gap 16 (12-20); Aspartate Amino Transferase 55 U/L (5-37); Basophils Absolute Auto 0.1 X10*3/uL (0.0-0.2); Basophils Percent Auto 0.8 % (0-2); Bilirubin Total 0.5 mg/dL (0.0-1.0); Blood Urea Nitrogen 13 mg/dL (9-16); Calcium 9.3 mg/dL (8.4-10.2); Carbon Dioxide 25 mmol/L (22-29); Chloride 105 mmol/L (96-108); Creatinine Clr Calc Pharmacy 92.2; Eosinophils Percent Auto 0.3 % (0-4); Estimated Glomerular Filt Rate > 60; Glucose Random 132 mg/dL (60-115); Imm Gran Abs Auto 0.03 X10*3/uL (0.00-0.03); Imm Gran Pct Auto 0.3 % (0.0-0.4); Lymphocytes Absolute Auto 3.8 X10*3/uL (1.2-4.9); Lymphocytes Percent Auto 41.4 % (20-40); Mean Platelet Volume 9.8 fL (9.4-12.4); Monocytes Absolute Auto 0.6 X10*3/uL (0.1-1.2); Monocytes Percent Auto 6.5 % (2-11); Neutrophils Absolute Auto 4.6 x10*3/uL (2.0-8.3); Neutrophils Percent Auto 50.7 % (45-73); Platelet Count 303 X10*3/uL (160-400); Potassium 3.6 mmol/L (3.3-5.1); Sodium 142 mmol/L (135-145); Total Protein 7.8 g/dL (6.5-8.0)
[2023-10-12 13:29] LABS: Influenza A PCR NEGATIVE (Negative); Influenza B PCR NEGATIVE (Negative); Resp Syncy Virus RNA Qual PCR NEGATIVE (Negative); SARS COV2 PCR INHOUSE NEGATIVE (Negative)
[2023-10-12 15:20] LABS: Appearance Urine Clear; Color Urine Yellow; Glucose Urine UA >=1000 mg/dL (Negative); Leukocyte Esterase Urine Negative (Negative); Nitrite Urine Negative (Negative); PH 6.5 (5.0-9.0); Specific Gravity - Urine >= 1.030 (1.005-1.025); UMIC TRIGGER UACC YES; Urine Blood Negative (Negative); Urine Ketones Negative (Negative); Urine Protein Negative (Neg-Trace)
[2023-10-12 15:33] LABS: Bacteria Urine None Seen (None Seen); Hyaline Casts Urine 0-2 /LPF (0-2); RBC Urine 0-2 /HPF (0-2); Squamous Epithelial Cell Urine 0-2 /HPF (0-2); WBC Urine 0-5 /HPF (0-5)
[2023-10-12 15:35] LABS: Amphetamine Screen Urine Not Detected (Not Detect); Barbiturates, Urine Not Detected (Not Detect); Benzodiazepines Screen Urine Not Detected (Not Detect); Cannabinoid Screen Urine Not Detected (Not Detect); Cocaine Screen Urine Not Detected (Not Detect); Fentanyl, urine Not Detected (Not Detect); Opiate Screen Urine Not Detected (Not Detect); Phencyclidine Screen Urine Not Detected (Not Detect)
[2023-10-12 15:52] LABS: Troponin-I High Sensitivity 107.8 ng/L (<3.5-35.0)
[2023-10-12] MEDS: LORazepam 1 MG TABLET 2 MG PO (16:13)
== END 2023-10-12 17:51 | disposition home or self-care (01) ==
PROVIDERS: Emergency Medicine Emergency Medical Services; Emergency Provider Emergency Medicine
DX: F10.129 Alcohol abuse with intoxication, unspecified (principal); R07.89 Other chest pain; I25.10 Atherosclerotic heart disease of native coronary artery without angina pectoris; Y90.6 Blood alcohol level of 120-199 mg/100 ml; Z20.822 Contact with and (suspected) exposure to COVID-19; Z20.828 Contact with and (suspected) exposure to other viral communicable diseases; Z87.891 Personal history of nicotine dependence; Z71.41 Alcohol abuse counseling and surveillance of alcoholic; Z86.73 Personal history of transient ischemic attack (TIA), and cerebral infarction without residual deficits; Z79.899 Other long term (current) drug therapy
CPT/HCPCS: 0241U; 36415; 80053; 80307; 81001; 84484; 85025; 93005; 99284

== ENCOUNTER → 2023-10-12 11:16 | Outpatient (BNV) | payer OTHER, SELFPAY | PROVIDERS: Emergency Provider Emergency Medicine; Visit Provider Internal Medicine Cardiovascular Disease | DX: R94.31 Abnormal electrocardiogram [ECG] [EKG] (principal); R07.9 Chest pain, unspecified | CPT/HCPCS: 93010 ==

== ENCOUNTER 2023-10-28 13:13 | Emergency (ER) | payer OTHER, SELFPAY ==
--- NOTE | ~2023-10-28 | XR_ITS ---
EXAMINATION: XR HAND, RIGHT CLINICAL INFORMATION: Pain COMPARISON: None available. TECHNIQUE: PA, lateral, and oblique views of the right hand. FINDINGS: The bones and soft tissues are normal. No fracture. Alignment is anatomic. Joint spaces are maintained. No erosions or soft tissue calcifications. XR/XR hand RT min 3V IMPRESSION: Unremarkable plain radiographs of the right hand.
--- NOTE | ~2023-10-28 | CT_ITS ---
EXAMINATION: CT HAND WITH CONTRAST, RIGHT CLINICAL INFORMATION: Dog bite. Rule out tenosynovitis. COMPARISON: None available. TECHNIQUE: IV contrast enhanced CT of the right hand This CT examination was performed using dose optimization techniques as appropriate, variously including the following: *Automated exposure control *Adjustment of mA and/or kV according to patient size (this includes techniques or standardized protocols for targeted exams where dose is matched to indication/reason for exam; i.e. extremities or head) *Use of iterative reconstruction technique DLP: 114 mGy-cm FINDINGS: Soft tissue inflammatory changes are noted along the palmar aspect of the base of the fourth proximal phalanx and enlargement of the volar tendon sheath in this region is noted (series 5 image 33). No soft tissue emphysematous changes or embedded radiopaque foreign bodies noted in this region. Subcutaneous reticulation is present along the palmar aspect of the fourth distal metacarpal and diffusely along the palmar aspect of the proximal metacarpals. Well-corticated rounded ossific bodies are present adjacent to the scaphoid and may represent sequela of remote trauma. No acute appearing fractures or subluxations noted. CT/CT hand RT w IV con IMPRESSION: Soft tissue inflammatory changes along the palmar aspect of the base of the fourth proximal phalanx and enlargement of the volar tendon sheath in this region suspicious for tenosynovitis. No soft tissue emphysematous changes or embedded radiopaque foreign bodies. As clinically indicated, findings could be further evaluated with unenhanced and IV contrast-enhanced MRI. Scattered pulmonary subcutaneous soft tissue inflammatory changes. No acute fractures.
[2023-10-28 13:22] VITALS: BP 148/74; PULSE 92; RESP 18; TEMP 36.6; O2SAT 98; BMI 28.9
--- NOTE | 2023-10-28 13:25 | ED.GENADULT ---
HPI - General Adult General Chief complaint: General Medical Stated complaint: dog bite R hand Time Seen by Provider: 10/28/23 17:17 Related Data Home Medications Medication Instructions Recorded Confirmed aspirin 81 mg tablet,delayed 1 tab PO QAM 01/18/21 08/03/23 release dolutegravir 50 mg tablet (Tivicay) 1 tab PO DAILY 01/18/21 08/03/23 emtricitabine 200 mg-tenofovir 1 tab PO DAILY 01/18/21 08/03/23 alafenamide fumarate 25 mg tablet (Descovy) glipizide 10 mg tablet 1 tab PO BID 01/18/21 08/03/23 lisinopril 5 mg tablet 1 tab PO QAM 01/18/21 08/03/23 metoprolol succinate 50 mg 1 tab PO QAM 01/18/21 08/03/23 tablet,extended release 24 hr empagliflozin 10 mg tablet 10 mg PO DAILY 03/28/22 08/03/23 (Jardiance) polyvinyl alcohol 1.4 % eye drops 0 drp ophthalmic (eye) 05/11/22 08/03/23 (Artificial Tears (polyvinyl alcohol)) thiamine HCl (vitamin B1) 100 mg 100 mg PO DAILY 05/11/22 08/03/23 tablet folic acid 1 mg tablet 1 mg PO DAILY 07/04/22 08/03/23 metformin 500 mg tablet 500 mg PO BID 07/04/22 08/03/23 mirtazapine 15 mg tablet 15 mg PO BEDTIME 07/04/22 06/05/23 cpktyeje-mic-lfptl acid 0.4 0 tab PO 07/04/22 08/03/23 mg-lycopene 300 mcg-lutein 250 mcg tablet (CertaVite Senior) trazodone 100 mg tablet 100 mg PO BEDTIME PRN insomnia 07/04/22 08/03/23 varenicline 1 mg tablet 0 mg PO 07/04/22 08/03/23 empagliflozin 25 mg tablet 25 mg PO DAILY 11/17/22 08/03/23 (Jardiance) rosuvastatin 40 mg tablet 40 mg PO BEDTIME 12/07/22 08/03/23 nicotine 10 mg inhalation inhalation 08/03/23 08/03/23 cartridge (Nicotrol) nicotine 21 mg/24 hr daily 1 patch topical DAILY 08/03/23 08/03/23 transdermal patch Previous Rx's Medication Instructions Recorded clopidogrel 75 mg tablet (Plavix) 75 mg PO DAILY 90 days #90 tabs 07/26/21 ezetimibe 10 mg tablet (Zetia) 10 mg PO DAILY 30 days #30 tabs 08/03/23 amoxicillin 500 mg-potassium 1 tab PO BID #20 tabs 10/28/23 clavulanate 125 mg tablet (Augmentin) Allergies Allergy/AdvReac Type Severity Reaction Status Date / Time No Known Allergies Allergy Verified 11/07/23 23:42 [No Known Allergies*] [facility] Past Medical History Medical History HIV (human immunodeficiency virus infection) History of CVA (cerebrovascular accident) Cardiomyopathy CAD (coronary artery disease) Stented coronary artery HTN (hypertension) Diabetes Osteoarthritis, hip, bilateral Depression Tubular adenoma of colon Nicotine dependence, cigarettes, uncomplicated Surgical History History of cardiac cath History of heart artery stent History of circumcision History of arthroscopy of right knee History of appendectomy History of colonoscopy History of surgery on right wrist Family History Family History Other Hypertension Social History Social History Household Members: None Do you presently have visiting nurse or other home services: Yes Alcohol intake: former Year quit: 2020 Comment: pt sleeping Patient Tobacco Use Status: Current everyday Tobacco user Cigarette Packs Per Day: 1 Cigarettes Per Day: 20 Years Smoked: 40 +/- Second Hand Smoke Exposure: No Advance Directives Date on File: 01/26/21 service: No Current occupational status: unemployed and disabled 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 Three weeks ago he hit it against a sink but also was bit by a dog the same day. It was his dog who is up-to-date on rabies vaccine. The patient does have a history of HIV, he is being treated and reports last viral check was 2 months ago and was undetectable. On exam, the patient has reduced range of motion of flexion and extension of the right 3rd and 4th fingers. He has edema to the palmar surface of the hand in the door service that hand. Plan for labs including blood cultures, x-ray of the hand. Medications Administered Discontinued Medications Generic Name Dose Route Start Last Admin Trade Name Henrietta PRN Reason Stop Dose Admin Piperacillin Sod/Tazobactam 50 mls @ 100 mls/hr 10/28/23 17:44 10/28/23 19:08 Sod 3.375 gm/ Sodium Chloride IV 10/28/23 18:13 Infused ONCE ONE Infusion Iohexol 85 ml 10/28/23 19:39 10/28/23 19:39 Iohexol 350 Mg/Ml 100 Ml Infus..Btl IV 10/28/23 19:40 85 ml ONCE ONE Administration Medical Decision Making Lab Data 10/28/23 13:35 10/28/23 13:35 Labs: Lab Results 10/28/23 Range/Units 13:35 WBC 8.2 (4.8-10.8) X10*3/uL RBC 4.39 L (4.60-5.80) X10*6/uL Hgb 14.8 (14.0-18.0) g/dl Hct 42.3 (42.0-52.0) % MCV 96.4 (80.0-98.0) fL MCH 33.7 H (27.0-33.0) pg MCHC 35.0 (31.0-36.0) g/dl RDW 13.7 (11.0-16.0) % Plt Count 304 (160-400) X10*3/uL MPV 9.3 L (9.4-12.4) fL Immature Gran % (Auto) 0.4 (0.0-0.4) % Neut % (Auto) 59.6 (45-73) % Lymph % (Auto) 25.2 (20-40) % [place] % (Auto) 13.3 H (2-11) % Eos % (Auto) 0.6 (0-4) % Baso % (Auto) 0.9 (0-2) % Lymph # (Auto) 2.1 (1.2-4.9) X10*3/uL [place] # (Auto) 1.1 (0.1-1.2) X10*3/uL Eos # (Auto) 0.1 (0.0-0.4) X10*3/uL Baso # (Auto) 0.1 (0.0-0.2) X10*3/uL Abs Immat Gran (auto) 0.03 (0.00-0.03) X10*3/uL Absolute Neuts (auto) 4.9 (2.0-8.3) x10*3/uL Absolute Nucleated RBC 0.000 (0.0-0.012) X10*3/uL Nucleated RBC % (auto) 0.0 (0.0-0.2) /100WBC ESR 6 (0-15) MM/HR Sodium 138 (135-145) mmol/L Potassium 4.4 D (3.3-5.1) mmol/L Chloride 105 (96-108) mmol/L Carbon Dioxide 26 (22-29) mmol/L Anion Gap 11 L (12-20) BUN 18 H (9-16) mg/dL Creatinine 0.86 (0.5-1.4) mg/dL Estim Creat Clear Calc 93.7 Estimated GFR > 60 Random Glucose 210 H (60-115) mg/dL Lactic Acid 1.6 (0.5-2.0) mmol/L Calcium 9.5 (8.4-10.2) mg/dL Total Bilirubin 0.4 (0.0-1.0) mg/dL AST 25 (5-37) U/L ALT 25 (0-40) U/L Alkaline Phosphatase 105 (39-117) U/L C-Reactive Protein 1.41 H (< or = 0.50) mg/dL Total Protein 6.9 (6.5-8.0) g/dL Albumin 4.1 (3.5-5.0) g/dL Lipase 45 (8-78) U/L Discharge Plan Discharge Clinical Impression: Tenosynovitis Patient Disposition: Left Against Medical Advice Instructions: Tenosynovitis (ED) Additional Instructions: You are leaving against medical advice. You refused to be admitted to the hospital. Please be advised that with tenosynovitis, your hand may become infected, you may become septic (severe infection throughout your body), you may lose complete function of her hand. If infection becomes severe, you may lose her hand. Please follow-up with your primary care physician tomorrow. If you have any worsening or new symptoms, please return to the emergency room or call 911 Prescriptions: New amoxicillin-pot clavulanate [Augmentin] 500-125 mg tablet 1 tab PO BID Qty: 20 0RF No Action clopidogrel [Plavix] 75 mg tablet 75 mg PO DAILY 90 Days Qty: 90 0RF Rx Instructions: Must call and schedule a cardiology follow-up for refills metoprolol succinate 50 mg tablet extended release 24 hr 1 tab PO QAM glipizide 10 mg tablet 1 tab PO BID aspirin 81 mg tablet,delayed release (DR/EC) 1 tab PO QAM lisinopril 5 mg tablet 1 tab PO QAM Tivicay 50 mg tablet 1 tab PO DAILY Descovy 200-25 mg tablet 1 tab PO DAILY rosuvastatin 40 mg tablet 40 mg PO BEDTIME thiamine HCl (vitamin B1) 100 mg tablet 100 mg PO DAILY polyvinyl alcohol [Artificial Tears (polyvin alc)] 1.4 % drops 0 drp ophthalmic (eye) CertaVite Senior 0.4 mg-300 mcg- 250 mcg tablet 0 tab PO mirtazapine 15 mg tablet 15 mg PO BEDTIME folic acid 1 mg tablet 1 mg PO DAILY metformin 500 mg tablet 500 mg PO BID trazodone 100 mg tablet 100 mg PO BEDTIME PRN (Reason: insomnia) varenicline 1 mg tablet 0 mg PO Jardiance 10 mg tablet 10 mg PO DAILY Jardiance 25 mg tablet 25 mg PO DAILY Nicotrol 10 mg cartridge inhalation nicotine 21 mg/24 hr patch 24 hour 1 patch topical DAILY ezetimibe [Zetia] 10 mg tablet 10 mg PO DAILY 30 Days Qty: 30 5RF Rx Instructions: One tablet daily. New cholesterol pill, take in addition to rosuvastatin Stand Alone Forms: Against Medical Advice Interventions: ED Discharge Assessment Last Done: 10/28/23 23:39 Discharge Date/Time: 10/28/23 23:46
[2023-10-28 13:42] LABS: MANUAL DIFF FLAG NO
[2023-10-28 13:43] LABS: Basophils Absolute Auto 0.1 X10*3/uL (0.0-0.2); Basophils Percent Auto 0.9 % (0-2); Eosinophils Absolute Auto 0.1 X10*3/uL (0.0-0.4); Eosinophils Percent Auto 0.6 % (0-4); Hematocrit 42.3 % (42.0-52.0); Hemoglobin 14.8 g/dl (14.0-18.0); Imm Gran Abs Auto 0.03 X10*3/uL (0.00-0.03); Imm Gran Pct Auto 0.4 % (0.0-0.4); Lymphocytes Absolute Auto 2.1 X10*3/uL (1.2-4.9); Lymphocytes Percent Auto 25.2 % (20-40); Mean Corpuscular Hemoglobin 33.7 pg (27.0-33.0); Mean Corpuscular Volume 96.4 fL (80.0-98.0); Mean Platelet Volume 9.3 fL (9.4-12.4); Monocytes Absolute Auto 1.1 X10*3/uL (0.1-1.2); Monocytes Percent Auto 13.3 % (2-11); Neutrophils Absolute Auto 4.9 x10*3/uL (2.0-8.3); Neutrophils Percent Auto 59.6 % (45-73); Platelet Count 304 X10*3/uL (160-400); Red Blood Count 4.39 X10*6/uL (4.60-5.80); Red Cell Distribution Width 13.7 % (11.0-16.0); White Blood Count 8.2 X10*3/uL (4.8-10.8)
[2023-10-28 13:56] LABS: Lactic Acid 1.6 mmol/L (0.5-2.0)
[2023-10-28 14:00] LABS: Alanine Aminotransferase 25 U/L (0-40); Albumin Level 4.1 g/dL (3.5-5.0); Alkaline Phosphatase 105 U/L (39-117); Anion Gap 11 (12-20); Aspartate Amino Transferase 25 U/L (5-37); Bilirubin Total 0.4 mg/dL (0.0-1.0); Blood Urea Nitrogen 18 mg/dL (9-16); C Reactive Protein 1.41 mg/dL (< or = 0.50); Calcium 9.5 mg/dL (8.4-10.2); Carbon Dioxide 26 mmol/L (22-29); Chloride 105 mmol/L (96-108); Creatinine Clr Calc Pharmacy 93.7; Estimated Glomerular Filt Rate > 60; Glucose Random 210 mg/dL (60-115); Lipase 45 U/L (8-78); Potassium 4.4 mmol/L (3.3-5.1); Sodium 138 mmol/L (135-145); Total Protein 6.9 g/dL (6.5-8.0)
[2023-10-28 14:24] LABS: Erythrocyte Sedimentation Rate 6 MM/HR (0-15)
--- NOTE | 2023-10-28 17:35 | ED.GENADULT ---
HPI - General Adult General Chief complaint: General Medical Stated complaint: dog bite R hand Time Seen by Provider: 10/28/23 17:17 Source: patient Mode of arrival: ambulatory Limitations: no limitations History of Present Illness HPI narrative: Patient comes to the emergency room complaining of right hand pain on the palm for 3 weeks. Patient states that 3 weeks ago, his dog run away, when patient found him and picked him up, the patient was frightened and bit him in the hand. Patient did not seek medical attention for the last 3 weeks until today. Patient states that he has a lump in the palmar aspect of the hand which is painful. Patient denies fever chills. Patient has not taking any antibiotics. Patient states he is up-to-date with his tetanus shot and also the dog is up-to-date with all of its immunizations. Patient denies any other injuries. Patient states that he is unable to make a full fist especially with his 4th and 5th fingers. However, the deficit of the fingers is chronic and had been present since before the dog bite Related Data Home Medications Medication Instructions Recorded Confirmed aspirin 81 mg tablet,delayed 1 tab PO QAM 01/18/21 08/03/23 release dolutegravir 50 mg tablet (Tivicay) 1 tab PO DAILY 01/18/21 08/03/23 emtricitabine 200 mg-tenofovir 1 tab PO DAILY 01/18/21 08/03/23 alafenamide fumarate 25 mg tablet (Descovy) glipizide 10 mg tablet 1 tab PO BID 01/18/21 08/03/23 lisinopril 5 mg tablet 1 tab PO QAM 01/18/21 08/03/23 metoprolol succinate 50 mg 1 tab PO QAM 01/18/21 08/03/23 tablet,extended release 24 hr empagliflozin 10 mg tablet 10 mg PO DAILY 03/28/22 08/03/23 (Jardiance) polyvinyl alcohol 1.4 % eye drops 0 drp ophthalmic (eye) 05/11/22 08/03/23 (Artificial Tears (polyvinyl alcohol)) thiamine HCl (vitamin B1) 100 mg 100 mg PO DAILY 05/11/22 08/03/23 tablet folic acid 1 mg tablet 1 mg PO DAILY 07/04/22 08/03/23 metformin 500 mg tablet 500 mg PO BID 07/04/22 08/03/23 mirtazapine 15 mg tablet 15 mg PO BEDTIME 07/04/22 06/05/23 pagxmlvb-xbv-saibv acid 0.4 0 tab PO 07/04/22 08/03/23 mg-lycopene 300 mcg-lutein 250 mcg tablet (CertaVite Senior) trazodone 100 mg tablet 100 mg PO BEDTIME PRN insomnia 07/04/22 08/03/23 varenicline 1 mg tablet 0 mg PO 07/04/22 08/03/23 empagliflozin 25 mg tablet 25 mg PO DAILY 11/17/22 08/03/23 (Jardiance) rosuvastatin 40 mg tablet 40 mg PO BEDTIME 12/07/22 08/03/23 nicotine 10 mg inhalation inhalation 08/03/23 08/03/23 cartridge (Nicotrol) nicotine 21 mg/24 hr daily 1 patch topical DAILY 08/03/23 08/03/23 transdermal patch Previous Rx's Medication Instructions Recorded clopidogrel 75 mg tablet (Plavix) 75 mg PO DAILY 90 days #90 tabs 07/26/21 ezetimibe 10 mg tablet (Zetia) 10 mg PO DAILY 30 days #30 tabs 08/03/23 amoxicillin 500 mg-potassium 1 tab PO BID #20 tabs 10/28/23 clavulanate 125 mg tablet (Augmentin) Allergies Allergy/AdvReac Type Severity Reaction Status Date / Time No Known Allergies Allergy Verified 10/28/23 13:22 [No Known Allergies*] Review of Systems Review of Systems: Constitutional : No Weight loss, No Fever, No Chills, No Night Sweats, No Fatigue, No Malaise ENT/Mouth : No Hearing loss, No Ear Pain, No Nasal Congestion, No Sinus Pain, No Hoarseness, No sore throat, No Rhinorrhea, No Swallowing Difficulty Eyes: No Eye Pain, No Swelling, No Redness, No Foreign Body, No Discharge, No Vision Changes Cardiovascular : No Chest Pain, No SOB, No Dyspnea on Exertion, No Orthopnea, No Edema, No Palpitations Respiratory : No Cough, No Sputum, No Wheezing, No Smoke Exposure, No Dyspnea Gastrointestinal : No Nausea, No Vomiting, No Diarrhea, No Constipation, No abdominal Pain, No Hematochezia, No Melena Genitourinary : no irregular bleeding, No Dysuria, No Urinary Frequency, No Hematuria, No Urinary Incontinence, No Urgency, No Flank Pain, No Urinary Flow Changes, No Hesitancy Musculoskeletal : complaining of pain in the palmar aspect of the right hand after a dog bite 3 weeks ago Skin : No Skin Lesions, No rash Neuro : No Weakness, No Numbness, No Paresthesias, No Loss of Consciousness, No Dizziness, No Headache Psych : No Anxiety/Panic, No Depression, No SI/HI/AH/VH, No Social Issues, Heme/Lymph: No Bruising, No Bleeding,No Lymphadenopathy Endocrine : No Polyuria, No Polydipsia, No Temperature Intolerance FOR[facility], [facility] Past Medical History Medical History HIV (human immunodeficiency virus infection) History of CVA (cerebrovascular accident) Cardiomyopathy CAD (coronary artery disease) Stented coronary artery HTN (hypertension) Diabetes Osteoarthritis, hip, bilateral Depression Tubular adenoma of colon Nicotine dependence, cigarettes, uncomplicated Surgical History (Updated 09/22/23 @ 15:01 by Kaylen Rouse PA-C) History of cardiac cath History of heart artery stent History of circumcision History of arthroscopy of right knee History of appendectomy History of colonoscopy History of surgery on right wrist Family History Family History Other Hypertension Social History Social History Household Members: None Do you presently have visiting nurse or other home services: Yes Alcohol intake: former Year quit: 2020 Comment: pt sleeping Patient Tobacco Use Status: Current everyday Tobacco user Cigarette Packs Per Day: 1 Cigarettes Per Day: 20 Years Smoked: 40 +/- Second Hand Smoke Exposure: No Advance Directives: Yes Advance Directives on File: Yes Advance Directives Date on File: 01/26/21 service: No Current occupational status: unemployed and disabled 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 Oriented X3. No acute distress. Eyes: Pupils equal, round and reactive to light. ENT: Pharynx normal. Neck: Normal inspection. Neck supple. No lymph nodes noted. No crepitus CVS: Normal heart rate and rhythm. Pulses normal. Normal S1 and S2 Respiratory: No respiratory distress. Breath sounds normal. No Wheezing. No rales Abdomen: Soft and nontender. No rigidity. No distention. Skin: Skin warm and dry. Normal skin color. Normal skin turgor. see extremities below Extremities: No lower extremity edema. No Lacerations. No Rash. Right hand palmar aspect, slightly swollen, mild erythema, there is out yellowish calcification in the palmar aspect, not draining fluid, not fluctuant Neuro: Oriented X 3. No motor deficit. No sensory deficit. Moving all extremities. No slurred speech. CN 2 through 12 grossly intact Psych: calm, cooperative, normal affect Course Course Course Narrative: - it has been 3 weeks since the patient got bitten by his dog. - by blood cell count, lactic acidwithin normal limits Medications Administered Discontinued Medications Generic Name Dose Route Start Last Admin Trade Name Freq PRN Reason Stop Dose Admin Piperacillin Sod/Tazobactam 50 mls @ 100 mls/hr 10/28/23 17:44 10/28/23 19:08 Sod 3.375 gm/ Sodium Chloride IV 10/28/23 18:13 Infused ONCE ONE Infusion Iohexol 85 ml 10/28/23 19:39 10/28/23 19:39 Iohexol 350 Mg/Ml 100 Ml Infus..Btl IV 10/28/23 19:40 85 ml ONCE ONE Administration Medical Decision Making Medical Decision Making [facility] Narrative: -my interpretation of the labs: Normal hematology, chemistry within normal limits, normal lactic acid. -given the patient's presentation, tenosynovitis is suspected. Patient was given Zosyn, patient did not want to wait to receive vancomycin. -interpretation of CT scan: No obvious abscess. I discussed the radiology report with the patient, it is suspicious for tenosynovitis. -I discussed with the patient that I would like to admit him to the hospital, tomorrow he can get a hand surgeon consult. Patient states that he does not want to stay in the hospital, patient states that he wants to go home. I discussed with the patient that he may become septic, have worsening infection, patient may lose sensation and motor function of his hand. Patient states that he does not want to stay in the hospital and will come back tomorrow. The patient also he will be leaving against medical advice. Differential Diagnosis Differential Diagnoses: The differential diagnosis associated with the presentation includes (Abscess, cellulitis, tenosynovitis) Admission/Observation Consideration of admission/observation: Escalation of care including admission/observation considered Lab Data MDM Lab Attestation statement: I reviewed the patient's lab results. 10/28/23 13:35 10/28/23 13:35 Labs: Lab Results 10/28/23 Range/Units 13:35 WBC 8.2 (4.8-10.8) X10*3/uL RBC 4.39 L (4.60-5.80) X10*6/uL Hgb 14.8 (14.0-18.0) g/dl Hct 42.3 (42.0-52.0) % MCV 96.4 (80.0-98.0) fL MCH 33.7 H (27.0-33.0) pg MCHC 35.0 (31.0-36.0) g/dl RDW 13.7 (11.0-16.0) % Plt Count 304 (160-400) X10*3/uL MPV 9.3 L (9.4-12.4) fL Immature Gran % (Auto) 0.4 (0.0-0.4) % Neut % (Auto) 59.6 (45-73) % Lymph % (Auto) 25.2 (20-40) % [place] % (Auto) 13.3 H (2-11) % Eos % (Auto) 0.6 (0-4) % Baso % (Auto) 0.9 (0-2) % Lymph # (Auto) 2.1 (1.2-4.9) X10*3/uL [place] # (Auto) 1.1 (0.1-1.2) X10*3/uL Eos # (Auto) 0.1 (0.0-0.4) X10*3/uL Baso # (Auto) 0.1 (0.0-0.2) X10*3/uL Abs Immat Gran (auto) 0.03 (0.00-0.03) X10*3/uL Absolute Neuts (auto) 4.9 (2.0-8.3) x10*3/uL Absolute Nucleated RBC 0.000 (0.0-0.012) X10*3/uL Nucleated RBC % (auto) 0.0 (0.0-0.2) /100WBC ESR 6 (0-15) MM/HR Sodium 138 (135-145) mmol/L Potassium 4.4 D (3.3-5.1) mmol/L Chloride 105 (96-108) mmol/L Carbon Dioxide 26 (22-29) mmol/L Anion Gap 11 L (12-20) BUN 18 H (9-16) mg/dL Creatinine 0.86 (0.5-1.4) mg/dL Estim Creat Clear Calc 93.7 Estimated GFR > 60 Random Glucose 210 H (60-115) mg/dL Lactic Acid 1.6 (0.5-2.0) mmol/L Calcium 9.5 (8.4-10.2) mg/dL Total Bilirubin 0.4 (0.0-1.0) mg/dL AST 25 (5-37) U/L ALT 25 (0-40) U/L Alkaline Phosphatase 105 (39-117) U/L C-Reactive Protein 1.41 H (< or = 0.50) mg/dL Total Protein 6.9 (6.5-8.0) g/dL Albumin 4.1 (3.5-5.0) g/dL Lipase 45 (8-78) U/L Independent Interpretation I performed an independent interpretation of an: CT Scan Radiology Impression Discussion of test interpretation with radiology: I have reviewed the radiologist's reading. Radiologist Impression: FINDINGS: Soft tissue inflammatory changes are noted along the palmar aspect of the base of the fourth proximal phalanx and enlargement of the volar tendon sheath in this region is noted (series 5 image 33). No soft tissue emphysematous changes or embedded radiopaque foreign bodies noted in this region. Subcutaneous reticulation is present along the palmar aspect of the fourth distal metacarpal and diffusely along the palmar aspect of the proximal metacarpals. Well-corticated rounded ossific bodies are present adjacent to the scaphoid and may represent sequela of remote trauma. No acute appearing fractures or subluxations noted. CT/CT hand RT w IV con IMPRESSION: Soft tissue inflammatory changes along the palmar aspect of the base of the fourth proximal phalanx and enlargement of the volar tendon sheath in this region suspicious for tenosynovitis. No soft tissue emphysematous changes or embedded radiopaque foreign bodies. As clinically indicated, findings could be further evaluated with unenhanced and IV contrast-enhanced MRI. Scattered pulmonary subcutaneous soft tissue inflammatory changes. No acute fractures. Critical Care Time Critical Care Time Critical Care Time: Yes Total Critical Care Time: 75 Attestation: I have personally provided critical care time. Time includes review of lab data, radiology results, discussion with consultants, and monitoring for potential decompensation. Intervention performed as documented. Discharge Plan Discharge Clinical Impression: Tenosynovitis Patient Disposition: Left Against Medical Advice Instructions: Tenosynovitis (ED) Additional Instructions: You are leaving against medical advice. You refused to be admitted to the hospital. Please be advised that with tenosynovitis, your hand may become infected, you may become septic (severe infection throughout your body), you may lose complete function of her hand. If infection becomes severe, you may lose her hand. Please follow-up with your primary care physician tomorrow. If you have any worsening or new symptoms, please return to the emergency room or call 911 Prescriptions: New amoxicillin-pot clavulanate [Augmentin] 500-125 mg tablet 1 tab PO BID Qty: 20 0RF No Action clopidogrel [Plavix] 75 mg tablet 75 mg PO DAILY 90 Days Qty: 90 0RF Rx Instructions: Must call and schedule a cardiology follow-up for refills metoprolol succinate 50 mg tablet extended release 24 hr 1 tab PO QAM glipizide 10 mg tablet 1 tab PO BID aspirin 81 mg tablet,delayed release (DR/EC) 1 tab PO QAM lisinopril 5 mg tablet 1 tab PO QAM Tivicay 50 mg tablet 1 tab PO DAILY Descovy 200-25 mg tablet 1 tab PO DAILY rosuvastatin 40 mg tablet 40 mg PO BEDTIME thiamine HCl (vitamin B1) 100 mg tablet 100 mg PO DAILY polyvinyl alcohol [Artificial Tears (polyvin alc)] 1.4 % drops 0 drp ophthalmic (eye) CertaVite Senior 0.4 mg-300 mcg- 250 mcg tablet 0 tab PO mirtazapine 15 mg tablet 15 mg PO BEDTIME folic acid 1 mg tablet 1 mg PO DAILY metformin 500 mg tablet 500 mg PO BID trazodone 100 mg tablet 100 mg PO BEDTIME PRN (Reason: insomnia) varenicline 1 mg tablet 0 mg PO Jardiance 10 mg tablet 10 mg PO DAILY Jardiance 25 mg tablet 25 mg PO DAILY Nicotrol 10 mg cartridge inhalation nicotine 21 mg/24 hr patch 24 hour 1 patch topical DAILY ezetimibe [Zetia] 10 mg tablet 10 mg PO DAILY 30 Days Qty: 30 5RF Rx Instructions: One tablet daily. New cholesterol pill, take in addition to rosuvastatin
[2023-10-28 17:45] VITALS: BP 124/70; PULSE 82; RESP 16; O2SAT 99
[2023-10-28] MEDS: Piperacillin Sodium/Tazobactam 3.375 GM in 0.9 % Sodium Chloride 50 ML IV (18:00)
--- NOTE | 2023-10-28 19:08 | PC.NURSE ---
This RN took over assignment @ 1900. Pt ca&ox4, no signs of distress. Pts spouse at bedside. Pt asking about his scan. Plan of care ongoing.
--- NOTE | 2023-10-28 19:22 | PC.NURSE ---
Pt requesting food and drink. This RN explained he is NPO. Pts requested and given food and drink. Plan of care ongoing.
[2023-10-28] MEDS: iohexoL 350 MG/ML 100 ML INFUS..BTL 85 ML IV (19:39)
[2023-10-28 20:00] VITALS: BP 114/52; PULSE 83; RESP 20; O2SAT 95
--- NOTE | 2023-10-28 21:31 | PC.NURSE ---
Per provider pt ok to eat. Pt requested and given food and drink Plan of care ongoing.
--- NOTE | 2023-10-28 21:40 | PC.NURSE ---
Pt denies pain. Pt requesting to leave. Pt requested and given ice cream. Plan of care ongoing.
[2023-10-28 22:00] VITALS: BP 130/70; PULSE 80; RESP 16; O2SAT 96
--- NOTE | 2023-10-28 23:40 | PC.NURSE ---
Pt educated on the risks of leaving against medical advice. Pt states I will come back tomorrow, if anything
== END 2023-10-28 23:46 | disposition left against medical advice (07) ==
PROVIDERS: Physician Assistant; Emergency Provider Emergency Medicine
DX: M65.9 Synovitis and tenosynovitis, unspecified (principal); M79.641 Pain in right hand; Z53.29 Procedure and treatment not carried out because of patient's decision for other reasons; S61.451A Open bite of right hand, initial encounter; W54.0XXA Bitten by dog, initial encounter; Y93.89 Activity, other specified; Y92.410 Unspecified street and highway as the place of occurrence of the external cause; Y99.9 Unspecified external cause status; B20 Human immunodeficiency virus [HIV] disease; E11.9 Type 2 diabetes mellitus without complications; I10 Essential (primary) hypertension; F17.210 Nicotine dependence, cigarettes, uncomplicated; Z86.73 Personal history of transient ischemic attack (TIA), and cerebral infarction without residual deficits
CPT/HCPCS: 36415; 73130; 73201; 80053; 83605; 83690; 85025; 85652; 86140; 87040; 96365; 99284; 99285; J2543; Q9967

== ENCOUNTER 2023-11-07 23:32 | Emergency (ER) | payer OTHER, SELFPAY ==
--- NOTE | ~2023-11-07 | XR_ITS ---
STUDY: Thoracic spine, AP pelvis, left hip INDICATION: Fall COMPARISON: 12/10/2019 thoracic spine FINDINGS: Thoracic spine: Despite swimmer's view, there is still limited evaluation of the upper thoracic vertebral bodies on lateral view. Multilevel spurring. Overall vertebral bodies, disc spaces and alignment are maintained. No focal paravertebral soft tissue swelling. Heart, mediastinum, visualized ribs and lung anthony are unremarkable. Pelvis and left hip: Degenerative changes lower lumbar spine. Pedicles and SI joints within normal limits. Bony pelvis is intact. No fracture or dislocation. No significant joint space narrowings. Multiple phleboliths and calcifications inferior to the symphysis pubis. Nonspecific bowel pattern. Visualized ribs and lung anthony are unremarkable. XR/XR hip LT w PEL1V IMPRESSION: No acute bony pathology thoracic spine, pelvis and left hip. Degenerative type changes thoracolumbar spine.
--- NOTE | ~2023-11-07 | XR_ITS ---
EXAMINATION: XR WRIST, RIGHT CLINICAL INFORMATION: Right wrist pain. COMPARISON: None available. TECHNIQUE: PA, lateral, and oblique views of the right wrist. FINDINGS: Well-corticated ossific density just distal to the dorsal aspect of the distal end of the radius without significant associated soft tissue swelling, probably representing an old avulsion fracture or accessory ossicle. No acute fracture appreciated as such. Alignment is anatomic with normal joint spaces. No erosions appreciated. The soft tissues appear unremarkable. XR/XR wrist RT 2V IMPRESSION: No acute finding.
--- NOTE | ~2023-11-07 | XR_ITS ---
STUDY: Thoracic spine, AP pelvis, left hip INDICATION: Fall COMPARISON: 12/10/2019 thoracic spine FINDINGS: Thoracic spine: Despite swimmer's view, there is still limited evaluation of the upper thoracic vertebral bodies on lateral view. Multilevel spurring. Overall vertebral bodies, disc spaces and alignment are maintained. No focal paravertebral soft tissue swelling. Heart, mediastinum, visualized ribs and lung anthony are unremarkable. Pelvis and left hip: Degenerative changes lower lumbar spine. Pedicles and SI joints within normal limits. Bony pelvis is intact. No fracture or dislocation. No significant joint space narrowings. Multiple phleboliths and calcifications inferior to the symphysis pubis. Nonspecific bowel pattern. Visualized ribs and lung anthony are unremarkable. XR/XR thoracic spine 2V IMPRESSION: No acute bony pathology thoracic spine, pelvis and left hip. Degenerative type changes thoracolumbar spine.
[2023-11-07 23:44] VITALS: BP 123/75; BP 136/84; PULSE 106; PULSE 98; RESP 16; TEMP 36.7; O2SAT 96; O2SAT 98; BMI 29.8
[2023-11-08] MEDS: Ketorolac Tromethamine 30 MG/ML VIAL 15 MG IVPUSH (04:38)
[2023-11-08] MEDS: Acetaminophen 325 MG TABLET 975 MG PO (04:38)
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
[2023-11-08 08:34] VITALS: BP 133/71; PULSE 98; RESP 18; O2SAT 98
== END 2023-11-08 08:47 | disposition home or self-care (01) ==
PROVIDERS: Emergency Provider Student in an Organized Health Care Education/Training Program
DX: S60.221A Contusion of right hand, initial encounter (principal); S70.02XA Contusion of left hip, initial encounter; I10 Essential (primary) hypertension; E11.9 Type 2 diabetes mellitus without complications; Z21 Asymptomatic human immunodeficiency virus [HIV] infection status; Z86.73 Personal history of transient ischemic attack (TIA), and cerebral infarction without residual deficits; W19.XXXA Unspecified fall, initial encounter; Y93.9 Activity, unspecified; Y92.9 Unspecified place or not applicable; Y99.9 Unspecified external cause status
CPT/HCPCS: 72070; 73100; 73502; 96374; 99283; 99284; J1885

== ENCOUNTER 2023-12-02 23:36 | Emergency (ER) | payer OTHER, SELFPAY ==
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
[2023-12-02 23:43] VITALS: BP 144/86; PULSE 87; O2SAT 95
[2023-12-02 23:50] VITALS: BP 153/83; PULSE 90; RESP 24; TEMP 36.6; O2SAT 97; BMI 25.5
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
[2023-12-03] MEDS: Acetaminophen 325 MG TABLET 650 MG PO (01:01)
[2023-12-03 02:38] VITALS: BP 135/75; PULSE 95; RESP 18; TEMP 36.3; O2SAT 97
== END 2023-12-03 03:14 | disposition home or self-care (01) ==
PROVIDERS: Emergency Provider Emergency Medicine
DX: S09.90XA Unspecified injury of head, initial encounter (principal); S13.4XXA Sprain of ligaments of cervical spine, initial encounter; R51.9 Headache, unspecified; M54.2 Cervicalgia; V43.62XA Car passenger injured in collision with other type car in traffic accident, initial encounter; Y92.89 Other specified places as the place of occurrence of the external cause; Y99.2 Volunteer activity; Z79.899 Other long term (current) drug therapy
CPT/HCPCS: 70450; 72125; 99284

== ENCOUNTER 2023-12-07 13:51 | Outpatient (REF) | payer OTHER, SELFPAY ==
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
== END 2023-12-07 13:52 | disposition home or self-care (01) ==
LOC: HO.HHCX 13:51
PROVIDERS: Visit Provider Student in an Organized Health Care Education/Training Program
DX: M25.551 Pain in right hip (principal); M25.561 Pain in right knee
CPT/HCPCS: 73502; 73562

== ENCOUNTER 2024-01-05 15:37 | Emergency (ER) | payer OTHER, SELFPAY ==
--- NOTE | 2024-01-05 15:38 | ECG_ITS ---
Test Reason : CHEST PAIN Blood Pressure : / mmHG Vent. Rate : 099 BPM Atrial Rate : 099 BPM P-R Int : 166 ms QRS Dur : 086 ms QT Int : 370 ms P-R-T Axes : 036 -04 045 degrees QTc Int : 474 ms Normal sinus rhythm Inferior infarct (cited on or before 08-MAY-2019) Abnormal ECG When compared with ECG of 12-OCT-2023 11:21, QT has lengthened Referred By: Princess William Electronically Signed By:HANNA PAIGE MD
== END 2024-01-05 16:52 | disposition left against medical advice (07) ==
PROVIDERS: Emergency Provider Emergency Medicine
DX: R07.9 Chest pain, unspecified (principal)
CPT/HCPCS: 93005; 99282; 99283

== ENCOUNTER → 2024-01-05 15:38 | Outpatient (BNV) | payer OTHER, SELFPAY | PROVIDERS: Emergency Provider Emergency Medicine; Visit Provider Internal Medicine Cardiovascular Disease | DX: R07.9 Chest pain, unspecified (principal) | CPT/HCPCS: 93010 ==

== ENCOUNTER 2024-02-02 14:57 | Outpatient (REF) | payer OTHER, SELFPAY ==
[2024-02-02 16:12] LABS: MANUAL DIFF FLAG NO
[2024-02-02 16:29] LABS: Basophils Absolute Auto 0.1 X10*3/uL (0.0-0.2); Basophils Percent Auto 0.8 % (0-2); Eosinophils Percent Auto 0.5 % (0-4); Hematocrit 46.8 % (42.0-52.0); Hemoglobin 16.1 g/dl (14.0-18.0); Imm Gran Abs Auto 0.01 X10*3/uL (0.00-0.03); Imm Gran Pct Auto 0.2 % (0.0-0.4); Lymphocytes Absolute Auto 2.7 X10*3/uL (1.2-4.9); Mean Corpuscular HGB Conc 34.4 g/dl (31.0-36.0); Mean Corpuscular Hemoglobin 33.3 pg (27.0-33.0); Mean Corpuscular Volume 96.9 fL (80.0-98.0); Mean Platelet Volume 9.5 fL (9.4-12.4); Monocytes Absolute Auto 0.6 X10*3/uL (0.1-1.2); Monocytes Percent Auto 10.3 % (2-11); Neutrophils Absolute Auto 2.8 x10*3/uL (2.0-8.3); Neutrophils Percent Auto 45.2 % (45-73); Platelet Count 532 X10*3/uL (160-400); Red Blood Count 4.83 X10*6/uL (4.60-5.80); Red Cell Distribution Width 13.8 % (11.0-16.0); White Blood Count 6.2 X10*3/uL (4.8-10.8)
[2024-02-02 18:24] LABS: Alanine Aminotransferase 28 U/L (0-40); Albumin Level 3.8 g/dL (3.5-5.0); Alkaline Phosphatase 128 U/L (39-117); Anion Gap 14 (12-20); Aspartate Amino Transferase 31 U/L (5-37); Bilirubin Total 0.5 mg/dL (0.0-1.0); Blood Urea Nitrogen 15 mg/dL (9-16); Calcium 9.6 mg/dL (8.4-10.2); Carbon Dioxide 25 mmol/L (22-29); Chloride 103 mmol/L (96-108); Estimated Glomerular Filt Rate > 60; Glucose Random 201 mg/dL (60-115); Potassium 4.3 mmol/L (3.3-5.1); Sodium 138 mmol/L (135-145); Total Protein 7.2 g/dL (6.5-8.0)
[2024-02-03 11:58] LABS: Absolute CD3 Count 1943 cells/uL (840-3060); Absolute CD4 Count 1127 cells/uL (490-1740); Absolute CD8 Count 846 cells/uL (180-1170); Absolute Lymphocytes 2999 cells/uL (850-3900); CD4 CD8 Ratio 1.33 (0.86-5.00); Percent CD3 Cells 65 % (57-85); Percent CD4 Cells 38 % (30-61); Percent CD8 Cells 28 % (12-42)
[2024-02-03 15:33] LABS: HIV RNA PCR Qn Copies 315 copies/mL (NOT DETECTED)
== END 2024-02-02 14:58 | disposition home or self-care (01) ==
LOC: HO.HHCL 14:57
PROVIDERS: Visit Provider Internal Medicine
DX: B20 Human immunodeficiency virus [HIV] disease (principal)
CPT/HCPCS: 36415; 80053; 85025; 86359; 86360; 87536

== ENCOUNTER 2024-06-21 14:28 | Outpatient (REF) | payer OTHER, SELFPAY ==
[2024-06-21 16:08] LABS: MANUAL DIFF FLAG NO
[2024-06-21 16:23] LABS: Basophils Percent Auto 0.4 % (0-2); Eosinophils Absolute Auto 0.2 X10*3/uL (0.0-0.4); Eosinophils Percent Auto 1.8 % (0-4); Hemoglobin 16.3 g/dl (14.0-18.0); Imm Gran Abs Auto 0.02 X10*3/uL (0.00-0.03); Imm Gran Pct Auto 0.2 % (0.0-0.4); Lymphocytes Absolute Auto 2.4 X10*3/uL (1.2-4.9); Lymphocytes Percent Auto 24.9 % (20-40); Mean Corpuscular HGB Conc 34.7 g/dl (31.0-36.0); Mean Corpuscular Hemoglobin 32.7 pg (27.0-33.0); Mean Corpuscular Volume 94.2 fL (80.0-98.0); Mean Platelet Volume 10.4 fL (9.4-12.4); Monocytes Percent Auto 10.8 % (2-11); Neutrophils Absolute Auto 5.9 x10*3/uL (2.0-8.3); Neutrophils Percent Auto 61.9 % (45-73); Platelet Count 240 X10*3/uL (160-400); Red Blood Count 4.99 X10*6/uL (4.60-5.80); Red Cell Distribution Width 13.7 % (11.0-16.0); White Blood Count 9.6 X10*3/uL (4.8-10.8)
[2024-06-21 16:38] LABS: Alanine Aminotransferase 25 U/L (0-40); Albumin Level 4.5 g/dL (3.5-5.0); Alkaline Phosphatase 75 U/L (39-117); Anion Gap 11 (12-20); Aspartate Amino Transferase 25 U/L (5-37); Bilirubin Total 0.7 mg/dL (0.0-1.0); Blood Urea Nitrogen 14 mg/dL (9-16); Calcium 10.1 mg/dL (8.4-10.2); Carbon Dioxide 25 mmol/L (22-29); Chloride 106 mmol/L (96-108); Estimated Glomerular Filt Rate > 60; Glucose Random 168 mg/dL (60-115); Potassium 4.2 mmol/L (3.3-5.1); Sodium 138 mmol/L (135-145); Total Protein 7.6 g/dL (6.5-8.0)
[2024-06-22 15:29] LABS: HIV RNA PCR Qn Copies 148 copies/mL (NOT DETECTED); HIV RNA PCR Qn Log Copies 2.17 (NOT DETECTED)
[2024-06-23 04:07] LABS: ~HepC Num1 0.14 S/CO (0.00-0.79); ~Hepatitis C Antibody Nonreactive (Nonreactive)
[2024-06-23 21:53] LABS: TS Negative Control Passed; TS Panel A 1; TS Panel B 0; TS Positive Control Passed; TSpotTB Negative (Negative)
[2024-06-24 09:18] LABS: RPR Rapid Plasma Reagin NON-REACTIVE (NON-REACTIVE)
[2024-06-25 19:08] LABS: Absolute CD3 Count 1995 cells/uL (840-3060); Absolute CD4 Count 1343 cells/uL (490-1740); Absolute CD8 Count 689 cells/uL (180-1170); Absolute Lymphocytes 2476 cells/uL (850-3900); CD4 CD8 Ratio 1.95 (0.86-5.00); Percent CD3 Cells 81 % (57-85); Percent CD4 Cells 54 % (30-61); Percent CD8 Cells 28 % (12-42)
== END 2024-06-21 14:29 | disposition home or self-care (01) ==
LOC: HO.HHCL 14:28
PROVIDERS: Visit Provider Internal Medicine
DX: Z21 Asymptomatic human immunodeficiency virus [HIV] infection status (principal)
CPT/HCPCS: 36415; 80053; 85025; 86359; 86360; 86481; 86592; 86803; 87536

== ENCOUNTER 2024-08-20 08:57 | Outpatient (REF) | payer OTHER, SELFPAY ==
[2024-08-20 12:01] LABS: Alanine Aminotransferase 18 U/L (0-40); Albumin Level 4.3 g/dL (3.5-5.0); Alkaline Phosphatase 93 U/L (39-117); Anion Gap 10 (12-20); Aspartate Amino Transferase 19 U/L (5-37); Bilirubin Total 0.5 mg/dL (0.0-1.0); Blood Urea Nitrogen 17 mg/dL (9-16); Calcium 9.5 mg/dL (8.4-10.2); Carbon Dioxide 26 mmol/L (22-29); Chloride 103 mmol/L (96-108); Cholesterol 214 mg/dL (<200); Estimated Glomerular Filt Rate > 60; Glucose Random 344 mg/dL (60-115); HDL Cholesterol 48 mg/dL (>40); LDL Cholesterol Calculated 148 mg/dL (<100); Potassium 4.4 mmol/L (3.3-5.1); Sodium 135 mmol/L (135-145); Total Protein 7.2 g/dL (6.5-8.0); Triglycerides 93 mg/dL (<150)
[2024-08-20 12:11] LABS: Microalbum/Creatinine Ratio Ur 8.4 ug/mg cr (<30)
[2024-08-20 12:13] LABS: Estimated Average Glucose 286 mg/dL; Hemoglobin A1C 422.8957 umol/L; Hemoglobin A1c % 11.6 % (<6.0); Total Hemoglobin (HGBA1C) 4088.5566 umol/L
[2024-08-20 12:20] LABS: TSH reflex Free T4 1.87 uIU/mL (0.32-4.0)
[2024-08-20 12:37] LABS: Folate 11.4 ng/mL (> or = 4.0); Vitamin B12 663 pg/mL (200-900)
[2024-08-20 12:58] LABS: Hepatitis A Antibody IgG REACTIVE (Nonreactive); ~Hepatitis A Antibody IgG 7.17 S/CO (0.00-0.99)
[2024-08-20 13:04] LABS: HBS Num1 0.77 mIU/mL (0-7.99); HBc Num1 0.16 S/CO (0.00-0.79); HBsAGNum1 0.67 S/CO (0.00-0.99); Hepatitis B Core Antibody Nonreactive (Nonreactive); Hepatitis B Surface Antigen Negative (Negative); ~Hepatitis B Surface Antibody NONREACTIVE (Nonreactive)
[2024-08-20 13:12] LABS: CT PCR NOT DETECTED (Not Detect.); NG PCR NOT DETECTED (Not Detect.)
[2024-08-21 09:14] LABS: Mumps Virus IgG Antibody <9.00 AU/mL; Rubella IgG Antibody 1.93 Index
[2024-08-21 20:28] LABS: HIV RNA PCR Qn Copies 65 copies/mL (NOT DETECTED); HIV RNA PCR Qn Log Copies 1.81 (NOT DETECTED)
[2024-09-02 23:04] LABS: HIV 1 Integrase Proviral DNA DETECTED; HIV 1 PR RT Proviral DNA DETECTED
== END 2024-08-20 08:58 | disposition home or self-care (01) ==
LOC: HO.HHCL 08:57
PROVIDERS: Nurse Practitioner Family; Visit Provider Student in an Organized Health Care Education/Training Program
DX: B20 Human immunodeficiency virus [HIV] disease (principal); I25.10 Atherosclerotic heart disease of native coronary artery without angina pectoris; Z13.1 Encounter for screening for diabetes mellitus
CPT/HCPCS: 36415; 80053; 80061; 82043; 82570; 82607; 82746; 83036; 84443; 86704; 86706; 86708; 86735; 86762; 86765; 86787; 87340; 87491; 87536; 87591; 87900; 87901; 87906

== ENCOUNTER 2024-09-07 14:12 | Outpatient (REF) | payer OTHER, SELFPAY | END 2024-09-07 14:13 | disposition home or self-care (01) | LOC: HO.MRI 14:12 | PROVIDERS: Visit Provider Student in an Organized Health Care Education/Training Program | DX: M54.16 Radiculopathy, lumbar region (principal); M54.2 Cervicalgia | CPT/HCPCS: 72141; 72148 ==

== ENCOUNTER 2024-10-30 12:08 | Outpatient (REF) | payer OTHER, SELFPAY ==
[2024-10-30 13:57] LABS: MANUAL DIFF FLAG NO
[2024-10-30 14:01] LABS: Basophils Absolute Auto 0.1 X10*3/uL (0.0-0.2); Basophils Percent Auto 0.7 % (0-2); Eosinophils Absolute Auto 0.2 X10*3/uL (0.0-0.4); Eosinophils Percent Auto 2.8 % (0-4); Hematocrit 48.3 % (42.0-52.0); Hemoglobin 16.9 g/dl (14.0-18.0); Imm Gran Abs Auto 0.01 X10*3/uL (0.00-0.03); Imm Gran Pct Auto 0.1 % (0.0-0.4); Lymphocytes Absolute Auto 2.8 X10*3/uL (1.2-4.9); Lymphocytes Percent Auto 37.4 % (20-40); Mean Corpuscular Hemoglobin 32.3 pg (27.0-33.0); Mean Corpuscular Volume 92.4 fL (80.0-98.0); Mean Platelet Volume 10.2 fL (9.4-12.4); Monocytes Absolute Auto 0.6 X10*3/uL (0.1-1.2); Monocytes Percent Auto 8.5 % (2-11); Neutrophils Absolute Auto 3.8 x10*3/uL (2.0-8.3); Neutrophils Percent Auto 50.5 % (45-73); Platelet Count 272 X10*3/uL (160-400); Red Blood Count 5.23 X10*6/uL (4.60-5.80); Red Cell Distribution Width 13.3 % (11.0-16.0); White Blood Count 7.5 X10*3/uL (4.8-10.8)
[2024-10-30 14:13] LABS: Alanine Aminotransferase 30 U/L (0-40); Albumin Level 4.2 g/dL (3.5-5.0); Alkaline Phosphatase 82 U/L (39-117); Anion Gap 10 (12-20); Aspartate Amino Transferase 31 U/L (5-37); Bilirubin Direct 0.2 mg/dL (0.0-0.5); Bilirubin Total 0.5 mg/dL (0.0-1.0); Blood Urea Nitrogen 23 mg/dL (9-16); C Reactive Protein 0.13 mg/dL (< or = 0.50); Calcium 9.1 mg/dL (8.4-10.2); Carbon Dioxide 27 mmol/L (22-29); Chloride 103 mmol/L (96-108); Cholesterol 196 mg/dL (<200); Estimated Glomerular Filt Rate > 60; Glucose Random 235 mg/dL (60-115); HDL Cholesterol 48 mg/dL (>40); LDL Cholesterol Calculated 125 mg/dL (<100); Potassium 4.4 mmol/L (3.3-5.1); Sodium 136 mmol/L (135-145); Total Protein 7.3 g/dL (6.5-8.0); Triglycerides 117 mg/dL (<150)
[2024-10-30 14:29] LABS: Prostate Specific Antigen 2.24 ng/mL (<0.05-4.0)
[2024-10-30 14:50] LABS: Erythrocyte Sedimentation Rate 6 MM/HR (0-15)
[2024-10-30 14:56] LABS: Reflex LDLD? No
[2024-10-31 19:43] LABS: HIV RNA PCR Qn Copies 293 copies/mL (NOT DETECTED); HIV RNA PCR Qn Log Copies 2.47 (NOT DETECTED)
== END 2024-10-30 12:09 | disposition home or self-care (01) ==
LOC: HO.HHCL 12:08
PROVIDERS: Visit Provider Student in an Organized Health Care Education/Training Program
DX: R79.82 Elevated C-reactive protein (CRP) (principal); Z21 Asymptomatic human immunodeficiency virus [HIV] infection status; E11.9 Type 2 diabetes mellitus without complications; Z12.5 Encounter for screening for malignant neoplasm of prostate
CPT/HCPCS: 36415; 80053; 80061; 82248; 84153; 85025; 85652; 86140; 87536

== ENCOUNTER 2024-11-22 12:49 | Outpatient (REF) | payer OTHER, SELFPAY ==
[2024-11-22 14:42] LABS: Estimated Average Glucose 266 mg/dL; Hemoglobin A1C 397.0189 umol/L; Hemoglobin A1c % 10.9 % (<6.0); Total Hemoglobin (HGBA1C) 4174.3085 umol/L
== END 2024-11-22 12:50 | disposition home or self-care (01) ==
LOC: HO.LAB 12:49
PROVIDERS: PCP Student in an Organized Health Care Education/Training Program; Visit Provider Nurse Practitioner Family
DX: E11.9 Type 2 diabetes mellitus without complications (principal); M47.26 Other spondylosis with radiculopathy, lumbar region; M48.061 Spinal stenosis, lumbar region without neurogenic claudication; M53.3 Sacrococcygeal disorders, not elsewhere classified
CPT/HCPCS: 36415; 83036; 99212

== ENCOUNTER 2024-11-22 12:49 | Outpatient (AMB) | payer OTHER, SELFPAY ==
[2024-11-22 13:00] VITALS: BP 110/65; PULSE 85; RESP 16; BMI 25.7
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
== END 2024-11-22 13:50 | disposition home or self-care (01) ==
PROVIDERS: PCP Student in an Organized Health Care Education/Training Program; Visit Provider Nurse Practitioner Family
DX: Z55.0 Illiteracy and low-level literacy (principal); M47.816 Spondylosis without myelopathy or radiculopathy, lumbar region; M54.16 Radiculopathy, lumbar region; M53.3 Sacrococcygeal disorders, not elsewhere classified; M48.061 Spinal stenosis, lumbar region without neurogenic claudication
CPT/HCPCS: 99214; G2211

== ENCOUNTER 2024-12-11 14:06 | Outpatient (AMB) | payer OTHER, SELFPAY ==
--- NOTE | 2024-12-11 14:07 | HO.SPINEOV ---
Vital Signs 12/11/24 14:30 Height 5 ft 10 in Weight 180 lb BMI 25.8 Intake Visit Reasons: LBP Intake Note: Mr. Duron is here today c/o low back pain that radiates down to both legs. Picture Painter Required: Yes Picture Painter Name: Tablet Allergies No Known Allergies [No Known Allergies*] Allergy (Verified 12/13/24 14:13) Physical Exam Vital Signs: BMI result Body Mass Index 25.8 Assessment & Plan Assessment & Plan (1) Lumbar radiculopathy: Code(s): M54.16 - Radiculopathy, lumbar region Category: Medical Plan Dear Tamera, Thank you for referring Jerman to our office today. He is a 59 year old male who comes in today with a chief complaint of low back pain and shooting pain into his left lower extremity. He reports this has been ongoing for about a year. When describing the pain he states that it starts in his low back shoots over his left posterior buttocks and down the lateral aspect of his left leg. he reports some associated tingling / burning with the pain. He states that lying down flat aggravates his pain, and that sitting and resting helps to alleviate his pain. He has tried utilizing [id number] medications in attempt to mitigate his pain without relief. He has been to physical therapy in the past, however the last time he went was over a year ago. He was evaluated by our colleagues in pain management for cortisone injections, however they were unable to offer him any sort of intervention for his pain as his A1c is very high at 11. PMH: On blood thinner for a stroke 2 years ago. Right knee surgery, right wrist surgery, left elbow surgery,appendectomy. T2DM (most recent A1C=10.9 as of 11/22/24). HIV, cardiomyopathy, coronary artery disease, hypertension, hyperlipidemia, nicotine dependence, osteoarthritis, stable angina, depression. Social hx: Patient smokes 1 pack cigarettes per day. Medications: See [employer]cho[employer] list. Allergies: NKDA. Physical exam: The patient has 5/5 strength in his upper and lower extremities. He ambulates well and rises from a seated position without difficulty. He has a nonantalgic non spastic gait. He has no significant sensational deficits. (-) Carreon's, (-) clonus, (-) bilateral straight leg raise. Imaging review: MRI of the lumbar spine completed here at [facility] shows severe bilateral foraminal stenosis at L4-5, worse on the left. Impression: The patient is suffering from a classic lumbar radiculopathy, likely secondary to the foraminal stenosis seen at L4-5. Unfortunately he is not a surgical candidate at this time due to his hemoglobin A1c. If he is able to lower this we may reconsider surgical options, however at this time his lumbar radiculopathy is not a life-threatening issue, and the patient is at very high risk of infection as a result of surgery which very well could be life-threatening. He may return to clinic for evaluation again if he is able to get his A1c to a more manageable range around 7-8. In the meantime I recommend that he complete a course of physical therapy and attempt to lower his sugar levels in order to obtain injections at the L4-5 level by our colleagues in pain management. Thank you for allowing us to care for your patient. The total time spent with this visit with this patient was 45 minutes reviewing history, physical exam, MRI imaging review, and implementation of treatment plan or further diagnostic testing King Rollins MD,PhD [facility] Orders: Orders PT Evaluation and Treatment 12/11/24 M54.16 - Radiculopathy, lumbar region Coding Level of Care Code New Pt Level 4 (85496) Diagnoses Lumbar radiculopathy M54.16
[2024-12-11 14:30] VITALS: BMI 25.8
--- OUTSIDE RECORDS SUMMARY | 2024-12-11 16:26 | XMS_ITS | Patient Health Record ---
Author Organization [facility] Address [address] [place] [address] Care Team Providers Care Teaching Music Lessons Name Role Phone Skylar Garcias Primary Care Provider Unavailab Rodo Avelar Jr Unavailable ALLERGIES No Known Allergies REASON FOR REFERRAL No Information MEDICATIONS Medication SIG (Take, Route, Frequency, Duration) Notes Start Date End Date Status traZODone HCl 100 MG Oral for 30 Active Lisinopril 5 MG 1 tablet Orally Once a day for 30 day(s) Active Mirtazapine 15 MG Oral for 30 Active MiraLax (colon prep) 17 GM/SCOOP mixed with Gatorade or Crystal Light Orally begin at 5:00 p.m. the day before the procedure for 1 day 11/23/2022 Active glipiZIDE 10 MG 1 tablet 30 minutes before breakfast Orally Once a day for 30 day(s) Active Jardiance 25 MG Oral for 90 Ac tive Brilinta 90 MG 1 tablet Orally Twic e a day for 30 day(s) 11/29/2019 Active Descovy 200-25 MG as directed Orally Active Clopidogrel Bisulfate 75 MG Oral for 90 Active Gabapentin 300 MG Oral for 30 Active Metoprolol Succinate ER 50 MG 1 tablet Orally Once a day for 30 day(s) Active Cerovite Senior - Oral for 90 Active metFORMIN HCl 500 MG 1 tablet with a rohan l Orally twice a day Active FreeStyle Lite Test - In Vitro for 75 Active Tivicay 50 MG 1 tablet Orally Once a day for 30 day(s) Active Rosuvastatin Calcium 40 MG 1 tablet Oral ly Once a day for 30 day(s) Active Aspir-Low 81 MG 1 tablet Orally Once a day for 30 day(s) Active IMMUNIZATIONS Vaccine Route Administration Date Status Comme nts Influenza Unknown 08/19/2019 Administered Influenza Unknown 08/31/2022 Administered SOCIAL HISTORY Tobacco Use: Social History Observation Description Date Details (start date - stop date) Current Smoker NA - NA Sex Assigned At : Social History Observation Description Sex Assigned At Unknown Tobacco Use/Smoking Question Answer Notes Patient is a current smoker How often do you smoke cigarettes? every day How many cigarettes a day do you smoke? 11-20 How soon after you wake up d o you smoke your first cigarette? 6-30 minutes Are you interested in quitting? Thinking about q uitting Alcohol Screen Question Answer Notes Did you have a drink containing alcohol in the p ast year? 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 /antiplatelets (Z79.02) Active confirmed 700640745 Problem Colon cancer screening (Z12.11) Active confirmed 291631667 Problem Long-term use of aspirin therapy (Z79.82) Active confirmed 496526643 PLAN OF TREATMENT Future Test Test Name Order Date COLONOSCOPY 11/23/2022 Insurance Providers Payer Name Payer Address Payer Phone Subscriber Number Group Number Insured Name Patient Relationship to Insured Coverage Start Date Coverage End Date [facility] [address] Attn Claims THOMAS Sanchez [id number] CIELOLAYLA Self - patient is the insured MEDICAL (GENERAL) HISTORY Medical History History ICD Code coronary artery disease with history of NSTEMI and stent placement 04/2019. nonischemic cardiomyopathy diabetes mellitus hypertension elevated cholesterol depression HIV infection Neuropathy Surgical History Surgery Date(Month/Year) appendectomy left knee arthroscopy right knee arthroscopy Carpal tunnel repair right
--- OUTSIDE RECORDS SUMMARY | 2024-12-11 16:26 | XMS_ITS | Referral Summary ---
Author Organization [facility] Address [address] [place] [address] Care Team Providers Care Bonus Clerk Name Role Phone Bridgette Abrams Primary Care Provider [phone] [phone] Allergies No known active allergies Medications * This document contains information received from the source organization and may not represent a complete record from that organization. ciprofloxacin (CIPRO) 500 mg tablet Take 1 tablet (500 mg total) by mouth 2 times a day. 14 tablet Active Additional Information Patient not taking.Reported on 06/17/2024 Active Problems Problem Noted Date Diagnosed Date Opioid use disorder, moderate, in sustained wicho ssion 06/17/2024 Cocaine use disorder, severe, in early remission 06/17/2024 Alcohol use disorder, moderate, in early remissi on 06/17/2024 Tobacco use disorder, moderate, dependence 06/17 Adjustment disorder with mix ed disturbance of emotions and conduct 06/17/2024 PTSD (post-traumatic stress disorder) 06/17/2024 Social History Tobacco Use Types Packs/Day Years Used Date Smoking Tobacco: Never Assessed Sex and Gender Information Value Date Recorded Sex Assigned at Male 06/14/2024 2:50 PM EDT Legal Sex Male 8:17 AM EDT Gender Identity Not on file Sexual Orientation Not on file Plan of Treatment Not on file Insurance [facility] Care Teams Bonus Clerk Relationship Specialty Start Date End Date Bridgette Abrams [address] [place] [phone] PCP - General 06/14/24
--- OUTSIDE RECORDS SUMMARY | 2024-12-11 16:26 | XMS_ITS | Clinical Summary ---
Author Organization [facility] Address [address] [place] [address] Care Team Providers Care Community Development Specialist Name Role Phone Bridgette Abrams Primary Care Provider [phone] [phone] Allergies No known active allergies Medications * [...] Orientation Not on file Plan of Treatment Health Maintenance Due Date Last Done Comments Cologuard 1964 Colon Cancer Screening 1964 Colonoscopy 1964 FOBT / Fit Test 1964 HIV Screening 1964 Sigmoidoscopy 1964 DTaP,Tdap,and Td Vaccines (1 - Tdap) 1986 Zoster Vaccines (1 of 2) 2014 COVID-19 Vaccine (1 - 2023-2 5 season) 2024 Influenza Vaccine (#1) 2024 Alcohol/Substance Use Screening 11/13/2024 RSV Vaccine (60+ years old a nd patients) (1 - 1-dose 75+ series) 2039 Hepatitis B Vaccines Aged Out No long er eligible based on patient's age to complete this topic Pneumococcal Vaccine: Pediat becka (0-5 Years) and At-Risk Patients (6-64 Years) Aged Out No longer eligible b ased on patient's age to complete this topic Insurance [facility] Care Teams Community Development Specialist Relationship Specialty Start Date End Date Bridgette Abrams [address] [place] [phone] PCP - General 06/14/24
== END 2024-12-11 14:58 | disposition home or self-care (01) ==
PROVIDERS: PCP Student in an Organized Health Care Education/Training Program; Referring Provider Nurse Practitioner Family; Visit Provider Physician Assistant
DX: M54.16 Radiculopathy, lumbar region (principal)
CPT/HCPCS: 99204

== ENCOUNTER → 2024-12-11 14:06 | Outpatient (BNVA) | payer OTHER, SELFPAY | PROVIDERS: PCP Student in an Organized Health Care Education/Training Program; Referring Provider Nurse Practitioner Family; Visit Provider Physician Assistant | DX: M54.16 Radiculopathy, lumbar region (principal) | CPT/HCPCS: 99202 ==

== ENCOUNTER → 2024-12-13 13:54 | Outpatient (BNVA) | payer OTHER, SELFPAY | PROVIDERS: PCP Student in an Organized Health Care Education/Training Program; Visit Provider Nurse Practitioner Adult Health | DX: E11.9 Type 2 diabetes mellitus without complications (principal) | CPT/HCPCS: 82947; 99202 ==

== ENCOUNTER 2024-12-18 13:45 | Outpatient (AMB) | payer OTHER, SELFPAY ==
[2024-12-18 14:32] VITALS: BMI 25.7
--- NOTE | 2024-12-18 14:32 | A.OFFVIS_ITS ---
VS Expanded 12/18/24 14:32 01/02/25 10:42 Height 5 ft 10 in 5 ft 10 in Weight 179 lb 3.773 oz 179 lb BMI 25.7 25.7 Intake Visit Reasons: T2DM w hyperglycemia Allergies No Known Allergies [No Known Allergies*] Allergy (Verified 12/13/24 14:13) Nutrition Presentation Details: Pt presents for MNT for T2DM Food frequency fruits: 0-1/d vex/wk dairy: 2-3/d fish: 0-1/wk starches>18 serving/d beverages: water/milk/juice/diet sodas fried foods :2x/wk eoth/smoking-denies physical activity- Pt lacks literacy . BS Monitoring Most Recent Diabetes Results: Microalb/Creat Ratio 8.4 ug/mg cr (<30) 08/20/24 Cholesterol 196 mg/dL (<200) 10/30/24 HDL Cholesterol 48 mg/dL (>40) 10/30/24 Triglycerides 117 mg/dL (<150) 10/30/24 Creatinine 0.84 mg/dL (0.5-1.4) 10/30/24 Blood Urea Nitrogen 23 mg/dL (9-16) H 10/30/24 Sodium 136 mmol/L (135-145) 10/30/24 Potassium 4.4 mmol/L (3.3-5.1) 10/30/24 Chloride 103 mmol/L (96-108) 10/30/24 Carbon Dioxide 27 mmol/L (22-29) 10/30/24 Calcium 9.1 mg/dL (8.4-10.2) 10/30/24 AST 31 U/L (5-37) 10/30/24 ALT 30 U/L (0-40) 10/30/24 Total Protein 7.3 g/dL (6.5-8.0) 10/30/24 Albumin 4.2 g/dL (3.5-5.0) 10/30/24 IQH-Anhervy-Lg.Jeor Equation Height: 5 ft 10 in Weight: 179 lb Resting Metabolic Rate: 1632.17 Calculated Activity Level: Sedentary Calories Needed to Maintain Weight: 1958.60 Diagnosis Nutrition problem #1: food nutri know defi As related to (etiology) #1: diagnosis As evidenced by (sign/symptom) #1: abnormal lab values [facility] Medical History HIV (human immunodeficiency virus infection) History of CVA (cerebrovascular accident) Cardiomyopathy CAD (coronary artery disease) Stented coronary artery HTN (hypertension) Diabetes Osteoarthritis, hip, bilateral Depression Tubular adenoma of colon Nicotine dependence, cigarettes, uncomplicated Surgical History History of cardiac cath History of heart artery stent History of circumcision History of arthroscopy of right knee History of appendectomy History of colonoscopy History of surgery on right wrist Family History Other Hypertension Social History Household Members: None Do you presently have visiting nurse or other home services: Yes Alcohol intake: former Year quit: 2020 Comment: pt sleeping Patient Tobacco Use Status: Current everyday Tobacco user Cigarette Packs Per Day: 1 Cigarettes Per Day: 20 Years Smoked: 40 +/- Second Hand Smoke Exposure: No Advance Directives Date on File: 01/26/21 service: No Current occupational status: unemployed and disabled 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 Assessment & Plan Assessment & Plan (1) Uncontrolled diabetes mellitus with hyperglycemia: Code(s): E11.65 - Type 2 diabetes mellitus with hyperglycemia Category: Medical Plan: Wt: 81 Kg ( 01/07 ) Est kcal needs as per MSJ: 1900 (40% carb, 30% protein/fat) Est fluid needs as per 25-30 ml/d: 2400 Est prot per day as per 1 g/kg bw: 81 Recommend fiber intake : 8-10 g per day and gradually increase to 25-28 g per day for women and 35-38 g for men or as tolerated Recommend sodium intake per day : less than 2000 mg Educated patient on: ( R = reviewed V = verbalizes understanding N/R = needs review N/A = not applicable * Food sources of carbohydrate, adequate serving sizes and its role in various health conditions: R * Differences between complex carbohydrates a simple carbohydrates, role of fiber in diet: R * Lean protein sources of foods: R * Differences between types of fats and role in diet (mono on saturated fat fatty acids, saturated fatty acids, trans fats): R * Food sources of sodium in salt and healthy modifications for heart health in kidney health: R V R/V * Vitamins and minerals: R V N/R * Healthy plate method concept: R * Physical activity: Benefits a precaution: R V N/R * Hypoglycemia protocol (rule of 15): R V N/R * Dietary prevention of Hyperglycemia: R Patient Instructions: Choose whole grain foods and work on following healthy plate method at dinner time- see meal plan with pictures Choose beverages with no sugar- see pictures of options Coding Level of Care Code Nutr Indiv Intake (53866) Diagnoses Uncontrolled diabetes mellitus with hyperglycemia E11.65 Time Spent (min) 30
--- OUTSIDE RECORDS SUMMARY | 2024-12-18 15:10 | XMS_ITS | Clinical Summary ---
Author Organization [facility] Address [address] [place] [address] Care Team Providers Care Network Control Operators Supervisor Name Role Phone Bridgette Abrams Primary Care Provider [phone] [phone] Allergies No known active allergies Medications * [...] patient's age to complete this topic Insurance [facility] Care Teams Network Control Operators Supervisor Relationship Specialty Start Date End Date Bridgette Abrams [address] [place] [id number] PCP - General 06/14/24
--- OUTSIDE RECORDS SUMMARY | 2024-12-18 15:10 | XMS_ITS | Referral Summary ---
Author Organization [facility] Address [address] [place] [address] Care Team Providers Care Bus Dispatcher Interstate Name Role Phone Bridgette Abrams Primary Care Provider [phone] [phone] Allergies No known active allergies Medications * [...] Plan of Treatment Not on file Insurance [facility] Care Teams Bus Dispatcher Interstate Relationship Specialty Start Date End Date Bridgette Abrams [address] [place] [phone] PCP - General 06/14/24
[2025-01-02 10:42] VITALS: BMI 25.7
== END 2024-12-18 15:18 | disposition home or self-care (01) ==
PROVIDERS: PCP Student in an Organized Health Care Education/Training Program; Visit Provider Dietitian, Registered
DX: E11.65 Type 2 diabetes mellitus with hyperglycemia (principal)

== ENCOUNTER → 2024-12-18 13:45 | Outpatient (BNVA) | payer OTHER, SELFPAY | PROVIDERS: PCP Student in an Organized Health Care Education/Training Program; Visit Provider Dietitian, Registered | DX: E11.65 Type 2 diabetes mellitus with hyperglycemia (principal) | CPT/HCPCS: 97802 ==

== ENCOUNTER 2025-01-15 13:37 | Outpatient (AMB) | payer OTHER, SELFPAY ==
--- NOTE | 2025-01-15 11:16 | A.OFFVIS_ITS ---
Vital Signs 01/15/25 13:52 Height 5 ft 10 in Weight 178 lb 9.191 oz BMI 25.6 BP 120/74 Blood Pressure Location Rt brachial Position Sitting Pulse 100 Pulse Source Pulse Oximeter Pulse Oximetry (%) 96 Oxygen Delivery Method Room Air Intake Visit Reasons: T2DM w hyperglycemia Intake Note: Patient presents today for a follow-up on for Type 2 Diabetes Mellitus: Last Diabetic eye exam was on: 11/2024 Last Podiatry exam was on: Patient does not see a Candy Polisher Most recent HbA1c: 10.9%, 11/22/2024 Random Glucose- 148 mg/dL, Today Steam Room Attendant Required: No Steam Room Attendant Services: Steam Room Attendant Present Steam Room Attendant Name: Aniket Information Interpreted: clinical only Accompanied by: Self / Same As Patient Allergies trulicity Adverse Reaction (Intermediate, Uncoded 01/15/25 14:30) Abdominal Pain HPI Comments Details: 59 YO male who is seen in f/u for T2DM hemoglobin A1c 11/22/24 10.9% down from 08/20/2024 11.6%. He was seen as an initial consult on 12/18/2024. He had started on Trulicity and had taken about 6 doses. He unfortunately was not able to tolerate this due to bloating, abdominal discomfort and nausea. He was recently evaluated by Neurosurgery for low back pain and not deemed a surgical candidate at this time due to poorly controlled diabetes. Initially diagnosed with T2DM many years ago Was initially started on treatment with metformin He previously was on glipizide and stated he was taking at his last visit. I confirmed with [facility] that he has not filled in a few year. Trulicity 0.75 took 6-7 doses symptoms:was having bloating, pain and nausea Current regimen: synjardy 12.5mg 500mg bid jardiance These numbers reflect last dose of trulicity 1 week ago Checks sugars avg 168 tests 1-2 times daily am 100's later in the day 200's Reports low sugars none Has eyes checked yearly, last eye exam 11/2024 denies] retinopathy: cataracts No neuropathy, last foot exam one month ago Denies numbness, tinging, pain or cramping in the lower extremities Has a hardened area pantar aspect right foot which has been evaluated by podiatry. Recommended he could have surgery if he desired. Has no pain and decided against surgery. No nephropathy, not on ferny-i/ARB 10/30/2024 eGFR>60 [Has] HLD, on zetia last LDL 125 as measured on 10/30/2024 Has had cva, stemi stents x 2 1 ppd smoker, working on cutting down Diet:Rice, beans, cheese, tortillas, meal Met with nutrition since his last visit. Weight: no recent change No diabetes education end of 2023 has 2 children and 7 granddaughters Sees a clinical counseled and feels that his depression has improved. [facility] Medical History HIV (human immunodeficiency virus infection) History of CVA (cerebrovascular accident) Cardiomyopathy CAD (coronary artery disease) Stented coronary artery HTN (hypertension) Diabetes Osteoarthritis, hip, bilateral Depression Tubular adenoma of colon Nicotine dependence, cigarettes, uncomplicated Surgical History History of cardiac cath History of heart artery stent History of circumcision History of arthroscopy of right knee History of appendectomy History of colonoscopy History of surgery on right wrist Family History Other Hypertension Social History Household Members: None Do you presently have visiting nurse or other home services: Yes Alcohol intake: former Year quit: 2020 Comment: pt sleeping Patient Tobacco Use Status: Current everyday Tobacco user Cigarette Packs Per Day: 1 Cigarettes Per Day: 20 Years Smoked: 40 +/- Second Hand Smoke Exposure: No Advance Directives Date on File: 01/26/21 service: No Current occupational status: unemployed and disabled 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 Affect normal. Good eye contact. Negative acanthosis. RRR. No edema. Neuro exam grossly nonfocal. Assessment & Plan Assessment & Plan (1) Diabetes mellitus: Code(s): E11.9 - Type 2 diabetes mellitus without complications Category: Medical Plan: This 59-year-old type 2 diabetic with recent A1c of 10.9% with symptoms related to Trulicity: Nausea, abdominal discomfort. His glucose readings are above target. Continue Synjardy (metformin jardiance) We will try to get Mounjaro 2.5 mg weekly approved. He was advised that a prior authorization would be needed and that this medication could potentially trigger similar symptoms to Trulicity. I advised him that in my experience some patients are able to tolerate 1 medication in his class when they are unable to tolerate another. He will let us know if he develop symptoms otherwise I will see him back in 1 month. The patient had an opportunity to ask questions regarding treatment plan. The patient expressed understanding and agreement with the above treatment plan. The patient is aware they should contact our office by phone for worsening glucose readings or for any low blood sugars which may warrant a change in diabetes medication. Compliance is encouraged with medications and any followup testing/consults which may have been ordered. Medications: New tirzepatide (Mounjaro) 2.5 mg (0.5 mL) subcut QWEEK 4 weeks 2 mL 5RF Discontinued dulaglutide (Trulicity) Discontinued Reason: No Longer Medically Relevant 0.75 mg (0.5 mL) subcut QWEEK 28 days 2 mL 6RF Coding Level of Care Code Est Pt Level 4 (98695) Complex EM visit Add On G2211 Diagnoses Diabetes mellitus E11.9 Time Spent (min) 30 Comment Time spent reviewing labs/provider notes, face to face, chart doc
[2025-01-15 13:52] VITALS: BP 120/74; PULSE 100; O2SAT 96; BMI 25.6
[2025-01-15 14:06] LABS: Glucose, Whole Blood 148 mg/dL (60-115)
--- OUTSIDE RECORDS SUMMARY | 2025-01-15 16:14 | XMS_ITS | Clinical Summary ---
Author Organization [facility] Address [address] [place] [address] Care Team Providers Care Drop Wirer Name Role Phone Bridgette Abrams Primary Care Provider [phone] Allergies No known active allergies Medications * [...] DTaP,Tdap,and Td Vaccines (1 - Tdap) 1986 Pneumococcal Vaccine: 50+ Ye ars (1 of 1 - PCV) 2014 Zoster Vaccines (1 of 2) 2014 COVID-19 Vaccine (1 - 2023-2 5 season) 2024 Influenza Vaccine (#1) 2024 Alcohol/Substance Use Screening 11/13/2024 RSV Vaccine (60+ years old a nd patients) (1 - 1-dose 75+ series) 2039 Hepatitis B Vaccines Aged Out No long er eligible based on patient's age to complete this topic Insurance [facility] Care Teams Drop Wirer Relationship Specialty Start Date End Date Bridgette Abrams [address] [place] [phone] PCP - General 06/14/24
--- OUTSIDE RECORDS SUMMARY | 2025-01-15 16:14 | XMS_ITS | Referral Summary ---
Author Organization [facility] Address [address] [place] [address] Care Team Providers Care Biscuit Factory Worker Name Role Phone Bridgette Abrams Primary Care Provider [phone] [phone] Allergies No known active allergies Medications * [...] Plan of Treatment Not on file Insurance [facility] Care Teams Biscuit Factory Worker Relationship Specialty Start Date End Date Bridgette Abrams [address] [place] [phone] PCP - General 06/14/24
--- OUTSIDE RECORDS SUMMARY | 2025-01-15 16:14 | XMS_ITS | Patient Health Record ---
Author Organization [facility] Address [address] [place] [address] Care Team Providers Care Tie Maker Name Role Phone Skylar Garcias Primary Care Provider Unavailab Rodo Avelar Jr Unavailable Allergies No Known Allergies Reason For Referral No Information Medications Medication SIG (Take, Route, Frequency, Duration) Notes [...] Once a day for 30 day(s) Active Immunizations Vaccine Route Administration Date Status Comme nts Influenza Unknown 08/19/2019 Administered Influenza Unknown 08/31/2022 Administered Social History Tobacco Use: Social History Observation Description Date Details (start date - stop date) Current Smoker NA - NA Tobacco Use/Smoking Question Answer Notes Patient is [...] ast year? No Points 0 Interpretation Negative Problems Problem Type SNOMED Code ICD Code Onset Dates Problem Status W/U Status Risk Notes Problem 753132383 Colon cancer screening (Z12.11) Active confirmed Problem 247422635 alf (current) use of antithrombotics /antiplatelets (Z79.02) Active confirmed Problem 686801543 Long-term use of aspirin therapy (Z79.82) Active confirmed Plan Of Treatment Future Test Test Name Order Date COLONOSCOPY 11/23/2022 Insurance Providers Payer Name Payer Address Payer Phone Subscriber Number Group Number Insured Name Patient Relationship to Insured Coverage Start Date Coverage End Date [facility] [address] Attn Claims THOMAS Sanchez [id number] LAYLA BUCK Self - patient is the insured Medical (General) History Medical History History ICD Code coronary artery disease with history of NSTEMI and stent placement 04/2019. nonischemic cardiomyopathy diabetes mellitus hypertension elevated cholesterol depression HIV infection Neuropathy Surgical History Surgery Date(Month/Year) appendectomy left knee arthroscopy right knee arthroscopy Carpal tunnel repair right
== END 2025-01-15 14:24 | disposition home or self-care (01) ==
PROVIDERS: PCP Student in an Organized Health Care Education/Training Program; Visit Provider Nurse Practitioner Adult Health
DX: E11.9 Type 2 diabetes mellitus without complications (principal)
CPT/HCPCS: 99214; G2211

== ENCOUNTER → 2025-01-15 13:37 | Outpatient (BNVA) | payer OTHER, SELFPAY | PROVIDERS: PCP Student in an Organized Health Care Education/Training Program; Visit Provider Nurse Practitioner Adult Health | DX: E11.9 Type 2 diabetes mellitus without complications (principal) | CPT/HCPCS: 82947; 99212 ==

== ENCOUNTER 2025-01-17 14:41 | Outpatient (REF) | payer OTHER, SELFPAY ==
[2025-01-17 16:16] LABS: MANUAL DIFF FLAG NO
--- OUTSIDE RECORDS SUMMARY | 2025-01-17 16:25 | XMS_ITS | Referral Summary ---
Author Organization [facility] Address [address] [place] [address] Care Team Providers Care Accounts Payable Bookkeeper Name Role Phone Bridgette Abrams Primary Care Provider [phone] [phone] Allergies No known active allergies Medications * [...] Plan of Treatment Not on file Insurance [facility] Care Teams Accounts Payable Bookkeeper Relationship Specialty Start Date End Date Bridgette Abrams [address] [place] [phone] PCP - General 06/14/24
--- OUTSIDE RECORDS SUMMARY | 2025-01-17 16:25 | XMS_ITS | Patient Health Record ---
Author Organization [facility] Address [address] [place] [address] Care Team Providers Care Mobile Home Set Up Person Name Role Phone Skylar Garcias Primary Care [...] Problem Status W/U Status Risk Notes Problem 734137245 Colon cancer screening (Z12.11) Active confirmed Problem 293605962 detention (current) use of antithrombotics /antiplatelets (Z79.02) Active confirmed Problem 318879284 Long-term use of aspirin therapy (Z79.82) Active confirmed Plan Of Treatment Future Test Test Name Order Date COLONOSCOPY 11/23/2022 Insurance Providers Payer Name Payer Address Payer Phone Subscriber Number Group Number Insured Name Patient Relationship to Insured Coverage Start Date Coverage End Date [facility] [address] Attn Claims THOMAS Sanchez [id number] LAYLA BUCK Self - patient is the insured Medical (General) History Medical History History ICD Code coronary artery disease with history of NSTEMI and stent placement 04/2019. nonischemic cardiomyopathy diabetes mellitus hypertension elevated cholesterol depression HIV infection Neuropathy Surgical History Surgery Date(Month/Year) appendectomy left knee arthroscopy right knee arthroscopy Carpal tunnel repair right
--- OUTSIDE RECORDS SUMMARY | 2025-01-17 16:25 | XMS_ITS | Clinical Summary ---
Author Organization [facility] Address [address] [place] [address] Care Team Providers Care Slot Router Name Role Phone Bridgette Abrams Primary Care Provider [phone] Allergies No known active allergies Medications * [...] patient's age to complete this topic Insurance [facility] Care Teams Slot Router Relationship Specialty Start Date End Date Bridgette Abrams [address] [place] [phone] PCP - General 06/14/24
[2025-01-17 16:42] LABS: Alanine Aminotransferase 35 U/L (0-40); Albumin Level 4.4 g/dL (3.5-5.0); Alkaline Phosphatase 60 U/L (39-117); Amylase 75 U/L (28-100); Anion Gap 12 (12-20); Aspartate Amino Transferase 35 U/L (5-37); Bilirubin Total 0.5 mg/dL (0.0-1.0); Blood Urea Nitrogen 20 mg/dL (9-16); Calcium 9.2 mg/dL (8.4-10.2); Carbon Dioxide 26 mmol/L (22-29); Chloride 106 mmol/L (96-108); Estimated Glomerular Filt Rate > 60; Glucose Random 290 mg/dL (60-115); Lipase 52 U/L (8-78); Potassium 4.6 mmol/L (3.3-5.1); Sodium 139 mmol/L (135-145); Total Protein 7.2 g/dL (6.5-8.0)
[2025-01-17 18:06] LABS: Basophils Percent Auto 0.4 % (0-2); Eosinophils Absolute Auto 0.2 X10*3/uL (0.0-0.4); Eosinophils Percent Auto 1.8 % (0-4); Hematocrit 45.8 % (42.0-52.0); Hemoglobin 15.5 g/dl (14.0-18.0); Imm Gran Abs Auto 0.02 X10*3/uL (0.00-0.03); Imm Gran Pct Auto 0.2 % (0.0-0.4); Lymphocytes Absolute Auto 2.7 X10*3/uL (1.2-4.9); Lymphocytes Percent Auto 27.8 % (20-40); Mean Corpuscular HGB Conc 33.8 g/dl (31.0-36.0); Mean Corpuscular Hemoglobin 32.8 pg (27.0-33.0); Mean Platelet Volume 10.4 fL (9.4-12.4); Monocytes Absolute Auto 0.8 X10*3/uL (0.1-1.2); Monocytes Percent Auto 8.3 % (2-11); Neutrophils Percent Auto 61.5 % (45-73); Platelet Count 241 X10*3/uL (160-400); Red Blood Count 4.72 X10*6/uL (4.60-5.80); Red Cell Distribution Width 13.2 % (11.0-16.0); White Blood Count 9.7 X10*3/uL (4.8-10.8)
== END 2025-01-17 14:42 | disposition home or self-care (01) ==
LOC: HO.HHCL 14:41
PROVIDERS: Visit Provider Internal Medicine
DX: R10.84 Generalized abdominal pain (principal)
CPT/HCPCS: 36415; 80053; 82150; 83690; 85025

== ENCOUNTER 2025-02-03 14:36 | Outpatient (AMB) | payer OTHER, SELFPAY ==
--- NOTE | 2025-02-03 15:31 | MHC.OFFVIS ---
Vital Signs 02/03/25 15:32 Height 5 ft 10 in Weight 180 lb 5.41 oz BMI 25.9 BP 120/64 Blood Pressure Location Lt brachial Position Sitting Pulse 93 Pulse Source Monitor Intake Visit Reasons: r/s 04/10/24 6 mos followup Intake Note: r/s 6 mth f/up Forming Acid Dumper Required: Yes Forming Acid Dumper Language: Speech Pathology Supervisor Name: artur/[place] [id number] Accompanied by: Self / Same As Patient Allergies trulicity Adverse Reaction (Intermediate, Uncoded 01/15/25 14:30) Abdominal Pain Medication List - Last Reconciled 02/03/25 by Geraldo Harmon MD aspirin 1 tab PO QAM clopidogrel (Plavix) 75 mg PO DAILY 90 days empagliflozin-metformin 5-1,000 mg (Synjardy) 1 tab PO BID 30 days ezetimibe (Zetia) 10 mg PO DAILY 30 days folic acid 1 mg PO DAILY gabapentin 100 mg PO DAILY lancets (TRUEplus Lancets) As directed lisinopril 1 tab PO QAM metoprolol succinate ER mg PO DAILY rstutgdj-qkr-XK-lycopen-lutein 0.4 mg-300 mcg- 250 mcg (CertaVite Senior) 0 tabs PO polyvinyl alcohol 1.4% (Artificial Tears (polyvinyl alcohol)) 0 drps ophthalmic (eye) rosuvastatin 40 mg PO BEDTIME thiamine HCl (vitamin B1) 100 mg PO DAILY valacyclovir 1,000 mg PO BID HPI Comments Details: 57-year-old gentleman here for follow-up. In 2019 he presented with chest discomfort and non ST elevation [place]. He was taken for cardiac catheterization which showed severe right coronary artery which was treated with 2 drug-eluting stents. He also had 50-60% proximal LAD stenosis which was assessed with IFR which was normal. He had some issues with Brilinta and was short of breath and was changed to Plavix. Since then he did well and did not have any dyspnea. He continues to smoke. He is complaining of bilateral calf pain. As mentioned he is a smoker and there is some concern for prior vascular disease. He is also undergoing hand surgery and is here to discuss whether he can stop his anti platelet therapy. Denying chest pain or shortness of breath. 06/05/2023: Today he returns for follow-up. He had echocardiography performed on 05/18/2023 showing EF of 40 45% with basal inferior and basal inferolateral segment hypokinesis. He previously had RCA PCI and had IFR negative LAD. He is denying any significant symptoms currently. He is taking his medications regularly and is currently on aspirin and Plavix. No bleeding concerns. Blood pressure control is good. He is smoking 2 packs per day and is asking whether he can use Chantix. He previously had seizures and I think Wellbutrin would be a problem to start as it can lower the seizure threshold. 02/03/2025: he is returning after 2 years. Last time we saw him he had mild cardiomyopathy any underwent repeat cardiac catheterization which showed patent stent in the right coronary artery and no significant change in LAD stenosis. He was started on guideline directed medical therapy. He is saying he has no chest pain or shortness of breath. He continues to smoke and is saying that he enjoys it and is not ready to quit currently. Blood pressure is well controlled. He has not had any assessment of LV in the last 2 years. [facility] Medical History HIV (human immunodeficiency virus infection) History of CVA (cerebrovascular accident) Cardiomyopathy CAD (coronary artery disease) Stented coronary artery HTN (hypertension) Diabetes Osteoarthritis, hip, bilateral Depression Tubular adenoma of colon Nicotine dependence, cigarettes, uncomplicated Surgical History History of cardiac cath History of heart artery stent History of circumcision History of arthroscopy of right knee History of appendectomy History of colonoscopy History of surgery on right wrist Family History Other Hypertension Social History Household Members: None Do you presently have visiting nurse or other home services: Yes Alcohol intake: former Year quit: 2020 Comment: pt sleeping Patient Tobacco Use Status: Current everyday Tobacco user Cigarette Packs Per Day: 1 Cigarettes Per Day: 20 Years Smoked: 40 +/- Second Hand Smoke Exposure: No Advance Directives Date on File: 01/26/21 service: No Current occupational status: unemployed and disabled 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 Review of Systems Const Denies chills, Denies fatigue, Denies fever(s), Denies frequent falls, Denies weakness, Denies weight gain and Denies weight loss ENT Denies dizziness Card Denies chest pain, Denies leg edema, Denies lightheadedness, Denies palpitations, Denies dyspnea and Denies dyspnea on exertion Resp Denies cough, Denies dyspnea and Denies dyspnea on exertion GI Denies hematochezia Musc Denies abnormal gait, Denies muscle weakness, Denies numbness, Denies radiating pain into limb and Denies tingling Neuro Denies abnormal gait, Denies dizziness, Denies frequent falls, Denies numbness, Denies tingling and Denies weakness Endo Denies fatigue and Denies palpitations Physical Exam Vital Signs: Last Vital Signs Pulse 93 02/03/25 15:32 BP 120/64 02/03/25 15:32 BMI result Body Mass Index 25.9 GENERAL APPEARANCE: in no acute distress, pleasant. NECK: no carotid bruit, no jugular venous distention. SKIN: no suspicious lesions, warm and dry. HEART: no murmurs, regular rate and rhythm. LUNGS: clear to auscultation bilaterally. ABDOMEN: soft, nontender. EXTREMITIES: no edema. PERIPHERAL PULSES: equal. NEUROLOGIC: No gross deficits, AAO X 3 Office Procedures EKG Details: Sinus rhythm 93 beats per minute, inferior infarct, QTC 452 milliseconds. [id number], Complete Assessment & Plan Assessment & Plan (1) Cardiomyopathy: Code(s): I42.9 - Cardiomyopathy, unspecified Category: Medical Qualifiers: Cardiomyopathy type: unspecified Qualified Code(s): I42.9 - Cardiomyopathy, unspecified Plan [age] year gentleman here for follow-up. He has known history of coronary disease with previous RCA PCI. He had echocardiography 2 years ago which showed EF of 40 45% with inferior inferolateral wall motion abnormalities. He was taken back for cardiac catheterization at that stage which showed patent stent to the RCA and moderate LAD stenosis. He was started on lisinopril and metoprolol which he has been taking. Clinically euvolemic. Denying any significant chest discomfort shortness of breath. We will repeat echocardiography to reassess ejection fraction. We discussed about smoking cessation but he is not ready for that currently. Thank you for allowing me to participate in the care of your patient. Please feel free to contact me if you have any questions. Orders: Orders CA echo transthorac w con Today I42.9 - Cardiomyopathy, unspecified Coding Level of Care Code Est Pt Level 4 (09219) Diagnoses Cardiomyopathy, unspecified type I42.9 Cardiomyopathy type: unspecified CPT Codes EKG - CPT: 20260-[id number], Complete ([id number])
[2025-02-03 15:32] VITALS: BP 120/64; PULSE 93; BMI 25.9
--- OUTSIDE RECORDS SUMMARY | 2025-02-03 17:31 | XMS_ITS | Patient Health Record ---
Author Organization [facility] Address [address] [place] [address] Care Team Providers Care Fish Hatchery Laborer Name Role Phone Skylar aGrcias Primary Care Provider Unavailab Rodo Avelar Jr [...] Problem Status W/U Status Risk Notes Problem [id number] Colon cancer screening (Z12.11) Active confirmed Problem [id number] equipment operator intermodal yard (current) use of antithrombotics /antiplatelets (Z79.02) Active confirmed Problem 611336329 Long-term use of aspirin therapy (Z79.82) Active confirmed Plan Of Treatment Future Test Test Name Order Date COLONOSCOPY 11/23/2022 Insurance Providers Payer Name Payer Address Payer Phone Subscriber Number Group Number Insured Name Patient Relationship to Insured Coverage Start Date Coverage End Date [facility] [address] Attn Claims THOMAS Sanchez [id number] LAYLA BUCK Self - patient is the insured Medical (General) History Medical History History ICD Code coronary artery disease with history of NSTEMI and stent placement 04/2019. nonischemic cardiomyopathy diabetes mellitus hypertension elevated cholesterol depression HIV infection Neuropathy Surgical History Surgery Date(Month/Year) appendectomy left knee arthroscopy right knee arthroscopy Carpal tunnel repair right
--- OUTSIDE RECORDS SUMMARY | 2025-02-03 17:31 | XMS_ITS | Clinical Summary ---
Author Organization [facility] Address [address] [place] [address] Care Team Providers Care Vice President Industrial Relations Name Role Phone Bridgette Abrams Primary Care Provider [phone]- [phone] Allergies No known active allergies Medications * [...] patient's age to complete this topic Insurance [facility] Care Teams Vice President Industrial Relations Relationship Specialty Start Date End Date Bridgette Abrams [address] [place] [phone] PCP - General 06/14/24
--- OUTSIDE RECORDS SUMMARY | 2025-02-03 17:31 | XMS_ITS | Referral Summary ---
Author Organization [facility] Address [address] [place] [address] Care Team Providers Care Global Commodity Manager Name Role Phone Bridgette Abrams Primary Care Provider +1 [phone] Allergies No known active allergies Medications * [...] Plan of Treatment Not on file Insurance [facility] Care Teams Global Commodity Manager Relationship Specialty Start Date End Date Bridgette Abrams [address] [place] [id number] PCP - General 06/14/24
== END 2025-02-03 16:15 | disposition home or self-care (01) ==
PROVIDERS: PCP Student in an Organized Health Care Education/Training Program; Visit Provider Internal Medicine Cardiovascular Disease
DX: I42.9 Cardiomyopathy, unspecified (principal)
CPT/HCPCS: 93010; 99214

== ENCOUNTER → 2025-02-03 14:36 | Outpatient (BNVA) | payer OTHER, SELFPAY | PROVIDERS: PCP Student in an Organized Health Care Education/Training Program; Visit Provider Internal Medicine Cardiovascular Disease | DX: I42.9 Cardiomyopathy, unspecified (principal); F17.210 Nicotine dependence, cigarettes, uncomplicated | CPT/HCPCS: 93005; 99212 ==

== ENCOUNTER 2025-02-07 11:14 | Outpatient (REF) | payer OTHER, SELFPAY ==
[2025-02-07 13:38] LABS: MANUAL DIFF FLAG NO
[2025-02-07 13:47] LABS: Basophils Absolute Auto 0.1 X10*3/uL (0.0-0.2); Basophils Percent Auto 0.7 % (0-2); Eosinophils Absolute Auto 0.2 X10*3/uL (0.0-0.4); Eosinophils Percent Auto 2.5 % (0-4); Hematocrit 46.4 % (42.0-52.0); Hemoglobin 16.1 g/dl (14.0-18.0); Imm Gran Abs Auto 0.01 X10*3/uL (0.00-0.03); Imm Gran Pct Auto 0.1 % (0.0-0.4); Lymphocytes Percent Auto 33.2 % (20-40); Mean Corpuscular HGB Conc 34.7 g/dl (31.0-36.0); Mean Corpuscular Hemoglobin 33.1 pg (27.0-33.0); Mean Corpuscular Volume 95.5 fL (80.0-98.0); Mean Platelet Volume 10.1 fL (9.4-12.4); Monocytes Absolute Auto 0.8 X10*3/uL (0.1-1.2); Monocytes Percent Auto 8.4 % (2-11); Neutrophils Absolute Auto 5.1 x10*3/uL (2.0-8.3); Neutrophils Percent Auto 55.1 % (45-73); Platelet Count 265 X10*3/uL (160-400); Red Blood Count 4.86 X10*6/uL (4.60-5.80); Red Cell Distribution Width 13.3 % (11.0-16.0); White Blood Count 9.2 X10*3/uL (4.8-10.8)
[2025-02-07 14:13] LABS: Alanine Aminotransferase 38 U/L (0-40); Albumin Level 4.5 g/dL (3.5-5.0); Alkaline Phosphatase 66 U/L (39-117); Anion Gap 12 (12-20); Aspartate Amino Transferase 37 U/L (5-37); Bilirubin Total 0.4 mg/dL (0.0-1.0); Blood Urea Nitrogen 19 mg/dL (9-16); Calcium 9.9 mg/dL (8.4-10.2); Carbon Dioxide 25 mmol/L (22-29); Chloride 107 mmol/L (96-108); Estimated Glomerular Filt Rate > 60; Glucose Random 168 mg/dL (60-115); Potassium 4.7 mmol/L (3.3-5.1); Sodium 139 mmol/L (135-145); Total Protein 7.1 g/dL (6.5-8.0)
[2025-02-09 07:48] LABS: HIV RNA PCR Qn Copies 903 copies/mL (NOT DETECTED); HIV RNA PCR Qn Log Copies 2.96 (NOT DETECTED)
[2025-02-14 12:18] LABS: Absolute CD3 Count 1590 cells/uL (840-3060); Absolute CD4 Count 1009 cells/uL (490-1740); Absolute CD8 Count 609 cells/uL (180-1170); Absolute Lymphocytes 2138 cells/uL (850-3900); CD4 CD8 Ratio 1.66 (0.86-5.00); Percent CD3 Cells 74 % (57-85); Percent CD4 Cells 47 % (30-61); Percent CD8 Cells 29 % (12-42)
== END 2025-02-07 11:15 | disposition home or self-care (01) ==
LOC: HO.HHCL 11:14
PROVIDERS: Visit Provider Student in an Organized Health Care Education/Training Program
DX: B20 Human immunodeficiency virus [HIV] disease (principal)
CPT/HCPCS: 36415; 80053; 85025; 86359; 86360; 87536

== ENCOUNTER → 2025-02-26 09:29 | Outpatient (REF) | payer OTHER, SELFPAY ==
--- NOTE | 2025-02-26 09:31 | CA_ITS ---
Transthoracic Echocardiogram Patient (Last, First, Middle): Jerman Duron, Gender: Male Date of : 1965 Age: 59 Procedure Date: 02/26/2025 Procedure Type: Transthoracic Echocardiogram Location: OP Height: 165.1 cm Weight: 72.58 kg BSA: 1.80 m2 Heart Rate: 64 bpm BP: 110 / 55 mmHg Lime Kiln Worker: SB/RC Referring MD: Geraldo Harmon MD Door Builder: Geraldo Harmon MD Symptoms: I42.9 - Cardiomyopathy, unspecified Study Quality: Adequate ECG Rhythm: Sinus Conclusions: - Normal left ventricular cavity size. There is normal left ventricular wall thickness. The left ventricular systolic function is mild to moderately decreased. The visually estimated ejection fraction is between 35-40%. - Normal left ventricular filling pressures. - The inferolateral wall and basal inferior segment are akinetic. - Normal right ventricular cavity size and systolic function. - There is mild dilatation of the sinuses of Valsalva measuring 4.00 cm. Findings Left Ventricle Normal left ventricular cavity size. There is normal left ventricular wall thickness. The left ventricular systolic function is mild to moderately decreased. The visually estimated ejection fraction is between 35-40%. There is evidence of regional wall motion abnormalities. Abnormal diastolic function is noted. Spectral Doppler is indicative of an impaired relaxation filling pattern. Normal left ventricular filling pressures. Wall Motion Rest Echo Findings The inferolateral wall and basal inferior segment are akinetic. Right Ventricle Normal right ventricular cavity size and systolic function. Atria The left atrium is normal in size. The right atrium is likely dilated. Aortic Valve Normal aortic valve structure and function. There is no aortic valve stenosis. There is no aortic valve regurgitation. Mitral Valve Normal mitral valve structure and function. There is no mitral valve regurgitation. There is no mitral valve stenosis. Pulmonic Valve The pulmonic valve is likely normal. There is no pulmonic valve regurgitation. Tricuspid Valve Normal tricuspid valve structure. There is no tricuspid valve regurgitation. Tricuspid regurgitation envelope is inadequate for calculation of right ventricular systolic pressure. Normal right atrial pressure. Great Vessels There is mild dilatation of the sinuses of Valsalva measuring 4.00 cm. The visualized portions of the pulmonary artery and branches are normal. Venous The inferior vena cava is normal in size and collapses greater than 50% with inspiration. Pericardium/Pleural There is no evidence of pericardial effusion. Prior Study Comparison No significant change compared to prior study dated: 05/18/2023. Measurements 2D Linear Measurements IVSd: 0.96 0.6-0.9/0.6-1.0 cm LVIDd: 5.13 3.9-5.3/4.2-5.9 cm LVIDd Index: 2.85 2.4-3.2/2.2-3.1 cm/m2 LVIDs: 4.46 2.0-3.6 cm LVPWd: 1.00 0.7-1.1 cm LA Diam: 3.60 2.7-3.8/3.0-4.0 cm LAIDs Index: 2.00 1.5-2.3 cm/m2 LV Mass: 230.88 67-162/88-224 g LV Mass Index: 128.27 43-95/49-115 g/m2 LVOT Diam: 2.50 3.0+(-)1.3 cm 2D Systolic Function EF 4C: 37.30 >55% EF 2C: 44.70 >55% EF BiP: 41.60 >55% Mitral Valve MV Pk E: 0.51 MV PK A: 0.74 MV Decel Time: 224.00 E/A: 0.70 E'Lateral: 7.83 E'Medial: 4.90 E/E' Med: 10.40 E/E' Lat: 6.50 PHT: 66.00 MVA PHT: 3.33 Decel [place]: 2.27 Aortic Valve AoV Pk Aditya: 1.03 AoV Pk Grad: 4.00 LAUREN: 3.35 LVOT LVOT Pk Aditya: 0.69 LVOT Mn Aditya: 0.44 LVOT VTI: 0.13 LVOT Pk Grad: 2.00 LVOT Mn Grad: 1.00 LVOT Diam: 2.50 LVOT Area: 4.91 Diastolic Function MV Pk E: 0.51 MV Pk A: 0.74 E/A: 0.70 E'Medial: 4.90 E/E' Med: 10.40 E' Laterial: 7.83 E/E' Lat: 6.50 Right Ventricle TAPSE (mm): 18.00 TVS' Aditya: 10.20 Tricuspid Valve RA Press: 3.00 Great Vessels Aorta Sinus of Valsalva: 4.00 2.0-3.5 cm Ao Asc: 3.40 2.1-3.4 cm Pulmonary Veins Pulm Vein S/D 1.20 Pulmonary Valve PV Pk Aditya: 0.83 Peak PV Grad: 3.00 Updated in Other Vendor System with Status of Final Geraldo Harmon MD electronically signed on 02/26/2025 4:02:24 PM with status of Final
--- OUTSIDE RECORDS SUMMARY | 2025-02-26 10:29 | XMS_ITS | Referral Summary ---
Author Organization [facility] Address [address] [place] [address] Care Team Providers Care Security Sme Name Role Phone Bridgette Abrams Primary Care Provider [phone] [phone] Allergies No known active allergies Medications * [...] Insurance [facility] Care Teams Security Sme Relationship Specialty Start Date End Date Bridgette Abrams [address] [place] [phone] PCP - General 06/14/24
--- OUTSIDE RECORDS SUMMARY | 2025-02-26 10:29 | XMS_ITS | Clinical Summary ---
Author Organization [facility] Address [address] [place] [address] Care Team Providers Care Clinical Application Consultant Name Role Phone Bridgette Abrams Primary Care Provider [phone]- [phone] Allergies No known active allergies Medications * [...] Vaccine (1 - 2023-2 5 season) 2024 Alcohol/Substance Use Screening 11/13/2024 Influenza Vaccine (Season Ended) 2025 RSV Vaccine (60+ years old a nd patients) (1 - 1-dose 75+ series) 2039 Hepatitis B Vaccines Aged Out No long er eligible based on patient's age to complete this topic Insurance [facility] Care Teams Clinical Application Consultant Relationship Specialty Start Date End Date Bridgette Abrams [address] [place] [phone] PCP - General 06/14/24
--- OUTSIDE RECORDS SUMMARY | 2025-02-26 10:29 | XMS_ITS | Patient Health Record ---
Author Organization [facility] Address [address] [place] [address] Care Team Providers Care Information Assurance Name Role Phone AllenRitaShaanjaylyn (DO NOT USE), Ruy Primary Care Provi daniella Unavailable Rodo Ahuja Jr Unavailable Allergies No Known Allergies Reason [...] Problem Status W/U Status Risk Notes Problem [id number] Colon cancer screening (Z12.11) Active confirmed Problem 992621857 senior care (current) use of antithrombotics /antiplatelets (Z79.02) Active confirmed Problem 764768071 Long-term use of aspirin therapy (Z79.82) Active confirmed Plan Of Treatment Future Test Test Name Order Date COLONOSCOPY 11/23/2022 Insurance Providers Payer Name Payer Address Payer Phone Subscriber Number Group Number Insured Name Patient Relationship to Insured Coverage Start Date Coverage End Date [facility] [address] Attn Claims THOMAS Sanchez [id number] LAYLA BUCK Self - patient is the insured Medical (General) History Medical History History ICD Code coronary artery disease with history of NSTEMI and stent placement 04/2019. nonischemic cardiomyopathy diabetes mellitus hypertension elevated cholesterol depression HIV infection Neuropathy Surgical History Surgery Date(Month/Year) appendectomy left knee arthroscopy right knee arthroscopy Carpal tunnel repair right
== END ==
LOC: HO.CARD 09:29
PROVIDERS: PCP Student in an Organized Health Care Education/Training Program; Visit Provider Internal Medicine Cardiovascular Disease
DX: I42.9 Cardiomyopathy, unspecified (principal)
CPT/HCPCS: 93306

== ENCOUNTER → 2025-02-26 09:31 | Outpatient (BNV) | payer OTHER, SELFPAY | PROVIDERS: PCP Student in an Organized Health Care Education/Training Program; Visit Provider Internal Medicine Cardiovascular Disease | DX: I42.8 Other cardiomyopathies (principal) | CPT/HCPCS: 93306 ==

== ENCOUNTER 2025-03-05 | Outpatient (REF) | payer OTHER, SELFPAY ==
--- OUTSIDE RECORDS SUMMARY | 2025-05-09 14:34 | XMS_ITS | Patient Health Record ---
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 (Z79.02) Active confirmed Problem [id number] Long-term use of aspirin therapy (Z79.82) Active confirmed Plan Of Treatment Future Test Test Name Order Date COLONOSCOPY 11/23/2022 Insurance Providers Payer Name Payer Address Payer Phone Subscriber Number Group Number Insured Name Patient Relationship to Insured Coverage Start Date Coverage End Date [facility] [address] Attn Claims THOMAS Sanchez [id number] CIELOLAYLA Self - patient is the insured [facility] [address] [place] [address] [id number] LAYLA BUCK Self - patient is the insured Medical (General) History Medical History History ICD Code coronary artery disease with history of NSTEMI and stent placement 04/2019. nonischemic cardiomyopathy diabetes mellitus hypertension elevated cholesterol depression HIV infection Neuropathy Surgical History Surgery Date(Month/Year) appendectomy left knee arthroscopy right knee arthroscopy Carpal tunnel repair right
== END 2025-03-05 00:01 | disposition home or self-care (01) ==
LOC: HO.LNP
PROVIDERS: Visit Provider Student in an Organized Health Care Education/Training Program
DX: B20 Human immunodeficiency virus [HIV] disease (principal)
CPT/HCPCS: 88112

== ENCOUNTER 2025-03-05 10:05 | Outpatient (REF) | payer OTHER, SELFPAY ==
--- OUTSIDE RECORDS SUMMARY | 2025-03-05 18:25 | XMS_ITS | Referral Summary ---
Author Organization [facility] Address [address] [place] [address] Care Team Providers Care Internet Sales Consultant Name Role Phone Bridgette Abrams Primary Care Provider +1 [phone] Allergies No known active allergies Medications * [...] Plan of Treatment Not on file Insurance [facility] Care Teams Internet Sales Consultant Relationship Specialty Start Date End Date Bridgette Abrams [address] [place] [phone] PCP - General 06/14/24
--- OUTSIDE RECORDS SUMMARY | 2025-03-05 18:25 | XMS_ITS | Clinical Summary ---
Author Organization [facility] Address [address] [place] [address] Care Team Providers Care Field Support Technician Name Role Phone Bridgette Abrams Primary Care Provider +1- [phone] Allergies No known active allergies Medications * [...] patient's age to complete this topic Insurance [facility] Care Teams Field Support Technician Relationship Specialty Start Date End Date Bridgette Abrams [address] [place] [phone] PCP - General 06/14/24
[2025-03-26 08:49] LABS: HPV MRNA E6/E7 Rectal NOT DETECTED
== END 2025-03-05 10:06 | disposition home or self-care (01) ==
LOC: HO.LNP 10:05
PROVIDERS: PCP Student in an Organized Health Care Education/Training Program; Visit Provider Dietitian, Registered
DX: B20 Human immunodeficiency virus [HIV] disease (principal); E11.65 Type 2 diabetes mellitus with hyperglycemia; Z71.3 Dietary counseling and surveillance
CPT/HCPCS: 97803

== ENCOUNTER 2025-03-05 10:05 | Outpatient (AMB) | payer OTHER, SELFPAY ==
[2025-03-05 10:40] VITALS: BMI 25.7
--- NOTE | 2025-03-05 10:40 | A.OFFVIS_ITS ---
VS Expanded 03/05/25 10:40 Height 5 ft 10 in Weight 179 lb 7.3 oz BMI 25.7 Intake Visit Reasons: T2DM Allergies trulicity Adverse Reaction (Intermediate, Uncoded 01/15/25 14:30) Abdominal Pain Nutrition Presentation Details: Pt presents for MNT f/u for T2DM Pt reports no meal pattern due to increased appetite , reports challenges with reducing portion of starches and sweets beverages: choosing light/diet juices, water, seltzer not monitoring BG BS Monitoring Most Recent Diabetes Results: Creatinine 1.01 mg/dL (0.5-1.4) 02/07/25 Blood Urea Nitrogen 19 mg/dL (9-16) H 02/07/25 Sodium 139 mmol/L (135-145) 02/07/25 Potassium 4.7 mmol/L (3.3-5.1) 02/07/25 Chloride 107 mmol/L (96-108) 02/07/25 Carbon Dioxide 25 mmol/L (22-29) 02/07/25 Calcium 9.9 mg/dL (8.4-10.2) 02/07/25 AST 37 U/L (5-37) 02/07/25 ALT 38 U/L (0-40) 02/07/25 Total Protein 7.1 g/dL (6.5-8.0) 02/07/25 Albumin 4.5 g/dL (3.5-5.0) 02/07/25 [facility] Medical History HIV (human immunodeficiency virus infection) History of CVA (cerebrovascular accident) Cardiomyopathy CAD (coronary artery disease) Stented coronary artery HTN (hypertension) Diabetes Osteoarthritis, hip, bilateral Depression Tubular adenoma of colon Nicotine dependence, cigarettes, uncomplicated Surgical History History of cardiac cath History of heart artery stent History of circumcision History of arthroscopy of right knee History of appendectomy History of colonoscopy History of surgery on right wrist Family History Other Hypertension Social History Household Members: None Do you presently have visiting nurse or other home services: Yes Alcohol intake: former Year quit: 2020 Comment: pt sleeping Patient Tobacco Use Status: Current everyday Tobacco user Cigarette Packs Per Day: 1 Cigarettes Per Day: 20 Years Smoked: 40 +/- Second Hand Smoke Exposure: No Advance Directives Date on File: 01/26/21 service: No Current occupational status: unemployed and disabled 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 Assessment & Plan Assessment & Plan (1) Uncontrolled diabetes mellitus with hyperglycemia: Code(s): E11.65 - Type 2 diabetes mellitus with hyperglycemia Category: Medical Plan: Wt: 81 Kg ( 01/07 ), 03/07 Est kcal needs as per MSJ: 1900 (40% carb, 30% protein/fat) Est fluid needs as per 25-30 ml/d: 2400 Est prot per day as per 1 g/kg bw: 81 Recommend fiber intake : 8-10 g per day and gradually increase to 25-28 g per day for women and 35-38 g for men or as tolerated Recommend sodium intake per day : less than 2000 mg Educated patient on: ( R = reviewed V = verbalizes understanding N/R = needs review N/A = not applicable * Food sources of carbohydrate, adequate serving sizes and its role in various health conditions: R * Differences between complex carbohydrates a simple carbohydrates, role of fiber in diet: R * Lean protein sources of foods: R * Differences between types of fats and role in diet (mono on saturated fat fatty acids, saturated fatty acids, trans fats): R * Food sources of sodium in salt and healthy modifications for heart health in kidney health: R * Vitamins and minerals: R V N/R * Healthy plate method concept: R * Physical activity: Benefits a precaution: R * Hypoglycemia protocol (rule of 15): R V N/R * Dietary prevention of Hyperglycemia: R Patient Instructions: * Resume monitoring blood sugar , at least once a day in the fasting state * Follow healthy plate * choose low sugar snack, nuts/seeds/low sugar cereals (ok to add Splenda for flavor) Coding Level of Care Code Nutr Indiv Subseq (18242) Diagnoses Uncontrolled diabetes mellitus with hyperglycemia E11.65 Time Spent (min) 25
--- OUTSIDE RECORDS SUMMARY | 2025-03-05 11:41 | XMS_ITS | Patient Health Record ---
Author Organization [facility] Address [address] [place] [address] Care Team Providers Care Photographic Engineer Name Role Phone AllenRitaShaanjaylyn (DO NOT USE), Ruy Primary Care Provi daniella Unavailable Rodo Ahuja Jr Unavailable [phone] Allergies No Known Allergies Reason For Referral [...] Problem Status W/U Status Risk Notes Problem 351957420 Colon cancer screening (Z12.11) Active confirmed Problem 045937573 shelter (current) use of antithrombotics /antiplatelets (Z79.02) Active confirmed Problem 930853972 Long-term use of aspirin therapy (Z79.82) Active confirmed Plan Of Treatment Future Test Test Name Order Date COLONOSCOPY 11/23/2022 Insurance Providers Payer Name Payer Address Payer Phone Subscriber Number Group Number Insured Name Patient Relationship to Insured Coverage Start Date Coverage End Date [facility] [address] Attn Claims THOMAS Sanchez [id number] LAYLA BUCK Self - patient is the insured Medical (General) History Medical History History ICD Code coronary artery disease with history of NSTEMI and stent placement 04/2019. nonischemic cardiomyopathy diabetes mellitus hypertension elevated cholesterol depression HIV infection Neuropathy Surgical History Surgery Date(Month/Year) appendectomy left knee arthroscopy right knee arthroscopy Carpal tunnel repair right
--- OUTSIDE RECORDS SUMMARY | 2025-03-05 11:41 | XMS_ITS | Referral Summary ---
Author Organization [facility] Address [address] [place] [address] Care Team Providers Care Desulfurizer Operator Name Role Phone Bridgette Abrams Primary Care Provider +1 [phone] Allergies No known active allergies Medications * [...] Plan of Treatment Not on file Insurance [facility] Care Teams Desulfurizer Operator Relationship Specialty Start Date End Date Bridgette Abrams [address] [place] [phone] PCP - General 06/14/24
--- OUTSIDE RECORDS SUMMARY | 2025-03-05 11:41 | XMS_ITS | Clinical Summary ---
Author Organization [facility] Address [address] [place] [address] Care Team Providers Care Field Collector Name Role Phone Bridgette Abrams Primary Care Provider +1- [phone] Allergies No known active allergies Medications * [...] patient's age to complete this topic Insurance [facility] Care Teams Field Collector Relationship Specialty Start Date End Date Bridgette Abrams [address] [place] [phone] PCP - General 06/14/24
== END 2025-03-05 11:15 | disposition home or self-care (01) ==
LOC: HO.ENCR 10:06
PROVIDERS: PCP Student in an Organized Health Care Education/Training Program; Visit Provider Dietitian, Registered
DX: E11.65 Type 2 diabetes mellitus with hyperglycemia (principal)

== ENCOUNTER 2025-04-09 14:39 | Outpatient (REF) | payer OTHER, SELFPAY ==
--- OUTSIDE RECORDS SUMMARY | 2025-04-09 15:29 | XMS_ITS | Patient Health Record ---
Author Organization [facility] Address [address] [place] [address] Care Team Providers Care Divisional Human Resources Director Name Role Phone AllenRitaShaanjaylyn (DO NOT USE), [...] Problem Status W/U Status Risk Notes Problem [id number] Colon cancer screening (Z12.11) Active confirmed Problem [id number] prison (current) use of antithrombotics /antiplatelets (Z79.02) Active confirmed Problem [id number] Long-term use of aspirin therapy (Z79.82) Active confirmed Plan Of Treatment Future Test Test Name Order Date COLONOSCOPY 11/23/2022 Insurance Providers Payer Name Payer Address Payer Phone Subscriber Number Group Number Insured Name Patient Relationship to Insured Coverage Start Date Coverage End Date [facility] [address] Attn Claims THOMAS Sanchez [id number] CIELOLAYLA Self - patient is the insured [facility] [facility] [employer] [facility] [address] [place] [address] [id number] LAYLA BUCK Self - patient is the insured Medical (General) History Medical History History ICD Code coronary artery disease with history of NSTEMI and stent placement 04/2019. nonischemic cardiomyopathy diabetes mellitus hypertension elevated cholesterol depression HIV infection Neuropathy Surgical History Surgery Date(Month/Year) appendectomy left knee arthroscopy right knee arthroscopy Carpal tunnel repair right
[2025-04-09 16:19] LABS: MANUAL DIFF FLAG NO
[2025-04-09 16:25] LABS: Basophils Absolute Auto 0.1 X10*3/uL (0.0-0.2); Basophils Percent Auto 0.7 % (0-2); Eosinophils Absolute Auto 0.1 X10*3/uL (0.0-0.4); Eosinophils Percent Auto 0.9 % (0-4); Hematocrit 45.6 % (42.0-52.0); Hemoglobin 16.2 g/dl (14.0-18.0); Imm Gran Abs Auto 0.03 X10*3/uL (0.00-0.03); Imm Gran Pct Auto 0.3 % (0.0-0.4); Lymphocytes Absolute Auto 2.7 X10*3/uL (1.2-4.9); Lymphocytes Percent Auto 29.9 % (20-40); Mean Corpuscular HGB Conc 35.5 g/dl (31.0-36.0); Mean Corpuscular Hemoglobin 33.9 pg (27.0-33.0); Mean Corpuscular Volume 95.4 fL (80.0-98.0); Mean Platelet Volume 10.2 fL (9.4-12.4); Monocytes Absolute Auto 0.8 X10*3/uL (0.1-1.2); Monocytes Percent Auto 9.3 % (2-11); Neutrophils Absolute Auto 5.3 x10*3/uL (2.0-8.3); Neutrophils Percent Auto 58.9 % (45-73); Platelet Count 254 X10*3/uL (160-400); Red Blood Count 4.78 X10*6/uL (4.60-5.80); Red Cell Distribution Width 13.1 % (11.0-16.0)
[2025-04-09 16:39] LABS: Alanine Aminotransferase 32 U/L (0-40); Albumin Level 4.6 g/dL (3.5-5.0); Alkaline Phosphatase 65 U/L (39-117); Anion Gap 11 (12-20); Aspartate Amino Transferase 31 U/L (5-37); Bilirubin Total 0.4 mg/dL (0.0-1.0); Blood Urea Nitrogen 16 mg/dL (9-16); Calcium 9.1 mg/dL (8.4-10.2); Carbon Dioxide 25 mmol/L (22-29); Chloride 104 mmol/L (96-108); Estimated Glomerular Filt Rate > 60; Glucose Random 292 mg/dL (60-115); Potassium 4.2 mmol/L (3.3-5.1); Sodium 136 mmol/L (135-145)
[2025-04-09 16:45] LABS: Creatinine Urine 37.06 mg/dL; Microalbum/Creatinine Ratio Ur 16.1 ug/mg cr (<30)
[2025-04-11 18:13] LABS: HIV RNA PCR Qn Copies 417 copies/mL (NOT DETECTED); HIV RNA PCR Qn Log Copies 2.62 (NOT DETECTED)
== END 2025-04-09 14:40 | disposition home or self-care (01) ==
LOC: HO.HHCL 14:39
PROVIDERS: Visit Provider Student in an Organized Health Care Education/Training Program
DX: B20 Human immunodeficiency virus [HIV] disease (principal); E11.9 Type 2 diabetes mellitus without complications
CPT/HCPCS: 36415; 80053; 82043; 82570; 85025; 87536

== ENCOUNTER → 2025-05-14 13:00 | Outpatient (BNV) | payer OTHER, SELFPAY | PROVIDERS: PCP Student in an Organized Health Care Education/Training Program; Visit Provider Radiology Diagnostic Radiology | DX: B20 Human immunodeficiency virus [HIV] disease (principal) | CPT/HCPCS: 77080 ==

== ENCOUNTER 2025-05-14 13:12 | Outpatient (REF) | payer OTHER, SELFPAY ==
--- NOTE | ~2025-05-14 | MM_ITS ---
EXAMINATION: DXA BONE DENSITY AXIAL HISTORY: Patient with HIV needs to r/o osteoporosis on ARV TECHNIQUE: [employer] Dual energy absorptiometry (DEXA) of the lumbar spine, total left hip, and femoral neck was performed. COMPARISON: There are no prior studies for comparison. FINDINGS: The bone mineral density of the lumbar spine is 1.442 g/cm2, corresponding to a T-score of 1.8, and a Z-score of 2.4. This is indicative of normal bone mineral density. The bone mineral density of the left total hip is 1.193 g/cm2, corresponding to a T-score of 0.6, and a Z-score of 1.2. This is indicative of normal bone mineral density. The bone mineral density of the left femoral neck is 1.080 g/cm2, corresponding to a T-score of 0.1, and a Z-score of 1.1. This is indicative of normal bone mineral density. MM/XR DEXA axial skeleton IMPRESSION: Based on bone mineral density, and according to World Health Organization (WHO) criteria, the diagnosis is consistent with normal bone mineral density. Statistically, 68% of repeat scans fall within 1 SD (+/- 0.010 g/cm2 for AP spine L1-L4) and 1 SD (+/- 0.012 g/cm2 for femur total) FRAX is a trademark of the [employer]'s [employer] Metabolic Bone Disease, a World Health Organization (WHO) Collaborating Center. Electronically signed by: Ricardo Olsen MD 05/15/2025 07:20 AM EDT
== END 2025-05-14 13:13 | disposition home or self-care (01) ==
LOC: HO.MAMMO 13:12
PROVIDERS: PCP Student in an Organized Health Care Education/Training Program; Visit Provider Student in an Organized Health Care Education/Training Program
DX: Z13.820 Encounter for screening for osteoporosis (principal); B20 Human immunodeficiency virus [HIV] disease
CPT/HCPCS: 77080

== ENCOUNTER 2025-05-21 17:50 | Outpatient (REF) | payer OTHER, SELFPAY ==
[2025-05-21 18:10] LABS: Appearance Urine Clear; Glucose Urine UA >=1000 mg/dL (Negative); PH 7.0 (5.0-9.0); Specific Gravity - Urine >= 1.030 (1.005-1.025); UMIC TRIGGER UACC YES
[2025-05-22 10:06] LABS: CT PCR Urine NOT DETECTED (Not Detect.); NG PCR Urine NOT DETECTED (Not Detect.)
== END 2025-05-21 17:51 | disposition home or self-care (01) ==
LOC: HO.LNP 17:50
PROVIDERS: Visit Provider Student in an Organized Health Care Education/Training Program
DX: Z11.8 Encounter for screening for other infectious and parasitic diseases (principal); Z21 Asymptomatic human immunodeficiency virus [HIV] infection status; R35.1 Nocturia
CPT/HCPCS: 81001; 87491; 87591

== ENCOUNTER 2025-06-03 10:18 | Outpatient (REF) | payer OTHER, SELFPAY ==
--- OUTSIDE RECORDS SUMMARY | 2025-06-03 11:24 | XMS_ITS | Clinical Summary ---
Author Organization [facility] Address [address] [place] [id number] Phone Care Team Providers Care Finish Repairer Name Role Phone Unavailable Primary Care Provider Unavailabl e Social History Tobacco Use Types Packs/Day Years Used Date Smoking Tobacco: Never Assessed Education Answer Date Recorded Are you interested in more education? Not on rashida e 03/10/2023 Are you concerned about learning? Not on file 03/10/2023 No 03/10/2023 No 03/10/2023 Digital Access Answer Date Recorded No 04/08/2023 No 04/08/2023 No 04/08/2023 Reliable internet access at home? Not on file 04/08/2023 Device with a working camera? Not on file Sex and Gender Information Value Date Recorded Sex Assigned at Not on file Legal Sex Male 9:42 PM EDT Gender Identity Not on file Sexual Orientation Not on file Plan of Treatment Health Maintenance Due Date Last Done Comments LIPID PANEL 1964 DEPRESSION SCREENING 1976 SMOKING Hx and SMOKELESS TOBACCO SCREENING 1977 HEPATITIS C SCREENING 1982 HIV ONE-TIME SCREENING (18-65 YEARS) 1982 COLOGUARD 2009 COLONOSCOPY 2009 COLORECTAL CANCER SCREENING 2009 FIT TEST 2009 FOBT 2009 SIGMOIDOSCOPY 2009 VIRTUAL COLONOSCOPY 2009 ZOSTER VACCINES (1 of 2) 2014 COVID-19 VACCINE (2 - season) 2024 02/18/2021 Adult Td,Tdap Booster 01/18/2031 01/18/2021 , 10/03/2012, 04/09/2010 RSV VACCINE (1 - 1-dose 75+ series) 2039 HEPATITIS A VACCINES Aged Out 04/09/2010, 09/14/2000, 03/15/2000 No longer eligible based on patient's age to complete this topic PNEUMOCOCCAL VACCINES (50+ years) Completed 03/12/2018, 10/20/2014, 02/06/2010, Additional history exists MENINGOCOCCAL VACCINES (ACWY) Aged Out 07/30/2018, 03/12/2018 No longer eligibl e based on patient's age to complete this topic HIB VACCINES Aged Out No longer eligi ble based on patient's age to complete this topic MENINGOCOCCAL VACCINES (B) Aged Out N o longer eligible based on patient's age to complete this topic Medical Devices Not on file Additional Source Comments The information contained in this document represents components of the legal health record. It is not the complete legal health record.[facility]
--- OUTSIDE RECORDS SUMMARY | 2025-06-03 11:24 | XMS_ITS | Patient Health Record ---
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 (Z79.02) Active confirmed Problem [id number] Long-term use of aspirin therapy (Z79.82) Active confirmed Plan Of Treatment Future Test Test Name Order Date COLONOSCOPY 11/23/2022 Insurance Providers Payer Name Payer Address Payer Phone Subscriber Number Group Number Insured Name Patient Relationship to Insured Coverage Start Date Coverage End Date [facility] [address] Attn Claims THOMAS Sanchez [id number] CIELOLAYLA Self - patient is the insured [facility] [address] [place] [address] [id number] LAYLA BUCK Self - patient is the insured Medical (General) History Medical History History ICD Code coronary artery disease with history of NSTEMI and stent placement 04/2019. nonischemic cardiomyopathy diabetes mellitus hypertension elevated cholesterol depression HIV infection Neuropathy Surgical History Surgery Date(Month/Year) appendectomy left knee arthroscopy right knee arthroscopy Carpal tunnel repair right
[2025-06-03 11:26] LABS: MANUAL DIFF FLAG NO
[2025-06-03 11:37] LABS: Hematocrit 48.4 % (42.0-52.0); Hemoglobin 16.8 g/dl (14.0-18.0); Imm Gran Abs Auto 0.02 X10*3/uL (0.00-0.03); Imm Gran Pct Auto 0.3 % (0.0-0.4); Lymphocytes Absolute Auto 2.3 X10*3/uL (1.2-4.9); Mean Corpuscular HGB Conc 34.7 g/dl (31.0-36.0); Mean Corpuscular Hemoglobin 33.3 pg (27.0-33.0); Mean Corpuscular Volume 95.8 fL (80.0-98.0); NRBC Abs Auto 0.000 X10*3/uL (0.0-0.012); NRBC Pct Auto 0.0 /100WBC (0.0-0.2); Platelet Count 273 X10*3/uL (160-400); Red Blood Count 5.05 X10*6/uL (4.60-5.80); White Blood Count 6.1 X10*3/uL (4.8-10.8)
[2025-06-03 11:46] LABS: Hemoglobin A1C 376.8495 umol/L; Total Hemoglobin (HGBA1C) 4331.1893 umol/L
[2025-06-03 12:16] LABS: Alanine Aminotransferase 25 U/L (0-40); Albumin Level 4.6 g/dL (3.5-5.0); Alkaline Phosphatase 60 U/L (39-117); Anion Gap 12 (12-20); Aspartate Amino Transferase 35 U/L (5-37); Blood Urea Nitrogen 16 mg/dL (9-16); Calcium 9.0 mg/dL (8.4-10.2); Carbon Dioxide 21 mmol/L (22-29); Chloride 112 mmol/L (96-108); Cholesterol 109 mg/dL (<200); Estimated Glomerular Filt Rate > 60; HDL Cholesterol 46 mg/dL (>40); Potassium 3.9 mmol/L (3.3-5.1); Sodium 141 mmol/L (135-145); Total Protein 6.8 g/dL (6.5-8.0); Triglycerides 58 mg/dL (<150)
[2025-06-03 12:25] LABS: HBS Num1 358.61 mIU/mL (0-7.99); HBsAGNum1 0.36 S/CO (0.00-0.99); Hepatitis B Surface Antigen Negative (Negative); ~HepC Num1 0.12 S/CO (0.00-0.79); ~Hepatitis B Surface Antibody REACTIVE (Nonreactive); ~Hepatitis C Antibody Nonreactive (Nonreactive)
[2025-06-03 12:39] LABS: Folate 13.5 ng/mL (> or = 4.0); Vitamin B12 716 pg/mL (200-900)
[2025-06-03 13:02] LABS: Reflex LDLD? No
[2025-06-04 22:33] LABS: HIV RNA PCR Qn Copies NOT DETECTED copies/mL (NOT DETECTED); HIV RNA PCR Qn Log Copies NOT DETECTED (NOT DETECTED)
[2025-06-06 05:38] LABS: TS Negative Control Passed; TS Panel A 0; TS Panel B 0; TS Positive Control Passed; TSpotTB Negative (Negative)
== END 2025-06-03 10:19 | disposition home or self-care (01) ==
LOC: HO.HHCL 10:18
PROVIDERS: PCP Student in an Organized Health Care Education/Training Program; Visit Provider Student in an Organized Health Care Education/Training Program
DX: M47.26 Other spondylosis with radiculopathy, lumbar region (principal); M48.061 Spinal stenosis, lumbar region without neurogenic claudication; M53.3 Sacrococcygeal disorders, not elsewhere classified; E11.69 Type 2 diabetes mellitus with other specified complication; Z21 Asymptomatic human immunodeficiency virus [HIV] infection status
CPT/HCPCS: 36415; 80053; 80061; 82607; 82746; 83036; 85025; 86481; 86592; 86706; 86803; 87340; 87536; 99212

== ENCOUNTER 2025-06-03 14:59 | Outpatient (AMB) | payer OTHER, SELFPAY ==
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
[2025-06-03 15:02] VITALS: BP 130/87; PULSE 90; RESP 16; O2SAT 97; BMI 24.7
== END 2025-06-03 15:22 | disposition home or self-care (01) ==
LOC: HO.PMC 15:00
PROVIDERS: PCP Student in an Organized Health Care Education/Training Program; Visit Provider Nurse Practitioner Family
DX: M47.816 Spondylosis without myelopathy or radiculopathy, lumbar region (principal); M54.16 Radiculopathy, lumbar region; M48.061 Spinal stenosis, lumbar region without neurogenic claudication; M53.3 Sacrococcygeal disorders, not elsewhere classified
CPT/HCPCS: 99214; G2211

== ENCOUNTER 2025-06-06 09:29 | Outpatient (AMB) | payer OTHER, SELFPAY ==
--- NOTE | 2025-06-06 07:48 | A.OFFVIS_ITS ---
Intake Visit Reasons: Nicotine dependence, cigarettes Allergies trulicity Adverse Reaction (Intermediate, Uncoded 01/15/25 14:30) Abdominal Pain HPI HPI Nicotine dependence, cigarettes: Details: Initial visit for this 59 smoker with a 45+PYH. Patient started smoking at age 13 for 46 years at 1ppd. Max 2ppd - mainly 1ppd. He is trying to quit, using patches. . Denies marijuana use. Denies second hand smoke exposure. Denies exposure to chemicals or substances like asbestos. . Denies known family history of lung cancer. Denies personal history of cancers. PMH significant for HIV, Hx CVA, Hx NSTEMI with 2 stents in [address] in last year. Prior CTs in 2017 and 2020 noted paraseptal emphysema and bulla in [place] . Denies recent travel outside the [place]. Denies recent respiratory illness or recent hospitalization for respiratory issues. Denies testing positive for COVID. Admits receiving COVID Vaccine. . Denies fever, chills, new/worsening cough, hemoptysis, hoarseness or dysphagia. Denies significant chest pain, significant dyspnea or unintentional weight loss. Patient Lung Cancer Screening Questionnaire reviewed with patient by provider. . Shared Decision Making Completed. Patient meets criteria. Discussed in detail with patient, the risk vs benefit of LDCT screening. Patient consents to proceed with scan. Discussed smoking cessation. [facility] Medical History (Updated 06/06/25 @ 09:46 by Kaylen Rouse PA-C) HIV (human immunodeficiency virus infection) History of CVA (cerebrovascular accident) Cardiomyopathy CAD (coronary artery disease) Stented coronary artery HTN (hypertension) Hyperlipidemia Diabetes Osteoarthritis, hip, bilateral Depression Tubular adenoma of colon Nicotine dependence, cigarettes, uncomplicated Surgical History History of cardiac cath History of heart artery stent History of circumcision History of arthroscopy of right knee History of appendectomy History of colonoscopy History of surgery on right wrist Family History Other Hypertension Social History (Updated 06/06/25 @ 09:46 by Kaylen Rouse PA-C) Household Members: None Do you presently have visiting nurse or other home services: Yes Alcohol intake: former Year quit: 2020 Comment: pt sleeping Patient Tobacco Use Status: Current everyday Tobacco user Tobacco use type: Cigarette Cigarette Packs Per Day: 1 Cigarettes Per Day: 20 Years Smoked: (onset 13yo, 1ppd x 46yrs, 45+pyh) Second Hand Smoke Exposure: No Advance Directives Date on File: 01/26/21 service: No Current occupational status: unemployed and disabled 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 - Patient meets criteria for LDCT for lung cancer screening purposes and is asymptomatic. - Smoking cessation counseling offered. Patients can always call [phone]. - Will arrange for a LDCT scan of the chest for screening purposes at [facility]. - Risks, benefits, and alternatives were discussed in detail and the patient agrees to proceed. - Risks discussed include but are not limited to: radiation exposure, anxiety during testing and while awaiting results, false negatives, false positives and possibility of additional intervention such as further imaging or surgical procedures for benign disease. - Benefits are obviously detection of lung cancer at an early stage which can lead to improved outcomes. - Discussed the importance of screening program compliance with adherence to yearly LDCT scan as scheduled - or sooner interval scans for personalized screening regimen. - Discussed follow up plan. Our office will send a letter discussing results and if needed set up phone call and office visit based on CT findings. - Patient educated on results categorization and the management decisions for suspicious findings potentially found on the screening LDCT scan. Any patient with a Lung RADS score of 3 or 4 will be reviewed by a multidisciplinary team at [facility] to form a plan of action in regards to scan findings. - If further work up is warranted for a suspicious lung finding this will be followed by the Lung Cancer Screening program in conjunction with the Thoracic Surgery Department at [facility]. - A copy of the office note and LDCT will be sent to the patient's PCP - as well as documentation on any associated further plans of care. - Incidental findings on LDCT are the PCP's responsibility. These findings are indicated with an S finding on the LDCT Assessment. A note discussing the findings will be sent to the PCP who is then responsible for further management. - All questions answered.? Coding Level of Care Code Lung Cancer Screening G0296 Diagnoses Nicotine dependence, cigarettes, uncomplicated F17.210
--- OUTSIDE RECORDS SUMMARY | 2025-06-06 09:43 | XMS_ITS | Clinical Summary ---
Author Organization [facility] Address [address] [facility] [address] [place] [address] Phone Care Team Providers Care Shirt Ironer Supervisor Name Role Phone Unavailable Primary Care Provider [...] It is not the complete legal health record.[facility]
--- OUTSIDE RECORDS SUMMARY | 2025-06-06 09:43 | XMS_ITS | Patient Health Record ---
Author Organization [facility] Address [address] [place] [address] Care Team Providers Care Business Development Specialist Name Role Phone AllenRitaShaanjaylyn (DO NOT USE), [...] Problem Status W/U Status Risk Notes Problem [id number] Colon cancer screening (Z12.11) Active confirmed Problem [id number] student records coordinator (current) use of antithrombotics /antiplatelets (Z79.02) Active confirmed Problem 692894496 Long-term use of aspirin therapy (Z79.82) Active confirmed Plan Of Treatment Future Test Test Name Order Date COLONOSCOPY 11/23/2022 Insurance Providers Payer Name Payer Address Payer Phone Subscriber Number Group Number Insured Name Patient Relationship to Insured Coverage Start Date Coverage End Date [facility] [address] Attn Claims THOMAS Sanchez [id number] CIELOLAYLA Self - patient is the insured [facility]ICAID [facility] [address] [place] [address] [id number] LAYLA BUCK Self - patient is the insured Medical (General) History Medical History History ICD Code coronary artery disease with history of NSTEMI and stent placement 04/2019. nonischemic cardiomyopathy diabetes mellitus hypertension elevated cholesterol depression HIV infection Neuropathy Surgical History Surgery Date(Month/Year) appendectomy left knee arthroscopy right knee arthroscopy Carpal tunnel repair right
== END 2025-06-06 10:12 | disposition home or self-care (01) ==
LOC: HO.HPS 09:30
PROVIDERS: PCP Student in an Organized Health Care Education/Training Program; Referring Provider Student in an Organized Health Care Education/Training Program; Visit Provider Physician Assistant Medical
DX: F17.210 Nicotine dependence, cigarettes, uncomplicated (principal)
CPT/HCPCS: G0296

== ENCOUNTER 2025-06-06 09:46 | Outpatient (REF) | payer OTHER, SELFPAY ==
--- NOTE | ~2025-06-06 | CT_ITS ---
CLINICAL HISTORY: F17.210 - Nicotine dependence, cigarettes, uncomplicated CT lung cancer screening (LDCT) Comparison: None provided Technique: Axial CT images of the chest using low-dose technique. Referring provider counseled the patient on shared decision-making for LDCT screening. Additional counseling was provided on smoking cessation. Effective radiation dose total: DLP 42.2 mGycm, CTDIvol 1.5 mGy. Findings: Lung: Calcified lesion, possible granuloma, right lower lobe. Otherwise no solid or semi solid lesions. Coronary artery calcifications: Mild Limited upper abdomen: Unremarkable Other: Thin-walled left upper lobe 4.2 x 3.1 cm bulla. Impression: Category 2: Benign appearance or behavior, continue annual screening Category 1: Normal; continue annual screening Category 2: Benign appearance or behavior, continue annual screening Category 3: Probably benign, [address] recommended Category 4A: Suspicious, [address] recommended; may consider PET/CT Category 4B: Suspicious, Additional diagnostics and/or tissue sampling recommended Category 4X: Suspicious, Additional diagnostics and/or tissue sampling recommended Category 0: Recalls (incomplete screen due to Incomplete coverage, Noise, Respiratory motion, Expiration, Obscured by acute abnormality) This document has been electronically signed by: Live Nguyen MD on 06/07/2025 09:59:43
--- NOTE | ~2025-06-06 | XR_ITS ---
EXAMINATION: XR LUMBOSACRAL SPINE CLINICAL INFORMATION: M47.816 - Spondylosis without myelopathy or radiculopathy, lumbar region COMPARISON: None available. TECHNIQUE: 6 views of the lumbar spine, inclusive of flexion and extension views, were obtained. FINDINGS: Moderate atherosclerotic calcifications are evident in the abdominal aorta. There are 5 nonrib-bearing lumbar segments. With flexion and extension, there is no sign of instability. L1-2: There is mild disc space narrowing. L2-3: There is mild displacement. L3-4: There is subtle retrolisthesis. L4-5: Unremarkable. L5-S1: There is facet sclerosis. XR/XR lumbar spine 6V w bending IMPRESSION: Mild degenerative changes, no sign of instability. Electronically signed by: Sang Waite MD 06/06/2025 10:06 AM EDT
== END 2025-06-06 09:47 | disposition home or self-care (01) ==
LOC: HO.CT 09:46
PROVIDERS: PCP Student in an Organized Health Care Education/Training Program; Visit Provider Physician Assistant Medical
DX: F17.210 Nicotine dependence, cigarettes, uncomplicated (principal); Z12.2 Encounter for screening for malignant neoplasm of respiratory organs; M47.816 Spondylosis without myelopathy or radiculopathy, lumbar region; M54.16 Radiculopathy, lumbar region; M48.061 Spinal stenosis, lumbar region without neurogenic claudication
CPT/HCPCS: 71271; 72114; G0296

== ENCOUNTER → 2025-06-06 09:48 | Outpatient (BNV) | payer OTHER, SELFPAY | PROVIDERS: PCP Student in an Organized Health Care Education/Training Program; Visit Provider Radiology Diagnostic Radiology | DX: F17.210 Nicotine dependence, cigarettes, uncomplicated (principal) | CPT/HCPCS: 71271 ==

== ENCOUNTER 2025-08-07 14:01 | Outpatient (AMB) | payer OTHER, SELFPAY ==
[2025-08-07 14:03] VITALS: BP 114/62; PULSE 88; BMI 24.9
--- NOTE | 2025-08-07 14:03 | MHC.OFFVIS ---
Vital Signs 08/07/25 14:03 Height 5 ft 10 in Weight 173 lb 11.588 oz BMI 24.9 BP 114/62 Blood Pressure Location Lt brachial Position Sitting Pulse 88 Pulse Source Pulse Oximeter Intake Visit Reasons: 6m follow up Sap Functional Analyst Required: Yes Sap Functional Analyst Language: Thread Separator Name: artur askew [id number] Allergies trulicity Adverse Reaction (Intermediate, Uncoded 08/07/25 14:06) Abdominal Pain Medication List - Last Reconciled 08/07/25 by Kusum Stern, [facility] aspirin 1 tab PO QAM clopidogrel (Plavix) 75 mg PO DAILY 90 days empagliflozin-metformin 5-1,000 mg (Synjardy) 1 tab PO BID 30 days ezetimibe (Zetia) 10 mg PO DAILY 30 days folic acid 1 mg PO DAILY gabapentin 100 mg PO DAILY insulin glargine-yfgn 7 units subcut BEDTIME lancets (TRUEplus Lancets) As directed metoprolol succinate ER mg PO DAILY vmykpgyc-fql-KI-lycopen-lutein 0.4 mg-300 mcg- 250 mcg (CertaVite Senior) 0 tabs PO polyvinyl alcohol 1.4% (Artificial Tears (polyvinyl alcohol)) 0 drps ophthalmic (eye) rosuvastatin 40 mg PO BEDTIME sacubitril-valsartan 24-26 mg (Entresto) 1 tab PO BID thiamine HCl (vitamin B1) 100 mg PO DAILY valacyclovir 1,000 mg PO BID HPI HPI 6m follow up: Details: Jerman is a 59-year-old male with past medical history of hypertension, hyperlipidemia, coronary artery disease with 2 coronary stents in the RCA, ischemic cardiomyopathy who presents for follow-up after recent echocardiogram. Today he reports he has been feeling well with no concerning symptoms. Does have some mild shortness of breath with exertion but he relates that to smoking. He denies shortness of breath at rest, PND, orthopnea or edema. No chest discomfort at rest or with activity. No heart palpitations, lightheadedness. 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 He reports compliance with his medications. [facility] Medical History HIV (human immunodeficiency virus infection) History of CVA (cerebrovascular accident) Cardiomyopathy CAD (coronary artery disease) Stented coronary artery HTN (hypertension) Hyperlipidemia Diabetes Osteoarthritis, hip, bilateral Depression Tubular adenoma of colon Nicotine dependence, cigarettes, uncomplicated Surgical History History of cardiac cath History of heart artery stent History of circumcision History of arthroscopy of right knee History of appendectomy History of colonoscopy History of surgery on right wrist Family History Other Hypertension Social History Household Members: None Do you presently have visiting nurse or other home services: Yes Alcohol intake: former Year quit: 2020 Comment: pt sleeping Patient Tobacco Use Status: Current everyday Tobacco user Tobacco use type: Cigarette Cigarette Packs Per Day: 1 Cigarettes Per Day: 20 Years Smoked: (onset 13yo, 1ppd x 46yrs, 45+pyh) Second Hand Smoke Exposure: No Advance Directives Date on File: 01/26/21 service: No Current occupational status: unemployed and disabled 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 Review of Systems Const All systems reviewed & are unremarkable except as noted in HPI and below ENT Denies dizziness Card Denies chest pain, Denies chest pain at rest, Denies chest pain with activity, Denies rapid heart rate, Denies pedal edema, Denies edema, Denies leg edema, Denies lightheadedness, Denies palpitations, Denies dyspnea, Reports dyspnea on exertion (which he relates to smoking) and Denies orthopnea Resp Denies cough, Denies dyspnea and Reports dyspnea on exertion (which he relates to smoking) GI Denies hematochezia and Denies change in stool character Musc Details: joint arthritis Denies abnormal gait, Denies limited range of motion, Denies muscle cramps, Denies muscle weakness, Denies numbness, Denies radiating pain into limb, Denies stiffness and Denies tingling Neuro Denies abnormal gait, Denies dizziness, Denies numbness and Denies tingling Endo Denies palpitations Physical Exam Vital Signs: Last Vital Signs Pulse 88 08/07/25 14:03 BP 114/62 08/07/25 14:03 BMI result Body Mass Index 24.9 Const General: cooperative, healthy appearing, comfortable and no acute distress Orientation/consciousness: patient oriented x3 Neck Neck: Yes normal visual inspection Resp Effort & Inspection: normal respiratory effort Auscultation: clear to auscultation bilaterally, no rales, no rhonchi and no wheezes Cardio Rate: regular rate Rhythm: regular rhythm Heart sounds: S1 normal heart sound present, S2 normal heart sound present, no gallops, no murmurs and no rubs Neuro General: patient oriented x3 Extrem General: Yes normal to inspection and No no pedal edema Psych Appearance: grossly normal Mental Status: mental status grossly normal Speech and movement: Normal speech and movement present Assessment & Plan Assessment & Plan (1) CAD (coronary artery disease): Comment: (NSTEMI 2019 - s/p 2 OUMAR to RCA) Code(s): I25.10 - Atherosclerotic heart disease of [place] coronary artery without angina pectoris Category: Medical Qualifiers: Coronary Disease-Associated Artery/Lesion type: [place] artery [place] vs. transplanted heart: [place] heart Associated angina: without angina Qualified Code(s): I25.10 - Atherosclerotic heart disease of [place] coronary artery without angina pectoris Plan: History of CAD with NSTEMI, with 2 stents placed to the RCA. He did have repeat catheterization 07/20/2023 showing mid RCA 60% stenosis with patent stents in the distal and mid RCA. No significant disease elsewhere. Last echocardiogram done 02/26/2025 shows EF 35-40%, inferior lateral and basal inferior wall akinetic. No significant change from last echo. He is currently denying anginal and reports good activity tolerance. Continue aspirin indefinitely. He remains on Plavix. Will check with his primary claims technician to see if he can stop. Continue metoprolol and Entresto. Continue rosuvastatin and Zetia with ideal LDL goal less than 70. Signs and symptoms of angina reviewed with him. Cardiology follow-up 6 months, sooner if needed. (2) Stented coronary artery: Comment: (2 OUMAR to RCA - 2018) Code(s): Z95.5 - Presence of coronary angioplasty implant and graft Category: Medical Plan: As above (3) S/P cardiac catheterization: Comment: 07/20/2023, lad, left circumflex mild irregularities less than 30% stenosis, mid RCA 60% stenosis, 2 patent RCA stents Code(s): Z98.890 - Other specified postprocedural states Category: Surgical Plan: As above (4) Cardiomyopathy: Code(s): I42.9 - Cardiomyopathy, unspecified Category: Medical Qualifiers: Cardiomyopathy type: unspecified Qualified Code(s): I42.9 - Cardiomyopathy, unspecified Plan: Prior echo had shown EF 40-45%. More recent echo 02/26/2025 shows EF 35-40% with inferior wall motion abnormality. He does not appear fluid overloaded on exam. Continue metoprolol XL and Entresto for neurohormonal modulation. He is not requiring diuretics. (5) HTN (hypertension): Code(s): I10 - Essential (primary) hypertension Category: Medical Qualifiers: Hypertension type: primary hypertension Qualified Code(s): I10 - Essential (primary) hypertension Plan: Blood pressure goal less than 130/80. Well controlled at this time. No med changes made. (6) Hyperlipidemia: Code(s): E78.5 - Hyperlipidemia, unspecified Category: Medical Qualifiers: Hyperlipidemia type: unspecified Qualified Code(s): E78.5 - Hyperlipidemia, unspecified Plan: [place] LDL goal less than 70. Labs done 06/03/2025 showed LDL 52, AST 35, ALT 25. Continue rosuvastatin and Zetia. Plan Time spent on chart review, documentation, interview and assessment Coding Level of Care Code Est Pt Level 4 (28607) Complex EM visit Add On G2211 Diagnoses Coronary artery disease involving [place] coronary artery of [place] heart without angina pectoris I25.10 Coronary Disease-Associated Artery/Lesion type: [place] artery [place] vs. transplanted heart: [place] heart Associated angina: without angina Stented coronary artery Z95.5 S/P cardiac catheterization Z98.890 Cardiomyopathy, unspecified type I42.9 Cardiomyopathy type: unspecified Primary hypertension I10 Hypertension type: primary hypertension Hyperlipidemia, unspecified hyperlipidemia type E78.5 Hyperlipidemia type: unspecified Time Spent (min) 32
--- OUTSIDE RECORDS SUMMARY | 2025-08-07 18:31 | XMS_ITS | Clinical Summary ---
Author Organization [facility] Address [address] [facility] [address] [place] [address] Phone Care Team Providers Care Structural Worker Name Role Phone Unavailable Primary Care Provider [...] 2009 ZOSTER VACCINES (1 of 2) 2014 INFLUENZA VACCINE (#1) 2025 , 07/30/2018, 08/14/2017, Additional history exists COVID-19 VACCINE ( season) 2025 02/18/2021 Adult Td,Tdap Booster 01/18/2031 01/18/2021 , [...] It is not the complete legal health record.[facility]
--- OUTSIDE RECORDS SUMMARY | 2025-08-07 18:31 | XMS_ITS | Patient Health Record ---
Author Organization [facility] Address [address] [place] [address] Care Team Providers Care Environmental Conservation Professor Name Role Phone Bridgette Abrams Primary Care Provider Rodo Ramesh Jr Unavailable Allergies No Known Allergies Reason [...] Problem Status W/U Status Risk Notes Problem [id number] Colon cancer screening (Z12.11) Active confirmed Problem 572055068 residential (current) use of antithrombotics /antiplatelets (Z79.02) Active confirmed Problem 834338374 Long-term use of aspirin therapy (Z79.82) Active confirmed Plan Of Treatment Future Test Test Name Order Date COLONOSCOPY 11/23/2022 Next Appt Details Provider Name:Rodo cloud , 10/30/2025 03:15:00 PM, [address] [place] [address], [address], [place], [address], Insurance Providers Payer Name Payer Address Payer Phone Subscriber Number Group Number Insured Name Patient Relationship to Insured Coverage Start Date Coverage End Date [facility] [address] Attn Claims THOMAS Sanchez [id number] LAYLA BUCK Self - patient is the insured MEDICAID OF [facility] [address] [place] [address] [id number] LAYLA BUCK Self - patient is the insured Medical (General) History Medical History History ICD Code coronary artery disease with history of NSTEMI and stent placement 04/2019. nonischemic cardiomyopathy diabetes mellitus hypertension elevated cholesterol depression HIV infection Neuropathy Surgical History Surgery Date(Month/Year) appendectomy left knee arthroscopy right knee arthroscopy Carpal tunnel repair right
== END 2025-08-07 14:44 | disposition home or self-care (01) ==
LOC: HO.HCS 14:02
PROVIDERS: PCP Student in an Organized Health Care Education/Training Program; Visit Provider Nurse Practitioner Family
DX: I25.10 Atherosclerotic heart disease of native coronary artery without angina pectoris (principal); Z95.5 Presence of coronary angioplasty implant and graft; Z98.890 Other specified postprocedural states; I42.9 Cardiomyopathy, unspecified; I10 Essential (primary) hypertension; E78.5 Hyperlipidemia, unspecified
CPT/HCPCS: 99214; G2211

== ENCOUNTER → 2025-08-07 14:01 | Outpatient (BNVA) | payer OTHER, SELFPAY | PROVIDERS: PCP Student in an Organized Health Care Education/Training Program; Visit Provider Nurse Practitioner Family | DX: I25.10 Atherosclerotic heart disease of native coronary artery without angina pectoris (principal); I42.9 Cardiomyopathy, unspecified; I10 Essential (primary) hypertension; E78.5 Hyperlipidemia, unspecified | CPT/HCPCS: 99212 ==

== ENCOUNTER 2025-09-02 10:21 | Outpatient (REF) | payer OTHER, SELFPAY ==
[2025-09-02 11:37] LABS: MANUAL DIFF FLAG NO
[2025-09-02 11:54] LABS: Hematocrit 47.4 % (42.0-52.0); Hemoglobin 16.3 g/dl (14.0-18.0); Imm Gran Abs Auto 0.02 X10*3/uL (0.00-0.03); Imm Gran Pct Auto 0.3 % (0.0-0.4); Lymphocytes Absolute Auto 2.2 X10*3/uL (1.2-4.9); Mean Corpuscular HGB Conc 34.4 g/dl (31.0-36.0); Mean Corpuscular Hemoglobin 32.6 pg (27.0-33.0); Mean Corpuscular Volume 94.8 fL (80.0-98.0); NRBC Abs Auto 0.000 X10*3/uL (0.0-0.012); NRBC Pct Auto 0.0 /100WBC (0.0-0.2); Platelet Count 243 X10*3/uL (160-400); Red Blood Count 5.00 X10*6/uL (4.60-5.80); White Blood Count 6.9 X10*3/uL (4.8-10.8)
--- OUTSIDE RECORDS SUMMARY | 2025-09-02 12:15 | XMS_ITS | Patient Health Record ---
Author Organization [facility] Address [address] [place] [address] Care Team Providers Care Dyeing Machine Tender Name Role Phone Bridgette Abrams Primary Care Provider Rodo Ramesh Jr Unavailable Allergies No Known Allergies Reason For Referral No Information Medications Medication SIG (Take, Route, Frequency, Duration) Notes Start Date End Date Status traZODone HCl 100 MG Oral; Duration: 30 Active Lisinopril 5 MG 1 tablet Orally Once a day; Duration: 30 day(s) Active Mirtazapine 15 MG Oral; Duration: 30 Active MiraLax (colon prep) 17 GM/SCOOP mixed with Gatorade or Crystal Light Orally begin at 5:00 p.m. the day before the procedure; Duration: 1 day 11/23/2022 Active glipiZIDE 10 MG 1 tablet 30 minutes before breakfast Orally Once a day; Duration: 30 day(s) Active Jardiance 25 MG Oral; Duration: 90 Active Brilinta 90 MG 1 tablet Orally Twic e a day; Duration: 30 day(s) 11/29/2019 Active Descovy 200-25 MG as directed Orally Active Clopidogrel Bisulfate 75 MG Oral; Duration: 90 Active Gabapentin 300 MG Oral; Duration: 30 Active Metoprolol Succinate ER 50 MG 1 tablet Orally Once a day; Duration: 30 day(s) Active Cerovite Senior - Oral; Duration: 90 Active metFORMIN HCl 500 MG 1 tablet with a rohan l Orally twice a day Active FreeStyle Lite Test - In Vitro; Duration: 75 Active Tivicay 50 MG 1 tablet Orally Once a day; Duration: 30 day(s) Active Rosuvastatin Calcium 40 MG 1 tablet Oral ly Once a day; Duration: 30 day(s) Active Aspir-Low 81 MG 1 tablet Orally Once a day; Duration: 30 day(s) Active Immunizations Vaccine Route Administration [...] Problem Status W/U Status Risk Notes Problem Colon cancer screening (062965861) Colon cancer screening (Z12.11) Active confirmed Problem Long-term current use of antithrombotic ([id number]) emt intermediate (current) use of antithromboti cs/antiplatel ets (Z79.02) Active confirmed Problem Long-term current use of antiplatelet drug (494497393601791) Long-term use of aspirin therapy (Z79.82) Active confirmed Plan Of Treatment Future Test Test Name Order Date COLONOSCOPY 11/23/2022 Next Appt Details Provider Name:Rodo cloud , 10/30/2025 03:15:00 PM, [address] [place] [address], [facility] [address], [place], [address], Insurance Providers Payer Name Payer Address Payer Phone Subscriber Number Group Number Insured Name Patient Relationship to Insured Coverage Start Date Coverage End Date [facility] [address] Attn Claims THOMAS Sanchez [id number] LAYLA BUCK Self - patient is the insured MEDICAID OF [facility] [address] [place] [address] [id number] LAYLA BUCK Self - patient is the insured Medical (General) History Medical History History ICD Code coronary artery disease with history of NSTEMI and stent placement 04/2019. nonischemic cardiomyopathy diabetes mellitus hypertension elevated cholesterol depression HIV infection Neuropathy Surgical History Surgery Date(Month/Year) appendectomy left knee arthroscopy right knee arthroscopy Carpal tunnel repair right
--- OUTSIDE RECORDS SUMMARY | 2025-09-02 12:15 | XMS_ITS | Clinical Summary ---
Author Organization [facility] Address [address] [facility] [address] [place] [address] Phone Care Team Providers Care Electrical Test Engineer Name Role Phone Unavailable Primary Care Provider [...] It is not the complete legal health record.[facility]
[2025-09-02 12:28] LABS: Alanine Aminotransferase 31 U/L (0-40); Albumin Level 4.5 g/dL (3.5-5.0); Alkaline Phosphatase 78 U/L (39-117); Anion Gap 10 (12-20); Aspartate Amino Transferase 29 U/L (5-37); Blood Urea Nitrogen 17 mg/dL (9-16); Calcium 9.2 mg/dL (8.4-10.2); Carbon Dioxide 26 mmol/L (22-29); Chloride 106 mmol/L (96-108); Cholesterol 190 mg/dL (<200); Estimated Glomerular Filt Rate > 60; HDL Cholesterol 48 mg/dL (>40); Potassium 4.4 mmol/L (3.3-5.1); Sodium 138 mmol/L (135-145); Total Protein 7.0 g/dL (6.5-8.0); Triglycerides 143 mg/dL (<150)
[2025-09-02 13:57] LABS: Folate 12.9 ng/mL (> or = 4.0); Vitamin B12 583 pg/mL (200-900)
[2025-09-03 05:34] LABS: Rubeola IgG (Measles) >300.00 AU/mL
[2025-09-04 00:13] LABS: HIV RNA PCR Qn Copies 472 copies/mL (NOT DETECTED); HIV RNA PCR Qn Log Copies 2.67 (NOT DETECTED)
[2025-09-05 22:14] LABS: Absolute CD3 Count 1783 cells/uL (840-3060); Absolute CD8 Count 637 cells/uL (180-1170); Percent CD3 Cells 75 % (57-85); Percent CD8 Cells 27 % (12-42)
== END 2025-09-02 10:22 | disposition home or self-care (01) ==
LOC: HO.HHCL 10:21
PROVIDERS: PCP Student in an Organized Health Care Education/Training Program; Visit Provider Student in an Organized Health Care Education/Training Program
DX: Z11.4 Encounter for screening for human immunodeficiency virus [HIV] (principal); Z01.84 Encounter for antibody response examination; Z11.59 Encounter for screening for other viral diseases; B20 Human immunodeficiency virus [HIV] disease; E11.69 Type 2 diabetes mellitus with other specified complication
CPT/HCPCS: 36415; 80053; 80061; 82043; 82570; 82607; 82746; 83036; 85025; 86359; 86360; 86735; 86762; 86765; 87536

== ENCOUNTER 2025-09-29 12:00 | Outpatient (RCR) | payer OTHER, SELFPAY | END 2025-10-14 08:33 | disposition home or self-care (01) | LOC: HO.PT 12:00 | PROVIDERS: PCP Student in an Organized Health Care Education/Training Program; Visit Provider Student in an Organized Health Care Education/Training Program | DX: M54.16 Radiculopathy, lumbar region (principal); M54.2 Cervicalgia | CPT/HCPCS: 97110; 97162 ==

== ENCOUNTER 2025-10-08 10:47 | Outpatient (REF) | payer OTHER, SELFPAY ==
[2025-10-08 13:10] LABS: MANUAL DIFF FLAG NO
--- OUTSIDE RECORDS SUMMARY | 2025-10-08 13:11 | XMS_ITS | Clinical Summary ---
Author Organization [facility] Address [address] [facility] [address] [place] [address] Phone Care Team Providers Care Floor Installation Mechanic Name Role Phone Unavailable Primary Care Provider [...] 1-dose 75+ series) 2039 HEPATITIS A VACCINES Completed 04/09/2010, 09/14/2000, 03/15/2000 PNEUMOCOCCAL VACCINES (50+ years) Completed 03/12/2018, 10/20/2014, [...] It is not the complete legal health record.[facility]
[2025-10-08 13:23] LABS: Hematocrit 47.9 % (42.0-52.0); Hemoglobin 16.5 g/dl (14.0-18.0); Imm Gran Abs Auto 0.01 X10*3/uL (0.00-0.03); Imm Gran Pct Auto 0.1 % (0.0-0.4); Lymphocytes Absolute Auto 2.3 X10*3/uL (1.2-4.9); Mean Corpuscular HGB Conc 34.4 g/dl (31.0-36.0); Mean Corpuscular Hemoglobin 32.9 pg (27.0-33.0); Mean Corpuscular Volume 95.6 fL (80.0-98.0); NRBC Abs Auto 0.000 X10*3/uL (0.0-0.012); NRBC Pct Auto 0.0 /100WBC (0.0-0.2); Platelet Count 262 X10*3/uL (160-400); Red Blood Count 5.01 X10*6/uL (4.60-5.80); White Blood Count 7.9 X10*3/uL (4.8-10.8)
[2025-10-08 13:50] LABS: Alanine Aminotransferase 32 U/L (0-40); Albumin Level 4.7 g/dL (3.5-5.0); Alkaline Phosphatase 60 U/L (39-117); Anion Gap 11 (12-20); Aspartate Amino Transferase 31 U/L (5-37); Blood Urea Nitrogen 19 mg/dL (9-16); Calcium 9.5 mg/dL (8.4-10.2); Carbon Dioxide 24 mmol/L (22-29); Chloride 108 mmol/L (96-108); Estimated Glomerular Filt Rate > 60; Potassium 4.1 mmol/L (3.3-5.1); Sodium 139 mmol/L (135-145); Total Protein 7.0 g/dL (6.5-8.0)
[2025-10-10 16:43] LABS: HIV RNA PCR Qn Copies 915 copies/mL (NOT DETECTED); HIV RNA PCR Qn Log Copies 2.96 (NOT DETECTED)
[2025-10-16 02:28] LABS: Date Viral Load Collected NG; Dolutegravir Resistance NOT PREDICTED; HIV-1 Bictegravir Resistance NOT PREDICTED; HIV-1 Cabotegravir Resistance NOT PREDICTED; HIV-1 Elvitegravir Resistance NOT PREDICTED; Raltegravir Resistance NOT PREDICTED; Value of Last HIV Viral Load NG copies/mL
== END 2025-10-08 10:48 | disposition home or self-care (01) ==
LOC: HO.HHCL 10:47
PROVIDERS: PCP Student in an Organized Health Care Education/Training Program; Visit Provider Student in an Organized Health Care Education/Training Program
DX: B20 Human immunodeficiency virus [HIV] disease (principal)
CPT/HCPCS: 36415; 80053; 85025; 87536; 87900; 87901; 87906